=== PATIENT | male | born 1965 | race Caucasian/White ===

== ENCOUNTER → 2019-03-17 12:01 | Outpatient (CLI) | payer BC, SELFPAY ==
--- NOTE | 2019-03-17 12:15 | XR_ITS ---
XR chest 2V HISTORY: ITS.REASON: COUGH ORDERING PHYSICIAN: Filemon Alvarez MD PATIENT AGE: 53 years COMPARISON: None FINDINGS: The cardiomediastinal silhouette and pulmonary vascularity are within normal limits. The lungs are clear without infiltrates, suspicious nodules, or pleural effusions. There is evidence of old granulomatous disease. Degenerative changes are present in the thoracic spine No acute bony abnormalities. IMPRESSION: No acute finding
== END ==
PROVIDERS: PCP Family Medicine; Visit Provider Family Medicine
DX: R05 Cough (principal)
CPT/HCPCS: 71046

== ENCOUNTER → 2020-05-30 16:36 | Outpatient (CLI) | payer BC, SELFPAY ==
--- NOTE | 2020-05-30 16:57 | MR_ITS ---
PROCEDURE: MR CERVICAL SPINE WO CON CLINICAL INDICATION: LEFT FOREARM PAIN PAINFUL TO TURN NECK. PAIN, NUMBNESS, AND TINGLING DOWN LT ARM. SYMPTOMS X2YRS. NO INJURY. NO PRIOR. COMPARISON: No exams were available for comparison TECHNIQUE: Standard multiplanar multiecho sequences are performed without contrast. 3-D MIP and myelographic images are also rendered and reviewed FINDINGS: There is normal alignment. The craniocervical junction has an unremarkable appearance. C2-C3: Unremarkable. C3-C4: There is a small right paracentral/foraminal disc protrusion/disc osteophyte complex causing mild right lateral recess and foraminal narrowing. C4-C5: Unremarkable. C5-C6: Degenerative disc disease with bulging disc with small right and left paracentral and foraminal disc osteophyte complex/small disc protrusions. There is canal stenosis at this level at 9-10 mm with minimal contour deformity of the anterior aspect of the cord. C6-C7: Mild concentric bulging disc slightly eccentric to the left with a small left paracentral and foraminal disc osteophyte complex with canal stenosis of 9 mm the and minimal contour deformity of the left and anterior aspect of the cord. C7-T1: Unremarkable. T1-T2: Mild bulging disc. T2-T3: Mild bulging disc which abuts the anterior aspect of the cord only imaged in the sagittal plane.. IMPRESSION: 1. C3-C4: There is a small right paracentral/foraminal disc protrusion/disc osteophyte complex causing mild right lateral recess and foraminal narrowing. 2. C5-C6: Degenerative disc disease with bulging disc with small right and left paracentral and foraminal disc osteophyte complex/small disc protrusions. There is canal stenosis at this level at 9-10 mm with minimal contour deformity of the anterior aspect of the cord. 3. C6-C7: Mild concentric bulging disc slightly eccentric to the left with a small left paracentral and foraminal disc osteophyte complex with canal stenosis of 9 mm the and minimal contour deformity of the left and anterior aspect of the cord. 4. T2-T3: Mild bulging disc which abuts the anterior aspect of the cord only imaged in the sagittal plane.. Dictated by: Daniel Sandoval MD 06/01/2020 14:51 Daniel Sandoval MD in [place] 06/01/2020 14:51
== END ==
PROVIDERS: PCP Family Medicine; Visit Provider Family Medicine
DX: M79.632 Pain in left forearm (principal); G56.92 Unspecified mononeuropathy of left upper limb; M62.50 Muscle wasting and atrophy, not elsewhere classified, unspecified site; R94.131 Abnormal electromyogram [EMG]
CPT/HCPCS: 72141; 76376

== ENCOUNTER → 2020-07-01 10:57 | Outpatient (POV) | payer BC, SELFPAY ==
[2020-07-01 11:38] VITALS: BP 142/78; PULSE 85; RESP 18; TEMP 36.8; O2SAT 98; BMI 48.8
--- NOTE | 2020-07-01 15:43 | HMH.PMCON ---
Assessment and Plan (1) Degenerative disc disease, cervical Status: Chronic Category: Medical Code(s): M50.30 - Other cervical disc degeneration, unspecified cervical region (2) Cervical radiculopathy Status: Chronic Category: Medical Code(s): M54.12 - Radiculopathy, cervical region - Assessment and plan all Dx Assessment and Plan for all problems:: I discussed cervical epidural steroid injections with the patient. He would like to hold off on this. Patient would like a surgical consultation prior to any interventional treatment. Patient and I discussed his options in regard to this. He would like to be sent to [facility] neurosurgery. Patient does have an updated MRI. I did explain to him he would need to get the disc to take to the [place] office. Patient is unsure if his physical therapy has been scheduled I will ensure that this happens prior to him leaving today. Patient will follow up after he is seen by his neurosurgeon. Dr. Polanco has reviewed this note and agrees with this plan of care. This note was dictated using voice recognition software and may contain errors or omissions HPI - Data of Consult Patient: new to practice Consult date: 07/01/20 Requesting Physician: Avis Long APRN Primary Care Provider: Filemon Alvarez MD - Consult Narrative Reason for consult: Neck pain, arm pain History of present illness: Mr. Weiss is a 54 year old male who presents today for consultation regards to his neck and arm pain. He rates his pain today a 7 out of 10. Patient has neck pain radiating into his right shoulder. Patient has a updated MRI showing stenosis. Patient has been ordered physical therapy however he has not started it. Patient is tried anti-inflammatories with no success. Patient states that increased use increases his pain while heat and ice decreases pain. Patient is interested in potentially seeing a neurosurgeon. Patient states that his was seen by the [facility] neurosurgeons and they did surgery on her neck. CC: Avis Long APRN [facility] History I have reviewed the patient's past medical history: Yes Medical History: Reports:: Hypertension Denies:: Cancer, Diabetes Mellitus Type 2, MRSA *Have you ever received a pneumonia vaccine?: Yes *Have you received a flu vaccine this season?: Yes Laterality Cases: Right: Arthroscopy Shoulder Amputation: No Fractures: No - *Social History Smoking Status: Never smoker Alcohol Intake: never *Occupational Status:: other Housing: house Household Members: other *Travel in the last 8 weeks: None Family Hx:: Unable to obtain Review of Systems - Review of Systems ROS General: no recent weight change, no fever, no sleep disturbances Respiratory: no cough, no shortness of air, no recurring pulmonary infections Cardiovascular/Peripheral Vascular: No chest pain, No palpitations, no edema, no shortness of breath. Gastrointestinal: no new onset incontinence, normal bowel movements reported Genitourinary: no new onset incontinence Musculoskeletal: Neck pain, shoulder pain, arm pain Psychiatric: normal mood/ affect, Neurological: Weakness in left upper extremity, [denies new onset balance issues] Objective Vital signs: Temp Pulse Resp BP Pulse Ox 98.2 F 85 18 142/78 H 98 07/01/20 11:38 07/01/20 11:38 07/01/20 11:38 07/01/20 11:38 07/01/20 11:38 Narrative: Physical Exam General: Alert and oriented x3, no acute distress, pleasant and cooperative, [on room air] Lungs: Resps E/U, Symmetrical chest expansion, Eyes: PERRL Musculoskeletal: Flexion and extension of cervical spine somewhat guarded secondary to pain, deep tendon reflexes normal, strength in upper and lower extremities [5/5], slightly antalgic gait noted Neurological: speech clear, right economic development director greater than left economic development director, no gross sensory deficits Opioid Risk Tool - Opioid Risk Tool-Male Family hx alcohol abuse
== END ==
PROVIDERS: PCP Family Medicine; Visit Provider Clinical Nurse Specialist Family Health
DX: M50.10 Cervical disc disorder with radiculopathy, unspecified cervical region (principal)
CPT/HCPCS: 99202

== ENCOUNTER 2020-09-03 09:00 | Outpatient (RCR) | payer BC, SELFPAY ==
--- NOTE | 2020-08-21 18:13 | HMH.RHREAS ---
Rehab Reassessment Rehab OP Re-assessment Start: 08/21/20 18:05 Freq: Status: Active Protocol: Document 08/21/20 18:05 DRU (Rec: 08/21/20 18:12 DRU [id number]) Electronically Signed By Jossue Dominique, PT 08/21/20 18:05 Rehab Re-assessment Subjective Subjective Patient reports 50% improvement since start of care. I still have numbness in both hands, but it's not the whole hand anymore. Objective Objective Notes Cervical AROM: flx 54; ext 40; SBr 36; STl 32; Rr 48; Rl 52 MMT: WNL Neuro: dec sensation C6/C7 dermatomes B Pain: 3 currently; 3 at worst; 3 at best Special tests: + spurlings B Assessment Progress Assessment Progressing as Expected Assessment Notes Significant objective improvements as noted above compared to initial evaluation . Patient continues to have significantly decreased, but persistent radicular symptoms and pain. Patient has purchased a home cervical traction unit which he uses daily. Functional limitations with prolonged gripping and lifting activities persist. Patient goals met All except LTG 8 Goals Not Met LTG 8 Revised Goals NA Plan Plan Continue with current POC. Frequency of Therapy 2x/week Duration of therapy 3 weeks Time and Billing Re-Eval Time 15 Re-Eval Billing Units 1 PHYSICIAN CERTIFICATION: I certify the specified therapy services for Joel Weiss are required, authorized, and reviewed every 30 days.
== END 2020-09-03 09:05 | disposition home or self-care (01) ==
LOC: PT 09:00
PROVIDERS: PCP Family Medicine; Visit Provider Clinical Nurse Specialist Family Health
DX: M79.662 Pain in left lower leg; M79.661 Pain in right lower leg; M54.5 Low back pain
CPT/HCPCS: 97010; 97012; 97014; 97110; 97163; 97164; G0283

== ENCOUNTER → 2020-12-12 08:15 | Outpatient (CLI) | payer BC, SELFPAY ==
--- NOTE | 2020-12-12 08:34 | XR_ITS ---
PROCEDURE: XR CHEST PORTABLE CLINICAL HISTORY: COVID TESTING COMPARISON: No exams were available for comparison FINDINGS: The cardiomediastinal silhouette and pulmonary vascularity are within normal limits. The lungs are clear without infiltrates, suspicious nodules, or pleural effusions. Calcified lymph node in the left suprahilar region. ACDF of the lower cervical spine is partially visualized. IMPRESSION: No acute findings. Dictated by: Kelli Arambula 12/12/2020 13:20 Kelli Arambula in [place] 12/12/2020 13:20
[2020-12-12 09:05] LABS: Basophils # 0.1 K/mm3 (0-0.2); Basophils % 0.7 % (0.1-2.0); Eosinophils # 0.1 K/mm3 (0.0-0.4); Eosinophils % 1.2 % (0.1-12.0); Hematocrit 48.9 % (42.0-52.0); Hemoglobin 15.2 g/dL (14.1-18.0); Lymphocytes # 2.4 K/mm3 (0.7-4.5); Lymphocytes % 31.6 % (10-50); Mean Corpuscular HGB Conc 31.2 g/dL (31.8-35.4); Mean Corpuscular Hemoglobin 29.4 pg (27.0-31.2); Mean Corpuscular Volume 94.2 fl (80-94); Monocytes # 0.5 K/mm3 (0.1-1.0); Monocytes % 6.3 % (1.7-9.3); Neutrophils # 4.6 K/mm3 (1.8-7.8); Neutrophils % 60.2 % (37.0-80.0); Platelet Count 201 K/mm3 (142-424); Red Blood Count 5.19 M/mm3 (4.60-6.20); Red Cell Distribution Width 13.2 % (11.5-17.5); White Blood Count 7.6 K/mm3 (4.8-10.8)
== END ==
PROVIDERS: PCP Family Medicine; Visit Provider Family Medicine
DX: Z20.822 Contact with and (suspected) exposure to COVID-19 (principal)
CPT/HCPCS: 36415; 71045; 85025

== ENCOUNTER 2021-08-03 07:52 | Outpatient (CLI) | payer BC, SELFPAY ==
[2021-08-03] VITALS (8 sets, daily range): BP systolic 104–124; BP diastolic 50–70; PULSE 53–59; RESP 20–22; TEMP 37.1; O2SAT 93–97
== END 2021-08-03 10:35 | disposition home or self-care (01) ==
LOC: INF 07:53
PROVIDERS: PCP Family Medicine; Visit Provider Family Medicine
DX: U07.1 COVID-19 (principal); Z23 Encounter for immunization
CPT/HCPCS: 96365

== ENCOUNTER → 2021-08-22 11:59 | Outpatient (CLI) | payer BC, SELFPAY ==
--- NOTE | 2021-08-22 12:01 | XR_ITS ---
PROCEDURE: XR CHEST PORTABLE CLINICAL HISTORY: COVID OUTPATIENT COMPARISON: CR XR CHEST PORTABLE from 12/12/2020 FINDINGS: The cardiomediastinal silhouette and pulmonary vascularity are within normal limits. The lungs are clear without infiltrates, suspicious nodules, or pleural effusions. No acute bony abnormalities. Bone plate is present along lower cervical spine. IMPRESSION: No acute findings. Dictated by: Daniel Sandoval MD 08/22/2021 12:39 Daniel Sandoval MD in [place] 08/22/2021 12:39
[2021-08-22 13:24] LABS: Adenovirus,PCR Not Detected (NotDetected); Coronavirus 19, PCR Not Detected (NotDetected); Coronavirus 229E Not Detected (NotDetected); Coronavirus NL63 Not Detected (NotDetected); Coronavirus OC43 Not Detected (NotDetected); Coronovirus HKU1,PCR Not Detected (NotDetected); Human Metapneumovirus Not Detected (NotDetected); Influenza A, PCR Not Detected (NotDetected); Influenza AH1, 2009 Not Detected (NotDetected); Influenza AH1, PCR Not Detected (NotDetected); Influenza AH3,PCR Not Detected (NotDetected); Influenza B, PCR Not Detected (NotDetected); Parainfluenza 1, PCR Not Detected (NotDetected); Parainfluenza 2, PCR Not Detected (NotDetected); Parainfluenza 3, PCR Not Detected (NotDetected); Parainfluenza 4, PCR Not Detected (NotDetected); Respiratory Syncytial Virus Not Detected (NotDetected); Rhinovirus/Enterovirus Not Detected (NotDetected)
[2021-08-22 13:25] LABS: Bordetella Pertussis Not Detected (NotDetected); Chlamydophila Pneumoniae, PCR Not Detected (NotDetected); Mycoplasma Pneumoniae, PCR Not Detected (NotDetected)
[2021-08-22 13:40] LABS: Basophils % 0.6 % (0.1-2.0); Eosinophils # 0.1 K/mm3 (0.0-0.4); Hematocrit 43.6 % (42.0-52.0); Hemoglobin 14.5 g/dL (14.1-18.0); Lymphocytes # 1.5 K/mm3 (0.7-4.5); Lymphocytes % 27.7 % (10-50); Mean Corpuscular HGB Conc 33.2 g/dL (31.8-35.4); Mean Corpuscular Hemoglobin 30.3 pg (27.0-31.2); Mean Corpuscular Volume 91.1 fl (80-94); Mean Platelet Volume 8.2 fl (7.4-10.4); Monocytes # 0.4 K/mm3 (0.1-1.0); Monocytes % 6.6 % (1.7-9.3); Neutrophils # 3.5 K/mm3 (1.8-7.8); Neutrophils % 63.1 % (37.0-80.0); Platelet Count 228 K/mm3 (142-424); Red Blood Count 4.79 M/mm3 (4.60-6.20); Red Cell Distribution Width 12.8 % (11.5-17.5); White Blood Count 5.5 K/mm3 (4.8-10.8)
== END ==
PROVIDERS: PCP Family Medicine; Visit Provider Family Medicine
DX: Z20.822 Contact with and (suspected) exposure to COVID-19 (principal)
CPT/HCPCS: 36415; 71045; 85025; 87581; 87632; 87798; C9803; U0003; U0005

== ENCOUNTER 2022-04-30 16:46 | Emergency (ER) | payer BC, SELFPAY ==
[2022-04-30 17:29] VITALS: BP 130/69; PULSE 63; RESP 19; O2SAT 97; BMI 48.9
--- NOTE | 2022-04-30 17:55 | HMH.EDUTC ---
[facility] [place] Impression: COVID-19 Disposition: Home, Self-Care Condition on Discharge: Good Instructions: Preventing the Spread of Coronavirus Discharge Instructions, DI for COVID-19 (Suspected or Confirmed ) Additional Instructions: Drink plenty of fluids. Take tylenol or ibuprofen for pain or fever. Take the medications as directed. Follow up with your regular doctor. GO TO THE ER FOR ANY WORSENING SYMPTOMS Prescriptions: Ondansetron [Zofran 4mg ODT] 4 mg PO Q8HP PRN #12 tab PRN Reason: Nausea Transmission Status: Pending to [id number] dexAMETHasone [Decadron] 6 mg PO DAILY 6 Days #6 tab Transmission Status: Pending to [facility]/pharmacy #[id number] Nirmatrelvir/Ritonavir [Paxlovid 2X150 mg-100 mg (Eua)] 1 packet PO DIRECTED 5 Days #1 packet Transmission Status: Pending to [facility]/pharmacy #[id number] Referrals: Filemon Alvarez MD [Primary Care Provider] - Time of Disposition: 18:18 Medical Decision Making - Medical Records Medical records reviewed: No: I reviewed the patient's medical records. - [place]avez Inquiry Pt receiving controlled substance: No Vital Signs: 04/30/22 17:29 04/30/22 18:04 Temperature 98.7 F Temperature Source Oral Pulse Rate [Left Radial] 63 60 Respiratory Rate 19 20 Blood Pressure [Right Arm] 130/69 130/69 Blood Pressure Mean [Right Arm] 89 89 02 Sat by Pulse Oximetry 97 95 Oxygen Delivery Method Room Air [facility] [place] - General Stated complaint: covid+,PACKER congestion vomiting Time Seen by Provider: 04/30/22 17:55 Mode of Arrival: Ambulatory Source of Information: Patient Limitations: No Limitations Description of Symptoms (Recalled from Triage Doc. by RN): pt states he tested covid+ yesterday and states he has a headache and body aches. pt denies shortness of breath. pt denies chest pain. - History of Present Illness Provider Complaint: He tested + for covid-19 yesterday. He came in today to see about getting paxlovid prescribed. He had covid-19 about 1 year ago and he got pretty sick with it. He did not get intubated but he had a lot of trouble breathing then. - Related Data Previous Rx's Medication Instructions Recorded Nirmatrelvir/Ritonavir [Paxlovid 1 packet PO DIRECTED 5 Days #1 04/30/22 2X150 mg-100 mg (Eua)] packet Ondansetron [Zofran 4mg ODT] 4 mg PO Q8HP PRN #12 tab 04/30/22 dexAMETHasone [Decadron] 6 mg PO DAILY 6 Days #6 tab 04/30/22 Allergies Allergy/AdvReac Type Severity Reaction Status Date / Time No Known Allergies Allergy Verified 08/03/21 10:09 [facility] History - Hepatitis A Screen Attestation statement:: This patient has been screened for Hepatitis A risk factors. I have reviewed the patient's past medical history: Yes Medical History: Reports:: Hypertension Denies:: Cancer, Diabetes Mellitus Type 2, MRSA Laterality Cases: Right: Arthroscopy Shoulder Amputation: No Fractures: No - Social History Smoking Status: Never smoker Alcohol Intake: never Occupational Status: other Housing: house Household Members: other Family Hx:: Unable to obtain ROS Obtained: Yes All systems reviewed & no additional complaints - Constitutional Constitutional: Reports as per HPI - Eyes Eyes: Denies eye discharge - ENT Ears, Nose, Mouth, and Throat: Reports as per HPI - Cardiovascular Cardiovascular: Denies chest pain - Respiratory Respiratory: Denies chest congestion, Reports cough, Denies dyspnea, Denies stridor, Denies wheezing Physical Exam - General General appearance: alert, in no apparent distress - Head Head exam: atraumatic, normocephalic, normal inspection - Eye Eye exam: Present: normal appearance, PERRL, EOMI - ENT ENT exam: Present: normal exam, normal oropharynx, mucous membranes moist, TM's normal bilaterally, normal external ear exam - Neck Neck exam: Present: normal inspection, full ROM, trachea midline. Absent: meningismus, lymphadenopathy - Chest Chest inspection: P
[2022-04-30 18:04] VITALS: BP 130/69; PULSE 60; RESP 20; TEMP 37.1; O2SAT 95; BMI 48.9
[2022-04-30 18:32] VITALS: BP 130/69; PULSE 60; RESP 20; TEMP 37.1
== END 2022-04-30 18:32 | disposition home or self-care (01) ==
PROVIDERS: Emergency Provider Nurse Practitioner Family; PCP Family Medicine
DX: U07.1 COVID-19 (principal); R51.9 Headache, unspecified; I10 Essential (primary) hypertension; M79.10 Myalgia, unspecified site
CPT/HCPCS: 99213; C9803; G0463; U0003; U0005

== ENCOUNTER 2022-05-24 11:18 | Emergency (ER) | payer BC, SELFPAY ==
[2022-05-24 11:25] VITALS: BP 138/78; PULSE 67; RESP 18; TEMP 36.8; O2SAT 95; BMI 47.5
--- NOTE | 2022-05-24 11:28 | HMH.EDGENADL ---
Discharge Plan Disposition Patient Disposition: Home, Self-Care Condition: Good Prescriptions Prescriptions: New dicyclomine 20 mg tablet 20 mg PO TID PRN (Reason: cramps) Qty: 14 0RF No Action ondansetron 4 MG tablet,disintegrating 4 mg PO Q8HP PRN (Reason: Nausea) Qty: 12 0RF dexamethasone 6 MG tablet 6 mg PO DAILY 6 Days Qty: 6 0RF nirmatrelvir-ritonavir 1 EACH tablet 1 packet PO DIRECTED 5 Days Qty: 1 0RF Referrals Follow up/Referrals: Filemon Alvarez MD [Primary Care Provider] - See instructions Activity Restrictions/Add. Instructions Additional Instructions/Restrictions: You have been evaluated for abdominal pain. This is likely due to inflammation, colitis. Please follow a bland diet. Try a food elimination diet where you do not eat lactose for 1 week. Then no gluten for 1 week. See if this helps your symptoms. Follow-up with your primary care doctor in 1 to 2 days for symptom recheck. Return to the emergency department at once for any new or worsening symptoms, pain, vomiting, fevers, any other concerns. Clinical Impressions Clinical Impression: Abdominal pain Qualifiers: Abdominal location: left lower quadrant Qualified Code(s): R10.32 - Left lower quadrant pain Stand Alone Forms Stand Alone Forms: Work/School Release Discharge ED Provider: Aleta Conley Adult HPI General Chief complaint: PAIN Stated complaint: Left side pain Time Seen by Provider: 05/24/22 11:28 Mode of Arrival: Ambulatory Source of Information: Patient Limitations: No Limitations History of Present Illness HPI narrative: 56-year-old male presenting to the emergency department abdominal pain. Pain has been on and off for the last few days, worse overnight and this morning. It is located on the left side of the mid abdomen. Described as a pressure pain, feels like a bruise or like he was punched. Has been constant since onset. He has had loose stools over the last few days, denies blood or mucus. No fevers, chills, nausea, vomiting. No dysuria, hematuria, hx of kidney stone. He is able to eat and drink without pain or difficulty. No medications prior to arrival. He had a colonoscopy a couple of years ago, was not told of any abnormalities. Denies history of diverticulosis, diverticulitis. No prior abdominal surgeries. Related Data Previous Rx's Medication Instructions Recorded dexamethasone 6 mg tablet 6 mg PO DAILY 6 days #6 tabs 04/30/22 nirmatrelvir 300 mg (150 mg 1 packet PO DIRECTED 5 days #1 04/30/22 x2)-ritonavir 100 mg tablet,dose packet pack(EUA) ondansetron 4 mg disintegrating 4 mg PO Q8HP PRN Nausea #12 tabs 04/30/22 tablet dicyclomine 20 mg tablet 20 mg PO TID PRN cramps #14 tabs 05/24/22 Allergies Allergy/AdvReac Type Severity Reaction Status Date / Time No Known Allergies Allergy Verified 08/03/21 10:09 [facility] Social History Smoking Status: Never smoker alcohol intake: never current occupational status: other Travel in the last 8 weeks: None household members: other housing: house current occupational exposures/hazards: No ROS Obtained: Yes All systems reviewed & no additional complaints except as documented Constitutional Constitutional: Denies anorexia, Denies chills, Denies fever(s) and Denies headache(s) ENT Ears, Nose, Mouth, and Throat: Denies headache(s) and Denies sore throat Cardiovascular Cardiovascular: Denies chest pain and Denies palpitations Respiratory Respiratory: Denies shortness of breath and Denies cough Gastrointestinal Gastrointestingal: Reports abdominal pain; Denies bloating, constipation, cramping, diarrhea, nausea or vomiting Genitourinary Male Genitourinary: Denies flank pain and Denies hematuria Integumentary/Breasts Skin/Breast: Denies jaundice and Denies rash Neurologic Neurologic: Denies headache(s) Endocrine Endocrine: Denies palpitations Physical Exam General General appearance: in no appa
--- NOTE | 2022-05-24 11:39 | CT_ITS ---
PROCEDURE INFORMATION: Exam: CT Abdomen And Pelvis With Contrast Exam date and time: 05/24/2022 12:15 PM Age: 56 years old Clinical indication: Abdominal pain; Generalized TECHNIQUE: Imaging protocol: Computed tomography of the abdomen and pelvis with contrast. Radiation optimization: All CT scans at this facility use at least one of these dose optimization techniques: automated exposure control; mA and/or kV adjustment per patient size (includes targeted exams where dose is matched to clinical indication); or iterative reconstruction. Contrast material: ISOVUE; Contrast volume: 75 ml; Contrast route: IV; COMPARISON: CR XR CHEST PORTABLE 08/22/2021 12:24 PM FINDINGS: Liver: Normal. No mass. Gallbladder and bile ducts: Normal. No calcified stones. No ductal dilation. Pancreas: There is mild stranding about the head of the pancreas. No pancreatic ductal dilation. No fluid collections. Spleen: Normal. No splenomegaly. Adrenal glands: Normal. No mass. Kidneys and ureters: Normal. No hydronephrosis. Stomach and bowel: Unremarkable. No obstruction. No mucosal thickening. Appendix: No evidence of appendicitis. Intraperitoneal space: Unremarkable. No free air. No significant fluid collection. Vasculature: Unremarkable. No abdominal aortic aneurysm. Lymph nodes: Unremarkable. No enlarged lymph nodes. Urinary bladder: Unremarkable as visualized. Reproductive: Unremarkable as visualized. Bones/joints: Unremarkable. No acute fracture. Soft tissues: Small fat containing umbilical hernia. Other findings: Evidence of prior embolization of a left varicocele. IMPRESSION: Mild stranding about the head of the pancreas, which could be seen with mild interstitial pancreatitis.
[2022-05-24 11:48] LABS: Microscopic, Urine URINE MICROSCOPIC (MICROSCOPIC)
[2022-05-24 11:50] LABS: Basophils # 0.1 K/mm3 (0-0.2); Basophils % 0.9 % (0.1-2.0); Eosinophils # 0.2 K/mm3 (0.0-0.4); Eosinophils % 2.3 % (0.1-12.0); Hematocrit 47.1 % (42.0-52.0); Hemoglobin 15.4 g/dL (14.1-18.0); Lymphocytes # 2.2 K/mm3 (0.7-4.5); Lymphocytes % 34.5 % (10-50); Mean Corpuscular HGB Conc 32.7 g/dL (31.8-35.4); Mean Corpuscular Hemoglobin 30.3 pg (27.0-31.2); Mean Corpuscular Volume 92.7 fl (80-94); Mean Platelet Volume 8.3 fl (7.4-10.4); Monocytes # 0.4 K/mm3 (0.1-1.0); Monocytes % 6.1 % (1.7-9.3); Neutrophils # 3.5 K/mm3 (1.8-7.8); Neutrophils % 56.1 % (37.0-80.0); Platelet Count 153 K/mm3 (142-424); Red Blood Count 5.08 M/mm3 (4.60-6.20); Red Cell Distribution Width 13.3 % (11.5-17.5); White Blood Count 6.3 K/mm3 (4.8-10.8)
[2022-05-24 11:51] LABS: Appearance,Urine CLEAR (Clear); Bilirubin,Urine Negative (Negative); Blood, Urine Negative (Negative); Color,Urine YELLOW (Yellow); Glucose,Urine (UA) Negative (Negative); Ketones,Urine Negative (Negative); Leukocyte Esterase,Urine Negative (Negative); Nitrate,Urine Negative (Negative); PH,Urine 5.5 (5.0-8.5); Protein,Urine Negative (Negative); Specific Gravity, Urine >= 1.030 (1.005-1.030); Urobilinogen,Urine 0.2 EU/dl (0.2)
[2022-05-24 11:54] LABS: Chloride 109 mmol/L (98-107); Potassium 3.9 mmoL/L (3.5-5.1); Sodium 139 mmol/L (136-145)
[2022-05-24 11:56] LABS: Alanine Aminotransferase 49 U/L (12-78); Aspartate Amino Transferase 39 U/L (17-59); Blood Urea Nitrogen 20 mg/dl (9-20); Estimated Glomerular Filt Rate 63 ml/min (>60); GFR (African American) 76 ML/MIN (>60)
[2022-05-24 11:57] LABS: Albumin Level 4.2 g/dl (3.5-5.0); Albumin/Globulin Ratio 1.4 (1.1-1.8); Alkaline Phosphatase 77 U/L (38-126); Anion Gap 11.9 mEq/L (5-15); Bilirubin,Total 0.5 mg/dl (0.2-1.3); Carbon Dioxide 22 mmol/L (22.0-30.0); Glucose 139 mg/dl (74-100); Lipase 247 U/L (23-300); Total Protein,Serum 7.2 g/dl (6.3-8.2)
[2022-05-24 12:09] LABS: Bacteria,Urine Trace /lpf; Mucus,Urine Trace /lpf; Squamous Epithelial Cell,Urine Occasional #/hpf (0-5); WBC,Urine Occasional #/hpf (0-3)
--- NOTE | 2022-05-24 12:15 | PC.NURSE ---
pt to CT
[2022-05-24 12:45] VITALS: BP 112/67; PULSE 55; RESP 16; O2SAT 95
[2022-05-24 14:05] LABS: C-Reactive Protein 3.2 mg/L (0-4)
[2022-05-24 14:06] VITALS: BP 120/85; PULSE 64; RESP 18; TEMP 36.8; O2SAT 98
== END 2022-05-24 14:09 | disposition home or self-care (01) ==
PROVIDERS: Emergency Provider Emergency Medicine; PCP Family Medicine
DX: R10.9 Unspecified abdominal pain (principal)
CPT/HCPCS: 74177; 80053; 81001; 83690; 85025; 86140; 96374; 99284; Q9967

== ENCOUNTER → 2022-12-15 09:55 | Outpatient (CLI) | payer BC, SELFPAY ==
--- NOTE | 2022-12-15 10:08 | XR_ITS ---
FINAL REPORT CLINICAL HISTORY: b/l foot and ankle pain FINDINGS: RIGHT ANKLE Three views of the right ankle were obtained. There is no acute fracture or dislocation. There are hypertrophic changes along the dorsal aspect of the talonavicular joint. There is mild Heide's deformity. There is a tiny calcaneal spur. There is no soft tissue abnormality. IMPRESSION: Hypertrophic changes along the dorsal aspect of the talonavicular joint. Mild Heide's deformity. No acute bony abnormality. Reviewed, Interpreted and Dictated by Kevin Cartagena MD Transcribed by Karlie Driscoll Authenticated and [facility]
--- NOTE | 2022-12-15 10:08 | XR_ITS ---
FINAL REPORT CLINICAL HISTORY: b/l foot and ankle pain FINDINGS: RIGHT FOOT Three views of the right foot demonstrate no acute fracture or dislocation. There are hypertrophic changes along the dorsal aspect of the talonavicular joint. There is a tiny plantar spur. The soft tissues are unremarkable. IMPRESSION: Hypertrophic changes along the dorsal aspect of the talonavicular joint. No acute bony abnormality. Reviewed, Interpreted and Dictated by Kevin Cartagena MD Transcribed by Karlie Driscoll Authenticated and [facility]
--- NOTE | 2022-12-15 10:08 | XR_ITS ---
FINAL REPORT CLINICAL HISTORY: b/l foot and ankle pain FINDINGS: LEFT ANKLE Three views of the left ankle were obtained. There is no acute fracture or dislocation. The joint spaces and mortise are intact. There is a small plantar calcaneal spur. There is no soft tissue abnormality. IMPRESSION: No acute bony abnormality. Reviewed, Interpreted and Dictated by Kevin Cartagena MD Transcribed by Karlie Driscoll Authenticated and [facility]
--- NOTE | 2022-12-15 10:08 | XR_ITS ---
FINAL REPORT CLINICAL HISTORY: b/l foot and ankle pain FINDINGS: LEFT FOOT Three views of the left foot demonstrate no acute fracture or dislocation. There is mild narrowing of the 1st MTP joint. There is a small plantar calcaneal spur. The soft tissues are unremarkable. IMPRESSION: Mild narrowing of the 1st MTP joint. No acute bony abnormality. Reviewed, Interpreted and Dictated by Kevin Cartagena MD Transcribed by Karlie Driscoll Authenticated and [facility]
== END ==
PROVIDERS: PCP Family Medicine; Visit Provider Nurse Practitioner Family
DX: M25.572 Pain in left ankle and joints of left foot (principal); M79.672 Pain in left foot; M25.571 Pain in right ankle and joints of right foot; M79.671 Pain in right foot
CPT/HCPCS: 73610; 73630

== ENCOUNTER → 2023-01-25 14:07 | Outpatient (CLI) | payer BC, SELFPAY ==
--- NOTE | 2023-01-25 14:08 | CT_ITS ---
FINAL REPORT CLINICAL HISTORY: foot pain FINDINGS: CT RIGHT FOOT WITHOUT CONTRAST Technique: Axial images through the right foot were performed by computed tomography. Sagittal and coronal reconstruction images were performed. This study was performed with techniques to keep radiation doses as low as reasonably achievable (ALARA). Individualized dose reduction techniques using automated exposure control or adjustment of mA and/or kV according to the patient's size were employed. No acute fracture is identified. No dislocation identified. There are mild degenerative changes. There is deformity of the anterior process of the calcaneus of uncertain significance that could represent sequela of prior fracture. There is a small posterior calcaneal spur. IMPRESSION: Mild degenerative change. Reviewed, Interpreted and Dictated by Buster Fernandez III, MD Transcribed by Sesar Thomas Authenticated and [facility]
--- NOTE | 2023-01-25 14:08 | CT_ITS ---
FINAL REPORT CLINICAL HISTORY: ankle pain, hx of old fx, pain since FINDINGS: CT RIGHT ANKLEWITHOUT CONTRAST Technique: Axial images through the right ankle were performed by computed tomography. Sagittal and coronal reconstruction images were performed. This study was performed with techniques to keep radiation doses as low as reasonably achievable (ALARA). Individualized dose reduction techniques using automated exposure control or adjustment of mA and/or kV according to the patient's size were employed. No acute fracture is identified. No dislocation identified. There are mild degenerative changes. There is deformity of the anterior process of the calcaneus of uncertain significance that could represent sequela of prior fracture. There is a small posterior calcaneal spur. IMPRESSION: Mild degenerative change. Reviewed, Interpreted and Dictated by Buster Fernandez III, MD Transcribed by Sesar Thomas Authenticated and [facility]
== END ==
PROVIDERS: PCP Family Medicine; Visit Provider Podiatrist
DX: M25.371 Other instability, right ankle (principal); M79.671 Pain in right foot; M89.8X7 Other specified disorders of bone, ankle and foot
CPT/HCPCS: 73700

== ENCOUNTER → 2023-09-10 11:35 | Outpatient (CLI) | payer OTHER, SELFPAY ==
--- NOTE | 2023-09-10 11:41 | XR_ITS ---
FINAL REPORT CLINICAL HISTORY: RT SIDE LOW BACK PAIN W/SCIATICA FINDINGS: LUMBAR SPINE Six views demonstrate no acute fracture. There is significant disc space narrowing at L5-S1 with vacuum disc phenomenon and endplate hypertrophy. There is moderate loss of height at L4-5 1. The facets are properly aligned. There are multiple embolization coils in the left abdomen/pelvis, probably in the left gonadal vein. There is no malalignment. IMPRESSION: Degenerative changes as detailed above. Reviewed, Interpreted and Dictated by Kevin Cartagena MD Transcribed by Chrissie Tavares Authenticated and [facility]
== END ==
LOC: RAD 11:36
PROVIDERS: PCP Family Medicine; Visit Provider Family Medicine
DX: M54.41 Lumbago with sciatica, right side (principal); R29.898 Other symptoms and signs involving the musculoskeletal system
CPT/HCPCS: 72110

== ENCOUNTER 2023-10-04 08:00 | Outpatient (RCR) | payer OTHER, SELFPAY ==
--- NOTE | 2023-09-14 10:25 | HMH.PTOPEV ---
PT Outpatient Evaluation Rehab PT Outpatient Evaluation Start: 09/14/23 09:42 Freq: Status: Active Protocol: Document 09/14/23 10:08 JAYLENECAMPOS (Rec: 09/14/23 10:23 DRU [id number]) E-signed By Jossue Dominique, PT Outpatient Therapy Subjective History Subjective History Patient is a 58 year old male presenting to outpatient PT with reports of acute LBP with no reports of radicular symptoms. Initial injury occurred 08/18/23 while bending /lifting/twisting picking up a laundry basket. Symptoms specific to R QL mm. Special tests indicate R upslip of the innominant. Most recent imaging indicates multilevel DDD specific to L4/5, L5/S1 segments. Comorbidities include hx of HTN, diabetes and elevated BMI. New diagnosis of cancer in past 12 No months? Chief Complaint Pain,Spasms,Stiff Symptom Type Shooting Symptoms Relieved By Heat,Prescription Meds Symptoms Aggravated By Standing,Bending/Stooping, Physical Activity,Walking, Lifting Prior Functional Limitations None Current Functional Limitations Lifting,Housework,Sleeping, Standing,Sitting,Walking, Bending/Stooping Symptom Description Constant but Variable Level of pain today (0-10) 4 Pain scale - at its best (0-10) 2 Pain scale - at its worst (0-10) 9 Lumbopelvic Eval Posture Thoracic Spine Posture Standing Position Increased Kyphosis Lumbar Spine Posture Standing Position Decreased Lordosis Assistive device Assistive Devices None / NA Palapation tenderness right Lumbar/Sacral Palpation Findings Tenderness Lumbar/Sacral Palpation Overall Comment R QL mm 2/4 Accessory Movement L4 bilateral L5 bilateral S1 bilateral Range of Motion Lumbar Spine Active Flexion Range of 61 Motion (degrees) Lumbar Spine Active Extension Range of 21 Motion (degrees) Left Lumbar Spine Lateral Flexion Active 14 Range of Motion (degrees) Right Lumbar Spine Lateral Flexion 9 Active Range of Motion (degrees) Lumbar Spine ROM Limitations Soft Tissue Tightness,Bony Restriction Manual Muscle Test Right Knee Extension Strength Grade 5 Normal Knee Flexion Strength Grade 5 Normal Hip Flexion Strength Grade 4- Good- Extensor Hallucis Longus Strength Grade 5 Normal Ankle Dorsiflexion Strength Grade 5 Normal Gastronemius/Soleus Strength Grade 5 Normal Special Tests Hip Clemente (GUERO) Test Positive Left,Positive Right Hip Talia Test Positive Left,Positive Right Hip Piriformis Test Positive Left,Positive Right Sciatic Nerve Tension Test Positive Left,Positive Right Maxx Test Positive Sacroiliac Joint Compression Test Negative Left,Positive Right Sacroiliac Joint Distraction Test Negative Left,Positive Right Lumbar [place] Distraction Test/Manual Positive Traction Oswestry Index Section 1 Pain Intensity The pain is severe and does not vary much Section 2 Personal Care (Washing,Dresing) increase the pain and I find it necessary to change my way of doing it Section 3 Lifting Pain prevents me from lifting weights off the floor Section 4 Walking I cannot walk more than 1/4 mile without increasing pain Section 5 Sitting Pain prevents me from sitting for more than one hour Section 6 Standing I cannot stand more than 10 minutes without increasing pain Section 7 Sleeping Because of my pain, my normal night's sleep is less than 4 hours Section 8 Social Life Pain has restricted my social life to my home Section 9 Traveling Pain restricts me to short necessary journeys under 30 minutes Section 10 Changing Degreee of Pain My pain is gradually getting worse Score and Risk Level Oswestry Sc 35 Oswestry Risk Level Completely Disabled Outpatient Therapy Assessment Impairments Problems/Impairmments Palpation Tenderness,Impaired Range of Motion,Impaired Strength,Impaired Endurance, Impaired Transfers,Impaired Walking,Impaired Standing, Impaired Sitting,Impaired Lifting,Impaired Household Care,Impaired Bending,Impaired Work Activities,Subjective C/ O Pain Prognosis Rehab Potential Good Clinical Impression Consistent with Diagnosis Yes Short Term Goals Number of Weeks 2 Decrease Subjective C/O Pain Yes: 5/10 at worst Patient to be Ind w/ HEP Yes [facility] Goals Number of Weeks 4-6 Decreased Palpation Tenderness Yes: 1/4 Increase Range of Motion Yes: WNL Increase Strength Yes: R HF 5/5 Increase Ability to Walk Yes: 30 min without difficulty Increase Ability to Stand Yes: Improve Ability For Household Care Yes Improve Oswestry Score Yes: mild disability Decrease Subjective C/O Pain Yes: 2/10 at worst Outpatient Therapy Plan of Care Treatment Plan May Include Therapeutic Exercise Including Home Yes Exercise Program Manual Therapy Techniques Yes Neuromuscular Re-education Yes Therapeutic Activities to Return to Yes Previous Functional/Work Level ADL/Self Care Education Yes Mechanical Traction Yes Dry Needling Yes Thermal Modalities Yes Electrical Stimulation Yes Ultrasound/Phonophoresis Yes Iontophoresis Yes Massage Yes Eval/Re-Eval Yes Frequency Times per week 2 Duration Number of Weeks 4-6 Addendums This patient is a candidate for social No or vocational rehab? Patient/Guardian verbally acknowledges Yes understanding of treatment program and consents to further treatment? Patient/Guardian verbally acknowledges Yes understanding of diagnosis, prognosis and goals for treatment? Eval Complexity PT Charges 50514 - Moderate Complexity Shoulder/Elbow Eval Shoulder Objective Measurements Elbow Objective Measurements PHYSICIAN CERTIFICATION: I certify the specified therapy services for Joel Weiss are required, authorized, and reviewed every 30 days.
== END 2023-10-04 09:00 | disposition home or self-care (01) ==
LOC: PT 08:00
PROVIDERS: PCP Family Medicine; Visit Provider Family Medicine
DX: M54.50 Low back pain, unspecified (principal)
CPT/HCPCS: 97010; 97014; 97110; 97163; 97530; G0283

== ENCOUNTER 2023-10-15 13:47 | Outpatient (CLI) | payer OTHER, SELFPAY ==
--- NOTE | 2023-10-15 13:51 | MR_ITS ---
FINAL REPORT TECHNIQUE: Multiplanar MR without gadolinium enhancement CLINICAL HISTORY: BILAT. LOW BACK PAIN, RIGHT LEG WEAKNESS, DDD COMPARISON: None FINDINGS: Sagittal images show normal vertebral height. Alignment is normal. There is fatty endplate signal change at the L4 level. There is a 12 mm hypointense lesion in the inferior endplate of L4, which appears lucent on a CT of the lumbar spine. This is nonspecific, but is benign in appearance. There is epidural lipomatosis in the lower lumbar spine. L1-2: There is no evidence of canal stenosis or neural foraminal narrowing. L2-3: A minimal annular bulge is present with mild facet arthropathy. L3-4: There is a small annular bulge with facet arthropathy, mildly compromising the thecal sac. L4-5: A mild annular bulge is present, with significant epidural lipomatosis present which produces compromise of the thecal sac. Mild bilateral neural foraminal narrowing is present as well. L5-S1: A moderate annular bulge is present with a central annular tear, with mild canal stenosis and lateral recess stenosis, and moderate bilateral neural foraminal narrowing. IMPRESSION: Epidural lipomatosis in the lower lumbar spine which leads to narrowing of the AP canal diameter particularly at the L3-4, L4-5, and L5-S1 levels. Reviewed, Interpreted and Dictated by Julia Mancilla MD Transcribed by Jennifer Velasquez Authenticated and [facility]
== END 2023-10-15 23:59 ==
LOC: RAD 13:47
PROVIDERS: PCP Family Medicine; Visit Provider Family Medicine
DX: M51.36 Other intervertebral disc degeneration, lumbar region (principal); M54.50 Low back pain, unspecified; R29.898 Other symptoms and signs involving the musculoskeletal system
CPT/HCPCS: 72148; 76376

== ENCOUNTER → 2023-10-29 13:58 | Outpatient (POV) | payer OTHER, SELFPAY ==
--- NOTE | 2023-10-29 14:06 | EXP.PAIN.OV ---
HPI Data of Consult Patient: new to practice Consult date: 10/29/23 Requesting Physician: Orly Soria APRN Primary Care Provider: Filemon Alvarez MD Consult Narrative Reason for consult: Low back pain, bilateral hip pain, right groin pain History of present illness: Mr. Weiss is a 58 year old male who presents today as a new patient. He is a referral from Dr. Alvarez's office. He does state his pain today is a 6 out of 10. Patient states his pain is all in his low back with radiating symptoms into primarily his right hip and groin however it is affecting his left hip as well. Patient does describe this as a dull achy sensation that is worse with increased activity or ambulation. Patient states this has been going on since August and progressively worsened. He states the pain does interfere with his ability perform activities of daily living such as cooking and cleaning. Patient does state that he felt like he just twisted wrong causing the worsening pain. 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 Patient denies any prior surgery or injection history. Patient did just complete his physical therapy last week however had no additional improvement. Patient has tried [id number] Tylenol and ibuprofen along with heat and ice and topicals with minimal relief. He is currently managed with gabapentin 300 mg twice a day and tizanidine as needed. His Chavez has been reviewed and is appropriate. CC: Orly Soria APRN [facility] Disclaimer: The information contained in this section may have been updated after the patient was seen, as this information can be updated by other users. Medical History (Updated 10/29/23 @ 15:12 by Orly Soria APRN) Depression Diabetes HTN (hypertension) Pain, joint, ankle and foot Family History (Updated 10/29/23 @ 14:49 by Lesley Alfaro RN) Other Unknown family medical history Social History (Updated 10/29/23 @ 14:50 by Lesley Alfaro RN) Smoking Status: Never smoker alcohol intake: never current occupational status: employed Travel in the last 8 weeks: None household members: other housing: house current occupational exposures/hazards: No Review of Systems Review of Systems Review of systems:: pertinent systems reviewed and negative unless documented below Review of systems (narrative): Review of Systems: General: No recent weight changes, no fever, no sleep disturbances Respiratory: No cough, no shortness of air, no recurring pulmonary infections Cardiovascular/peripheral vascular: No chest pain, no palpitations, no edema, no shortness of breath Gastrointestinal: No new onset incontinence, normal bowel movements reported Genitourinary: No new onset incontinence Musculoskeletal: Low back pain, bilateral hip pain, right groin pain Psychiatric: [Normal mood/affect] Neurological: [Denies weakness in extremities], [denies balance issues] Meds Home Medications and Allergies Home Medications Medication Instructions Recorded Confirmed Type albuterol sulfate 90 mcg/actuation 2 puff inhalation DIRECTED PRN 12/15/22 10/29/23 History aerosol inhaler shortness of breath or wheezing duloxetine 60 mg capsule,delayed 60 mg PO DAILY 12/15/22 10/29/23 History release irbesartan 300 1 tab PO DAILY 12/15/22 10/29/23 History mg-hydrochlorothiazide 12.5 mg tablet ketoconazole 2 % topical cream 1 applic topical DIRECTED PRN 12/15/22 10/29/23 History Skin Condition loratadine 10 mg tablet 10 mg PO DAILY ALLERGIES 12/15/22 10/29/23 History metformin 500 mg tablet,extended 1,000 mg PO DAILY 12/15/22 10/29/23 History release 24 hr montelukast 10 mg tablet 10 mg PO DAILY 12/15/22 10/29/23 History propranolol 60 mg capsule,24 60 mg PO DAILY 12/15/22 10/29/23 History hr,extended release triamcinolone acetonide 0.1 % 1 applic topical DIRECTED PRN 12/15/22 10/29/23 History topical cream Skin Condition sitagliptin phosphate 100 mg 100 mg PO DAILY 12/25/22 10/29/23 History tablet (Januvia) New Prescriptions to Start Prescriptions: Allergies Allergy/AdvReac Type Severity Reaction Status Date / Time azithromycin [From Zithromax] AdvReac Severe Verified 12/25/22 09:46 Objective Narrative: Physical Exam: General: Alert and oriented x3, no acute distress, pleasant and cooperative Lungs: Respirations even and unlabored, symmetrical chest expansion Eyes: PERRL Musculoskeletal: Flexion and extension of lumbar [spine] somewhat guarded secondary to pain, [antalgic gait noted] point tenderness along bilateral SIs with positive bilateral Luis Armando's, Fernanda's, Gaenslen's, compression and distraction exam Neurological: Speech clear, no gross sensory deficit Additional findings Additional findings: FINDINGS: Sagittal images show normal vertebral height. Alignment is normal. There is fatty endplate signal change at the L4 level. There is a 12 mm hypointense lesion in the inferior endplate of L4, which appears lucent on a CT of the lumbar spine. This is nonspecific, but is benign in appearance. There is epidural lipomatosis in the lower lumbar spine. L1-2: There is no evidence of canal stenosis or neural foraminal narrowing. L2-3: A minimal annular bulge is present with mild facet arthropathy. L3-4: There is a small annular bulge with facet arthropathy, mildly compromising the thecal sac. L4-5: A mild annular bulge is present, with significant epidural lipomatosis present which produces compromise of the thecal sac. Mild bilateral neural foraminal narrowing is present as well. L5-S1: A moderate annular bulge is present with a central annular tear, with mild canal stenosis and lateral recess stenosis, and moderate bilateral neural foraminal narrowing. IMPRESSION: Epidural lipomatosis in the lower lumbar spine which leads to narrowing of the AP canal diameter particularly at the L3-4, L4-5, and L5-S1 levels. Reviewed, Interpreted and Dictated by Julia Mancilla MD Transcribed by Jennifer Velasquez Authenticated and [facility] Assessment and Plan *Assessment and plan (1) Degenerative disc disease, lumbar: Status: Acute Category: Medical Code(s): M51.36 - Other intervertebral disc degeneration, lumbar region (2) Low back pain: Status: Acute Qualifiers: Chronicity: chronic Back pain laterality: bilateral Sciatica presence: with sciatica Sciatica laterality: bilateral sciatica Qualified Code(s): M54.42 - Lumbago with sciatica, left side; M54.41 - Lumbago with sciatica, right side; G89.29 - Other chronic pain Category: Medical Code(s): M54.50 - Low back pain, unspecified (3) Lumbar spinal stenosis: Status: Acute Qualifiers: Neurogenic claudication status: with neurogenic claudication Qualified Code(s): M48.062 - Spinal stenosis, lumbar region with neurogenic claudication Category: Medical Code(s): M48.061 - Spinal stenosis, lumbar region without neurogenic claudication (4) Bilateral sacroiliitis: Status: Acute Category: Medical Code(s): M46.1 - Sacroiliitis, not elsewhere classified Plan Patient is experiencing worsening pain in his bilateral hips and low back with limited range of motion. Patient did have point tenderness along his bilateral SIs and a positive bilateral Luis Armando's, Fernanda's, Gaenslen's, compression and distraction exam. I have discussed with the patient that he may benefit from bilateral SI injections. Risk and benefits were discussed with the patient and he would like to proceed forward with this plan of care. Patient did also have significant findings on his lumbar epidural and I have discussed with the patient that I will refer him to neurosurgery for consult. Patient will be scheduled for bilateral SI injections under fluoroscopy. Patient has been instructed to contact the clinic with any concerns before the next appointment. Dr. Polanco has reviewed this note and agrees with this plan of care. This note was dictated using voice recognition software and make contain errors or omissions.
[2023-10-29 14:47] VITALS: BP 129/81; PULSE 53; RESP 20; O2SAT 95; BMI 50.5
== END ==
LOC: SC.PAIN 13:58
PROVIDERS: PCP Family Medicine; Visit Provider Nurse Practitioner Family
DX: M51.36 Other intervertebral disc degeneration, lumbar region (principal); M54.42 Lumbago with sciatica, left side; M54.41 Lumbago with sciatica, right side; G89.29 Other chronic pain; M48.062 Spinal stenosis, lumbar region with neurogenic claudication; M46.1 Sacroiliitis, not elsewhere classified
CPT/HCPCS: 99202; G0463

== ENCOUNTER 2023-11-16 13:43 | Day surgery (SDC) | payer OTHER, SELFPAY ==
[2023-11-16 14:01] VITALS: BP 139/82; PULSE 47; RESP 16; TEMP 36.3; O2SAT 97; BMI 50.5
--- NOTE | 2023-11-16 14:11 | P.PCN_ITS ---
Procedure Date: 11/16/23 Time: 14:00 Anesthesiologist:: Clemente Hull CRNA Complications:: None Pre-procedure Diagnosis:: Bilateral sacroiliitis Post-procedure Diagnosis:: Same Indications for Procedure:: Patient is a very pleasant 58-year-old male who comes our clinic today for bilateral sacroiliac joint injections. Patient describes low back pain as well as bilateral posterior hip pain. Patient reports having difficulty with ambulation due to posterior hip pain bilaterally. Patient also reports difficulty transitioning from sitting to standing. He rates his pain 8/10. Procedure Details:: Procedure: Bilateral sacroiliac joint injections under fluoroscopy Informed consent was obtained and the risks and benefits of the procedure were explained to the patient.~ The patient was taken to the procedure room and noninvasive monitors were placed including a noninvasive blood pressure cuff and pulse oximeter.~ The patient was placed prone on the procedure table. Both hips were cleansed using Betadine as a cleansing solution. C-arm fluoroscopy was used to view the right sacroiliac joint.~ The skin and subcutaneous tissues were anesthetized using lidocaine 1.5% and a 25-gauge needle.~ After this, a 22-gauge spinal needle was inserted under fluoroscopic guidance into the inferior aspect of the right sacroiliac joint.~ Omnipaque dye was injected and good spread was seen throughout the joint.~ After this, approximately 5 mL of bupivacaine, 0.25% and Depo-Medrol, 40 mg was incrementally injected into the right sacroiliac joint. We then moved to the left sacroiliac joint.~ The skin and subcutaneous tissues were anesthetized using lidocaine 1.5% and a 25-gauge needle.~ After this, a 22- gauge spinal needle was inserted under fluoroscopic guidance into the inferior aspect of the left sacroiliac joint.~ Omnipaque dye was injected and good spread was seen throughout the joint. After this, approximately 5 mL of bupivacaine, 0.25% and Depo-Medrol, 40 mg was incrementally injected into the left sacroiliac joint.~ The patient tolerated the procedure well with no complications. The patient was observed in the Pain Clinic and then was discharged home neurologically intact. Plan and Disposition:: Patient was discharged without incident.
[2023-11-16 14:12] VITALS: BP 148/77; PULSE 46; RESP 16; O2SAT 97
[2023-11-16] MEDS: LIDOCAINE 1% 5ML PF VIAL 5 ML (14:52)
[2023-11-16] MEDS: methylPREDNISolone ACETATE 80MG/ML VIAL 80 MG (14:52)
== END 2023-11-16 14:12 | disposition home or self-care (01) ==
PROVIDERS: PCP Family Medicine; Visit Provider Nurse Anesthetist, Certified Registered
DX: M46.1 Sacroiliitis, not elsewhere classified (principal)
CPT/HCPCS: 27096; G0260; J1040

== ENCOUNTER 2023-12-02 11:24 | Outpatient (POV) | payer OTHER, SELFPAY ==
[2023-12-02 11:32] VITALS: BP 148/88; PULSE 60; RESP 16; O2SAT 96; BMI 49.3
--- NOTE | 2023-12-02 11:53 | A.OFFVIS_ITS ---
[facility] Pain Management SOAP Note Subjective:: Patient is a pleasant 58-year-old male who presents today for follow-up of bilateral SI injections on 11/16/2023. Today he rates his pain a 5 out of 10. He denies any new trauma or injury. He does state that he did have at least 50% improvement following these injections however they only lasted approximately 3 days. Patient does state today that he is having a little bit more pain in his buttocks and upper leg area. Patient states that it is fairly constant and seems to be aggravated with prolonged positioning. He states that he did have some softball games he went to yesterday and seem like a long drive and that prolonged sitting on the bleachers aggravated his overall symptoms. Patient is managed with gabapentin and tizanidine from an outside provider. His Chavez has been reviewed and is appropriate. Review of Systems: General: No recent weight changes, no fever, no sleep disturbances Respiratory: No cough, no shortness of air, no recurring pulmonary infections Cardiovascular/peripheral vascular: No chest pain, no palpitations, no edema, no shortness of breath Gastrointestinal: No new onset incontinence, normal bowel movements reported Genitourinary: No new onset incontinence Musculoskeletal: Low back pain, buttocks pain, upper leg pain Psychiatric: [Normal mood/affect] Neurological: [Denies weakness in extremities], [denies balance issues] Objective:: Physical Exam: General: Alert and oriented x3, no acute distress, pleasant and cooperative Lungs: Respirations even and unlabored, symmetrical chest expansion Eyes: PERRL Musculoskeletal: Flexion and extension of lumbar [spine] somewhat guarded secondary to pain, [antalgic gait noted] extreme point tenderness along the lower lumbar spine Neurological: Speech clear, no gross sensory deficit Assessment:: Degenerative disc disease of lumbar spine with lumbar radiculopathy symptoms sacroiliitis Plan:: Patient is experiencing more pain in his low back that radiates into his buttocks and upper thighs. Patient did have limited range of motion of his lumbar spine during today's visit along with extreme point tenderness along the lower lumbar spine with palpation. I have counseled the patient in future I would recommend that he may benefit from a lumbar epidural steroid injection. Risk and benefits were discussed with the patient At this time he would like to wait and talk to his . I will order the patient a compounded cream and have him come back in 2 weeks for reevaluation of symptoms and plan of care. Patient has been instructed to contact the clinic with any concerns before the next appointment. Dr. Polanco has reviewed this note and agrees with this plan of care. This note was dictated using voice recognition software and make contain errors or omissions. [facility] Disclaimer: The information contained in this section may have been updated after the patient was seen, as this information can be updated by other users. Medical History Depression Diabetes HTN (hypertension) Pain, joint, ankle and foot Family History Other Unknown family medical history Social History Smoking Status: Never smoker alcohol intake: never current occupational status: other Travel in the last 8 weeks: None household members: other housing: house current occupational exposures/hazards: No
== END 2023-12-02 23:59 ==
LOC: SC.PAIN 11:24
PROVIDERS: PCP Family Medicine; Visit Provider Nurse Practitioner Family
DX: M51.16 Intervertebral disc disorders with radiculopathy, lumbar region (principal); M46.1 Sacroiliitis, not elsewhere classified
CPT/HCPCS: 99212; G0463

== ENCOUNTER 2023-12-15 14:03 | Outpatient (POV) | payer OTHER, SELFPAY ==
[2023-12-15 15:22] VITALS: BP 129/71; PULSE 51; RESP 16; O2SAT 97; BMI 48.6
--- NOTE | 2023-12-15 15:39 | EXP.PAIN.SOA ---
[facility] Pain Management SOAP Note Subjective:: Patient is a pleasant 58-year-old male who presents today for 2-week follow-up. Today he rates his pain a 4 out of 10 however states that will go up much higher with increased activity or ambulation. Patient denies any new trauma or injury. He does state that he continues to have pain in his low back that does radiate down into his hips and legs. He does state the pain is still fairly constant and is an aching, throbbing sensation with some numbness and tingling. He states the pain does interfere with his ability to perform activities of daily living such as cooking and cleaning or even simple ambulation. He states he cannot tolerate prolonged positioning due to the overall pain. He is scheduled for neurosurgery consult on the of this month. Patient at her last visit was discussed that we do think he would benefit from a lumbar epidural however he wanted time to speak with his . Today he does have her on the phone as well for this visit to go over additional questions and concerns. Patient is on gabapentin and tizanidine from an outside provider. Patient was also prescribed compounded cream from our last visit he states he has gotten it but has not yet tried it. His Chavez has been reviewed and is appropriate. Review of Systems: General: No recent weight changes, no fever, no sleep disturbances Respiratory: No cough, no shortness of air, no recurring pulmonary infections Cardiovascular/peripheral vascular: No chest pain, no palpitations, no edema, no shortness of breath Gastrointestinal: No new onset incontinence, normal bowel movements reported Genitourinary: No new onset incontinence Musculoskeletal: Low back pain, bilateral leg pain Psychiatric: [Normal mood/affect] Neurological: [Denies weakness in extremities], [denies balance issues] Objective:: Physical Exam: General: Alert and oriented x3, no acute distress, pleasant and cooperative Lungs: Respirations even and unlabored, symmetrical chest expansion Eyes: PERRL Musculoskeletal: Flexion and extension of lumbar [spine] somewhat guarded secondary to pain, [antalgic gait noted] Neurological: Speech clear, no gross sensory deficit FINDINGS: Sagittal images show normal vertebral height. Alignment is normal. There is fatty endplate signal change at the L4 level. There is a 12 mm hypointense lesion in the inferior endplate of L4, which appears lucent on a CT of the lumbar spine. This is nonspecific, but is benign in appearance. There is epidural lipomatosis in the lower lumbar spine. L1-2: There is no evidence of canal stenosis or neural foraminal narrowing. L2-3: A minimal annular bulge is present with mild facet arthropathy. L3-4: There is a small annular bulge with facet arthropathy, mildly compromising the thecal sac. L4-5: A mild annular bulge is present, with significant epidural lipomatosis present which produces compromise of the thecal sac. Mild bilateral neural foraminal narrowing is present as well. L5-S1: A moderate annular bulge is present with a central annular tear, with mild canal stenosis and lateral recess stenosis, and moderate bilateral neural foraminal narrowing. IMPRESSION: Epidural lipomatosis in the lower lumbar spine which leads to narrowing of the AP canal diameter particularly at the L3-4, L4-5, and L5-S1 levels. Reviewed, Interpreted and Dictated by Julia Mancilla MD Transcribed by Jennifer Velasquez Authenticated and [facility] Assessment:: Degenerative disc disease of lumbar spine with lumbar radiculopathy symptoms, sacroiliitis Plan:: Patient continues to have pain in his low back and legs with limited range of motion of his lumbar spine. I have discussed with the patient that I do believe he would still benefit from a lumbar epidural steroid injection. Risk and benefits were reviewed with both the patient and his . I have counseled the patient if he ends up going to his neurosurgery appointment and they do talk about doing surgical intervention that he can always call and postpone this injection due to the fact that typically there has to be a 3-month wait between steroid use and surgery. Patient acknowledges understanding. He would like to proceed forward with this plan of care. Patient will be scheduled for an LESI L4-L5 under fluoroscopy. Patient has tried and failed conservative therapy. I have also discussed with the patient due to his continued pain in his bilateral hips we will order x-ray imaging with the plan to also proceed forward with MRI without contrast of his hips. Patient does state that his right hip is more problematic than the left and I have counseled him that if there are restrictions that we cannot only do 1 joint with MRI imaging that we will do the worst side first. Patient agrees with this plan of care. Patient has been instructed to contact the clinic with any concerns before the next appointment. Dr. Polanco has reviewed this note and agrees with this plan of care. This note was dictated using voice recognition software and make contain errors or omissions. [facility] Disclaimer: The information contained in this section may have been updated after the patient was seen, as this information can be updated by other users. Medical History Depression Diabetes HTN (hypertension) Pain, joint, ankle and foot Family History Other Unknown family medical history Social History Smoking Status: Never smoker alcohol intake: never current occupational status: other Travel in the last 8 weeks: None household members: other housing: house current occupational exposures/hazards: No
== END 2023-12-15 23:59 ==
LOC: SC.PAIN 14:03
PROVIDERS: PCP Family Medicine; Visit Provider Nurse Practitioner Family
DX: M51.16 Intervertebral disc disorders with radiculopathy, lumbar region (principal); M46.1 Sacroiliitis, not elsewhere classified
CPT/HCPCS: 99212; G0463

== ENCOUNTER 2023-12-16 10:21 | Outpatient (CLI) | payer OTHER, SELFPAY ==
--- NOTE | 2023-12-16 10:26 | XR_ITS ---
FINAL REPORT CLINICAL HISTORY: AVA HIP PAIN COMPARISON: None FINDINGS: LEFT HIP: Two views of the left hip demonstrate no acute fracture or dislocation. There is mild degenerative change. There are postoperative changes in the left pelvis. The visualized bony structures are well aligned. No soft tissue abnormality is seen. IMPRESSION: Mild degenerative change without acute bony abnormality. Reviewed, Interpreted and Dictated by Buster Fernandez III, MD Transcribed by Rosalina Silva Authenticated and [facility]
--- NOTE | 2023-12-16 10:26 | XR_ITS ---
FINAL REPORT CLINICAL HISTORY: AVA HIP PAIN COMPARISON: None FINDINGS: RIGHT HIP Two views of the right hip and an AP view of the pelvis demonstrate no acute fracture or dislocation. There is mild degenerative change. There are postoperative changes in the left pelvis. The visualized bony structures are well aligned. No soft tissue abnormality is seen. IMPRESSION: Mild degenerative change without acute bony abnormality. Reviewed, Interpreted and Dictated by Buster Fernandez III, MD Transcribed by Rosalina Silva Authenticated and [facility]
== END 2023-12-16 23:59 ==
LOC: RAD 10:22
PROVIDERS: PCP Family Medicine; Visit Provider Nurse Practitioner Family
DX: M25.551 Pain in right hip (principal); M25.552 Pain in left hip
CPT/HCPCS: 73502

== ENCOUNTER → 2024-01-04 11:53 | Day surgery (SDC) | payer OTHER, SELFPAY ==
[2024-01-04 12:04] VITALS: BP 116/73; PULSE 50; RESP 16; TEMP 36.4; O2SAT 95; BMI 49.4
[2024-01-04 12:12] VITALS: BP 167/74; PULSE 49; RESP 18; O2SAT 95
--- NOTE | 2024-01-04 12:12 | EXP.PAIN.PRO ---
Procedure Date: 01/04/24 Time: 12:00 Anesthesiologist:: Clemente Hull CRNA Complications:: None Pre-procedure Diagnosis:: Degenerative disc lumbar spine multilevels. Lumbar radiculopathy. Post-procedure Diagnosis:: Same. Indications for Procedure:: Patient is a very pleasant 58-year-old male that comes our clinic today for lumbar epidural steroid injection at the L4-5 level. Patient reports low back pain that he describes as constant, dull, aching. Patient also reports bilateral hip and leg radicular symptoms. He rates his pain 6/10. Procedure Details:: Procedure: Lumbar epidural steroid injection under fluoroscopy Informed consent was obtained and the risks and benefits of the procedure were explained to the patient. The patient was taken to the procedure room and noninvasive monitors placed, including noninvasive blood pressure cuff and pulse oximeter. The back was viewed using C-arm Fluoroscopy and prepped using Chloraprep as a cleansing solution and the L4-L5 interspace was palpated. Skin and subcutaneous tissues were anesthetized using lidocaine 1.5% and a 25-gauge needle. After this, an 18-gauge Touhy epidural needle was placed into the L4-L5 interspace and advanced using fluoroscopic guidance and loss of resistance to air until the epidural space was encountered. After confirmation of needle placement in the epidural space, with dye, a solution containing normal saline, 3 mL and Depo-Medrol 80 mg were incrementally injected into the lumbar epidural space. The patient tolerated the procedure well with no complications. The patient was observed in the Pain Clinic and then discharged home neurologically intact. Plan and Disposition:: Patient was discharged without incident.
[2024-01-04] MEDS: methylPREDNISolone ACETATE 80MG/ML VIAL 80 MG (12:31)
--- NOTE | 2024-01-04 13:18 | MR_ITS ---
FINAL REPORT CLINICAL HISTORY: BILAT HIP PAIN COMPARISON: None FINDINGS: Multiplanar MR imaging of the right hip was performed without contrast. There is mild narrowing of the hip joint space. The femoral head has a normal smooth contour. There is no evidence of fracture or dislocation. There is no evidence of marrow edema. There is no evidence of avascular necrosis. No bony mass is identified. No labral tear is identified. No significant joint effusion is seen. The tendons are intact. The musculature is intact. No soft tissue mass or cyst is identified. IMPRESSION: Mild degenerative change without acute findings. Reviewed, Interpreted and Dictated by Kevin Cartagena MD Transcribed by Rosalina Silva Authenticated and [facility]
--- NOTE | 2024-01-04 13:18 | MR_ITS ---
FINAL REPORT CLINICAL HISTORY: HIP PAIN COMPARISON: None FINDINGS: Multiplanar MR imaging of the left hip was performed without contrast. There is mild narrowing of the hip joint space. The femoral head has a normal smooth contour. There is no evidence of fracture or dislocation. There is no evidence of marrow edema. There is no evidence of avascular necrosis. No bony mass is identified. No labral tear is identified. No significant joint effusion is seen. The tendons are intact. The musculature is intact. No soft tissue mass or cyst is identified. IMPRESSION: Degenerative change without acute findings. Reviewed, Interpreted and Dictated by Kevin Cratagena MD Transcribed by Rosalina Silva Authenticated and [facility]
== END ==
PROVIDERS: PCP Family Medicine; Visit Provider Nurse Anesthetist, Certified Registered
DX: M51.16 Intervertebral disc disorders with radiculopathy, lumbar region (principal)
CPT/HCPCS: 62323; 73721; J1010

== ENCOUNTER 2024-01-15 11:18 | Emergency (ER) | payer OTHER, SELFPAY ==
[2024-01-15] VITALS (9 sets, daily range): BP systolic 117–158; BP diastolic 61–96; PULSE 66–89; RESP 16–20; TEMP 36.3–36.7; O2SAT 96–99; BMI 46.7
--- NOTE | 2024-01-15 12:06 | PC.NURSE ---
Dr. Robertson at [facility] for pt eval
--- NOTE | 2024-01-15 12:08 | CT_ITS ---
PROCEDURE INFORMATION: Exam: CT Abdomen And Pelvis With Contrast Exam date and time: 01/15/2024 1:51 PM Age: 58 years old Clinical indication: Abdominal pain; Additional info: Llq pain TECHNIQUE: Imaging protocol: Computed tomography of the abdomen and pelvis with contrast. Radiation optimization: All CT scans at this facility use at least one of these dose optimization techniques: automated exposure control; mA and/or kV adjustment per patient size (includes targeted exams where dose is matched to clinical indication); or iterative reconstruction. Contrast material: ISOVUE; Contrast volume: 75 ml; Contrast route: IV; COMPARISON: CT ABDOMEN PELVIS W CON 05/24/2022 12:15 PM FINDINGS: Liver: Decreased density throughout the liver compatible with hepatic steatosis. Gallbladder and bile ducts: Gallbladder unremarkable Pancreas: Pancreas unremarkable Spleen: Splenic granuloma Adrenal glands: Adrenal glands unremarkable. Kidneys and ureters: No hydronephrosis. Stomach and bowel: Unremarkable. No obstruction. No mucosal thickening. Colonic diverticulosis. No evidence of diverticulitis. Appendix: No evidence of appendicitis. Intraperitoneal space: Unremarkable. No free air. No significant fluid collection. Vasculature: Unremarkable. No abdominal aortic aneurysm. Lymph nodes: Unremarkable. No enlarged lymph nodes. Urinary bladder: Unremarkable as visualized. Reproductive: Prostatic calcifications Bones/joints: Lumbar spondylosis with multilevel disc degeneration. Soft tissues: Fat filled umbilical hernia Other findings: Postoperative changes consistent with previous embolization therapy IMPRESSION: No evidence of acute abnormality.
--- NOTE | 2024-01-15 12:09 | ED_ITS ---
Discharge Plan Disposition Patient Disposition: Home, Self-Care Condition: Good Prescriptions Prescriptions: New ondansetron 8 mg tablet,disintegrating 8 mg PO Q8H PRN (Reason: nausea and vomiting) 5 Days Qty: 15 0RF No Action propranolol 60 mg capsule,extended release 24 hr 60 mg PO DAILY duloxetine 60 mg capsule,delayed release(DR/EC) 60 mg PO DAILY Patient Comments: TAKE 1 CAPSULE BY MOUTH EVERY DAY FOR 30 DAYS ketoconazole 2 % cream 1 applic topical DIRECTED PRN (Reason: Skin Condition) irbesartan-hydrochlorothiazide 300-12.5 mg tablet 1 tab PO DAILY Patient Comments: TAKE 1 TABLET BY MOUTH EVERY DAY FOR 90 DAYS albuterol sulfate 90 mcg/actuation HFA aerosol inhaler 2 puff inhalation DIRECTED PRN (Reason: shortness of breath or wheezing) metformin 500 mg tablet extended release 24 hr 1,000 mg PO DAILY Patient Comments: TAKE 2 TABLETS BY MOUTH EVERY DAY FOR 90 DAYS triamcinolone acetonide 0.1 % cream 1 applic topical DIRECTED PRN (Reason: Skin Condition) Patient Comments: APPLY TOPICALLY TO THE AFFECTED AREA TWICE A DAY montelukast 10 mg tablet 10 mg PO DAILY Patient Comments: TAKE 1 TABLET BY MOUTH EVERY DAY loratadine 10 mg tablet 10 mg PO DAILY Patient Comments: TAKE 1 TABLET BY MOUTH EVERY DAY FOR 30 DAYS Januvia 100 mg tablet 100 mg PO DAILY Referrals Follow up/Referrals: Filemon Alvarez MD [Primary Care Provider] - See instructions Activity Restrictions/Add. Instructions Additional Instructions/Restrictions: You have been evaluated in the ED for your complaints. You may follow-up with your PCP in the next 3 to 5 days. Please return to ED for any new or worsening symptoms. Please drink plenty of fluids over the next several days. You may take Tylenol or ibuprofen to assist with pain. If you begin to have any bloody stools and fevers in the setting of your left lower quadrant pain, please return to ED for further management. Clinical Impressions Clinical Impression: Abdominal pain, left lower quadrant, Nausea vomiting and diarrhea Instructions Patient Instructions: DI for Diarrhea and Traveler's Diarrhea -- Adult, DI for Diarrhea and Traveler's Diarrhea -- Child, DI for Nausea -- Adult, DI for Nausea -- Child Discharge ED Provider: Pradeep Roberston Adult HPI General Chief complaint: Nausea/Vomiting/Diarrhea Stated complaint: v/d day 3 Time Seen by Provider: 01/15/24 12:03 Mode of Arrival: Ambulatory Source of Information: Patient Limitations: No Limitations Description of Symptoms (Recalled from ER Triage Doc. by RN): Patient complaint of N/V/D for three days. History of Present Illness HPI narrative: 58-year-old male with past medical history significant for hypertension, DM2, lumbar disc disease, presents today with spouse for evaluation concerning nausea, vomiting and diarrhea, nonbloody, present over the past 3 days. Also reports left lower quadrant abdominal pain rated as a 7 out of 10. Reports subjective fevers and chills. Denies any chest pain, shortness of breath, dysuria or hematuria. No further complaints. Related Data Home Medications Medication Instructions Recorded Confirmed albuterol sulfate 90 mcg/actuation 2 puff inhalation DIRECTED PRN 12/15/22 01/04/24 aerosol inhaler shortness of breath or wheezing duloxetine 60 mg capsule,delayed 60 mg PO DAILY 12/15/22 01/04/24 release irbesartan 300 1 tab PO DAILY 12/15/22 01/04/24 mg-hydrochlorothiazide 12.5 mg tablet ketoconazole 2 % topical cream 1 applic topical DIRECTED PRN 12/15/22 01/04/24 Skin Condition loratadine 10 mg tablet 10 mg PO DAILY ALLERGIES 12/15/22 01/04/24 metformin 500 mg tablet,extended 1,000 mg PO DAILY 12/15/22 01/04/24 release 24 hr montelukast 10 mg tablet 10 mg PO DAILY 12/15/22 01/04/24 propranolol 60 mg capsule,24 60 mg PO DAILY 12/15/22 01/04/24 hr,extended release triamcinolone acetonide 0.1 % 1 applic topical DIRECTED PRN 12/15/22 01/04/24 topical cream Skin Condition sitagliptin phosphate 100 mg 100 mg PO DAILY 12/25/22 01/04/24 tablet (Januvia) Previous Rx's Medication Instructions Recorded ondansetron 8 mg disintegrating 8 mg PO Q8H PRN nausea and 01/15/24 tablet vomiting 5 days #15 tabs Allergies Allergy/AdvReac Type Severity Reaction Status Date / Time azithromycin [From Zithromax] AdvReac Severe Verified 01/04/24 12:05 [facility] Disclaimer: The information contained in this section may have been updated after the patient was seen, as this information can be updated by other users. Medical History (Updated 01/15/24 @ 15:16 by Pradeep Robertson DO) Depression Diabetes HTN (hypertension) Pain, joint, ankle and foot Family History Other Unknown family medical history Social History Smoking Status: Unknown if ever smoked alcohol intake: never current occupational status: other Travel in the last 8 weeks: None household members: other housing: house current occupational exposures/hazards: No ROS Obtained: Yes All systems reviewed & no additional complaints except as documented Physical Exam General General appearance: alert and in no apparent distress Head Head exam: atraumatic and normocephalic Eye Eye exam: Present normal appearance, PERRL and EOMI ENT ENT exam: Present normal oropharynx and mucous membranes moist Neck Neck exam: Present full ROM; Absent meningismus Respiratory Respiratory exam: Absent respiratory distress, wheezes, stridor or accessory muscle use Cardiovascular Cardiovascular exam: Present normal rhythm Abdominal Exam Abdominal exam: Present soft and tenderness; Absent distention, guarding, rebound or rigidity Abdominal tenderness: Present LLQ Neurological Exam Neurological exam: Present alert, oriented X3 and CN II-XII intact; Absent motor sensory deficit Psychiatric Psychiatric exam: Present normal affect and normal mood Skin Skin exam: Present warm and dry Medical Decision Making Medical Records Medical records reviewed: Yes I reviewed the patient's medical records. Chavez Inquiry Pt receiving controlled substance: No Chavez was queried for this patient: No Vital Signs: 01/15/24 11:19 01/15/24 11:24 01/15/24 11:26 Temperature 97.4 F L 97.4 F L Temperature Source Oral Oral Pulse Rate 89 89 Pulse Rate [Radial] 88 Respiratory Rate 16 18 20 Blood Pressure 158/96 H 158/96 H Blood Pressure [Right Arm] 158/96 H Blood Pressure Mean 124 Blood Pressure Mean [Right Arm] 116 Blood Pressure Source Automatic Cuff Blood Pressure Source [Right Arm] Automatic Cuff Blood Pressure Position Sitting Blood Pressure Position [Right Arm] Sitting 02 Sat by Pulse Oximetry 99 96 97 Oxygen Delivery Method Room Air Room Air 01/15/24 12:21 01/15/24 12:30 01/15/24 13:00 Temperature Temperature Source Pulse Rate 79 Pulse Rate [Radial] Respiratory Rate Blood Pressure 120/69 138/65 133/61 Blood Pressure [Right Arm] Blood Pressure Mean 86 90 85 Blood Pressure Mean [Right Arm] Blood Pressure Source Blood Pressure Source [Right Arm] Blood Pressure Position Blood Pressure Position [Right Arm] 02 Sat by Pulse Oximetry Oxygen Delivery Method 01/15/24 13:30 01/15/24 14:00 Temperature Temperature Source Pulse Rate Pulse Rate [Radial] Respiratory Rate Blood Pressure 117/66 132/75 Blood Pressure [Right Arm] Blood Pressure Mean 82 84 Blood Pressure Mean [Right Arm] Blood Pressure Source Blood Pressure Source [Right Arm] Blood Pressure Position Blood Pressure Position [Right Arm] 02 Sat by Pulse Oximetry Oxygen Delivery Method Lab Data Lab Results 01/15/24 12:19: WBC 9.8, RBC 5.61, Hgb 17.2, Hct 52.9 H, MCV 94.3 H, MCH 30.6, MCHC 32.5, RDW 14.2, Plt Count 166, MPV 8.8, Neut % (Auto) 80.6 H, Lymph % (Auto) 13.5, Pickett % (Auto) 5.2, Eos % (Auto) 0.3, Baso % (Auto) 0.4, Neut # (Auto) 7.9 H, Lymph # (Auto) 1.3, Pickett # (Auto) 0.5, Eos # (Auto) 0.0, Baso # (Auto) 0.0, Sodium 138, Potassium 3.8, Chloride 108 H, Carbon Dioxide 20 L, Anion Gap 13.8, BUN 20, Creatinine 1.60 H, Estimated Creat Clear 63, Estimated GFR 45 L, Est GFR ( Amer) 54 L, Glucose 147 H, Lactate 1.1, Calcium 9.9, Total Bilirubin 1.4 H, AST 42, ALT 58, Alkaline Phosphatase 82, Total Protein 7.7, Albumin 4.4, Globulin 3.3 H, Albumin/Globulin Ratio 1.3, Lipase 70 01/15/24 12:19 01/15/24 12:19 Orders (Tests/Meds): ED MEDICATIONS Discontinued Medications Generic Name Dose Route Start Last Admin Trade Name Freq PRN Reason Stop Dose Admin Lactated Ringer's 1,000 mls @ 999 mls/hr 01/15/24 12:02 01/15/24 12:10 Lactated Ringer's 1000 Ml Bag IV 01/15/24 13:02 999 mls/hr .Q1H1M ONE Administration Lactated Ringer's 1,000 mls @ 999 mls/hr 01/15/24 13:14 01/15/24 13:36 Lactated Ringer's 1000 Ml Bag IV 01/15/24 14:14 Not Given .Q1H1M ONE Iopamidol 75 ml 01/15/24 13:55 01/15/24 13:56 Iopamidol-370 (76%);100ml Bottle IV 01/15/24 13:56 75 ml ONCE ONE Administration Morphine Sulfate 4 mg 01/15/24 12:12 01/15/24 12:18 Morphine 4mg/Ml Syringe IV 01/15/24 12:13 4 mg ONCE ONE Administration Ondansetron HCl 4 mg 01/15/24 12:02 01/15/24 12:10 Ondansetron 4mg/2ml Vial IV 01/15/24 12:03 4 mg ONCE ONE Administration Sodium Chloride 10 ml 01/15/24 13:55 01/15/24 13:56 Sodium Chloride 0.9% 10ml Syr (Rad Only) IV 01/15/24 13:56 10 ml ONCE ONE Administration ORDERS Category Date Time Status CT abdomen pelvis w con Stat Cat Scan 01/15/24 12:08 Completed CMP [Comprehensive Metabolic Panel] Stat Lab 01/15/24 12:19 Completed Complete Blood Count Auto Diff Stat Lab 01/15/24 12:19 Completed Lactic Acid Stat Lab 01/15/24 12:19 Completed Lipase Stat Lab 01/15/24 12:19 Completed Medical Decision Narrative: 58-year-old male with past medical history significant for hypertension, DM2, lumbar disc disease, presents today with spouse for evaluation concerning nausea, vomiting and diarrhea, nonbloody, present over the past 3 days. Also reports left lower quadrant abdominal pain rated as a 7 out of 10. Reports subjective fevers and chills. On assessment the patient was medically stable and in no acute distress. Afebrile. Tenderness palpation in the left lower quadrant without rebound or guarding. Abdomen was soft and nondistended. Chest clear to station bilaterally. Other physical findings unremarkable differential diagnoses include but limited to diverticulitis, gastroenteritis, gastritis, viral syndrome among others. No elevation in WBC at 9.8 today. Chloride 108, likely elevated due to patient's vomiting. Carbon dioxide at 20. Creatinine 1.60. Patient did receive a 1 L fluid bolus while in the ED. CT abdomen pelvis was without any acute abnormalities. On reassessment the patient medically stable and in no acute distress. Pain improved at this time. Able to tolerate oral intake with fluids without nausea or vomiting. I discussed ED workup and results and clinical diagnosis of a viral gastroenteritis with plan to treat at home with supportive care measures. Will send home with Reji to further assist. Provided with return ED precautions and instructions concerning follow-up. Verbalized understanding agreement. Subsequent discharged home hemodynamically stable and in no distress. Critical Care Critical Care Time Critical Care Time: No
[2024-01-15] MEDS: LACTATED RINGERS 1000ML 1,000 ML 999 ML IV (12:10)
[2024-01-15] MEDS: ONDANSETRON 4MG/2ML VIAL 4 MG IV (12:10)
[2024-01-15] MEDS: MORPHINE 4MG/ML SYRINGE 4 MG IV (12:18)
[2024-01-15 12:30] LABS: Basophils % 0.4 % (0.1-2.0); Eosinophils % 0.3 % (0.1-12.0); Hematocrit 52.9 % (42.0-52.0); Hemoglobin 17.2 g/dL (14.1-18.0); Lymphocytes # 1.3 K/mm3 (0.7-4.5); Lymphocytes % 13.5 % (10-50); Mean Corpuscular HGB Conc 32.5 g/dL (31.8-35.4); Mean Corpuscular Hemoglobin 30.6 pg (27.0-31.2); Mean Corpuscular Volume 94.3 fl (80-94); Mean Platelet Volume 8.8 fl (7.4-10.4); Monocytes # 0.5 K/mm3 (0.1-1.0); Monocytes % 5.2 % (1.7-9.3); Neutrophils # 7.9 K/mm3 (1.8-7.8); Neutrophils % 80.6 % (37.0-80.0); Platelet Count 166 K/mm3 (142-424); Red Blood Count 5.61 M/mm3 (4.60-6.20); Red Cell Distribution Width 14.2 % (11.5-17.5); White Blood Count 9.8 K/mm3 (4.8-10.8)
[2024-01-15 12:54] LABS: Chloride 108 mmol/L (98-107)
[2024-01-15 12:55] LABS: Potassium 3.8 mmoL/L (3.5-5.1); Sodium 138 mmol/L (136-145)
[2024-01-15 12:57] LABS: Alanine Aminotransferase 58 U/L (12-78); Alkaline Phosphatase 82 U/L (38-126); Anion Gap 13.8 mEq/L (5-15); Aspartate Amino Transferase 42 U/L (17-59); Bilirubin,Total 1.4 mg/dl (0.2-1.3); Blood Urea Nitrogen 20 mg/dl (9-20); Carbon Dioxide 20 mmol/L (22.0-30.0); Creatinine Clearance Estimated 63 mL/min (50-200); Estimated Glomerular Filt Rate 45 ml/min (>60); GFR (African American) 54 ML/MIN (>60); Lactic Acid 1.1 mmol/L (0.7-2.1)
[2024-01-15 12:58] LABS: Albumin Level 4.4 g/dl (3.5-5.0); Albumin/Globulin Ratio 1.3 (1.1-1.8); Calcium 9.9 mg/dl (8.4-10.2); Globulin 3.3 g/dL (1.3-3.2); Glucose 147 mg/dl (74-100); Total Protein,Serum 7.7 g/dl (6.3-8.2)
[2024-01-15 13:20] LABS: Lipase 70 U/L (23-300)
--- NOTE | 2024-01-15 13:45 | PC.NURSE ---
pt to ct scan
--- NOTE | 2024-01-15 13:48 | PC.NURSE ---
Dr. Robertson at bedside
[2024-01-15] MEDS: IOPAMIDOL-370 (76%);100ML BOTTLE 75 ML IV (13:56)
[2024-01-15] MEDS: SODIUM CHLORIDE 0.9% 10ML SYR (RAD ONLY) 10 ML IV (13:56)
--- NOTE | 2024-01-15 13:56 | PC.NURSE ---
pt back to room by SILVER from [facility] at this time
--- NOTE | 2024-01-15 13:56 | PC.NURSE ---
PT BACK FROM CT
== END 2024-01-15 15:29 | disposition home or self-care (01) ==
PROVIDERS: Emergency Provider Emergency Medicine; PCP Family Medicine
DX: R10.32 Left lower quadrant pain (principal); R11.2 Nausea with vomiting, unspecified; R19.7 Diarrhea, unspecified; E11.9 Type 2 diabetes mellitus without complications; I10 Essential (primary) hypertension; Z79.84 Long term (current) use of oral hypoglycemic drugs
CPT/HCPCS: 74177; 80053; 83605; 83690; 85025; 96361; 96374; 96375; 99285; J2405; Q9967

== ENCOUNTER 2024-01-19 14:26 | Outpatient (POV) | payer OTHER, SELFPAY ==
--- NOTE | 2024-01-19 15:00 | A.OFFVIS_ITS ---
[facility] Pain Management SOAP Note Subjective:: Patient is a pleasant 58-year-old male who presents today for follow-up of lumbar epidural steroid injection L4-L5. Patient rates his today's pain a 3 out of 10 at least and states that will get worse with increased activity. Patient states that he did have at least 40 to 50% relief with this last injection however he ended up going under the weather and was diagnosed with a intestinal virus. Patient states he has been very sick with this and was coughing and having a lot of issues and so now all he is recovering from it however has significant aching all over. Patient does state that he feels like the injection may be wearing off however he does also acknowledge that it may also be the residual achiness from the illness. Patient does state his pain is all in his low back and legs and denies any new injury or fall. Patient does state the pain interferes with his ability to perform activity of daily living. Patient has tried and failed conservative therapies including oral medication, heat and ice, topicals, physical therapy and continued at home stretching between injections. He is prescribed gabapentin and tizanidine from an outside provider and compounded cream from our office. His Chavez has been reviewed and is appropriate. Review of Systems: General: No recent weight changes, no fever, no sleep disturbances Respiratory: No cough, no shortness of air, no recurring pulmonary infections Cardiovascular/peripheral vascular: No chest pain, no palpitations, no edema, no shortness of breath Gastrointestinal: No new onset incontinence, normal bowel movements reported Genitourinary: No new onset incontinence Musculoskeletal: Low back pain, leg pain Psychiatric: [Normal mood/affect] Neurological: [Denies weakness in extremities], [denies balance issues] Objective:: Physical Exam: General: Alert and oriented x3, no acute distress, pleasant and cooperative Lungs: Respirations even and unlabored, symmetrical chest expansion Eyes: PERRL Musculoskeletal: Flexion and extension of lumbar [spine] somewhat guarded secondary to pain, [antalgic gait noted] Neurological: Speech clear, no gross sensory deficit Assessment:: Degenerative disc disease of lumbar spine with lumbar radiculopathy symptoms, sacroiliitis Plan:: Patient is experiencing worsening pain in his low back and legs with limited range of motion. Patient did previously have 40 to 50% relief with his last lumbar epidural. I have discussed with the patient that he may benefit from a repeat epidural. Risk and benefits were discussed with the patient and he would like to proceed forward with this plan of care. Patient has tried and failed conservative therapies. I have also discussed with the patient he ends up feeling better and does not feel like he needs this injection he can call and reschedule this for a later date or canceled altogether. Patient will be submitted for his second lumbar epidural steroid injection L4-L5 under fluo roscopy. Patient has been instructed to contact the clinic with any concerns before the next appointment. Dr. Polanco has reviewed this note and agrees with this plan of care. This note was dictated using voice recognition software and make contain errors or omissions. [facility] Disclaimer: The information contained in this section may have been updated after the patient was seen, as this information can be updated by other users. Medical History (Updated 01/15/24 @ 15:16 by Pradeep Robertson DO) Depression Diabetes HTN (hypertension) Pain, joint, ankle and foot Family History Other Unknown family medical history Social History Smoking Status: Unknown if ever smoked alcohol intake: never current occupational status: other Travel in the last 8 weeks: None household members: other housing: house current occupational exposures/hazards: No
[2024-01-19 15:09] VITALS: BP 151/74; PULSE 52; RESP 18; O2SAT 95; BMI 48.0
== END 2024-01-19 23:59 | disposition home or self-care (01) ==
LOC: SC.PAIN 14:26
PROVIDERS: PCP Family Medicine; Visit Provider Nurse Practitioner Family
DX: M51.16 Intervertebral disc disorders with radiculopathy, lumbar region (principal); M46.1 Sacroiliitis, not elsewhere classified
CPT/HCPCS: 99212; G0463

== ENCOUNTER 2024-02-08 09:16 | Day surgery (SDC) | payer OTHER, SELFPAY ==
[2024-02-08 09:28] VITALS: BP 142/53; PULSE 69; RESP 18; TEMP 36.3; O2SAT 93; BMI 48.4
[2024-02-08 09:37] VITALS: BP 151/79; PULSE 53; RESP 18; O2SAT 95
[2024-02-08] MEDS: methylPREDNISolone ACETATE 80MG/ML VIAL 80 MG (09:37)
[2024-02-08 09:39] VITALS: BP 151/79; PULSE 57; RESP 19; O2SAT 95
[2024-02-08 09:40] VITALS: BP 125/61; PULSE 53; RESP 18; O2SAT 98
--- NOTE | 2024-02-08 09:45 | EXP.PAIN.PRO ---
Procedure Date: 02/08/24 Time: 09:30 Anesthesiologist:: Clemente Hull CRNA Complications:: None Pre-procedure Diagnosis:: Degenerative disc lumbar spine multilevels. Lumbar radiculopathy. Post-procedure Diagnosis:: Same. Indications for Procedure:: Patient is a very pleasant 58-year-old male that comes our clinic today for repeat lumbar epidural steroid injection L4-5 level. Patient reports 50% improvement terms of his overall low back pain as well as bilateral hip and leg radicular symptoms with his previous injection. He reports low back pain as well as bilateral hip and leg radicular symptoms. He rates his pain 4/10. Procedure Details:: Procedure: Lumbar epidural steroid injection under fluoroscopy Informed consent was obtained and the risks and benefits of the procedure were explained to the patient. The patient was taken to the procedure room and noninvasive monitors placed, including noninvasive blood pressure cuff and pulse oximeter. The back was viewed using C-arm Fluoroscopy and prepped using Chloraprep as a cleansing solution and the L4-L5 interspace was palpated. Skin and subcutaneous tissues were anesthetized using lidocaine 1.5% and a 25-gauge needle. After this, an 18-gauge Touhy epidural needle was placed into the L4-L5 interspace and advanced using fluoroscopic guidance and loss of resistance to air until the epidural space was encountered. After confirmation of needle placement in the epidural space, with dye, a solution containing normal saline, 3 mL and Depo-Medrol 80 mg were incrementally injected into the lumbar epidural space. The patient tolerated the procedure well with no complications. The patient was observed in the Pain Clinic and then discharged home neurologically intact. Plan and Disposition:: Patient was discharged without incident.
== END 2024-02-08 09:45 | disposition home or self-care (01) ==
PROVIDERS: PCP Family Medicine; Visit Provider Nurse Anesthetist, Certified Registered
DX: M51.16 Intervertebral disc disorders with radiculopathy, lumbar region (principal)
CPT/HCPCS: 62323

== ENCOUNTER 2024-02-18 07:11 | Emergency (ER) | payer OTHER, SELFPAY ==
[2024-02-18 07:12] VITALS: BP 153/99; PULSE 50; RESP 13; TEMP 36.5; O2SAT 98; BMI 48.4
--- NOTE | 2024-02-18 07:17 | PC.NURSE ---
DR WHELAN AT BEDSIDE
--- NOTE | 2024-02-18 07:22 | HMH.EDGENADL ---
Discharge Plan Disposition Patient Disposition: Home, Self-Care Condition: Good Prescriptions Prescriptions: No Action propranolol 60 mg capsule,extended release 24 hr 60 mg PO DAILY duloxetine 60 mg capsule,delayed release(DR/EC) 60 mg PO DAILY Patient Comments: TAKE 1 CAPSULE BY MOUTH EVERY DAY FOR 30 DAYS ketoconazole 2 % cream 1 applic topical DIRECTED PRN (Reason: Skin Condition) irbesartan-hydrochlorothiazide 300-12.5 mg tablet 1 tab PO DAILY Patient Comments: TAKE 1 TABLET BY MOUTH EVERY DAY FOR 90 DAYS albuterol sulfate 90 mcg/actuation HFA aerosol inhaler 2 puff inhalation DIRECTED PRN (Reason: shortness of breath or wheezing) metformin 500 mg tablet extended release 24 hr 1,000 mg PO DAILY Patient Comments: TAKE 2 TABLETS BY MOUTH EVERY DAY FOR 90 DAYS triamcinolone acetonide 0.1 % cream 1 applic topical DIRECTED PRN (Reason: Skin Condition) Patient Comments: APPLY TOPICALLY TO THE AFFECTED AREA TWICE A DAY montelukast 10 mg tablet 10 mg PO DAILY Patient Comments: TAKE 1 TABLET BY MOUTH EVERY DAY loratadine 10 mg tablet 10 mg PO DAILY Patient Comments: TAKE 1 TABLET BY MOUTH EVERY DAY FOR 30 DAYS Januvia 100 mg tablet 100 mg PO DAILY ondansetron 8 mg tablet,disintegrating 8 mg PO Q8H PRN (Reason: nausea and vomiting) 5 Days Qty: 15 0RF Referrals Follow up/Referrals: Filemon Alvarez MD [Primary Care Provider] - See instructions Activity Restrictions/Add. Instructions Additional Instructions/Restrictions: Follow-up with your family doctor as an this visit to the emergency department. Steroid will help with inflammation over the next couple of days. You can continue putting topical cream on the poison ajith lesions of it also helps Clinical Impressions Clinical Impression: Allergic dermatitis due to poison ajith, Bleeding from varicose vein Discharge ED Provider: Laith Fernandez General Adult HPI General Chief complaint: Skin/Abscess/Foreign Body Stated complaint: Vein blew in L lower calf Time Seen by Provider: 02/18/24 07:15 History of Present Illness HPI narrative: Please note that above description of symptoms, in this electronic medical record under categorization of recalled from ER triage doctor by RN are reflective of an initial nursing assessment, however, is not reflective of my full history and physical exam that was personally taken and clarified. Consequentially, this preceding description of symptoms, which may include the patient's categorized chief complaint in the EMR, do not reflect my personal clinical impression, and the ultimate description of history of present illness and patient stated complaints should be deferred to this section of the note. Unless stated otherwise or congruent with this section of the note, additional signs, symptoms, or incongruence should be interpreted as inaccurate with my clinical impression. Related Data Home Medications Medication Instructions Recorded Confirmed albuterol sulfate 90 mcg/actuation 2 puff inhalation DIRECTED PRN 12/15/22 02/18/24 aerosol inhaler shortness of breath or wheezing duloxetine 60 mg capsule,delayed 60 mg PO DAILY 12/15/22 02/18/24 release irbesartan 300 1 tab PO DAILY 12/15/22 02/18/24 mg-hydrochlorothiazide 12.5 mg tablet ketoconazole 2 % topical cream 1 applic topical DIRECTED PRN 12/15/22 02/18/24 Skin Condition loratadine 10 mg tablet 10 mg PO DAILY ALLERGIES 12/15/22 02/18/24 metformin 500 mg tablet,extended 1,000 mg PO DAILY 12/15/22 02/18/24 release 24 hr montelukast 10 mg tablet 10 mg PO DAILY 12/15/22 02/18/24 propranolol 60 mg capsule,24 60 mg PO DAILY 12/15/22 02/18/24 hr,extended release triamcinolone acetonide 0.1 % 1 applic topical DIRECTED PRN 12/15/22 02/18/24 topical cream Skin Condition sitagliptin phosphate 100 mg 100 mg PO DAILY 12/25/22 02/18/24 tablet (Januvia) Previous Rx's Medication Instructions Recorded ondansetron 8 mg disintegrating 8 mg PO Q8H PRN nausea and 01/15/24 tablet vomiting 5 days #15 tabs Allergies Allergy/AdvReac Type Severity Reaction Status Date / Time azithromycin [From Zithromax] AdvReac Severe Verified 01/04/24 12:05 [facility] Disclaimer: The information contained in this section may have been updated after the patient was seen, as this information can be updated by other users. Medical History (Updated 02/18/24 @ 07:24 by Laith Fernandez MD) Depression Diabetes HTN (hypertension) Pain, joint, ankle and foot Family History Other Unknown family medical history Social History Smoking Status: Never smoker alcohol intake: never current occupational status: other Travel in the last 8 weeks: None household members: other housing: house current occupational exposures/hazards: No ROS Obtained: Yes All systems reviewed & no additional complaints except as documented Physical Exam General General appearance: alert and in no apparent distress Head Head exam: atraumatic and normocephalic Eye Eye exam: Present normal appearance, PERRL and EOMI ENT ENT exam: Present mucous membranes moist Neck Neck exam: Present normal inspection, full ROM and trachea midline Respiratory Respiratory exam: Absent respiratory distress, wheezes, stridor, accessory muscle use or prolonged expiratory phase Cardiovascular Cardiovascular exam: Present normal rhythm Abdominal Exam Abdominal exam: Present soft; Absent distention, tenderness, guarding, rebound or rigidity Extremities Exam Extremities exam: Present other (superficial skin lesion over varicose vein. scab in place, hemostatic. poison ajith over both legs); Absent edema Neurological Exam Neurological exam: Present alert, oriented X3, CN II-XII intact and normal gait; Absent motor sensory deficit Skin Skin exam: Present warm and dry; Absent diaphoresis or erythema Medical Decision Making Medical Records Medical records reviewed: Yes I reviewed the patient's medical records. Chavez Inquiry Pt receiving controlled substance: No Chavez was queried for this patient: No Vital Signs: 02/18/24 07:12 02/18/24 07:29 02/18/24 07:31 Temperature 97.7 F Temperature Source Oral Pulse Rate 44 L Pulse Rate [Left Radial] 50 L Respiratory Rate 13 Blood Pressure 134/89 Blood Pressure [Right Arm] 153/99 H Blood Pressure Mean 112 Blood Pressure Mean [Right Arm] 117 02 Sat by Pulse Oximetry 98 96 Oxygen Delivery Method Room Air Room Air 02/18/24 07:36 Temperature 97.9 F Temperature Source Pulse Rate 47 L Pulse Rate [Left Radial] Respiratory Rate 13 Blood Pressure 134/89 Blood Pressure [Right Arm] Blood Pressure Mean Blood Pressure Mean [Right Arm] 02 Sat by Pulse Oximetry Oxygen Delivery Method Room Air Orders (Tests/Meds): ED MEDICATIONS Discontinued Medications Generic Name Dose Route Start Last Admin Trade Name Freq PRN Reason Stop Dose Admin Dexamethasone 10 mg 02/18/24 07:22 02/18/24 07:30 Dexamethasone 4mg Tablet PO 02/18/24 07:23 10 mg ONCE ONE Administration Medical Decision Narrative: 58-year-old male no relevant medical history presenting with poison ajith and bleeding. Patient states that he started developing poison ajith yesterday, 02/16. Was applying lotion last night around 11 PM and accidentally scratch his leg. States my jugular vein started bleeding, pointing to varicose vein on the left calf. States that he was searching the Internet, everything I was reading told me to come to the emergency department. Presents today for further evaluation. No anticoagulation, no bleeding dyscrasias or bleeding disorders, etc. History was obtained via conversation with patient. On arrival, patient hemodynamically stable, alert, oriented x4, appropriate, GCS 15, moving all extremities spontaneously, pupils equal and reactive to light. Full physical exam performed and significant for superficial skin lesion over varicose vein. scab in place, hemostatic. poison ajith over both legs. Differential includes bleeding varicose vein, contact dermatitis, among others. Patient was given Decadron for extensive contact dermatitis bilateral lower extremities. Because hemostatic, no further risk of bleeding, education and reassurance given. No hematologic workup deemed necessary at this time. Patient voices understanding. Because patient at baseline without signs or symptoms of clinical decompensation, deemed appropriate for discharge. Results were relayed to patient who voiced understanding and were agreeable to outpatient management and follow up. I discussed my clinical impression with patient and answered all questions. At this time, the evidence for any other entities in the differential is insufficient to warrant any further testing or ED observation. This was explained as well. Advisory was given that persistent or worsening symptoms require further evaluation. I confirmed the understanding of this discussion. [employer] disclaimer Much of this encounter note is an electronic order builder loader spoken language to printed text. Electronic order builder loader of the spoken language may permit errors. Although I have reviewed the note, some errors may still exist. Critical Care Critical Care Time Critical Care Time: No
[2024-02-18 07:29] VITALS: PULSE 44; O2SAT 96
[2024-02-18] MEDS: DEXAMETHASONE 4MG TABLET 10 MG PO (07:30)
[2024-02-18 07:31] VITALS: BP 134/89
[2024-02-18 07:36] VITALS: BP 134/89; PULSE 47; RESP 13; TEMP 36.6; O2SAT 97
== END 2024-02-18 07:36 | disposition home or self-care (01) ==
LOC: ER 07:32
PROVIDERS: Emergency Provider Emergency Medicine; PCP Family Medicine
DX: I83.892 Varicose veins of left lower extremity with other complications (principal); L23.7 Allergic contact dermatitis due to plants, except food; W60.XXXA Contact with nonvenomous plant thorns and spines and sharp leaves, initial encounter
CPT/HCPCS: 99283

== ENCOUNTER 2024-04-12 10:33 | Outpatient (POV) | payer OTHER, SELFPAY ==
[2024-04-12 10:47] VITALS: BP 159/87; PULSE 59; RESP 18; O2SAT 98; BMI 34.4
--- NOTE | 2024-04-12 12:32 | EXP.PAIN.SOA ---
[facility] Disclaimer: The information contained in this section may have been updated after the patient was seen, as this information can be updated by other users. Medical History (Updated 04/12/24 @ 12:36 by Orly Soria APRN) Depression Diabetes HTN (hypertension) Pain, joint, ankle and foot Family History Other Unknown family medical history Social History Smoking Status: Never smoker alcohol intake: never current occupational status: unemployed Travel in the last 8 weeks: None household members: other housing: house current occupational exposures/hazards: No PM Subjective & Objective Subjective Subjective:: Patient is a pleasant 58-year-old male who presents today for follow-up of his lumbar epidural steroid injection L4-L5 on 02/08/2024. Today he rates his pain an 8 3 out of 10. Patient states that he has had at least 65% improvement following this injection and feels like this works really well up until about the last week or so. He does state that he feels like it is starting to wear off however right now it is still somewhat manageable. He does also state that he has been experiencing worsening pain in his neck and shoulder primarily along the left side. Patient denies any new injury or trauma. He states that this has been going on at least 6 months and just seems to be progressively worsening. Patient denies any prior imaging. Patient states he does have numbness in his hands when he raises his arms. He is prescribed compounded cream from our office and gabapentin and tizanidine from an outside provider. his Chavez has been reviewed and is appropriate. Review of Systems: General: No recent weight changes, no fever, no sleep disturbances Respiratory: No cough, no shortness of air, no recurring pulmonary infections Cardiovascular/peripheral vascular: No chest pain, no palpitations, no edema, no shortness of breath Gastrointestinal: No new onset incontinence, normal bowel movements reported Genitourinary: No new onset incontinence Musculoskeletal: Neck pain, left shoulder pain Psychiatric: [Normal mood/affect] Neurological: [Denies weakness in extremities], [denies balance issues] Pain at rest (0-10 scale): 3 Objective Objective:: Physical Exam: General: Alert and oriented x3, no acute distress, pleasant and cooperative Lungs: Respirations even and unlabored, symmetrical chest expansion Eyes: PERRL Musculoskeletal: Flexion and extension of cervical [spine] somewhat guarded secondary to pain, [antalgic gait noted] Neurological: Speech clear, no gross sensory deficit Has patient had previous pain injection?: Yes Percent improvement in pain since last injection: 65% Conservative treatment options previously tried: Home exercise plan Length of treatment: Longer than 6 weeks Meds Home Medications and Allergies Home Medications ?Medication ?Instructions ?Recorded ?Confirmed ?Type albuterol sulfate 90 mcg/actuation 2 puff inhalation DIRECTED PRN 12/15/22 04/12/24 History aerosol inhaler shortness of breath or wheezing duloxetine 60 mg capsule,delayed 60 mg PO DAILY 12/15/22 04/12/24 History release irbesartan 300 1 tab PO DAILY 12/15/22 04/12/24 History mg-hydrochlorothiazide 12.5 mg tablet ketoconazole 2 % topical cream 1 applic topical DIRECTED PRN 12/15/22 04/12/24 History Skin Condition loratadine 10 mg tablet 10 mg PO DAILY ALLERGIES 12/15/22 04/12/24 History metformin 500 mg tablet,extended 1,000 mg PO DAILY 12/15/22 04/12/24 History release 24 hr montelukast 10 mg tablet 10 mg PO DAILY 12/15/22 04/12/24 History propranolol 60 mg capsule,24 60 mg PO DAILY 12/15/22 04/12/24 History hr,extended release triamcinolone acetonide 0.1 % 1 applic topical DIRECTED PRN 12/15/22 04/12/24 History topical cream Skin Condition sitagliptin phosphate 100 mg 100 mg PO DAILY 12/25/22 04/12/24 History tablet (Januvia) ondansetron 8 mg disintegrating 8 mg PO Q8H PRN nausea and 01/15/24 04/12/24 Rx tablet vomiting 5 days #15 tabs New Prescriptions to Start Prescriptions: Allergies Allergy/AdvReac Type Severity Reaction Status Date / Time azithromycin [From Zithromax] AdvReac Severe Verified 01/04/24 12:05 Assessment and Plan *Assessment and plan (1) Degenerative disc disease, cervical: Status: Chronic Category: Medical Code(s): M50.30 - Other cervical disc degeneration, unspecified cervical region (2) Cervical radiculopathy: Status: Chronic Category: Medical Code(s): M54.12 - Radiculopathy, cervical region (3) Degenerative disc disease, lumbar: Status: Acute Category: Medical Code(s): M51.36 - Other intervertebral disc degeneration, lumbar region (4) Left shoulder pain: Status: Acute Qualifiers: Chronicity: chronic Qualified Code(s): M25.512 - Pain in left shoulder; G89.29 - Other chronic pain Category: Medical Code(s): M25.512 - Pain in left shoulder Plan I discussed with the patient due to his increased pain in his neck and shoulders I will order x-ray imaging with the plan to proceed forward with advanced imaging at a later date. I have also discussed with the patient should have his compounded cream on these locations. Patient will return to clinic in 2 weeks for reevaluation of symptoms and plan of care. Patient has been instructed to contact the clinic with any concerns before the next appointment. Dr. Polanco has reviewed this note and agrees with this plan of care. This note was dictated using voice recognition software and make contain errors or omissions. All injections are used with Lidocaine or Bupivacaine and Depo Medrol.
== END 2024-04-12 23:59 | disposition home or self-care (01) ==
LOC: SC.PAIN 10:34
PROVIDERS: PCP Family Medicine; Visit Provider Nurse Practitioner Family
DX: M50.10 Cervical disc disorder with radiculopathy, unspecified cervical region (principal); M51.36 Other intervertebral disc degeneration, lumbar region; M25.512 Pain in left shoulder; G89.29 Other chronic pain; Z79.899 Other long term (current) drug therapy
CPT/HCPCS: 99212; G0463

== ENCOUNTER 2024-04-27 07:29 | Outpatient (CLI) | payer OTHER, SELFPAY ==
--- NOTE | 2024-04-27 07:39 | XR_ITS ---
FINAL REPORT CLINICAL HISTORY: .pain and tremors FINDINGS: Left shoulder Three views were obtained. There is no acute fracture or dislocation. There is mild AC joint degenerative change. No soft tissue abnormality is identified. IMPRESSION: No acute process. Reviewed, Interpreted and Dictated by Buster Fernandez III, MD Transcribed by Chrissie Tavares Authenticated and [facility]
--- NOTE | 2024-04-27 07:40 | XR_ITS ---
FINAL REPORT CLINICAL HISTORY: .tremors surgery 3 yrs ago FINDINGS: CERVICAL SPINE Five views demonstrate no acute fracture. There is fusion from C5-C7. There are mild degenerative changes with multilevel osteophytes. There is severe right and moderate left neural foraminal narrowing at C5-6. There is mild left neural foraminal narrowing at C6-7. There is no malalignment. IMPRESSION: Multilevel degenerative disc disease as above. Reviewed, Interpreted and Dictated by Buster Fernandez III, MD Transcribed by Chrissie Tavares Authenticated and [facility]
== END 2024-04-27 23:59 | disposition home or self-care (01) ==
LOC: RAD 07:30
PROVIDERS: PCP Family Medicine; Visit Provider Anesthesiology
DX: M54.2 Cervicalgia (principal); M25.512 Pain in left shoulder
CPT/HCPCS: 72050; 73030

== ENCOUNTER 2024-04-27 12:50 | Outpatient (POV) | payer OTHER, SELFPAY ==
--- NOTE | 2024-04-27 13:15 | A.OFFVIS_ITS ---
[facility] Disclaimer: The information contained in this section may have been updated after the patient was seen, as this information can be updated by other users. Medical History (Updated 04/12/24 @ 12:36 by Orly Soria APRN) Depression Diabetes HTN (hypertension) Pain, joint, ankle and foot Family History Other Unknown family medical history Social History Smoking Status: Never smoker alcohol intake: never current occupational status: unemployed Travel in the last 8 weeks: None household members: other housing: house current occupational exposures/hazards: No PM Subjective & Objective Subjective Subjective:: Patient is a pleasant 58-year-old male who presents today for follow-up of cervical x-ray and left shoulder x-ray. Today he rates his pain a 5 out of 10. Patient denies any new trauma or injury he does state that he is still having worsening pain throughout his neck with radiating symptoms into his upper extremities and left shoulder. He does describe this as an aching, throbbing sensation with numbness and tingling and does interfere with his ability perform activities of daily living. Patient does state that he really feels like he may have tore something in his shoulder and that it has been bothering him additionally. Patient has tried conservative treatment including compounded cream and gabapentin and tizanidine from an outside provider. His Chavez has been reviewed and is appropriate. Review of Systems: General: No recent weight changes, no fever, no sleep disturbances Respiratory: No cough, no shortness of air, no recurring pulmonary infections Cardiovascular/peripheral vascular: No chest pain, no palpitations, no edema, no shortness of breath Gastrointestinal: No new onset incontinence, normal bowel movements reported Genitourinary: No new onset incontinence Musculoskeletal: Neck pain, upper arm pain, left shoulder pain Psychiatric: [Normal mood/affect] Neurological: [Denies weakness in extremities], [denies balance issues] Pain at rest (0-10 scale): 5 Objective Objective:: Physical Exam: General: Alert and oriented x3, no acute distress, pleasant and cooperative Lungs: Respirations even and unlabored, symmetrical chest expansion Eyes: PERRL Musculoskeletal: Flexion and extension of cervical [spine] somewhat guarded secondary to pain, [antalgic gait noted] positive Spurling's test Neurological: Speech clear, no gross sensory deficit FINDINGS: CERVICAL SPINE Five views demonstrate no acute fracture. There is fusion from C5-C7. There are mild degenerative changes with multilevel osteophytes. There is severe right and moderate left neural foraminal narrowing at C5-6. There is mild left neural foraminal narrowing at C6-7. There is no malalignment. IMPRESSION: Multilevel degenerative disc disease as above. Reviewed, Interpreted and Dictated by Buster Fernandez III, MD Transcribed by Chrissie Tavares Authenticated and [facility] Has patient had previous pain injection?: No Conservative treatment options previously tried: Home exercise plan Length of treatment: Longer than 6 weeks Meds Home Medications and Allergies Home Medications ?Medication ?Instructions ?Recorded ?Confirmed ?Type albuterol sulfate 90 mcg/actuation 2 puff inhalation DIRECTED PRN 12/15/22 04/12/24 History aerosol inhaler shortness of breath or wheezing duloxetine 60 mg capsule,delayed 60 mg PO DAILY 12/15/22 04/12/24 History release irbesartan 300 1 tab PO DAILY 12/15/22 04/12/24 History mg-hydrochlorothiazide 12.5 mg tablet ketoconazole 2 % topical cream 1 applic topical DIRECTED PRN 12/15/22 04/12/24 History Skin Condition loratadine 10 mg tablet 10 mg PO DAILY ALLERGIES 12/15/22 04/12/24 History metformin 500 mg tablet,extended 1,000 mg PO DAILY 12/15/22 04/12/24 History release 24 hr montelukast 10 mg tablet 10 mg PO DAILY 12/15/22 04/12/24 History propranolol 60 mg capsule,24 60 mg PO DAILY 12/15/22 04/12/24 History hr,extended release triamcinolone acetonide 0.1 % 1 applic topical DIRECTED PRN 12/15/22 04/12/24 History topical cream Skin Condition sitagliptin phosphate 100 mg 100 mg PO DAILY 12/25/22 04/12/24 History tablet (Januvia) ondansetron 8 mg disintegrating 8 mg PO Q8H PRN nausea and 01/15/24 04/12/24 Rx tablet vomiting 5 days #15 tabs New Prescriptions to Start Prescriptions: Allergies Allergy/AdvReac Type Severity Reaction Status Date / Time azithromycin [From Zithromax] AdvReac Severe Verified 01/04/24 12:05 Assessment and Plan *Assessment and plan (1) Degenerative disc disease, cervical: Status: Chronic Category: Medical Code(s): M50.30 - Other cervical disc degeneration, unspecified cervical region (2) Cervical radiculopathy: Status: Chronic Category: Medical Code(s): M54.12 - Radiculopathy, cervical region (3) Left shoulder pain: Status: Acute Qualifiers: Chronicity: chronic Qualified Code(s): M25.512 - Pain in left shoulder; G89.29 - Other chronic pain Category: Medical Code(s): M25.512 - Pain in left shoulder Plan I did review over his x-rays of both his cervical and left shoulder. I will order MRI without contrast of his left shoulder to rule out possible tears or additional injury. I did discuss with the patient due to his continued limited range of motion of his cervical spine and a positive Spurling's test that he may benefit from a cervical epidural steroid injection. Risk and benefits were discussed with the patient and he would like to proceed forward with this plan of care. Patient has tried and failed conservative therapy including continued at home stretching exercise for longer than 6 weeks. We will schedule the patient for a NIRU C5-C6 under fluoroscopy. Patient is not on any blood thinners. Patient has been instructed to contact the clinic with any concerns before the next appointment. Dr. Poalnco has reviewed this note and agrees with this plan of care. This note was dictated using voice recognition software and make contain errors or omissions. All injections are used with Lidocaine or Bupivacaine and Depo Medrol.
[2024-04-27 13:17] VITALS: BP 123/84; PULSE 54; RESP 18; O2SAT 96; BMI 46.5
== END 2024-04-27 23:59 | disposition home or self-care (01) ==
LOC: SC.PAIN 12:51
PROVIDERS: PCP Family Medicine; Visit Provider Nurse Practitioner Family
DX: M50.10 Cervical disc disorder with radiculopathy, unspecified cervical region (principal); M25.512 Pain in left shoulder; G89.29 Other chronic pain; Z73.89 Other problems related to life management difficulty; Z79.899 Other long term (current) drug therapy
CPT/HCPCS: 99212; G0463

== ENCOUNTER 2024-05-09 12:46 | Day surgery (SDC) | payer OTHER, SELFPAY ==
[2024-05-09 13:10] VITALS: BP 125/73; BP 151/91; PULSE 57; PULSE 63; RESP 16; RESP 18; TEMP 36.2; O2SAT 96; BMI 47.5
[2024-05-09] MEDS: methylPREDNISolone ACETATE 80MG/ML VIAL 80 MG (13:12)
[2024-05-09] MEDS: IOPAMIDOL-200 (41%);10ML VIAL 10 ML IV (13:16)
--- NOTE | 2024-05-09 13:25 | P.PCN_ITS ---
Procedure Date: 05/09/24 Time: 13:00 Anesthesiologist:: Clemente Hull CRNA Complications:: None Pre-procedure Diagnosis:: Degenerative disc cervical spine multilevels. Cervical radiculopathy. Cervical postlaminectomy syndrome. Post-procedure Diagnosis:: Same. Indications for Procedure:: Patient is a very pleasant 58-year-old male who comes our clinic today for cervical epidural steroid injection. Patient is status post ACDF in the past. He describes posterior cervical neck pain as well as bilateral arm radicular symptoms at times. He rates his pain 7/10. Procedure Details:: Procedure:Cervical epidural steroid injection Informed consent was obtained and the risks and benefits of the procedure were explained to the patient. The patient was taken to the procedure room and noninvasive monitors placed, including noninvasive blood pressure cuff and pulse oximeter. The neck was prepped using Chloraprep as a cleansing solution. The C6- C7 interspace was viewed using fluroscopy. The skin and subcutaneous tissues were anesthetized using lidocaine 1.5% and a 25-gauge needle. After this an 18- gauge Touhy epidural needle was placed into the C6-C7 interspace under fluroscopy guidance and advanced using loss of resistance to air until the epidural space was encountered. After confirmation of needle placement in the epidural space using contrast dye, a solution containing normal saline, 2 mL and Depo-Medrol 80 mg was incrementally injected into the cervical epidural space.~ The patient tolerated the procedure well with no complications. The patient was observed in the Pain Clinic and then discharged home neurologically intact. Plan and Disposition:: Patient was discharged without incident.
[2024-05-09 13:27] VITALS: BP 128/78; PULSE 52; RESP 20; O2SAT 96
== END 2024-05-09 13:27 | disposition home or self-care (01) ==
PROVIDERS: PCP Family Medicine; Visit Provider Nurse Anesthetist, Certified Registered
DX: M50.10 Cervical disc disorder with radiculopathy, unspecified cervical region (principal); M96.1 Postlaminectomy syndrome, not elsewhere classified
CPT/HCPCS: 62321; J1010; Q9966

== ENCOUNTER 2024-05-12 15:19 | Outpatient (CLI) | payer OTHER, SELFPAY ==
--- NOTE | 2024-05-12 | MR_ITS ---
PROCEDURE INFORMATION: Exam: MR Left Upper Extremity Joint Without Contrast; Shoulder Exam date and time: 05/12/2024 3:41 PM Age: 58 years old Clinical indication: Pain; Shoulder; Left; Additional info: Limited rom, nki TECHNIQUE: Imaging protocol: Magnetic resonance imaging of the left upper extremity without contrast. Exam focused on the shoulder. COMPARISON: CR XR SHOULDER LT MIN 2V 04/27/2024 7:41 AM FINDINGS: Bones/joints: Unremarkable. No bone abnormalities. Articular cartilage normal. No joint effusion. Glenoid labrum: Unremarkable. No evidence of tear. Supraspinatus tendon: Intrasubstance increased T2 signal involving the mid and distal supraspinatus tendon concerning for the partial tear. Infraspinatus tendon: Unremarkable. No evidence of tear. Subscapularis tendon: Unremarkable. No evidence of tear. Teres minor tendon: Unremarkable. No evidence of tear. Tendon of biceps brachii: Unremarkable. No evidence of tear. Glenohumeral ligaments: Unremarkable. Soft tissues: Tiny amount of fluid in the subacromial subdeltoid bursa. IMPRESSION: Partial tear of the supraspinatus tendon.
== END 2024-05-12 23:59 | disposition home or self-care (01) ==
LOC: RAD 15:20
PROVIDERS: PCP Family Medicine; Visit Provider Nurse Practitioner Family
DX: M25.512 Pain in left shoulder (principal)
CPT/HCPCS: 73221

== ENCOUNTER 2024-06-07 10:56 | Outpatient (POV) | payer OTHER, SELFPAY ==
[2024-06-07 11:00] VITALS: BP 151/80; PULSE 61; RESP 16; O2SAT 96; BMI 46.2
--- NOTE | 2024-06-07 11:13 | EXP.PAIN.SOA ---
[facility] Disclaimer: The information contained in this section may have been updated after the patient was seen, as this information can be updated by other users. Medical History Depression Diabetes HTN (hypertension) Pain, joint, ankle and foot Family History Other Unknown family medical history Social History Smoking Status: Never smoker alcohol intake: never current occupational status: other Travel in the last 8 weeks: None household members: other housing: house current occupational exposures/hazards: No PM Subjective & Objective Subjective Subjective:: Patient is a pleasant 58-year-old male who presents today for follow-up of his cervical epidural steroid injections C6-C7 on 05/09/2024. Today he rates his pain a 6 out of 10. He denies any new trauma or injury. He does state that he had at least 50% initially from this injection and felt like it was really helping however he does feel like he is back towards his baseline today. Patient does state he still has very limited range of motion of his neck going into his left shoulder. He does state that he is scheduled for an MRI and CAT scan with Dr. Edge on June 26 for evaluation for cervical surgery. Patient is requesting if we can refill his compounded cream. Patient is prescribed gabapentin and tizanidine from an outside provider. Patient does state that the tizanidine does help significantly however that when he is taking it during the day the 4 mg was too much. His Chavez has been reviewed and is appropriate. Review of Systems: General: No recent weight changes, no fever, no sleep disturbances Respiratory: No cough, no shortness of air, no recurring pulmonary infections Cardiovascular/peripheral vascular: No chest pain, no palpitations, no edema, no shortness of breath Gastrointestinal: No new onset incontinence, normal bowel movements reported Genitourinary: No new onset incontinence Musculoskeletal: Neck pain, left shoulder pain Psychiatric: [Normal mood/affect] Neurological: [Denies weakness in extremities], [denies balance issues] Pain at rest (0-10 scale): 6 Objective Objective:: Physical Exam: General: Alert and oriented x3, no acute distress, pleasant and cooperative Lungs: Respirations even and unlabored, symmetrical chest expansion Eyes: PERRL Musculoskeletal: Flexion and extension of cervical [spine] somewhat guarded secondary to pain, [antalgic gait noted] Neurological: Speech clear, no gross sensory deficit Has patient had previous pain injection?: Yes Percent improvement in pain since last injection: 50% Conservative treatment options previously tried: Home exercise plan Length of treatment: Longer than 6 weeks Meds Home Medications and Allergies Home Medications ?Medication ?Instructions ?Recorded ?Confirmed ?Type albuterol sulfate 90 mcg/actuation 2 puff inhalation DIRECTED PRN 12/15/22 06/07/24 History aerosol inhaler shortness of breath or wheezing duloxetine 60 mg capsule,delayed 60 mg PO DAILY 12/15/22 06/07/24 History release irbesartan 300 1 tab PO DAILY 12/15/22 06/07/24 History mg-hydrochlorothiazide 12.5 mg tablet ketoconazole 2 % topical cream 1 applic topical DIRECTED PRN 12/15/22 06/07/24 History Skin Condition loratadine 10 mg tablet 10 mg PO DAILY ALLERGIES 12/15/22 06/07/24 History metformin 500 mg tablet,extended 1,000 mg PO DAILY 12/15/22 06/07/24 History release 24 hr montelukast 10 mg tablet 10 mg PO DAILY 12/15/22 06/07/24 History propranolol 60 mg capsule,24 60 mg PO DAILY 12/15/22 06/07/24 History hr,extended release triamcinolone acetonide 0.1 % 1 applic topical DIRECTED PRN 12/15/22 06/07/24 History topical cream Skin Condition sitagliptin phosphate 100 mg 100 mg PO DAILY 12/25/22 06/07/24 History tablet (Januvia) ondansetron 8 mg disintegrating 8 mg PO Q8H PRN nausea and 01/15/24 06/07/24 Rx tablet vomiting 5 days #15 tabs New Prescriptions to Start Prescriptions: Allergies Allergy/AdvReac Type Severity Reaction Status Date / Time azithromycin [From Zithromax] AdvReac Severe Verified 01/04/24 12:05 Assessment and Plan *Assessment and plan (1) Degenerative disc disease, cervical: Status: Chronic Category: Medical Code(s): M50.30 - Other cervical disc degeneration, unspecified cervical region (2) Cervical radiculopathy: Status: Chronic Category: Medical Code(s): M54.12 - Radiculopathy, cervical region Plan I did discuss with the patient that we can repeat his prior cervical epidural however we would want to wait approximately 3 months and with him being evaluated for possible neck surgery we would have to make sure that Dr. Edge has no contraindications. I will refill the patient's compounded cream and put 5 refills on this medication as well as I did talk to the patient that I will send in a prescription of tizanidine 2 mg 4 times daily. Patient was counseled to take 2 tablets at bedtime and that he can try the 2 mg dosage during the day and see if he tolerates better with this in comparison to the 4 mg. Patient agrees with this plan of care. Patient will return to clinic in 1 month for reevaluation of symptoms and plan of care. Patient has been instructed to contact the clinic with any concerns before the next appointment. Dr. Polanco has reviewed this note and agrees with this plan of care. This note was dictated using voice recognition software and make contain errors or omissions. All injections are used with Lidocaine or Bupivacaine and Depo Medrol.
== END 2024-06-07 23:59 | disposition home or self-care (01) ==
PROVIDERS: PCP Family Medicine; Visit Provider Nurse Practitioner Family
DX: M50.10 Cervical disc disorder with radiculopathy, unspecified cervical region (principal)
CPT/HCPCS: 99212; G0463

== ENCOUNTER 2024-07-06 10:43 | Outpatient (POV) | payer OTHER, SELFPAY ==
--- NOTE | 2024-07-06 11:17 | A.OFFVIS_ITS ---
[facility] Disclaimer: The information contained in this section may have been updated after the patient was seen, as this information can be updated by other users. Medical History Depression Diabetes HTN (hypertension) Pain, joint, ankle and foot Family History Other Unknown family medical history Social History Smoking Status: Never smoker alcohol intake: never current occupational status: other Travel in the last 8 weeks: None household members: other housing: house current occupational exposures/hazards: No PM Subjective & Objective Subjective Subjective:: Patient is a pleasant 58-year-old male who presents today for follow-up. Today he rates his pain a 4 out of 10. He denies any new trauma or injury. He does state that he ended up going back to Dr. Edge and they did order additional CT and MRI of his cervical spine however they have not heard the results and are scheduled for a follow-up coming up. Patient does state that he is still having quite a bit of left shoulder pain and is requesting today if we can in fact send a orthopedic referral. Patient states that they tried getting in with Dr. Alfonso however he does not take his insurance. Patient does state from her last visit that the tizanidine 2 mg 4 times a day that we tried did really help and that he did not have any side effects to the smaller dosage. Patient would like refills. His Chavez has been reviewed and is appropriate. Review of Systems: General: No recent weight changes, no fever, no sleep disturbances Respiratory: No cough, no shortness of air, no recurring pulmonary infections Cardiovascular/peripheral vascular: No chest pain, no palpitations, no edema, no shortness of breath Gastrointestinal: No new onset incontinence, normal bowel movements reported Genitourinary: No new onset incontinence Musculoskeletal: Left shoulder pain Psychiatric: [Normal mood/affect] Neurological: [Denies weakness in extremities], [denies balance issues] Pain at rest (0-10 scale): 4 Objective Objective:: Physical Exam: General: Alert and oriented x3, no acute distress, pleasant and cooperative Lungs: Respirations even and unlabored, symmetrical chest expansion Eyes: PERRL Musculoskeletal: Flexion and extension of left shoulder somewhat guarded secondary to pain, [antalgic gait noted] Neurological: Speech clear, no gross sensory deficit Has patient had previous pain injection?: No Conservative treatment options previously tried: Home exercise plan Length of treatment: Longer than 12 weeks Meds Home Medications and Allergies Home Medications ?Medication ?Instructions ?Recorded ?Confirmed ?Type albuterol sulfate 90 mcg/actuation 2 puff inhalation DIRECTED PRN 12/15/22 06/07/24 History aerosol inhaler shortness of breath or wheezing duloxetine 60 mg capsule,delayed 60 mg PO DAILY 12/15/22 06/07/24 History release irbesartan 300 1 tab PO DAILY 12/15/22 06/07/24 History mg-hydrochlorothiazide 12.5 mg tablet ketoconazole 2 % topical cream 1 applic topical DIRECTED PRN 12/15/22 06/07/24 History Skin Condition loratadine 10 mg tablet 10 mg PO DAILY ALLERGIES 12/15/22 06/07/24 History metformin 500 mg tablet,extended 1,000 mg PO DAILY 12/15/22 06/07/24 History release 24 hr montelukast 10 mg tablet 10 mg PO DAILY 12/15/22 06/07/24 History propranolol 60 mg capsule,24 60 mg PO DAILY 12/15/22 06/07/24 History hr,extended release triamcinolone acetonide 0.1 % 1 applic topical DIRECTED PRN 12/15/22 06/07/24 History topical cream Skin Condition sitagliptin phosphate 100 mg 100 mg PO DAILY 12/25/22 06/07/24 History tablet (Januvia) ondansetron 8 mg disintegrating 8 mg PO Q8H PRN nausea and 01/15/24 06/07/24 Rx tablet vomiting 5 days #15 tabs tizanidine 2 mg tablet 2 mg PO QID PRN muscle spasticity 06/07/24 Rx #120 tabs New Prescriptions to Start Prescriptions: Allergies Allergy/AdvReac Type Severity Reaction Status Date / Time azithromycin [From Zithromax] AdvReac Severe Verified 01/04/24 12:05 Assessment and Plan *Assessment and plan (1) Left shoulder pain: Status: Acute Qualifiers: Chronicity: chronic Qualified Code(s): M25.512 - Pain in left shoulder; G89.29 - Other chronic pain Category: Medical Code(s): M25.512 - Pain in left shoulder Plan I will send a referral to Dr. Parish hernandez for referral of his right shoulder tear. We will send over imaging along with this referral. Patient will be refi lled on the tizanidine with a 3-month supply of this medication. Patient will return to clinic in 2 months for reevaluation of symptoms and plan of care. I did discuss with the patient at that time we will review over with Dr. Edge and Dr. Hernandez are recommending. Patient agrees with this plan of care. Patient has been instructed to contact the clinic with any concerns before the next appointment. Dr. Polanco has reviewed this note and agrees with this plan of care. This note was dictated using voice recognition software and make contain errors or omissions. All injections are used with Lidocaine or Bupivacaine and Depo Medrol.
[2024-07-06 12:59] VITALS: BP 129/67; PULSE 54; RESP 18; O2SAT 96; BMI 46.0
== END 2024-07-06 23:59 | disposition home or self-care (01) ==
PROVIDERS: PCP Family Medicine; Visit Provider Nurse Practitioner Family
DX: M25.512 Pain in left shoulder (principal); G89.29 Other chronic pain
CPT/HCPCS: 99212; G0463

== ENCOUNTER 2024-08-31 08:00 | Outpatient (RCR) | payer OTHER, SELFPAY | END 2024-08-31 23:59 | disposition home or self-care (01) | LOC: PT 08:00 | PROVIDERS: Visit Provider Neurological Surgery | DX: M54.12 Radiculopathy, cervical region (principal) | CPT/HCPCS: 97014; 97110; 97140; 97163; G0283 ==

== ENCOUNTER 2024-09-04 09:47 | Outpatient (POV) | payer OTHER, SELFPAY ==
--- NOTE | 2024-09-04 09:56 | A.OFFVIS_ITS ---
[facility] Disclaimer: The information contained in this section may have been updated after the patient was seen, as this information can be updated by other users. Medical History Depression Diabetes HTN (hypertension) Pain, joint, ankle and foot Family History Other Unknown family medical history Social History Smoking Status: Never smoker alcohol intake: never current occupational status: other Travel in the last 8 weeks: None household members: other housing: house current occupational exposures/hazards: No PM Subjective & Objective Subjective Subjective:: Patient is a pleasant 58-year-old male who presents today for 2-month follow-up. Today he rates his pain a 3 out of 10. He denies any new trauma or injury. He does state that his last injection still seems to be providing significant improvement in his overall back symptoms. He does state that he is getting some Botox injections for spasticity coming up this Wednesday as well as seeing the orthopedic doctor for his shoulder rotator cuff tear on Wednesday as well. Patient states he has plan on having neck surgery however insurance wanted 4 weeks physical therapy and that he is in that process currently. Patient is prescribed tizanidine 2 mg 4 times a day. He denies any side effects from this medication. His Chavez has been reviewed and is appropriate. Review of Systems: General: No recent weight changes, no fever, no sleep disturbances Respiratory: No cough, no shortness of air, no recurring pulmonary infections Cardiovascular/peripheral vascular: No chest pain, no palpitations, no edema, no shortness of breath Gastrointestinal: No new onset incontinence, normal bowel movements reported Genitourinary: No new onset incontinence Musculoskeletal: Left shoulder pain Psychiatric: [Normal mood/affect] Neurological: [Denies weakness in extremities], [denies balance issues] Pain at rest (0-10 scale): 3 Objective Objective:: Physical Exam: General: Alert and oriented x3, no acute distress, pleasant and cooperative Lungs: Respirations even and unlabored, symmetrical chest expansion Eyes: PERRL Musculoskeletal: Flexion and extension of lumbar [spine] somewhat guarded secondary to pain, [antalgic gait noted] Neurological: Speech clear, no gross sensory deficit Has patient had previous pain injection?: No Conservative treatment options previously tried: Home exercise plan Length of treatment: Longer than 12 weeks Meds Home Medications and Allergies Home Medications ?Medication ?Instructions ?Recorded ?Confirmed ?Type albuterol sulfate 90 mcg/actuation 2 puff inhalation DIRECTED PRN 12/15/22 07/06/24 History aerosol inhaler shortness of breath or wheezing duloxetine 60 mg capsule,delayed 60 mg PO DAILY 12/15/22 07/06/24 History release irbesartan 300 1 tab PO DAILY 12/15/22 07/06/24 History mg-hydrochlorothiazide 12.5 mg tablet ketoconazole 2 % topical cream 1 applic topical DIRECTED PRN 12/15/22 07/06/24 History Skin Condition loratadine 10 mg tablet 10 mg PO DAILY ALLERGIES 12/15/22 07/06/24 History metformin 500 mg tablet,extended 1,000 mg PO DAILY 12/15/22 07/06/24 History release 24 hr montelukast 10 mg tablet 10 mg PO DAILY 12/15/22 07/06/24 History propranolol 60 mg capsule,24 60 mg PO DAILY 12/15/22 07/06/24 History hr,extended release triamcinolone acetonide 0.1 % 1 applic topical DIRECTED PRN 12/15/22 07/06/24 History topical cream Skin Condition sitagliptin phosphate 100 mg 100 mg PO DAILY 12/25/22 07/06/24 History tablet (Januvia) ondansetron 8 mg disintegrating 8 mg PO Q8H PRN nausea and 01/15/24 07/06/24 Rx tablet vomiting 5 days #15 tabs tizanidine 2 mg tablet 2 mg PO QID PRN muscle spasticity 07/06/24 Rx #120 tabs New Prescriptions to Start Prescriptions: Allergies Allergy/AdvReac Type Severity Reaction Status Date / Time azithromycin (From Zithromax) AdvReac Severe Verified 01/04/24 12:05 Assessment and Plan *Assessment and plan (1) Left shoulder pain: Status: Acute Qualifiers: Chronicity: chronic Qualified Code(s): M25.512 - Pain in left shoulder; G89.29 - Other chronic pain Category: Medical Code(s): M25.512 - Pain in left shoulder (2) Bilateral sacroiliitis: Status: Acute Category: Medical Code(s): M46.1 - Sacroiliitis, not elsewhere classified (3) Degenerative disc disease, cervical: Status: Chronic Category: Medical Code(s): M50.30 - Other cervical disc degeneration, unspecified cervical region (4) Cervical radiculopathy: Status: Chronic Category: Medical Code(s): M54.12 - Radiculopathy, cervical region (5) Degenerative disc disease, lumbar: Status: Acute Category: Medical Code(s): M51.369 - Other intervertebral disc degeneration, lumbar region without mention of lumbar back pain or lower extremity pain (6) Low back pain: Status: Acute Qualifiers: Back pain laterality: bilateral Chronicity: chronic Sciatica laterality: bilateral sciatica Sciatica presence: with sciatica Qualified Code(s): M54.42 - Lumbago with sciatica, left side; M54.41 - Lumbago with sciatica, right side; G89.29 - Other chronic pain Category: Medical Code(s): M54.50 - Low back pain, unspecified Plan I will go ahead and send in another 3-month supply of this tizanidine however it is not due until October. Patient was counseled that we will go ahead and give him a tentative 1 month follow-up however if closer to that time he is doing well he can push this visit out longer. Patient agrees with this plan of care. Patient has been instructed to contact the clinic with any concerns before the next appointment. Dr. Polanco has reviewed this note and agrees with this plan of care. This note was dictated using voice recognition software and make contain errors or omissions. All injections are used with Lidocaine, Bupivacaine and Depo Medrol. Occasionally urine drug screen is needed to verify patient's compliance with our office pain contract. This is ordered based off specific treatments related to chronic pain with the potential to abuse certain medications.
[2024-09-04 11:24] VITALS: BP 136/91; PULSE 61; RESP 16; O2SAT 97; BMI 44.9
== END 2024-09-04 23:59 | disposition home or self-care (01) ==
PROVIDERS: PCP Family Medicine; Visit Provider Nurse Practitioner Family
DX: M25.512 Pain in left shoulder (principal); G89.29 Other chronic pain; M46.1 Sacroiliitis, not elsewhere classified; M50.10 Cervical disc disorder with radiculopathy, unspecified cervical region; M51.369 Other intervertebral disc degeneration, lumbar region without mention of lumbar back pain or lower extremity pain; M54.42 Lumbago with sciatica, left side; M54.41 Lumbago with sciatica, right side; Z79.899 Other long term (current) drug therapy
CPT/HCPCS: 99212; G0463

== ENCOUNTER 2024-09-29 21:39 | Emergency (ER) | payer OTHER, SELFPAY ==
[2024-09-29 21:42] VITALS: BP 173/88; PULSE 57; RESP 18; TEMP 36.9; O2SAT 98; BMI 45.3
--- NOTE | 2024-09-29 21:58 | XR_ITS ---
PROCEDURE INFORMATION: Exam: XR Left Humerus Exam date and time: 09/29/2024 10:14 PM Age: 59 years old Clinical indication: Injury or trauma; Fall; Other: Pain; Additional info: Fall injury TECHNIQUE: Imaging protocol: Radiologic exam of the left humerus. Views: 2 or more views. COMPARISON: CR XR HUMERUS LT 09/29/2024 10:14 PM FINDINGS: Bones/joints: Normal. Soft tissues: Normal. IMPRESSION: No acute findings.
--- NOTE | 2024-09-29 21:58 | XR_ITS ---
PROCEDURE INFORMATION: Exam: XR Left Elbow Exam date and time: 09/29/2024 10:14 PM Age: 59 years old Clinical indication: Injury or trauma; Fall; Other: Pain; Additional info: Fall injury TECHNIQUE: Imaging protocol: Radiologic exam of the left elbow. Views: 3 or more views. COMPARISON: CR XR ELBOW LT MIN 3V 09/29/2024 10:14 PM FINDINGS: Bones/joints: Normal. Soft tissues: Normal. IMPRESSION: No acute findings.
--- NOTE | 2024-09-29 21:58 | XR_ITS ---
PROCEDURE INFORMATION: Exam: XR Left Forearm Exam date and time: 09/29/2024 10:14 PM Age: 59 years old Clinical indication: Injury or trauma; Fall; Other: Pain; Additional info: Fall injury TECHNIQUE: Imaging protocol: Radiologic exam of the left forearm. Views: 2 views. COMPARISON: CR XR ELBOW LT MIN 3V 09/29/2024 10:14 PM FINDINGS: Bones/joints: No fracture or dislocation. Soft tissues: Focal soft tissues swelling in the dorsal proximal forearm. IMPRESSION: No acute fracture or dislocation. Focal soft tissue edema in the dorsal proximal forearm, consistent with trauma.
--- NOTE | 2024-09-29 21:58 | XR_ITS ---
PROCEDURE INFORMATION: Exam: XR Left Shoulder Exam date and time: 09/29/2024 10:14 PM Age: 59 years old Clinical indication: Injury or trauma; Fall; Other: Pain; Additional info: Fall injury TECHNIQUE: Imaging protocol: Radiologic exam of the left shoulder. Views: 2 or more views. COMPARISON: MR SHOULDER LT WO CON 05/12/2024 3:41 PM FINDINGS: Bones/joints: Normal. Soft tissues: Normal. IMPRESSION: No acute findings.
[2024-09-29 22:01] VITALS: BP 142/85; PULSE 59; O2SAT 94
--- NOTE | 2024-09-29 22:02 | HMH.EDGENADL ---
Discharge Plan Disposition Patient Disposition: Home, Self-Care Prescriptions Prescriptions: No Action propranolol 60 mg capsule,extended release 24 hr 60 mg PO DAILY duloxetine 60 mg capsule,delayed release(DR/EC) 60 mg PO DAILY Patient Comments: TAKE 1 CAPSULE BY MOUTH EVERY DAY FOR 30 DAYS ketoconazole 2 % cream 1 applic topical DIRECTED PRN (Reason: Skin Condition) irbesartan-hydrochlorothiazide 300-12.5 mg tablet 1 tab PO DAILY Patient Comments: TAKE 1 TABLET BY MOUTH EVERY DAY FOR 90 DAYS albuterol sulfate 90 mcg/actuation HFA aerosol inhaler 2 puff inhalation DIRECTED PRN (Reason: shortness of breath or wheezing) metformin 500 mg tablet extended release 24 hr 1,000 mg PO DAILY Patient Comments: TAKE 2 TABLETS BY MOUTH EVERY DAY FOR 90 DAYS triamcinolone acetonide 0.1 % cream 1 applic topical DIRECTED PRN (Reason: Skin Condition) Patient Comments: APPLY TOPICALLY TO THE AFFECTED AREA TWICE A DAY montelukast 10 mg tablet 10 mg PO DAILY Patient Comments: TAKE 1 TABLET BY MOUTH EVERY DAY loratadine 10 mg tablet 10 mg PO DAILY Patient Comments: TAKE 1 TABLET BY MOUTH EVERY DAY FOR 30 DAYS Januvia 100 mg tablet 100 mg PO DAILY ondansetron 8 mg tablet,disintegrating 8 mg PO Q8H PRN (Reason: nausea and vomiting) 5 Days Qty: 15 0RF tizanidine 2 mg tablet 2 mg PO QID PRN (Reason: muscle spasticity) Qty: 120 2RF Referrals Follow up/Referrals: Filemon Alvarez MD [Primary Care Provider] - See instructions Activity Restrictions/Add. Instructions Additional Instructions/Restrictions: No evidence of fracture or dislocation on any of your x-rays there is a small area of soft tissue swelling consistent with a hematoma on the lateral/ulnar area of your mid forearm. This should self resolve over time. You may apply ice to these areas and take pain medicine as previously instructed. Clinical Impressions Clinical Impression: Left upper arm injury, Injury of left lower arm, Fall, Hematoma of left forearm Print Language Print Language: Egyptian Discharge ED Provider: Celi Myers General Adult HPI General Chief complaint: Fall Stated complaint: AO 09/29/242049 Injury arm,landed on left side Time Seen by Provider: 09/29/24 21:47 History of Present Illness HPI narrative: Patient is a 59-year-old male with numerous comorbidities including dystonia who is recently postoperative from a left cubital tunnel release performed at [facility]. Has dressings that were removed today and slipped and fell on ice landing onto his left shoulder sustaining an injury to his left shoulder humerus elbow and forearm region. Denies any new or different head neck chest abdomen and pelvis or other long bone pain. Majority of his pain is in the left shoulder and the distal forearm close to his surgical site. His who is with him took a look at his surgical site which stated that it looked relatively normal. No dehiscence or bleeding. Related Data Home Medications ?Medication ?Instructions ?Recorded ?Confirmed albuterol sulfate 90 mcg/actuation 2 puff inhalation DIRECTED PRN 12/15/22 09/04/24 aerosol inhaler shortness of breath or wheezing duloxetine 60 mg capsule,delayed 60 mg PO DAILY 12/15/22 09/04/24 release irbesartan 300 1 tab PO DAILY 12/15/22 09/04/24 mg-hydrochlorothiazide 12.5 mg tablet ketoconazole 2 % topical cream 1 applic topical DIRECTED PRN 12/15/22 09/04/24 Skin Condition loratadine 10 mg tablet 10 mg PO DAILY ALLERGIES 12/15/22 09/04/24 metformin 500 mg tablet,extended 1,000 mg PO DAILY 12/15/22 09/04/24 release 24 hr montelukast 10 mg tablet 10 mg PO DAILY 12/15/22 09/04/24 propranolol 60 mg capsule,24 60 mg PO DAILY 12/15/22 09/04/24 hr,extended release triamcinolone acetonide 0.1 % 1 applic topical DIRECTED PRN 12/15/22 09/04/24 topical cream Skin Condition sitagliptin phosphate 100 mg 100 mg PO DAILY 12/25/22 09/04/24 tablet (Januvia) Previous Rx's ?Medication ?Instructions ?Recorded ondansetron 8 mg disintegrating 8 mg PO Q8H PRN nausea and 01/15/24 tablet vomiting 5 days #15 tabs tizanidine 2 mg tablet 2 mg PO QID PRN muscle spasticity 09/04/24 #120 tabs Allergies Allergy/AdvReac Type Severity Reaction Status Date / Time azithromycin (From Zithromax) AdvReac Severe Verified 01/04/24 12:05 [facility] Disclaimer: The information contained in this section may have been updated after the patient was seen, as this information can be updated by other users. Medical History (Updated 09/29/24 @ 23:14 by Celi Myers MD) Depression Diabetes HTN (hypertension) Pain, joint, ankle and foot Family History Other Unknown family medical history Social History Smoking Status: Unknown if ever smoked alcohol intake: never current occupational status: other Travel in the last 8 weeks: None household members: other housing: house current occupational exposures/hazards: No Have you lived/traveled outside [place] in past 30 days?: No Contact w/someone who lives/traveled outside [place] past 30 days?: No Exposure to someone with infectious disease in past 14 days?: No Do you have a fever (greater than 100.4 F or 38 C)?: No Have you tested positive for COVID-19: No Exposed to someone with COVID-19 in past 14 days?: No Do you have a sore throat?: No Do you have a cough?: No Do you have any weakness?: No Do you have any diarrhea?: No Are you experiencing any unusual bleeding?: No Do you have any muscle aches/pain?: Yes Do you have any abdominal pain?: No Are you experiencing loss of taste or smell?: No Other Medical History Have you received the Flu Vaccine for this season: No Have you received the Pneumonia Vaccine: No ROS Obtained: Yes All systems reviewed & no additional complaints except as documented Physical Exam General General appearance: alert Respiratory Respiratory exam: Present normal lung sounds bilaterally Cardiovascular Cardiovascular exam: Present regular rate Extremities Exam Extremities exam: Present other (There is significant pain over the left shoulder humerus elbow and forearm with some soft tissue swelling over the ulnar aspect of the left forearm otherwise limited range of motion secondary to chronic pain surgical site appears well not dehisced no bleeding sutures in place) Neurological Exam Neurological exam: Present alert and oriented X3 Medical Decision Making Medical Records Screening: Per USPSTF and CDC recommendations, given the prevalence of disease in our region, it is our hospital?s policy to screen for HIV and viral Hepatitis for all patients aged 18 and over and those with ongoing risk factors. Chavez Inquiry Pt receiving controlled substance: No Vital Signs: 09/29/24 21:42 09/29/24 22:01 Temperature 98.4 F Temperature Source Oral Pulse Rate 59 L Pulse Rate [Left Radial] 57 L Respiratory Rate 18 Blood Pressure 142/85 H Blood Pressure [Right Arm] 173/88 H Blood Pressure Mean [Right Arm] 116 Blood Pressure Source [Right Arm] Automatic Cuff Blood Pressure Position [Right Arm] Sitting 02 Sat by Pulse Oximetry 98 94 L Oxygen Delivery Method Room Air Orders (Tests/Meds): ED MEDICATIONS Discontinued Medications Generic Name Dose Route Start Last Admin Trade Name Angel PRN Reason Stop Dose Admin Oxycodone HCl 5 mg 09/29/24 22:00 09/29/24 22:26 Oxycodone 5mg Immediate Release Tablet PO 09/29/24 22:01 5 mg ONCE ONE Administration ORDERS Category Date Time Status Elbow XR left mininum 3 views [XR elbow LT min 3V] Stat Exams 09/29/24 21:58 Taken Forearm XR left 2 views [XR forearm LT 2V] Stat Exams 09/29/24 21:58 Taken Humerus XR left [XR humerus LT] Stat Exams 09/29/24 21:58 Taken Shoulder XR left minimum 2 views [XR shoulder LT min 2V Exams 09/29/24 21:58 Taken ] Stat Medical Decision Narrative: 59-year-old with above history and physical [place] CT head negative Nexus negative no chest abdomen or pelvis pain from a falling standpoint he does have pain in the left shoulder humerus elbow etc. Will get plain films of these areas administer oxycodone and reassess. Reassessment 11:14 PM x-rays of the shoulder humerus elbow and forearm were performed which I personally interpreted which show no evidence of fracture or dislocation there is some soft tissue swelling on the mid forearm consistent with a hematoma supportive care discussed patient was discharged in improved and stable condition. Critical Care Critical Care Time Critical Care Time: No
[2024-09-29] MEDS: OXYCODONE 5MG IMMEDIATE RELEASE TABLET 5 MG PO (22:26)
--- NOTE | 2024-09-29 22:28 | PC.NURSE ---
rounded on pt and pts at this time. voice no needs. call light in reach.
--- NOTE | 2024-09-29 22:51 | PC.NURSE ---
rounded on pt at this time pt voices no needs. call light in reach
[2024-09-29 23:21] VITALS: BP 137/76; PULSE 62; RESP 18; TEMP 36.9; O2SAT 96
== END 2024-09-29 23:22 | disposition home or self-care (01) ==
PROVIDERS: Emergency Provider Student in an Organized Health Care Education/Training Program; PCP Family Medicine
DX: S50.12XA Contusion of left forearm, initial encounter (principal); S59.912A Unspecified injury of left forearm, initial encounter; S49.92XA Unspecified injury of left shoulder and upper arm, initial encounter; M25.512 Pain in left shoulder; M25.522 Pain in left elbow; M79.602 Pain in left arm; W00.0XXA Fall on same level due to ice and snow, initial encounter; Y93.89 Activity, other specified; Y92.9 Unspecified place or not applicable
CPT/HCPCS: 73030; 73060; 73080; 73090; 99283

== ENCOUNTER 2024-10-05 08:57 | Outpatient (POV) | payer OTHER, SELFPAY ==
[2024-10-05 09:27] VITALS: BP 148/81; PULSE 57; RESP 16; O2SAT 98; BMI 44.5
--- NOTE | 2024-10-05 10:23 | EXP.PAIN.SOA ---
[facility] Disclaimer: The information contained in this section may have been updated after the patient was seen, as this information can be updated by other users. Medical History (Updated 09/29/24 @ 23:14 by Celi Myers MD) Depression Diabetes HTN (hypertension) Pain, joint, ankle and foot Family History Other Unknown family medical history Social History Smoking Status: Unknown if ever smoked alcohol intake: never current occupational status: other Travel in the last 8 weeks: None household members: other housing: house current occupational exposures/hazards: No PM Subjective & Objective Subjective Subjective:: Patient is a pleasant 59-year-old male who presents today for worsening pain in his neck with radicular symptoms primarily down the left arm. He rates his pain a 6 out of 10. Patient did end up having surgery of ulnar nerve release along the left side about a week and a half ago or so. He states that this has gone overall well and he is doing pretty good. He states that they did do this procedure first before scheduling the rotator cuff repair that he will need on that left side. He states that they have not given that timeframe or when they anticipate to proceed forward with this option however he has had so much more increased neck pain. Patient does also make mention that he has had Botox for spasticity and that that did help relieve some of the extra tension in his muscles. Patient does state that the pain in his neck overall is an aching, throbbing sensation with numbness going down into his upper extremities. He states the pain is interfering with his ability to perform activities of daily living such as cooking and cleaning. He does also make mention that he is still having pain in the shoulder and the back however the pain in his neck is much more significant. He is interested in injection therapy if possible. Patient has also been back to see his neurosurgeon for his neck and they are not recommending surgical intervention at this time. 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 Patient is currently managed with tizanidine 2 mg 4 times a day from our office. He denies any side effects from this medication. His Chavez has been reviewed and is appropriate. Review of Systems: General: No recent weight changes, no fever, no sleep disturbances Respiratory: No cough, no shortness of air, no recurring pulmonary infections Cardiovascular/peripheral vascular: No chest pain, no palpitations, no edema, no shortness of breath Gastrointestinal: No new onset incontinence, normal bowel movements reported Genitourinary: No new onset incontinence Musculoskeletal: Neck pain, upper extremity pain Psychiatric: [Normal mood/affect] Neurological: [Denies weakness in extremities], [denies balance issues] Pain at rest (0-10 scale): 6 Objective Objective:: Physical Exam: General: Alert and oriented x3, no acute distress, pleasant and cooperative Lungs: Respirations even and unlabored, symmetrical chest expansion Eyes: PERRL Musculoskeletal: Flexion and extension of cervical [spine] somewhat guarded secondary to pain, [antalgic gait noted] positive Spurling's test Neurological: Speech clear, no gross sensory deficit Has patient had previous pain injection?: No Conservative treatment options previously tried: Home exercise plan Length of treatment: Longer than 12 weeks Meds Home Medications and Allergies Home Medications ?Medication ?Instructions ?Recorded ?Confirmed ?Type albuterol sulfate 90 mcg/actuation 2 puff inhalation DIRECTED PRN 12/15/22 09/04/24 History aerosol inhaler shortness of breath or wheezing duloxetine 60 mg capsule,delayed 60 mg PO DAILY 12/15/22 09/04/24 History release irbesartan 300 1 tab PO DAILY 12/15/22 09/04/24 History mg-hydrochlorothiazide 12.5 mg tablet ketoconazole 2 % topical cream 1 applic topical DIRECTED PRN 12/15/22 09/04/24 History Skin Condition loratadine 10 mg tablet 10 mg PO DAILY ALLERGIES 12/15/22 09/04/24 History metformin 500 mg tablet,extended 1,000 mg PO DAILY 12/15/22 09/04/24 History release 24 hr montelukast 10 mg tablet 10 mg PO DAILY 12/15/22 09/04/24 History propranolol 60 mg capsule,24 60 mg PO DAILY 12/15/22 09/04/24 History hr,extended release triamcinolone acetonide 0.1 % 1 applic topical DIRECTED PRN 12/15/22 09/04/24 History topical cream Skin Condition sitagliptin phosphate 100 mg 100 mg PO DAILY 12/25/22 09/04/24 History tablet (Januvia) ondansetron 8 mg disintegrating 8 mg PO Q8H PRN nausea and 01/15/24 09/04/24 Rx tablet vomiting 5 days #15 tabs tizanidine 2 mg tablet 2 mg PO QID PRN muscle spasticity 09/04/24 Rx #120 tabs New Prescriptions to Start Prescriptions: Allergies Allergy/AdvReac Type Severity Reaction Status Date / Time azithromycin (From Zithromax) AdvReac Severe Verified 01/04/24 12:05 Assessment and Plan *Assessment and plan (1) Left upper arm injury: Status: Acute Category: Medical Code(s): S49.92XA - Unspecified injury of left shoulder and upper arm, initial encounter (2) Degenerative disc disease, cervical: Status: Chronic Category: Medical Code(s): M50.30 - Other cervical disc degeneration, unspecified cervical region (3) Cervical radiculopathy: Status: Chronic Category: Medical Code(s): M54.12 - Radiculopathy, cervical region Plan Patient did have a cervical epidural in April 2024 that did provide 50% improvement and lasted at least 2 to 3 months. I did discuss with the patient due to his worsening pain with continued numbness and tingling into his upper extremities that he may benefit from a repeat injection. Risk and benefits were discussed with the patient and he would like to proceed forward with this plan of care. I did discuss with the patient due to the possible lingering rotator cuff surgery that I will reach out to his orthopedic provider and confirm that there are no contraindications to having this injection performed. Patient agrees with this plan of care. Patient is not on any blood thinners. Patient has tried and failed conservative therapy including oral medication, heat and ice, topicals, at home stretching exercise for longer than 12 weeks that was physician guided. Patient will be scheduled for a NIRU C5-C6 under fluoroscopy. Patient has been instructed to contact the clinic with any concerns before the next appointment. Dr. Polanco has reviewed this note and agrees with this plan of care. This note was dictated using voice recognition software and make contain errors or omissions. All injections are used with Lidocaine, Bupivacaine and Depo Medrol. Occasionally urine drug screen is needed to verify patient's compliance with our office pain contract. This is ordered based off specific treatments related to chronic pain with the potential to abuse certain medications.
== END 2024-10-05 23:59 | disposition home or self-care (01) ==
LOC: SC.PAIN 08:59
PROVIDERS: PCP Family Medicine; Visit Provider Nurse Practitioner Family
DX: M50.10 Cervical disc disorder with radiculopathy, unspecified cervical region (principal); S49.92XA Unspecified injury of left shoulder and upper arm, initial encounter; Z73.89 Other problems related to life management difficulty
CPT/HCPCS: 99212; G0463

== ENCOUNTER 2024-10-12 08:00 | Outpatient (RCR) | payer OTHER, SELFPAY | END 2024-10-12 23:59 | disposition home or self-care (01) | LOC: OT 08:00 | PROVIDERS: Visit Provider Student in an Organized Health Care Education/Training Program | DX: M25.812 Other specified joint disorders, left shoulder (principal) | CPT/HCPCS: 97014; 97035; 97110; 97140; 97165; G0283 ==

== ENCOUNTER 2024-10-17 08:45 | Day surgery (SDC) | payer OTHER, SELFPAY ==
[2024-10-17 09:47] VITALS: BP 129/72; PULSE 72; RESP 18; O2SAT 98
[2024-10-17 09:52] VITALS: BP 137/81; PULSE 68; RESP 16; TEMP 36.3; O2SAT 96; BMI 43.9
[2024-10-17 10:00] VITALS: BP 128/77; PULSE 69; RESP 16; O2SAT 99
[2024-10-17] MEDS: methylPREDNISolone ACETATE 80MG/ML VIAL 80 MG (10:03)
--- NOTE | 2024-10-17 11:23 | P.PCN_ITS ---
Procedure Date: 10/17/24 Time: 10:00 Anesthesiologist:: Clemente Hull CRNA Complications:: None Pre-procedure Diagnosis:: Degenerative disc cervical spine multilevels. Cervical radiculopathy. Post-procedure Diagnosis:: Same. Indications for Procedure:: Patient is a pleasant 59-year-old male who comes our clinic today for cervical epidural steroid injection. Patient describes posterior cervical neck pain as constant, dull, aching. Patient also reports bilateral arm radicular symptoms. Patient rates his pain today /10. Procedure Details:: Procedure:Cervical epidural steroid injection Informed consent was obtained and the risks and benefits of the procedure were explained to the patient. The patient was taken to the procedure room and noninvasive monitors placed, including noninvasive blood pressure cuff and pulse oximeter. The neck was prepped using Chloraprep as a cleansing solution. The C6- C7 interspace was viewed using fluroscopy. The skin and subcutaneous tissues were anesthetized using lidocaine 1.5% and a 25-gauge needle. After this an 18- gauge Touhy epidural needle was placed into the C6-C7 interspace under fluroscopy guidance and advanced using loss of resistance to air until the epidural space was encountered. After confirmation of needle placement in the epidural space using contrast dye, a solution containing normal saline, 2 mL and Depo-Medrol 80 mg was incrementally injected into the cervical epidural space.~ The patient tolerated the procedure well with no complications. The patient was observed in the Pain Clinic and then discharged home neurologically intact. Plan and Disposition:: Patient was discharged without incident.
== END 2024-10-17 10:00 | disposition home or self-care (01) ==
LOC: SC.PAINP 08:47
PROVIDERS: PCP Family Medicine; Visit Provider Nurse Anesthetist, Certified Registered
DX: M50.30 Other cervical disc degeneration, unspecified cervical region (principal); M54.12 Radiculopathy, cervical region
CPT/HCPCS: 62321; J1010

== ENCOUNTER 2024-10-30 13:59 | Outpatient (POV) | payer OTHER, SELFPAY ==
--- NOTE | 2024-10-30 14:13 | A.OFFVIS_ITS ---
[facility] Disclaimer: The information contained in this section may have been updated after the patient was seen, as this information can be updated by other users. Medical History Depression Diabetes HTN (hypertension) Pain, joint, ankle and foot Family History Other Unknown family medical history Social History Smoking Status: Unknown if ever smoked alcohol intake: never current occupational status: other Travel in the last 8 weeks: None household members: other housing: house current occupational exposures/hazards: No PM Subjective & Objective Subjective Subjective:: Patient is a pleasant 59-year-old male who presents today for follow-up of cervical epidural steroid injection C6 or C7 on 10/17/2024. Today he rates his pain a 5 out of 10. He does state that he had at least 50% improvements following this injection however felt like it was working the best in the first week. He denies any new trauma or injury. He does state though that now that he has had improvement in his overall neck and arm symptoms that he does notice more around his low back that is really bothersome. He states it is in and around his back and hips and denies any radiating symptoms into his legs. Patient does state that he feels like his old injections that he has gotten for his low back have officially worn off. Patient does state the pain is interfering with his ability perform activities of daily living such as cooking and cleaning. Patient does also make mention that he has been back to see orthopedics and as of right now they are not scheduling shoulder surgery. Patient is managed with tizanidine 2 mg 4 times a day from our office. He denies any side effects. His Chavez has been reviewed and is appropriate. Review of Systems: General: No recent weight changes, no fever, no sleep disturbances Respiratory: No cough, no shortness of air, no recurring pulmonary infections Cardiovascular/peripheral vascular: No chest pain, no palpitations, no edema, no shortness of breath Gastrointestinal: No new onset incontinence, normal bowel movements reported Genitourinary: No new onset incontinence Musculoskeletal: Low back pain, bilateral hip pain Psychiatric: [Normal mood/affect] Neurological: [Denies weakness in extremities], [denies balance issues] Pain at rest (0-10 scale): 5 Objective Objective:: Physical Exam: General: Alert and oriented x3, no acute distress, pleasant and cooperative Lungs: Respirations even and unlabored, symmetrical chest expansion Eyes: PERRL Musculoskeletal: Flexion and extension of lumbar [spine] somewhat guarded secondary to pain, [antalgic gait noted] point tenderness along bilateral SIs with positive bilateral Luis Armando's, Fernanda's, Gaenslen's, compression and distraction exam Neurological: Speech clear, no gross sensory deficit Has patient had previous pain injection?: Yes Percent improvement in pain since last injection: 50% Conservative treatment options previously tried: Home exercise plan Length of treatment: Longer than 12 weeks Meds Home Medications and Allergies Home Medications ?Medication ?Instructions ?Recorded ?Confirmed ?Type albuterol sulfate 90 mcg/actuation 2 puff inhalation DIRECTED PRN 12/15/22 10/17/24 History aerosol inhaler shortness of breath or wheezing duloxetine 60 mg capsule,delayed 60 mg PO DAILY 12/15/22 10/17/24 History release irbesartan 300 1 tab PO DAILY 12/15/22 10/17/24 History mg-hydrochlorothiazide 12.5 mg tablet ketoconazole 2 % topical cream 1 applic topical DIRECTED PRN 12/15/22 10/17/24 History Skin Condition loratadine 10 mg tablet 10 mg PO DAILY ALLERGIES 12/15/22 10/17/24 History metformin 500 mg tablet,extended 1,000 mg PO DAILY 12/15/22 10/17/24 History release 24 hr montelukast 10 mg tablet 10 mg PO DAILY 12/15/22 10/17/24 History propranolol 60 mg capsule,24 60 mg PO DAILY 12/15/22 10/17/24 History hr,extended release triamcinolone acetonide 0.1 % 1 applic topical DIRECTED PRN 12/15/22 10/17/24 History topical cream Skin Condition sitagliptin phosphate 100 mg 100 mg PO DAILY 12/25/22 10/17/24 History tablet (Januvia) ondansetron 8 mg disintegrating 8 mg PO Q8H PRN nausea and 01/15/24 10/17/24 Rx tablet vomiting 5 days #15 tabs tizanidine 2 mg tablet 2 mg PO QID PRN muscle spasticity 09/04/24 10/17/24 Rx #120 tabs New Prescriptions to Start Prescriptions: Allergies Allergy/AdvReac Type Severity Reaction Status Date / Time azithromycin (From Zithromax) AdvReac Severe Verified 01/04/24 12:05 Assessment and Plan *Assessment and plan (1) Bilateral sacroiliitis: Status: Acute Category: Medical Code(s): M46.1 - Sacroiliitis, not elsewhere classified Plan Patient is experiencing worsening pain along the low back and bilateral hips. They did have limited range of motion of the lumbar spine along with point tenderness along bilateral SI joints and a positive bilateral Luis Armando's, Fernanda's, Gaenslen's, compression and distraction exam. I did discuss with the patient that I do believe they would benefit from bilateral SI injections. Risk and benefits were discussed with the patient and they would like to proceed forward with this option. Patient has tried and failed conservative therapy including continued at home stretching exercise for longer than 12 weeks in between injections. Patient does have a longstanding history of chronic sacroiliitis that has been going on for longer than 1 year. Patient did have his last SI injections in November 2023 that did provide significant improvement. He did state that they did initially provide more relief of upwards of 80% and then decreased down to the 50% and felt like the pain was much less severe for months after. Patient will be scheduled for bilateral SI injections under fluoroscopy. Patient has been instructed to contact the clinic with any concerns before the next appointment. Dr. Polanco has reviewed this note and agrees with this plan of care. This note was dictated using voice recognition software and make contain errors or omissions. All injections are used with Lidocaine or Bupivacaine and Depo Medrol.
[2024-10-30 14:19] VITALS: BP 127/69; PULSE 69; RESP 14; O2SAT 95; BMI 43.5
== END 2024-10-30 23:59 | disposition home or self-care (01) ==
LOC: SC.PAIN 14:00
PROVIDERS: PCP Family Medicine; Visit Provider Nurse Practitioner Family
DX: M46.1 Sacroiliitis, not elsewhere classified (principal); Z73.89 Other problems related to life management difficulty
CPT/HCPCS: 99212; G0463

== ENCOUNTER 2024-11-07 08:00 | Outpatient (RCR) | payer OTHER, SELFPAY ==
[2024-10-17] MEDS: IOPAMIDOL-200 (41%);10ML VIAL 2 ML IV (10:18)
== END 2024-11-07 23:59 | disposition home or self-care (01) ==
LOC: OT 08:00
PROVIDERS: Visit Provider Student in an Organized Health Care Education/Training Program
DX: M75.42 Impingement syndrome of left shoulder (principal)
CPT/HCPCS: 97014; 97110; 97140; 97168; G0283; Q9966

== ENCOUNTER 2024-11-28 08:40 | Day surgery (SDC) | payer OTHER, SELFPAY ==
[2024-11-28 08:50] VITALS: BP 132/75; PULSE 58; RESP 16; TEMP 36.8; O2SAT 98; BMI 44.8
[2024-11-28] MEDS: BUPIVACAINE 0.25% 10ML INJ 25 MG IJ (09:11)
[2024-11-28] MEDS: LIDOCAINE 1% 5ML PF VIAL 5 ML (09:11)
[2024-11-28] MEDS: methylPREDNISolone ACETATE 80MG/ML VIAL 80 MG (09:11)
[2024-11-28 09:12] VITALS: BP 151/85; PULSE 55; RESP 18; O2SAT 93
[2024-11-28 09:13] VITALS: BP 151/85; PULSE 53; RESP 18; O2SAT 93
[2024-11-28 09:18] VITALS: BP 145/84; PULSE 59; RESP 16; O2SAT 96
--- NOTE | 2024-11-28 10:05 | EXP.PAIN.PRO ---
Procedure Date: 11/28/24 Time: 09:00 Anesthesiologist:: Clemente Hull CRNA Complications:: None Pre-procedure Diagnosis:: Bilateral sacroiliitis Post-procedure Diagnosis:: Same Indications for Procedure:: Patient very pleasant 59-year-old male who comes our clinic today for bilateral sacroiliac joint injection cortisone local anesthetic. Patient describes low lumbar back pain off the midline bilaterally. Bilateral posterior hip pain. Difficulty transitioning from sitting to standing. He rates his pain 8/10. Procedure Details:: Procedure: Bilateral sacroiliac joint injections under fluoroscopy Informed consent was obtained and the risks and benefits of the procedure were explained to the patient.~ The patient was taken to the procedure room and noninvasive monitors were placed including a noninvasive blood pressure cuff and pulse oximeter.~ The patient was placed prone on the procedure table. Both hips were cleansed using Betadine as a cleansing solution. C-arm fluoroscopy was used to view the right sacroiliac joint.~ The skin and subcutaneous tissues were anesthetized using lidocaine 1.5% and a 25-gauge needle.~ After this, a 22-gauge spinal needle was inserted under fluoroscopic guidance into the inferior aspect of the right sacroiliac joint.~ Omnipaque dye was injected and good spread was seen throughout the joint.~ After this, approximately 5 mL of bupivacaine, 0.25% and Depo-Medrol, 40 mg was incrementally injected into the right sacroiliac joint. We then moved to the left sacroiliac joint.~ The skin and subcutaneous tissues were anesthetized using lidocaine 1.5% and a 25-gauge needle.~ After this, a 22-gauge spinal needle was inserted under fluoroscopic guidance into the inferior aspect of the left sacroiliac joint.~ Omnipaque dye was injected and good spread was seen throughout the joint. After this, approximately 5 mL of bupivacaine, 0.25% and Depo-Medrol, 40 mg was incrementally injected into the left sacroiliac joint.~ The patient tolerated the procedure well with no complications. The patient was observed in the Pain Clinic and then was discharged home neurologically intact. Plan and Disposition:: Patient was discharged without incident.
== END 2024-11-28 09:18 | disposition home or self-care (01) ==
LOC: SC.PAINP 08:41
PROVIDERS: PCP Family Medicine; Visit Provider Nurse Anesthetist, Certified Registered
DX: M46.1 Sacroiliitis, not elsewhere classified (principal)
CPT/HCPCS: 27096; G0260; J1010

== ENCOUNTER 2024-12-04 08:00 | Outpatient (RCR) | payer OTHER, SELFPAY | END 2024-12-04 23:59 | disposition home or self-care (01) | LOC: OT 08:00 | PROVIDERS: Visit Provider Student in an Organized Health Care Education/Training Program | DX: M75.42 Impingement syndrome of left shoulder (principal) | CPT/HCPCS: 97014; 97110; 97140; 97168; G0283 ==

== ENCOUNTER 2024-12-11 13:29 | Outpatient (POV) | payer OTHER, SELFPAY ==
[2024-12-11 13:55] VITALS: BP 146/94; BP 147/91; PULSE 55; RESP 14; O2SAT 96
--- NOTE | 2024-12-11 15:46 | EXP.PAIN.SOA ---
[facility] Disclaimer: The information contained in this section may have been updated after the patient was seen, as this information can be updated by other users. Medical History Depression Diabetes HTN (hypertension) Pain, joint, ankle and foot Family History Other Unknown family medical history Social History Smoking Status: Never smoker alcohol intake: never current occupational status: other Travel in the last 8 weeks: None household members: other housing: house current occupational exposures/hazards: No PM Subjective & Objective Subjective Subjective:: Patient is a pleasant 59 male who presents today for follow-up of bilateral SI injections on 11/28/2024. Patient does state that he had 100% relief following these injections for the first day and then it did start to slowly radiate Thom to 65 to 80% where it is still working well. He states that he has been able to move around easier overall and feels much more functional. He denies any new falls or injuries. He does rate that pain a 3 out of 10. Patient does state that he is starting to have more neck pain and feels like it is picking up in frequency and intensity. He states that he did have some numbness and tingling yesterday in his left arm that went down to his fingers. Patient does state he feels like this is the same pain that we have treated in the past were doing epidurals. He states that those do really help. Patient is interested in getting scheduled tentatively for his next cervical epidural. He states these have given improved function overall. Patient is also still doing Botox for spasticity from an outside provider and is scheduled for what we believe is a shoulder scope on December 28. He denies any other changes. He is prescribed tizanidine 2 mg 4 times a day from our office. His Chavez has been reviewed and is appropriate. Review of Systems: General: No recent weight changes, no fever, no sleep disturbances Respiratory: No cough, no shortness of air, no recurring pulmonary infections Cardiovascular/peripheral vascular: No chest pain, no palpitations, no edema, no shortness of breath Gastrointestinal: No new onset incontinence, normal bowel movements reported Genitourinary: No new onset incontinence Musculoskeletal: Neck pain, left arm numbness tingling Psychiatric: [Normal mood/affect] Neurological: [Denies weakness in extremities], [denies balance issues] Pain at rest (0-10 scale): 5 Objective Objective:: Physical Exam: General: Alert and oriented x3, no acute distress, pleasant and cooperative Lungs: Respirations even and unlabored, symmetrical chest expansion Eyes: PERRL Musculoskeletal: Flexion and extension of cervical [spine] somewhat guarded secondary to pain, [antalgic gait noted] positive Spurling's test Neurological: Speech clear, no gross sensory deficit Has patient had previous pain injection?: Yes Percent improvement in pain since last injection: 100% initially, 65 to 80% thereafter Conservative treatment options previously tried: Home exercise plan Length of treatment: Longer than 12 weeks Meds Home Medications and Allergies Home Medications ?Medication ?Instructions ?Recorded ?Confirmed ?Type albuterol sulfate 90 mcg/actuation 2 puff inhalation DIRECTED PRN 12/15/22 12/11/24 History aerosol inhaler shortness of breath or wheezing duloxetine 60 mg capsule,delayed 60 mg PO DAILY 12/15/22 12/11/24 History release irbesartan 300 1 tab PO DAILY 12/15/22 12/11/24 History mg-hydrochlorothiazide 12.5 mg tablet ketoconazole 2 % topical cream 1 applic topical DIRECTED PRN 12/15/22 12/11/24 History Skin Condition loratadine 10 mg tablet 10 mg PO DAILY ALLERGIES 12/15/22 12/11/24 History metformin 500 mg tablet,extended 1,000 mg PO DAILY 12/15/22 12/11/24 History release 24 hr montelukast 10 mg tablet 10 mg PO DAILY 12/15/22 12/11/24 History propranolol 60 mg capsule,24 60 mg PO DAILY 12/15/22 12/11/24 History hr,extended release triamcinolone acetonide 0.1 % 1 applic topical DIRECTED PRN 12/15/22 12/11/24 History topical cream Skin Condition sitagliptin phosphate 100 mg 100 mg PO DAILY 12/25/22 12/11/24 History tablet (Januvia) ondansetron 8 mg disintegrating 8 mg PO Q8H PRN nausea and 01/15/24 12/11/24 Rx tablet vomiting 5 days #15 tabs tizanidine 2 mg tablet 2 mg PO QID PRN muscle spasticity 09/04/24 12/11/24 Rx #120 tabs New Prescriptions to Start Prescriptions: Allergies Allergy/AdvReac Type Severity Reaction Status Date / Time azithromycin (From Zithromax) AdvReac Severe Verified 01/04/24 12:05 Assessment and Plan *Assessment and plan (1) Degenerative disc disease, cervical: Status: Chronic Category: Medical Code(s): M50.30 - Other cervical disc degeneration, unspecified cervical region (2) Cervical radiculopathy: Status: Chronic Category: Medical Code(s): M54.12 - Radiculopathy, cervical region Plan Patient is experiencing worsening pain in their neck with radiating tingling and burning sensations into their left upper extremity. Patient did have limited range of motion of her cervical spine with a positive Spurling's test. I did discuss with the patient that I do believe they would benefit from a cervical epidural steroid injection. Risk and benefits were discussed with patient and they would like to proceed forward with this plan of care. Patient has tried and failed conservative therapy including oral medications, heat and ice, topicals, at home stretching exercise for longer than 12 weeks that was physician guided. Patient did have his last cervical epidural at the very beginning of October that did provide 50% improvements and has lasted upwards of 2 months. Patient's pain in his neck has been chronic for longer than 6 months. Patient will be scheduled for a NIRU C6 or C7 under fluoroscopy. Patient denies any blood thinners. Patient did state that the orthopedic provider did already tell him that he had no contraindications for additional steroid injections with his upcoming shoulder scope. Patient has been instructed to contact the clinic with any concerns before the next appointment. Dr. Polanco has reviewed this note and agrees with this plan of care. This note was dictated using voice recognition software and make contain errors or omissions. All injections are used with Lidocaine, Bupivacaine and Depo Medrol. Occasionally urine drug screen is needed to verify patient's compliance with our office pain contract. This is ordered based off specific treatments related to chronic pain with the potential to abuse certain medications.
== END 2024-12-11 23:59 | disposition home or self-care (01) ==
LOC: SC.PAIN 13:30
PROVIDERS: PCP Family Medicine; Visit Provider Nurse Practitioner Family
DX: M50.10 Cervical disc disorder with radiculopathy, unspecified cervical region (principal)
CPT/HCPCS: 99212; G0463

== ENCOUNTER 2024-12-18 08:04 | Outpatient (CLI) | payer OTHER, SELFPAY ==
[2024-12-18 08:40] VITALS: PULSE 66; PULSE 69
[2024-12-18] MEDS: ALBUTEROL 0.083% 2.5 MG/3 ML NEB IH (08:40)
== END 2024-12-18 23:59 | disposition home or self-care (01) ==
LOC: RT 08:05
PROVIDERS: PCP Family Medicine; Visit Provider Family Medicine
DX: R06.02 Shortness of breath (principal)
CPT/HCPCS: 94060; 94640; J7613

== ENCOUNTER 2025-01-09 08:35 | Day surgery (SDC) | payer OTHER, SELFPAY ==
[2025-01-09 08:45] VITALS: BP 114/58; PULSE 60; RESP 16; TEMP 36.7; O2SAT 96; BMI 43.0
[2025-01-09] MEDS: DEXAMETHASONE 10MG/ML 1ML VIAL 10 MG (08:56)
[2025-01-09] MEDS: IOPAMIDOL-200 (41%);10ML VIAL 2 ML IV (08:57)
[2025-01-09 08:58] VITALS: BP 154/87; PULSE 56; RESP 18; O2SAT 95
[2025-01-09 08:59] VITALS: BP 154/87; PULSE 56; RESP 18; O2SAT 95
[2025-01-09 09:03] VITALS: BP 121/81; PULSE 61; RESP 16; O2SAT 96
--- NOTE | 2025-01-09 09:04 | P.PCN_ITS ---
Procedure Date: 01/09/25 Time: 09:00 Anesthesiologist:: Clemente Hull CRNA Complications:: None Pre-procedure Diagnosis:: Degenerative disc cervical spine multilevels. Cervical radiculopathy. Disc bulge cervical spine multiple levels. Post-procedure Diagnosis:: Same. Indications for Procedure:: Patient is a very pleasant 59-year-old male who comes our clinic today for repeat cervical epidural steroid injection. Patient describes posterior cervical neck pain as well as bilateral shoulder pain. He reports responding very well to previous injection same level. He rates his pain today 6/10. Procedure Details:: Procedure:Cervical epidural steroid injection Informed consent was obtained and the risks and benefits of the procedure were explained to the patient. The patient was taken to the procedure room and noninvasive monitors placed, including noninvasive blood pressure cuff and pulse oximeter. The neck was prepped using Chloraprep as a cleansing solution. The C6- C7 interspace was viewed using fluroscopy. The skin and subcutaneous tissues were anesthetized using lidocaine 1.5% and a 25-gauge needle. After this an 18- gauge Touhy epidural needle was placed into the C6-C7 interspace under fluroscopy guidance and advanced using loss of resistance to air until the epidural space was encountered. After confirmation of needle placement in the epidural space using contrast dye, a solution containing normal saline, 2 mL and Depo-Medrol 80 mg was incrementally injected into the cervical epidural space.~ The patient tolerated the procedure well with no complications. The patient was observed in the Pain Clinic and then discharged home neurologically intact. Plan and Disposition:: Patient was discharged without incident.
== END 2025-01-09 09:03 | disposition home or self-care (01) ==
LOC: SC.PAINP 08:36
PROVIDERS: PCP Family Medicine; Visit Provider Nurse Anesthetist, Certified Registered
DX: M50.30 Other cervical disc degeneration, unspecified cervical region (principal); M54.12 Radiculopathy, cervical region
CPT/HCPCS: 62321; J1100; Q9966

== ENCOUNTER 2025-01-12 07:52 | Outpatient (CLI) | payer OTHER, SELFPAY ==
[2025-01-12] MEDS: ALBUTEROL 0.083% 2.5 MG/3 ML NEB IH (08:34)
--- NOTE | 2025-01-12 08:34 | PC.NURSE ---
PFT completed without incident. Albuterol 0.083% given via HHN, per written protocol, Pt tolerated tx well.
== END 2025-01-12 23:59 | disposition home or self-care (01) ==
LOC: RT 07:52
PROVIDERS: PCP Family Medicine; Visit Provider Family Medicine
DX: R06.02 Shortness of breath (principal)
CPT/HCPCS: 94060; 94726; 94729; J7613

== ENCOUNTER 2025-01-22 13:11 | Outpatient (POV) | payer OTHER, SELFPAY ==
[2025-01-22 13:23] VITALS: BP 128/63; PULSE 66; RESP 14; O2SAT 97; BMI 43.0
--- NOTE | 2025-01-22 14:14 | A.OFFVIS_ITS ---
[facility] Disclaimer: The information contained in this section may have been updated after the patient was seen, as this information can be updated by other users. Medical History Depression Diabetes HTN (hypertension) Pain, joint, ankle and foot Family History Other Unknown family medical history Social History Smoking Status: Unknown if ever smoked alcohol intake: never current occupational status: other Travel in the last 8 weeks?: None household members: other housing: house current occupational exposures/hazards: No PM Subjective & Objective Subjective Subjective:: Patient is a pleasant 59-year-old male who presents today for follow-up of his cervical epidural steroid injection C6-C7 on 01/09/2025. Today he rates his pain 3 out of 10. He denies any new trauma or injury. He does state that he has had at least 75% improvement following this injection and feels like it is still working. Patient does make mention that he did do a lot more this weekend with the weather nicer and does feel like he is aggravated his low back some. His Chavez has been reviewed and is appropriate. Review of Systems: General: No recent weight changes, no fever, no sleep disturbances Respiratory: No cough, no shortness of air, no recurring pulmonary infections Cardiovascular/peripheral vascular: No chest pain, no palpitations, no edema, no shortness of breath Gastrointestinal: No new onset incontinence, normal bowel movements reported Genitourinary: No new onset incontinence Musculoskeletal: Low back pain Psychiatric: [Normal mood/affect] Neurological: [Denies weakness in extremities], [denies balance issues] Pain at rest (0-10 scale): 3 Objective Objective:: Physical Exam: General: Alert and oriented x3, no acute distress, pleasant and cooperative Lungs: Respirations even and unlabored, symmetrical chest expansion Eyes: PERRL Musculoskeletal: Flexion and extension of lumbar [spine] somewhat guarded secondary to pain, [antalgic gait noted] Neurological: Speech clear, no gross sensory deficit Has patient had previous pain injection?: Yes Percent improvement in pain since last injection: 75% Conservative treatment options previously tried: Home exercise plan Length of treatment: Longer than 12 weeks Meds Home Medications and Allergies Home Medications ?Medication ?Instructions ?Recorded ?Confirmed ?Type albuterol sulfate 90 mcg/actuation 2 puff inhalation DIRECTED PRN 12/15/22 01/22/25 History aerosol inhaler shortness of breath or wheezing duloxetine 60 mg capsule,delayed 60 mg PO DAILY 12/15/22 01/22/25 History release irbesartan 300 1 tab PO DAILY 12/15/22 01/22/25 History mg-hydrochlorothiazide 12.5 mg tablet ketoconazole 2 % topical cream 1 applic topical DIRECTED PRN 12/15/22 01/22/25 History Skin Condition loratadine 10 mg tablet 10 mg PO DAILY ALLERGIES 12/15/22 01/22/25 History metformin 500 mg tablet,extended 1,000 mg PO DAILY 12/15/22 01/22/25 History release 24 hr montelukast 10 mg tablet 10 mg PO DAILY 12/15/22 01/22/25 History propranolol 60 mg capsule,24 60 mg PO DAILY 12/15/22 01/22/25 History hr,extended release triamcinolone acetonide 0.1 % 1 applic topical DIRECTED PRN 12/15/22 01/22/25 History topical cream Skin Condition sitagliptin phosphate 100 mg 100 mg PO DAILY 12/25/22 01/22/25 History tablet (Januvia) ondansetron 8 mg disintegrating 8 mg PO Q8H PRN nausea and 01/15/24 01/22/25 Rx tablet vomiting 5 days #15 tabs tizanidine 2 mg tablet 2 mg PO QID PRN muscle spasticity 09/04/24 01/22/25 Rx #120 tabs New Prescriptions to Start Prescriptions: Allergies Allergy/AdvReac Type Severity Reaction Status Date / Time azithromycin (From Zithromax) AdvReac Severe Verified 01/04/24 12:05 Assessment and Plan *Assessment and plan (1) Low back pain: Status: Acute Qualifiers: Chronicity: chronic Back pain laterality: bilateral Sciatica presence: with sciatica Sciatica laterality: bilateral sciatica Qualified Code(s): M54.42 - Lumbago with sciatica, left side; M54.41 - Lumbago with sciatica, right side; G89.29 - Other chronic pain Category: Medical Code(s): M54.50 - Low back pain, unspecified Plan Patient has had significant improvement following his cervical epidural and does not require any additional injections in this location. Patient did do more work this past weekend and has aggravated his low back symptoms. I did discuss with the patient that we will wait and see if those symptoms improve and we will have him back in 2 weeks for reevaluation of symptoms and plan of care. Patient does have a longstanding history of low back issues and has had injections that have provided additional relief in the past. We will follow-up with this in 2 weeks. Patient agrees with this plan of care. Patient is seeing cardiology coming up in order to get scheduled for his shoulder surgery in future. We will monitor this. \ Patient has been instructed to contact the clinic with any concerns before the next appointment. Dr. Polanco has reviewed this note and agrees with this plan of care. This note was dictated using voice recognition software and make contain errors or omissions. All injections are used with Lidocaine, Bupivacaine and dexamethasone. Occasionally urine drug screen is needed to verify patient's compliance with our office pain contract. This is ordered based off specific treatments related to chronic pain with the potential to abuse certain medications.
== END 2025-01-22 23:59 | disposition home or self-care (01) ==
LOC: SC.PAIN 13:12
PROVIDERS: PCP Family Medicine; Visit Provider Nurse Practitioner Family
DX: M54.42 Lumbago with sciatica, left side (principal); M54.41 Lumbago with sciatica, right side; G89.29 Other chronic pain
CPT/HCPCS: 99212; G0463

== ENCOUNTER 2025-04-12 08:00 | Outpatient (RCR) | payer OTHER, SELFPAY | END 2025-04-12 23:59 | disposition home or self-care (01) | LOC: OT 08:00 | PROVIDERS: Visit Provider Orthopaedic Surgery | DX: Z47.89 Encounter for other orthopedic aftercare (principal); Z98.890 Other specified postprocedural states | CPT/HCPCS: 97014; 97032; 97110; 97140; 97166; 97168; G0283 ==

== ENCOUNTER 2025-04-25 08:26 | Outpatient (POV) | payer OTHER, SELFPAY ==
--- OUTSIDE RECORDS SUMMARY | 2025-01-05 06:30 | XMS_ITS ---
Author Organization [facility] Address [address] [facility] [address] [place] [id number] Care Team Providers Care Search Strategist Name Role Phone Filemon Alvarez Primary Care Provider Allergies Allergen (clinical drug ingredient) Drug/Non Drug Allergy documented on EMR Reaction Allergy Type Onset Date Status amoxicillin Amoxicillin rash Drug Allergy Act kayla lisinopril Lisinopril Cough Drug Allergy Activ e azithromycin Zithromax Unknown Drug Allergy Acti ve REASON FOR VISIT 3 month checkup Encounters Encounter Location Date Provider Diagnosis [facility] [address] [facility] [address] [place] [id number] 01/05/2025 Filemon Alvarez Plan Of Treatment Next Appt Details Provider Name:Filemon Waite ry, 08/13/2025 10:45:00 AM, [address] [facility], [address], [place], [id number], Progress Notes * ISAMAR HAYLEYDOB:1965 ( 59 yo M)Acc No.[id number]:01/05/2025 Progress Notes Patient: HAYLEY SECAMILLA Provider: Evan Alvarez M.D. :1965 A ge:59 Y S ex:Male Date:01/05/2025 Address:[address], [place] Subjective: * Chief Complaints: * 1 . 3 month checkup. * ROS: D ERMATOLOGY: no R casey. n o H angela. G ASTROENTEROLOGY: no N ausea. n o V omiting. U ROLOGY: no D ifficulty urinating. n o B lood in urine. * Medical History: T ype 2 Diabetes, Dx: 2021, Hypertension, Allergic Rhinitis, Vitamin D Deficiency, Tremors - Head, Sleep Apnea, Renal Insufficiency, Hyperlipidemia, Hypertriglyceridemia, Obesity. * Surgical History: G roin - Blocked Vein , RT Shoulder - Bicep/Tendon Repair 2009, RT Neck - Disc Replacement - Dr. Tomas 2020, RT Ulnar Nerve Entrapment 08/2024. * Hospitalization/Major Diagno stic Procedure: D enies Past Hospitalization. * Family History: F ather: 67 yrs, diagnosed with Cancer. M other: 73 yrs, diagnosed with Cancer. S iblings: alive, diagnosed with Heart Disease, Stroke. 2 brother(s) , 6 sister(s) . . Colon Cancer - Mother. * Social History: C URRENT TOBACCO USE: No . P ast smoking status: never smoked. * Allergies: Z ithromax, Amoxicillin: rash, Lisinopril: Cough - Side Effects. Objective: * Vitals: Assessment: Plan: * Treatment: * Images: Billing Information: * Visit Code: * Procedure Codes: * Electronic signature of Debra Alvarez MD on 04/25/2025 at 08:29 AM EDT Sign off status: Pending * Provider: Evan Alvarez M.D. Date: 01/05/2025 Generated for Elle rossi/Raul/Saleemitting on: 04/25/2025 08:29 AM EDT
--- OUTSIDE RECORDS SUMMARY | 2025-02-09 05:30 | XMS_ITS ---
[facility] Address [address] [place] [id number] Care Team Providers Care Traffic Engineering Director Name Role Phone Filemon Alvarez Primary Care [...] day; Duration: 90 days Active Vital Signs Weight 357 lbs 02/09/2025 Blood pressure systolic 110 mm Hg 02/10/20 25 Blood pressure diastolic 74 mm Hg 025 Heart Rate 79 /min 02/09/2025 Height 76 in 02/09/2025 BMI 43.45 kg/m2 02/09/2025 Encounters Encounter Location Date Provider Diagnosis [facility] [address] [facility] [address] [facility] [address] [place] [id number] 02/09/2025 Filemon Alvarez Type 2 diabetes mellitus [...] 08/13/2025 10:45:00 AM, [address] [facility], [address], [place], [place], [id number], Progress Notes * HAYLEY PENNDOB:1965 ( 59 yo M)Acc No.[id number]:02/09/2025 Progress Notes Patient: HAYLEY ESCAMILLA Provider: Evan Alvarez M.D. :1965 A ge:59 Y S ex:Male Date:02/09/2025 Address:[address], [place], [place] [id number] Subjective: * Chief Complaints: * 1 . [...] Procedure Codes: 3 6416 CAPILLARY BLOOD DRAW, 19752 GLUCOSE TEST, 97372 GLYCATED HEMOGLOBIN TEST, Modifiers: QW , 3044F HG A1C LEVEL LT 7.0%, 1036F TOBACCO NON-USER * Follow Up: 6 Months * Images: Billing Information: * Visit Code: 96264 Office Visit, Est Pt., Level 4. * Procedure Codes: 08568 CAPILLARY BLOOD DRAW. 29030 GLUCOSE TEST. 97256 GLYCATED HEMOGLOBIN TEST. Modifiers: QW 3044F HG A1C LEVEL LT 7.0%. 1036F TOBACCO NON-USER. * Electronic signature of Debra Alvarez MD on 04/25/2025 at 08:30 AM EDT Sign off status: Pending * Provider: Evan Alvarez M.D. Date: 0 02/09/2025 Generated for Elle rossi/Raul/Saleemitting on: 0 04/25/2025 08:30 AM EDT History and Physical Notes * HPI [...]
--- OUTSIDE RECORDS SUMMARY | 2025-04-25 08:29 | XMS_ITS | Clinical Summary ---
Author Organization [facility] Address [address] [place] [address] Care Team Providers Care Well Logging Operator Mud Analysis Name Role Phone Filemon Alvarez MD Primary Care Provider + [phone] Allergies Active Allergy Reactions Criticality Noted Date Comments Amoxicillin Rash Low 01/24/2025 Lisinopril Cough 01/24/2025 Azithromycin Hives Low 10/15/2016 Medications vitamin D (ERGOCALCIFEROL) 38678 units capsule capsule Take 1 capsule by mouth Every 7 (Seven) Days. 0 01/22/20 19 Active irbesartan-hydroc hlorothiazide (AVALIDE) 300-12.5 MG tablet TAKE 1 TABLET BY MOUTH EVERY DAY FOR 90 DAYS 12/05/19 23 Active gabapentin (NEURONTIN) 300 MG capsule Take 1 capsule by mouth Every 12 (Twelve) Hours. 12/10/19 24 Active empagliflozin (Jardiance) 25 MG tablet tablet Take 1 tablet by mouth Daily. 07/12/20 24 Active Incobotulinumtoxi nA 100 units reconstituted solution Inject 200 units every 3 months by intramuscular route for 90 days. 09/08/20 24 Active MAGNESIUM PO Take by mouth Daily. Active Multi-Vitamin tablet tablet Take 1 tablet by mouth Daily. Active albuterol sulfate HFA 108 (90 Base) MCG/ACT inhaler Inhale 1-2 puffs. Active buPROPion XL (WELLBUTRIN XL) 150 MG 24 hr tablet Take 1 tablet by mouth Daily. Active fluticasone (FLONASE) 50 MCG/ACT nasal spray 1 spray Daily. Activ e loratadine (CLARITIN) 10 MG tablet Take 1 tablet by mouth Daily. Active montelukast (SINGULAIR) 10 MG tablet Take 1 tablet by mouth Daily. 06/21/20 24 Active Tirzepatide 15 MG/0.5ML solution auto-injector 07/02/20 24 Active tiZANidine (ZANAFLEX) 4 MG tablet Take 1 tablet by mouth Daily. Active meloxicam (MOBIC) 15 MG tablet Take 1 tablet by mouth Daily. Active vitamin B-12 (CYANOCOBALAMIN) 500 MCG tablet Take 1 tablet by mouth Daily. 2500mcg daily Active vitamin C (ASCORBIC ACID) 250 MG tablet Take 1 tablet by mouth Daily. Active atorvastatin (LIPITOR) 40 MG tabletIndications :Hyperlipidemia, unspecified TAKE 1 TABLET BY MOUTH EVERY DAY 90 tablet 1 02/27/20 25 Active Active Problems Problem Noted Date Diagnosed Date Mild CAD 01/24/2025 Assessment & Plan (01/24/2025 10:42 AM EDT): He underwent a left heart cath on 12/22/2024 that revealed nonflow-limiting coronary disease, 20-30% mid to distal LAD. Lipid panel from 12/22/2024 revealed a total cholesterol of 100, triglycerides 93, HDL 44 and LDL 38. LDL is currently at goal (<70). - Continue current medical therapy. Abnormal stress test 12/13/2024 Dizziness 11/14/2024 Assessment & Plan (01/24/2025 10:44 AM EDT): Rotted duplex revealed <50% stenosis bilaterally, echocardiogram revealed an LVEF of 61-65%, normal diastolic function and normal RVSP. Left heart cath on 12/22/2024 revealed nonflow-limiting CAD, 20-30% mid to distal LAD. He has completed 2 Holter monitors in the last 3 months, both returned with uninterpretable/no data. We will try a different Holter monitor today due to continued dizziness. We also discussed possible vertigo or inner ear issues. - 5-day Holter monitor ([id number]). Will call patient with result Assessment & Plan (11/14/2024 11:47 AM EST): He has been experiencing significant dizziness, weakness and frequent near syncopal episodes for the last 4 months. He completed labs on 10/06/2024 that did not reveal any significant abnormalities that would be the cause of his symptoms. He has also been experiencing worsening shortness of breath. - We will check echocardiogram, stress test and carotid duplex for further evaluation Shortness of breath 11/14/2024 Assessment & Plan (11/14/2024 11:46 AM EST): Worsening shortness of breath, weakness and dizziness. - Proceed with cardiac workup Cervical radiculopathy 12/22/2023 COVID-19 12/22/2023 Degenerative disc disease, cervical 12/22/2023 BILLIE (obstructive sleep apnea) 12/22/2022 Assessment & Plan (12/22/2022 4:14 PM EDT): History of BILLIE with a baseline AHI of 6 on January 27, 2008. Current Treatment: Auto CPAP 07-31 with a EPR of 3 Device Download AHI on download is 1.6. Compliance on download is 100%. When used >4 hours is 100%. Average use per night is 11 hours 30 minutes. Current mask used is comfortable Obesity, Class III, BMI 40-49.9 (morbid obesity) 08/22/2018 Overview (12/22/2023): Diet and exercise Venous insufficiency 08/22/2018 Primary osteoarthritis involving multiple joints 04/04/2015 Overview (12/22/2023): Stable with prn tylenol, continue the same. Stage 3 chronic kidney disease 04/04/2015 Overview (12/22/2023): Since 2013, uncertain etiology. Started lisinopril in 2012. Denies excessive nsaid use, renal injury, obstructive uropathy, severe illness. Will stop HCTZ Is on CA I. Stop metformin. Check UA, renal ultrasound and renal sodium. Preventing CKD Progression: 1.Tight control of BP, BS, Lipids, passive smoking etc 2.Avoid any NSAIDs 3.Avoid IV contrast (Oral contrast OK). 4.Careful selection of Abx, dose for current GFR. 5.DASH diet, along with limiting the protein intake. Recommended protein intake no more than 1 gm/kg/day. Na =2 gm per day. Limit Phosphorus and Purines in diet too. Essential tremor 10/27/2013 Overview (12/22/2023): Stable continue the same. Essential hypertension 09/30/2011 Overview (12/22/2023): BP Readings from Last 3 Encounters: 09/08/17 138/78 08/31/16 142/86 06/08/16 128/60 HTN: Taking meds. Well controlled. Denies chest pain and SOB, swelling, dizziness or orthostatics. Due to renal failure will attempt to d/c HCTZ. Continue lisinopril and monitor closely and follow up if BP increases. Assessment & Plan (01/24/2025 10:43 AM EDT): Hypertension is stable and controlled Continue current treatment regimen. Dietary sodium restriction. Weight loss. Regular aerobic exercise. Blood pressure will be reassessed in 3 months. Assessment & Plan (11/14/2024 11:46 AM EST): BP log reviewed and his blood pressure has been averaging 130s/80s. He has lost approximately 40 pounds in the last year. His blood pressure may be intermittently dropping too low. - Continue monitoring blood pressure and keep a log of readings - We will reassess at follow-up visit Assessment & Plan (12/22/2022 4:14 PM EDT): Treating BILLIE will likely benefit blood pressure Encounters Date Type Department Care Team Description 02/26/[address] [facility] [address] [place] [address] Dominique Rubio APRN Med Refill 02/12/2025 Results Follow-Up [facility] [address] [place] [address] Eugenia Whittaker APRN 01/24/2025 10:50 AM EDT Ancillary Procedure [facility] [address] [place] [address] Dizziness 01/24/2025 10:00 AM EDT Office Visit [facility] [address] [place] [address] Eugenia Whittaker APRN Dizziness (Primary Dx); Essential hypertension; Mild CAD 01/24/2025 Travel from Last 3 Months Immunizations Immunization Administration Dates Next Due Td (TDVAX) 11/17/1996 Tdap 10/17/2014 Family History Medical History Relation Name Comments Cancer Father Diabetes Father Heart attack Father Cancer Mother Heart failure Mother Alcohol abuse Sister 1 Cirrhosis Sister 1 Leukemia Sister 2 Relation Name Status Comments Brother 1 Brother 2 Alive Father Mother Sister 1 Sister 2 Social History Tobacco Use Types Packs/Day Years Used Date Smoking Tobacco: Never Passive Smoke Exposure: Never Smokeless Tobacco: Never Alcohol Use Standard Drinks/Week Comments Never 0 (1 standard drink = 0.6 oz pur e alcohol) AUDIT-C Answer Date Recorded Q1: How often do you have a drink containing alcohol? Never 12/22/2024 Q2: How many drinks containi ng alcohol do you have on a typical day when you are drinking? Patient does not drink Q3: How often do you have si x or more drinks on one occasion? Never 12/22/2024 Abuse Screen Answer Date Recorded Feels Unsafe at Home or Work/School no 12/22/2024 Feels Threatened by Someone no 12/12 Does Anyone Try to Keep You From Having Contact with Others or Doing Things Outside Your Home? no 12/22/2024 Physical Signs of Abuse Present no 12/22/2024 Housing Stability Answer Date Recorded Current Living Arrangements home 12/12 Potentially Unsafe Housing Conditions Not on ashish e 12/22/2024 Disabilities Answer Date Recorded Difficulty Concentrating, Remembering or Making Decisions no 12/22/2024 Difficulty Managing Errands Independently no 12/22/2024 Sex and Gender Information Value Date Recorded Sex Assigned at Male 12/12/2024 11:54 AM EDT Legal Sex Male 5:46 PM EST Gender Identity Not on file Sexual Orientation Not on file Last Filed Vital Signs Vital Sign Reading Time Taken Comments Blood Pressure 140/74 01/24/2025 9:48 AM EDT Pulse 88 01/24/2025 9:48 AM EDT Temperature 36.4 C (97.6 F) 12/22/2024 10:04 AM EDT Respiratory Rate 18 12/22/2024 11:25 AM EDT Oxygen Saturation 95% 01/24/2025 9:48 AM EDT Inhaled Oxygen Concentration - - Weight 160 kg (352 lb) 01/24/2025 9:48 AM EDT Height 193 cm (6' 4 ) 01/24/2025 9:48 AM EDT Body Mass Index 42.85 01/24/2025 9:48 AM EDT Plan of Treatment Upcoming Encounters Date Type Department Care Team (Late st Contact Info) Description 04/25/2025 9:30 AM EDT Office Visit [facility] [address] [place] [address] Dominique Rubio APRN [address] [place] [address] Health Maintenance Due Date Last Done Comments DIABETIC EYE EXAM 1977 DIABETIC FOOT EXAM 1977 URINE MICROALBUMIN-CREATININE RATIO (uACR) 1977 Hepatitis B (1 of 3 - 19+ 3-dose series) 1986 Pneumococcal Vaccine 50+ (1 of 2 - PCV) 1986 COLOGUARD 2012 COLON CANCER SCREENING 5 YEA R SIGMOIDOSCOPY 2012 COLONOSCOPY [address] CANCER SCREENING 2012 CT COLONOGRAPHY 2012 FECAL OCCULT BLOOD TEST 2012 FIT Testing (1 year) 2012 ZOSTER VACCINE (1 of 2) 2017 ANNUAL PHYSICAL 01/26/2019 HEPATITIS C SCREENING 01/26/2019 COVID-19 Vaccine (1 - season) 2024 TDAP/TD VACCINES (3 - Td or Tdap) 10/17/2024 015, 11/17/1996 INFLUENZA VACCINE 06/13/2025 HEMOGLOBIN A1C 06/23/2025 12/22/2024 LIPID PANEL 12/22/2025 12/22/2024, 08/22/2018 Procedures Procedure Name Priority Date/Time Associated Diagnosis Comments HOLTER MONITOR >48HRS UP TO 7 DAYS HOOK-UP & INTERP Routine 01/24/2025 10:50 AM EDT Dizziness HEMOGLOBIN A1C STAT 12/22/2024 10:05 AM EDT LIPID PANEL STAT 12/22/2024 10:05 AM EDT from Last 3 Months or Most Recently Relevant to Health Maintenance Results * HOLTER MONITOR >48HRS UP TO 7 DAYS HOOK-UP & INTERP (01/24/2025 10:50 AM EDT) Heart rate (average) 70 CV SUBSTITUTED RESULTING AGENCY Heart rate minimum 43 CV SUBSTITUTED RESULTING AGENCY Heart rate maximum 128 CV SUBSTITUTED RESULTING AGENCY Anatomical Region Laterality Modality Ultrasound Narrative 02/08/2025 3:41 PM EDT A relatively benign monitor study. Rare nonsustained SVT. No sustained arrhythmias or pauses. Patient events associated with sinus tachycardia and PACs. See raw data for further information. Study Description Monitor placed on patient by FOZIA MONIQUE MA on 01/24/2025 at 10:35 EDT. Instructions were provided to patient on use of holter monitor and duration of monitoring. The monitor was scanned on 02/07/2025. The patient was monitored for 4 days 4 hours and 14 minutes. Indications for this exam include dizziness. Total beats: [id number]. Average HR: 70. Min HR: 43. Max HR: 128. Study Impressions A relatively benign monitor study. Rare nonsustained SVT. No sustained arrhythmias or pauses. Patient events associated with sinus tachycardia and PACs. See raw data for further information. Eugenia Whittaker APRN [facility] Final Result * (ABNORMAL) Hemoglobin A1c (12/22/2024 10:05 AM EDT) Hemoglobin A1C 5.80(H) 4.80 - 5.60 % 12/22/2024 11:14 AM EDT [facility] Blood Line / Unknown 12/22/2024 10 :05 AM EDT 12/22/2024 10:26 AM EDT [facility] - 12/22/2024 11:14 AM EDT Hemoglobin A1C Ranges: Increased Risk for Diabetes 5.7% to 6.4% Diabetes >= 6.5% Diabetic Goal < 7.0% Amelia Louis APRN LAB BLOOD ORDERABLES Final Result [facility]
[address] [place] [address], * Lipid Panel (12/22/2024 10:05 AM EDT) Total Cholesterol 100 0 - 200 mg/dL 12/22/2024 10:54 AM EDT [facility] Triglycerides 93 0 - 150 mg/dL 12/22/2024 10:54 AM EDT [facility] HDL Cholesterol 44 40 - 60 mg/dL 12/22/2024 10:54 AM EDT [facility] LDL Cholesterol 38 0 - 100 mg/dL 12/22/2024 10:54 AM EDT [facility] VLDL Cholesterol 18 5 - 40 mg/dL 12/22/2024 10:54 AM EDT [facility] LDL/HDL Ratio 0.85 12/22/2024 10:54 AM EDT [facility] Blood Line / Unknown 12/22/2024 10 :05 AM EDT 12/22/2024 10:26 AM EDT [facility] - 12/22/2024 10:54 AM EDT Cholesterol Reference Ranges (U.S. Department of Health and Human Services ATP III Classifications) Desirable <200 mg/dL Borderline High 200-239 mg/dL High Risk >240 mg/dL Triglyceride Reference Ranges (U.S. Department of Health and Human Services ATP III Classifications) Normal <150 mg/dL Borderline High 150-199 mg/dL High 200-499 mg/dL Very High >500 mg/dL HDL Reference Ranges (U.S. Department of Health and Human Services ATP III Classifications) Low <40 mg/dl (major risk factor for CHD) High >60 mg/dl ('negative' risk factor for CHD) LDL Reference Ranges (U.S. Department of Health and Human Services ATP III Classifications) Optimal <100 mg/dL Near Optimal 100-129 mg/dL Borderline High 130-159 mg/dL High 160-189 mg/dL Very High >189 mg/dL LDL is calculated using the NIH LDL-C calculation. Amelia Louis APRN LAB BLOOD ORDERABLES Final Result [facility]
[address] [place] [address], from Last 3 Months or Most Recently Relevant to Health Maintenance Insurance [employer] Care Teams Well Logging Operator Mud Analysis Relationship Specialty Start Date End Date Filemon Alvarez MD [address] [place] [address] [place] [address] PCP - General Family Medicine 12/22/22
--- OUTSIDE RECORDS SUMMARY | 2025-04-25 08:29 | XMS_ITS | Encounter Summary ---
Author Organization [facility] Address [address] [place] [address] Care Team Providers Care Parks Recreation Coordinator Name Role Phone Filemon Alvarez MD Primary Care Provider + [phone] Reason for Visit * Reason Comments Med Refill Encounter Details Date Type Department Care Team (Late st Contact Info) Description 02/26/2025 Refill [facility] [address] [place] [address] Dominique Rubio APRN [address] [place] [address] Med Refill Social History Tobacco Use Types Packs/Day Years [...] on file Sexual Orientation Not on file documented as of this encounter Plan of Treatment Upcoming Encounters Date Type Department Care Team (Late st Contact Info) Description 04/25/2025 9:30 AM EDT Office Visit [facility] [address] [place] [address] Dominique Rubio APRN [address] [place] [address] documented as of this encounter Visit Diagnoses Diagnosis Hyperlipidemia, unspecified documented in this encounter Care Teams Parks Recreation Coordinator Relationship Specialty Start Date End Date Filemon Alvarez MD [address] [facility] [address] [place] [address] PCP - General Family Medicine 12/22/22 documented as of this encounter
--- OUTSIDE RECORDS SUMMARY | 2025-04-25 08:30 | XMS_ITS | Referral Summary ---
Author Organization [employer] ([place], [place], [place], [place]) Address [address] [place] [address] Care Team Providers Care Automotive Electrical Fitter Name Role Phone Filemon Alvarez MD Primary Care Provider + [phone] Allergies Active Allergy Reactions Criticality Noted Date Comments Azithromycin Diarrhea,Nausea Only ,Other (See Comments) High 02/24/2010 Thrush Medications gabapentin (NEURONTIN) 400 MG capsule Take 1 capsule (400 mg total) by mouth daily. Max Daily Amount: 400 mg 4 Active tiZANidine (ZANAFLEX) 4 MG tablet Take 1 tablet (4 mg total) by mouth nightly. Active tiZANidine (ZANAFLEX) 2 MG tablet Take 1 tablet (2 mg total) by mouth as needed. 4 Active atorvastatin (LIPITOR) 40 MG tablet Take 1 tablet (40 mg total) by mouth nightly. Active buPROPion XL (WELLBUTRIN XL) 150 MG 24 hr tablet Take 1 tablet (150 mg total) by mouth every morning. Active Jardiance 25 mg tablet Take 1 tablet (25 mg total) by mouth daily. 4 Active fluticasone propionate (FLONASE) 50 mcg/actuation nasal spray 1 spray by each nostril route daily. Active montelukast (SINGULAIR) 10 mg tablet Take 1 tablet (10 mg total) by mouth daily. 4 Active propranoloL (INDERAL LA) 120 MG 24 hr capsule Take 1 capsule (120 mg total) by mouth daily. Active Mounjaro 12.5 mg/0.5 mL pnij Inject 0.5 mLs subcutaneously once a week Wednesday . Active cyanocobalamin , vitamin B-12, (VITAMIN B-12 ORAL) Take by mouth nightly. Active multivitamin per tablet Take 1 tablet by mouth daily. Active magnesium 200 mg tab Take by mouth nightly. Active MELOXICAM ORAL Take by mouth daily. Active albuterol 90 mcg/actuation inhaler Inhale 1-2 puffs by mouth via inhaler every 6 (six) hours as needed for wheezing. Active loratadine (CLARITIN) 10 mg tablet Take 1 tablet (10 mg total) by mouth daily. Active Social History Tobacco Use Types Packs/Day Years Used Date Smoking Tobacco: Never Passive Smoke Exposure: Past Smokeless Tobacco: Never Alcohol Use Standard Drinks/Week Comments Not Currently 0 (1 standard drink = 0.6 oz pur e alcohol) Family and Community Support Answer Heraclio e Recorded Help with Day to Day Activities Not on file 07/12/2024 Feeling Lonely or Isolated Not on file 07/12 Educational Attainment Answer Date Juan rded Speak language other than Palestinian at home Not on file 07/12/2024 Want help with school or training Not on file 07/12/2024 Substance Use Answer Date Recorded Used prescription meds for non-medical reasons N ot on file 07/12/2024 Used illegal drugs past 12 months Not on file 07/12/2024 Sex and Gender Information Value Date Recorded Sex Assigned at Not on file Legal Sex Male 7:54 PM CDT Gender Identity Not on file Sexual Orientation Not on file Last Filed Vital Signs Vital Sign Reading Time Taken Comments Blood Pressure 135/74 07/21/2024 9:34 AM EST Pulse 44 07/21/2024 9:34 AM EST Temperature 36.4 C (97.6 F) 07/21/2024 9:34 AM EST Respiratory Rate 16 07/21/2024 9:34 AM EST Oxygen Saturation 97% 07/21/2024 9:34 AM EST Inhaled Oxygen Concentration - - Weight 174.3 kg (384 lb 3.2 oz) 07/21/2024 9:34 AM EST Height 193 cm (6' 4 ) 07/21/2024 9:34 AM EST Body Mass Index 46.77 07/21/2024 9:34 AM EST Plan of Treatment Not on file Insurance [employer] Care Teams Automotive Electrical Fitter Relationship Specialty Start Date End Date Filemon Alvarez MD [address] [place] [address] PCP - General Family Medicine 07/21/24
--- OUTSIDE RECORDS SUMMARY | 2025-04-25 08:30 | XMS_ITS | Clinical Summary ---
Author Organization [employer] ([place], [place], [place], [place]) Address [address] [place] [address] Care Team Providers Care Ground Host/Hostess Name Role Phone Filemon Alvarez MD Primary Care Provider [phone] Allergies Active Allergy Reactions Criticality Noted Date [...] Date Juan rded Speak language other than Hong Konger at home Not on file 07/12/2024 Want [...] 07/21/2024 9:34 AM EST Plan of Treatment Health Maintenance Due Date Last Done Comments CT Colonography 1967 Colonoscopy 1967 Colorectal Cancer Screening 1967 FOBT/FIT 1967 Fit-DNA (Cologuard) 1967 Sigmoidoscopy 1967 Depression Screening (12+) 1979 HIV Screening 1982 Hepatitis C Screening 1985 Lipid Panel 2002 Pneumococcal 50+ years (1 of 1 - PCV) 2017 Shingles Vaccine (Zoster) (1 of 2) 2017 COVID-19 VACCINE (1 - 2023- season) 2024 DTAP/TDAP/TD VACCINES (3 - Td or Tdap) 10/17/2024, 11/17/1996 Influenza Vaccine (#1) 2025 Tobacco Cessation Counseling and Screening (12+) 07/21/2025 07/21/2024 Insurance AET[employer] Care Teams Ground Host/Hostess Relationship Specialty Start Date End Date Filemon Alvarez MD [address] [place] [facility] [address] [place] [address] PCP - General Family Medicine 07/21/24
--- OUTSIDE RECORDS SUMMARY | 2025-04-25 08:30 | XMS_ITS | Continuity of Care Document ---
Author Organization [facility] Address [address] [place] [phone] Phone Care Team Providers Care Machinist Bench Name Role Phone Unavailable Primary Care Provider Unavailabl e Encounters Date Type Department Care Team Description 09/03/2020 Refill [facility] [place] [address] [place] [facility] Forrest Santos MD Medication Refill 08/29/2020 Refill [facility] [place] [address] [place], [facility] Forrest Santos MD Medication Refill 04/30/2020 Refill [facility] [place] [address] S[place], [facility] Forrest Santos MD Medication Refill 01/07/2020 Refill [place] [place] [address] [place] [address] Forrest Santos MD Medication Refill 11/06/2019 Refill [facility] [place] [address] [place], [facility] Forrest Santos MD Medication Refill 10/06/2019 Refill [place] [address] [place] [address] Forrest Santos MD Medication Refill 09/13/2019 Refill [place] [address] [place] [address] Forrest Santos MD Medication Refill 06/13/2019 Refill [place] [place] [address] [place], [place] [address] Forrest Santos MD Medication Refill 06/08/2019 Refill [facility] [address] [place], [place] [address] Adri Baltazar APRN Medication Refill 05/07/[address] [place], [place] [address] Forrest Santos MD Medication Refill 04/14/[address] S[place]h, [place] [address] Forrest Santos MD Medication Refill 03/15/[address] S[place], [place] [address] Forrest Santos MD Medication Refill 03/13/[address] S[place]h, [place] [address] Adri Baltazar, RITIKA Medication Refill 02/17/[address] [place], [place] [address] Forrest Santos MD Medication Refill 01/27/[address] [place]h, [place] [address] Forrest Santos MD Orders 01/14/[address] [place], [place] [address] Forrest Santos MD Medication Refill 12/20/[address] S[place], [place] [address] Adri Baltazar APRN Medication Refill 12/10/[address] S[place]h, [place] [address] Forrest Santos MD Medication Refill 11/15/2018 3:00 PM EST Office Visit [address] S[place]h, [facility] Lupe Chambers APRN Acute pain of right shoulder (Primary Dx); Paresthesia of right arm 11/09/2018 Refill [facility] [address] [place] [address] Forrest Santos MD Medication Refill 10/24/2018 Refill [facility] [address] [place] [address] Forrest Santos MD Medication Refill 10/10/2018 Refill [facility] [address] [place] [address] Forrest Santos MD Medication Refill 09/30/2018 11:30 AM EST Office Visit [address] [place] [address] Zeny Joseph MD Acute bronchitis, unspecified organism (Primary Dx) 09/13/[address] [place] [address] Forrest Santos MD Medication Refill 09/11/[address] [place] [address] Forrest Santos MD Medication Refill 08/26/[address] [place] [address] Adri Baltazar APRN Medication Refill 08/22/2018 11:20 AM EST Office Visit [address] [place] [address] Forrest Santos MD Well adult exam (Primary Dx); Stage 3 chronic kidney disease (HCC); Primary osteoarthritis involving multiple joints; Screening for lipid disorders; Screening for thyroid disorder; Colon cancer screening; Venous insufficiency; Obesity, Class III, BMI 40-49.9 (morbid obesity) (HCC); Essential tremor; Other allergic rhinitis; Unspecified essential hypertension 08/07/[address] [place] [address] Forrest Santos MD Medication Refill 07/12/2018 Refill [facility] [address] [place], [place] [address] Forrest Santos MD Medication Refill 06/16/[address] [place], [place] [address] Forrest Santos MD Medication Refill 06/06/[address] S[place]h, [place] [address] Adri Baltazar, PRIVATE EQUITY ANALYST Medication Refill 03/20/[address] [place], [place] [address] Forrest Santos MD Medication Refill 03/18/[address] [place], [place] [address] Forrest Santos MD Medication Refill 03/10/[address] [place], [place] [address] Adri Baltazar, PRIVATE EQUITY ANALYST Medication Refill 01/26/[address] [place], [place] [address] Forrest Santos MD Medication Refill 11/25/[address] [place], [place] [address] Adri Baltazar, PRIVATE EQUITY ANALYST Medication Refill 11/09/2017 9:00 AM EST Office Visit [address] [place] [address] Adri Baltazar, PRIVATE EQUITY ANALYST Acute bacterial sinusitis (Primary Dx) 10/21/[address] [place], [place] [address] Forrest Santos MD Medication Refill 09/19/[address] [place], [place] [address] Forrest Santos MD Medication Refill [address] [place] [address] Adri Baltazar APRN Medication Refill 2017 9:32 AM EST - 2017 11:59 PM EST Hospital Encounter [facility] Ultrasound [address] [place] [address] Forrest Santos MD CKD (chronic kidney disease) stage 3, GFR 30-59 ml/min (HCC) Discharge Disposition: Home or Self Care 09/09/2017 11:00 AM EST - 09/09/2017 11:59 PM EST Hospital Encounter [facility] [address] [place] [address] Forrest Santos MD Pulmonary nodule Discharge Disposition: Home or Self Care 09/08/2017 9:20 AM EST Office Visit [address] [place] [address] Forrets Santos MD Well adult exam (Primary Dx); Colon cancer screening; Vitamin D deficiency; Glucose intolerance (impaired glucose tolerance); CKD (chronic kidney disease) stage 3, GFR 30-59 ml/min (HCC); Pulmonary nodule; Screening for hyperlipidemia; Screening PSA (prostate specific antigen); Screening cholesterol level; Breast nodule; Unspecified essential hypertension; Essential tremor; Stage 3 chronic kidney disease (HCC); Primary osteoarthritis involving multiple joints; Other allergic rhinitis; Class 3 obesity with serious comorbidity and body mass index (BMI) of 45.0 to 49.9 in adult, unspecified obesity type (HCC) 08/22/2017 Refill [facility] [place] [address] [place] [address] Forrest Santos MD Medication Refill 08/22/2017 Refill [place] [place] [address] [place] [address] Adri Baltazar APRN Medication Refill 08/11/2017 Refill [place] [place] [address] [place] [address] Forrest Santos MD Medication Refill 06/12/2017 Refill [place] [place] [address] [place] [address] Adri Baltazar, PRIVATE EQUITY ANALYST Medication Refill 05/20/2017 Refill [facility] [address] S[place], [facility] Forrest Santos MD Medication Refill 05/20/2017 Refill [facility] [address] [place], [place] [address] Adri Baltazar, PRIVATE EQUITY ANALYST Medication Refill 05/10/2017 Refill [facility] [address] [place], [place] [address] Adri Baltazar, PRIVATE EQUITY ANALYST Medication Refill 04/15/[address] [place], [place] [address] Forrest Santos MD Medication Refill 01/23/[address] S[place]h, [facility] Adri Baltazar, PRIVATE EQUITY ANALYST Medication Refill 01/18/2017 Orders Only [address] [place], [phone] Adrienne Rosales, FRANTZA Other allergic rhinitis (Primary Dx) 01/13/[address] Suresh, [facility] Adri Baltazar, PRIVATE EQUITY ANALYST Medication Refill 12/28/[address] [place], [place] [address] Forrest Santos MD Medication Refill 12/27/2016 Refill [facility] [address] [place] [address] Forrest Santos MD Medication Refill 11/27/2016 Refill [facility] [address] [place] [address] Forrest Santos MD Medication Refill 10/25/2016 Refill [facility] [address] [place] [address] Adri Baltazar, PRIVATE EQUITY ANALYST Medication Refill 10/11/[address] [place], [place] [address] Forrest Santos MD Medication Refill 08/31/[address] [place], [place] [address] Forrest Santos MD Medication Refill 08/31/2016 2:20 PM EST Office Visit [address] [place], [place] [address] Zeny Joseph MD Other allergic rhinitis (Primary Dx); Acute serous otitis media without rupture, bilateral; Acute bacterial sinusitis; Obesity, Class III, BMI 40-49.9 (morbid obesity) ([facility]) 08/30/[address] [place], [place] [address] Forrest Santos MD Medication Refill 08/07/[address] [place], [place] [address] Forrest Santos MD Orders 08/04/[address] [place] [address] Forrest Santos MD Medication Refill 07/31/[address] [place] [address] Adri Baltazar, PRIVATE EQUITY ANALYST Medication Refill 07/19/[address] [place], [place] [address] Adri Baltazar, PRIVATE EQUITY ANALYST Medication Refill 07/04/[address] [place] [address] Forrest Santos MD Medication Refill 06/26/[address] [place] [address] Forrest Santos MD Other 06/08/2016 3:20 PM EDT Office Visit [address] [place] [address] Adri Baltazar APRN Allergic conjunctivitis, bilateral (Primary Dx); Other allergic rhinitis; Morbid obesity, unspecified obesity type (HCC) 06/05/[address] [place] [address] Forrest Santos MD Other 05/06/[address] [place] [address] Forrest Santos MD Medication Refill 05/05/[address] [place] [address] Adri Baltazar APRN Visit Follow Up 04/28/[address] [place] [address] Adri Baltazar APRN Medication Management 04/27/2016 9:02 PM EDT - 04/27/2016 11:59 PM EDT Hospital Encounter [facility] [place] [address] Screening for deficiency anemia; Chronic fatigue; Screening for diabetes mellitus (DM); Encounter for screening for nutritional disorder Discharge Disposition: Home or Self Care 04/27/2016 1:40 PM EDT Office Visit [address] [place] [address] Adri Baltazar APRN Prediabetes (Primary Dx); Screening for diabetes mellitus (DM); Malodorous urine; Unspecified essential hypertension; Chronic fatigue; Screening for deficiency anemia; Encounter for screening for nutritional disorder; Morbid obesity, unspecified obesity type (HCC) 03/18/2016 8:45 PM EDT - 03/18/2016 11:59 PM EDT Hospital Encounter [facility] LAB KRIS PROCESSING [facility] [place] [address] Annual physical exam; Screening for cholesterol level; Screening for prostate cancer Discharge Disposition: Home or Self Care 03/18/2016 1:20 PM EDT Clinical Support [address] [place] [address] Georgina Matias Environmental allergies (Primary Dx); Unspecified essential hypertension 03/17/[address] [place] [address] Forrest Santos MD Other 03/11/[address] [place] [address] Forrest Santos MD Medication Refill 03/03/2016 11:20 AM EDT Office Visit [address] [place] [address] Nellie Estevez PA-C Red eyes (Primary Dx); Environmental allergies; Screening for prostate cancer; Screening for thyroid disorder; Screening for cholesterol level; Annual physical exam; Obesity, Class III, BMI 40-49.9 (morbid obesity) ([facility]) 02/05/[address] [place] [address] Forrest Santos MD Medication Refill 12/30/[address] [place] [address] Forrest Santos MD Medication Refill 12/25/[address] [place] [address] Forrest Santos MD Medication Management 12/23/[address] [place] [address] Forrest Santos MD Medication Refill 12/19/[address] [place] [address] Forrest Santos MD Cough 12/06/2015 11:00 AM EDT Office Visit [address] [place] [address] Forrest Santos MD Left ankle pain (Primary Dx); Acute bronchitis, unspecified organism 11/29/[address] [place] [address] Forrest Santos MD Medication Refill 10/08/2015 Refill [facility] [address] [place], [place] [address] Forrest Santos MD Medication Refill 09/12/2015 Refill [facility] [address] [place] [address] Forrest Santos MD Medication Refill 07/06/2015 Refill [facility] [address] [place], [place] [address] Forrest Santos MD Medication Refill 04/22/[address] [place] [address] Forrest Santos MD Other 03/20/[address] [place] [address] Forrest Santos MD Medication Refill 02/07/[address] [place] [address] Forrest Santos MD Medication Refill 02/06/2015 2:20 PM EDT Office Visit [address] [place] [address] Forrest Santos MD Dry eyes, bilateral (Primary Dx) 12/17/[address] [place] [address] Forrest Santos MD Medication Refill 10/17/2014 4:13 PM EST - 10/17/2014 11:59 PM EST Hospital Encounter [facility] LAB KR[facility] PROCESSING [facility] [place] [address] HTN (hypertension); Hypothyroid Discharge Disposition: Home or Self Care 10/17/2014 10:20 AM EST Office Visit [address] [place] [address] Forrest Santos MD Well adult exam (Primary Dx); Hospital discharge follow-up; Hematuria; Epididymitis; Pulmonary nodule; Obesity, Class III, BMI 40-49.9 (morbid obesity) (HCC); HTN (hypertension); Hypothyroid 10/10/2014 Patient Outreach [address] [place] [address] Christel Jiang RN ED Follow-Up Call (Within 72 hours) 10/09/2014 5:06 AM EST - 10/09/2014 8:31 AM EST Emergency [facility] [place] [address] Demar De Santiago MD Kendall, Laroy F III, MD Acute epididymitis (Primary Dx) Discharge Disposition: Home or Self Care 10/03/2014 Patient Outreach [address] [place] [address] Christel Jiang RN ED Follow-Up Call (Within 72 hours) 10/02/2014 5:07 PM EST - 10/02/2014 8:39 PM EST Emergency [facility] [place] [address] Ochoa Gee MD Microscopic hematuria (Primary Dx); Right flank pain Discharge Disposition: Home or Self Care 10/02/[address] [place] [address] Forrest Santos MD Other 09/07/[address] [place] [address] Forrest Santos MD Medication Refill 09/07/2014 4:45 PM EST Office Visit [address] [place] [address] Forrest Santos MD Sinusitis (Primary Dx); AR (allergic rhinitis) 06/29/2014 3:00 PM EDT Office Visit [address] [place] [address] Forrest Santos MD Nodule of scrotum (Primary Dx) 03/20/[address] [place] [address] Forrest Santos MD Medication Refill 02/20/2014 9:15 AM EDT Office Visit [address] [place] [address] Zeny Joseph MD Spider bite wound, initial encounter (Primary Dx) 02/07/[address] [place] [address] Forrest Santos MD Medication Refill 01/22/2014 9:31 PM EDT - 01/22/2014 11:59 PM EDT Hospital Encounter [facility] LAB KRIS PROCESSING [facility] [address] [place] [address] Essential tremor; Unspecified essential hypertension Discharge Disposition: Home or Self Care 01/22/2014 6:34 PM EDT - 01/22/2014 9:30 PM EDT Hospital Encounter ED[facility] LAB KRIS PROCESSING [facility] [address] [place] [address] Unspecified essential hypertension; Essential tremor Discharge Disposition: Home or Self Care 01/22/2014 10:40 AM EDT Office Visit [address] [place] [address] Forrest Santos MD Skin lesion (Primary Dx); Essential tremor; Unspecified essential hypertension 01/10/2014 9:00 AM EDT Office Visit [address] [place] [address] Forrest Santos MD Skin lesion (Primary Dx); AR (allergic rhinitis) 11/23/[address] [place] [address] Forrest Santos MD Medication Refill 11/16/2013 5:15 PM EST Office Visit [address] [place] [address] Forrest Santos MD Bronchitis (Primary Dx); Epistaxis; Sebaceous cyst 11/13/[address] [place] [address] Forrest Santos MD Medication Refill 11/10/[address] [place], [place] [address] Forrest Santos MD Medication Management 11/06/[address] [place], [place] [address] Forrest Santos MD Hypertension 11/01/[address] [place], [place] [address] Forrest Santos MD Orders 10/28/[address] [place], [place] [address] Forrest Santos MD Medication Refill 10/27/2013 1:00 PM EST Office Visit [address] [place], [place] [address] Forrest Santos MD Essential tremor (Primary Dx); Unspecified essential hypertension 09/09/[address] [place] [address] Forrest Santos MD Medication Refill 08/21/[address] [place] [address] Forrest Santos MD Letter for School/Work 08/21/2013 11:15 AM EST Office Visit [address] [place] [address] Forrest Santos MD Shoulder pain (Primary Dx); Disorder of tendon of biceps; AR (allergic rhinitis) 07/03/[address] [place] [address] Forrest Santos MD Medication Refill 04/15/[address] [place] [address] Forrest Santos MD Medication Refill 01/24/2013 6:14 AM EDT - 01/24/2013 9:12 AM EDT [facility] [address] [place] [address] 16 RuggieroGilberto MD Rock, Troy C, MD Hypertension (Primary Dx); Headache; Meningioma (HCC) Discharge Disposition: Home or Self Care 11/14/[address] [place] [address] Forrest Santos MD Medication Refill 10/11/[address] [place] [address] Forrest Santos MD Medication Change 09/30/2012 1:00 PM EST Office Visit [address] [place] [address] Forrest Santos MD Mood disorder (Primary Dx); Insomnia; Tremor; HTN (hypertension) 09/29/2012 Telephone [facility] [address] [address] Maxx Del Angel MD Reschedule (CXL COLON TOMORROW) 08/08/2012 3:50 PM EST Office Visit [facility] [address] [address] Maxx Del Angel MD Family history of colon cancer (Primary Dx) 07/13/2012 11:45 AM EDT Office Visit [address] [place] [address] Forrest Santos MD Rectal bleeding; Hemorrhoids; Family hx of colon cancer; Essential tremor 07/11/[address] [place] [address] Forrest Santos MD Hemorrhoids 06/09/[address] [place] [address] Forrest Santos MD Medication Refill 06/09/[address] [place] [address] Forrest Santos MD Other (needs script for Cpap supplies write script to say Cpap supplies as needed fax [facility] [phone]) 10/08/2011 7:19 PM EST - 10/08/2011 11:59 PM EST Hospital Encounter [facility] LAB KRIS PROCESSING [facility] [address] [place] [address] Contact with and exposure to infections with a predominantly sexual mode of transmission Discharge Disposition: Home or Self Care 10/08/2011 1:40 PM EST Clinical Support [facility] [place] [address] [place] [address] Georgina Matias Contact with and exposure to infections with a predominantly sexual mode of transmission (Primary Dx) 10/08/2011 [place]phone [place] [address] [address] [place] [address] Forrest Santos MD Exposure to STD 09/30/2011 6:59 PM EST - 09/30/2011 11:59 PM EST Hospital Encounter EDG LAB KRIS PROCESSING [facility] [place] [address] Unspecified essential hypertension Discharge Disposition: Home or Self Care 09/30/2011 3:40 PM EST Clinical Support ISH S[place] [address] [place] [address] Georgina Matias Unspecified essential hypertension (Primary Dx) 09/15/[address] [place] [address] Lc Phillips MD Colonoscopy (SCREENING) 09/14/2011 10:40 AM EST Office Visit [facility] [place] [address] [place] [address] Forrest Santos MD HTN (hypertension); Obesity; Family hx of colon cancer; Onychomycosis; URI (upper respiratory infection) 08/03/2010 4:03 PM EST - 08/03/2010 4:41 PM EST Emergency [facility] Emergency [address] [place] [address] Orlando Ramos MD Boxer's fracture Discharge Disposition: Home or Self Care 05/13/2010 Abstract [facility] [address] [place] [address] [place] [id number] [facility], Test Employee'S Representative 02/25/2010 8:00 AM EDT - 02/25/2010 9:00 AM EDT Surgery [facility] PERIOP [address] [place] [address] Ulises Duran MD SHOULDER ARTHROSCOPY LABRAL/BANKART/ BICEP TENODESIS (COVERS SUPERIOR LABRAL ANTERIOR POSTERIOR REPAIR/SLAP) 02/25/2010 6:11 AM EDT - 02/25/2010 11:37 AM EDT Hospital Encounter [facility] SAME DAY SURGERY [address] [place] [address] Ulises Duran MD Discharge Disposition: Home or Self Care 12/12/2009 12:01 AM EDT - 01/07/2010 12:42 PM EDT Hospital Encounter [facility] PT Luis Felipe Patel MD 11/13/2009 2:32 PM EST - 12/11/2009 11:59 PM EDT Hospital Encounter [facility] PT Luis Felipe Patel MD 10/14/2009 12:01 AM EST - 11/07/2009 11:23 AM EST Hospital Encounter [facility] EPIC CON UNK Luis Felipe Patel MD 10/23/2009 3:14 PM EST - 10/23/2009 11:59 PM EST Hospital Encounter [facility] EPIC CON UNK Luis Felipe Evans MD 10/02/2009 2:36 PM EST - 10/13/2009 11:59 PM EST Hospital Encounter [facility] EPIC CON UNK Luis Felipe Patel MD 03/27/2008 11:55 AM EDT - 03/27/2008 6:10 PM EDT Hospital Encounter [facility] 4C1 Luis Callejas MD 03/23/2008 10:21 AM EDT - 03/23/2008 11:59 PM EDT Hospital Encounter [facility] LAB GRT Luis Callejas MD 01/27/2008 Hospital Encounter [facility] MEDICINE [facility]TT Generic, Historical Provider 01/20/2008 Hospital Encounter [facility] MEDICINE [facility]TT Generic, Historical Provider 07/25/2007 12:01 AM EST - 07/25/2007 11:59 PM EST Hospital Encounter [facility] RADIOLOGY EDG Buster Calhoun MD 07/16/2007 11:11 AM EDT - 07/16/2007 11:59 PM EDT Hospital Encounter [facility] LAB EDG Buster Calhoun MD 05/02/2007 10:31 AM EDT - 05/02/2007 11:24 AM EDT Emergency [facility] EPIC CON UNK GRT Jacob Fulton MD Allergies Active Allergy Reactions Criticality Noted Date Comments Azithromycin Hives 02/24/2010 Medications Cholecalciferol , Vitamin D3, (VITAMIN D3) 2,000 unit Oral Capsule Take 1 Cap by mouth daily. 05/05/2016 Active topiramate (TOPAMAX) 50 mg Oral Tablet Take 50 mg by mouth 4 times daily. Active loratadine (CLARITIN) 10 mg Oral TabletIndicatio ns:Other allergic rhinitis TAKE 1 TABLET BY MOUTH EVERY DAY NEEDED 30 Tab 2 01/16/2019 Active ergocalciferol (DRISDOL) 50,000 unit Oral Capsule TAKE ONE CAPSULE BY MOUTH ONE TIME PER WEEK 4 Cap 2 03/13/2019 Active lisinopriL (PRINIVIL;ZESTR IL) 20 mg Oral Tablet tablet TAKE 1 TABLET BY MOUTH EVERY DAY. PLEASE SCHEDULE APPT. 30 Tab 11/06/2019 Active topiramate (TOPAMAX) 50 mg Oral Tablet TAKE 1 TABLET BY MOUTH THREE TIMES A DAY 90 Tab 3 09/04/2020 Active Active Problems Problem Noted Date Diagnosed Date Obesity, Class III, BMI 40-49.9 (morbid obesity) 08/22/2018 Overview (08/22/2018): Diet and exercise Venous insufficiency 08/22/2018 Stage 3 chronic kidney disease 04/04/2015 Overview (09/09/2017): Since 2013, uncertain etiology. Started lisinopril in [...] Limit Phosphorus and Purines in diet too. Primary osteoarthritis involving multiple joints 04/04/2015 Overview (09/09/2017): Stable with prn tylenol, continue the same. Other allergic rhinitis 04/04/2015 Overview (09/09/2017): Stable on prn loratadine Essential tremor 10/27/2013 Overview (09/09/2017): Stable continue the same. Unspecified essential hypertension 09/30/2011 Overview (09/09/2017): BP Readings from Last 3 Encounters: 09/08/17 138/78 08/31/16 142/86 06/08/16 128/60 HTN: Taking meds. Well controlled. Denies chest pain and SOB, swelling, dizziness or orthostatics. Due to renal failure will attempt to d/c HCTZ. Continue lisinopril and monitor closely and follow up if BP increases. Resolved Problems Problem Noted Date Diagnosed Date Resolved Date Pulmonary nodule 09/08/2017 08/22/2018 Overview (09/09/2017): Low risk for malignancy given CKD did not repeat chest CT. Desires follow up so will get non contrast CT. Insomnia 04/04/2015 08/22/2018 Immunizations Immunization Administration Dates Next Due Tdap 10/17/2014 Family History Medical History Relation Name Comments COPD Mother Cancer Mother Colon Cancer Mother Emphysema Mother Prostate Cancer Neg Hx Relation Name Status Comments Father Mother Social History Smoking Status as of 04/25/2025 Tobacco Use Types Packs/Day Years Used Date Smoking Tobacco: Never Assessed PHQ-2 Answer Date Recorded PHQ-2 Score 0 02/02/2019 Sex and Gender Information Value Date Recorded Sex Assigned at Not on file Legal Sex Male 5:58 PM EDT Gender Identity Not on file Sexual Orientation Not on file Last Filed Vital Signs Vital Sign Reading Time Taken Comments Blood Pressure 138/86 11/15/2018 2:59 PM EST Pulse 55 11/15/2018 2:59 PM EST Temperature 36.3 C (97.4 F) 11/15/2018 2:59 PM EST Respiratory Rate 18 11/15/2018 2:59 PM EST Oxygen Saturation 98% 11/15/2018 2:59 PM EST Inhaled Oxygen Concentration - - Weight 178.7 kg (394 lb) 11/15/2018 2:59 PM EST Height 193 cm (6' 4 ) 11/15/2018 2:59 PM EST Body Mass Index 47.96 11/15/2018 2:59 PM EST Plan of Treatment Not on file Procedures Procedure Name Priority Date/Time Associated Diagnosis Comments VITAMIN D 25 HYDROXY Routine 08/22/2018 12:30 PM EST Primary osteoarthritis involving multiple joints THYROID STIMULATING HORMONE Routine 08/22/2018 12:30 PM EST Screening for thyroid disorder LIPID SCREEN Routine 08/22/2018 12:30 PM EST Screening for lipid disorders COMPREHENSIVE METABOLIC PANEL Routine 08/22/2018 12:30 PM EST Stage 3 chronic kidney disease (HCC) CBC WITH DIFF Routine 08/22/2018 12:30 PM EST Stage 3 chronic kidney disease (HCC) US RENAL AND BLADDER Routine 2017 10:31 AM EST CKD (chronic kidney disease) stage 3, GFR 30-59 ml/min (HCC) CT CHEST WO CONTRAST Routine 09/09/2017 11:14 AM EST Pulmonary nodule SODIUM LEVEL URINE Routine 09/08/2017 11:08 AM EST CKD (chronic kidney disease) stage 3, GFR 30-59 ml/min (HCC) URINALYSIS Routine 09/08/2017 11:08 AM EST CKD (chronic kidney disease) stage 3, GFR 30-59 ml/min (HCC) LIPID PANEL REFLEX Routine 09/08/2017 11:02 AM EST Screening cholesterol level COMPREHENSIVE METABOLIC PANEL Routine 09/08/2017 11:02 AM EST CKD (chronic kidney disease) stage 3, GFR 30-59 ml/min (HCC) HEMOGLOBIN A1C Routine 09/08/2017 11:02 AM EST Glucose intolerance (impaired glucose tolerance) VITAMIN D 25 HYDROXY Routine 09/08/2017 11:02 AM EST Vitamin D deficiency VITAMIN D 25 HYDROXY Routine 04/27/2016 2:59 PM EDT Chronic fatigue Encounter for screening for nutritional disorder VITAMIN B12/ FOLIC ACID Routine 04/27/2016 2:59 PM EDT Chronic fatigue Encounter for screening for nutritional disorder COMPREHENSIVE METABOLIC PANEL Routine 04/27/2016 2:59 PM EDT Screening for diabetes mellitus (DM) Chronic fatigue CBC Routine 04/27/2016 2:59 PM EDT Screening for deficiency anemia Chronic fatigue POCT GLYCATED HEMOGLOBIN, TOTAL Routine 04/27/2016 2:40 PM EDT Screening for diabetes mellitus (DM) POCT GLUCOSE Routine 04/27/2016 2:38 PM EDT Screening for diabetes mellitus (DM) POCT URINALYSIS DIPSTICK Routine 04/27/2016 2:38 PM EDT Screening for diabetes mellitus (DM) Malodorous urine PROSTATE SPECIFIC ANTIGEN (SCREENING) Routine 03/18/2016 11:25 AM EDT Screening for prostate cancer Annual physical exam LIPID SCREEN Routine 03/18/2016 11:25 AM EDT Screening for cholesterol level Annual physical exam COMPREHENSIVE METABOLIC PANEL Routine 03/18/2016 11:25 AM EDT Annual physical exam CBC Routine 03/18/2016 11:25 AM EDT Annual physical exam LDL, CALCULATED Routine 10/17/2014 11:14 AM EST THYROID STIMULATING HORMONE Routine 10/17/2014 11:14 AM EST Hypothyroid LIPID PANEL REFLEX Routine 10/17/2014 11:14 AM EST HTN (hypertension) HEPATIC FUNCTION PANEL Routine 10/17/2014 11:14 AM EST HTN (hypertension) BASIC METABOLIC PANEL Routine 10/17/2014 11:14 AM EST HTN (hypertension) US SCROTUM AND TESTICLES STAT 10/09/2014 7:25 AM EST URINALYSIS Routine 10/09/2014 6:30 AM EST URINE CULTURE (NO STAIN) STAT 10/09/2014 6:[address] ABDOMEN PELVIS WO ORAL OR IV CONTRAST STAT 10/02/2014 7:23 PM EST URINALYSIS POC Routine 10/02/2014 5:35 PM EST PATHOLOGY TISSUE REPORT Routine 01/22/2014 9:31 PM EDT LDL, CALCULATED Routine 01/22/2014 11:52 AM EDT DIFFERENTIAL Routine 01/22/2014 11:52 AM EDT LIPID PANEL REFLEX Routine 01/22/2014 11:52 AM EDT Unspecified essential hypertension Essential tremor HEPATIC FUNCTION PANEL Routine 01/22/2014 11:52 AM EDT Unspecified essential hypertension Essential tremor CBC WITH DIFF Routine 01/22/2014 11:52 AM EDT Essential tremor Unspecified essential hypertension BASIC METABOLIC PANEL Routine 01/22/2014 11:52 AM EDT Unspecified essential hypertension Essential tremor MRI BRAIN W WO CONTRAST STAT 01/24/2013 8:32 AM EDT DIFFERENTIAL STAT 01/24/2013 7:15 AM EDT BASIC METABOLIC PANEL STAT 01/24/2013 7:15 AM EDT CBC WITH DIFF STAT 01/24/2013 7:[address] HEAD WO CONTRAST STAT 01/24/2013 6 :37 AM EDT SCANNED LABS 11/03/2011 12:00 AM EST RPR Routine 10/08/2011 1:41 PM EST Contact with and exposure to infections with a predominantly sexual mode of transmission HIV AG/AB Routine 10/08/2011 1:41 PM EST Contact with and exposure to infections with a predominantly sexual mode of transmission ACUTE HEPATITIS PANEL Routine 10/08/2011 1:41 PM EST Contact with and exposure to infections with a predominantly sexual mode of transmission .CHL/GC URINE RESULTS Routine 10/08/2011 1:41 PM EST LDL, CALCULATED Routine 09/30/2011 3:22 PM EST THYROID STIMULATING HORMONE Routine 09/30/2011 3:22 PM EST Unspecified essential hypertension LIPID PANEL REFLEX Routine 09/30/2011 3: 22 PM EST Unspecified essential hypertension HEPATIC FUNCTION PANEL Routine 09/30/2011 3:22 PM EST Unspecified essential hypertension BASIC METABOLIC PANEL Routine 09/30/2011 3:22 PM EST Unspecified essential hypertension XR HAND RIGHT PA LATERAL AND OBLIQUE DUC 08/03/2010 4:14 PM EST SCANNED OR REPORT 02/28/2010 12:00 AM EDT EK EKG 12 LEAD Routine 02/25/2010 9:19 AM EDT SHOULDER ARTHROSCOPY LABRAL/BANKART/ BICEP TENODESIS ([facility]ERS SUPERIOR LABRAL ANTERIOR POSTERIOR REPAIR/SLAP) 02/25/2010 8:01 AM EDT same as pre-op Case Notes Workers comp Special Needs Scalene block Left message for patient to call and schedule testing. 01/31/10 @1100 luis alberto SCANNED ANESTHESIA FORMS 02/25/2010 12:00 AM EDT KE MR ARTHROGRAM SHOULDER Routine 10/23/2009 3:30 PM EST SP OVE MECHANICAL TECH Routine 03/27/2008 1:15 PM EDT US TESTICULAR SONOGRAPHY Routine 07/25/2007 3:26 PM EST Results * VITAMIN D 25 HYDROXY (08/22/2018 12:30 PM EST) Only the most recent of3 resultswithin the time period is included. Vit D 25 OH 52.7 30.0 - 120.0 ng/mL 08/22/2018 11:43 PM EST [facility] Comment: INTERPRETIVE INFORMATION: Vitamin D, 25-Hydroxy <20 ng/mL Deficiency 20 - 29 ng/mL Insufficiency 30 - 80 ng/mL Optimum Level >120 ng/mL Possible Toxicity NOTE: For infants and children up to 17 years of age, the optimum level is >=20 ng/mL. This assay accurately quantifies the sum of vitamin D3, 25-Hydroxy and vitamin D2, 25-Hydroxy. Blood VENOUS BLOOD / Unknown Venipuncture / Unknown 08/22/2018 12:30 PM EST 08/22/2018 12:30 PM EST us Forrest Santos MD CHEMISTRY ORDERABLES Final Result [facility] [address] [facility] , [address] [place] [id number] * CBC WITH DIFF (08/22/2018 12:30 PM EST) Only the most recent of3 resultswithin the time period is included. WBC 6.1 3.7 - 10.3 x10(3)/mcL 08/22/2018 7:24 PM EST [facility] RBC 5.13 4.60 - 6.10 x10(6)/mcL 08/22/2018 7:24 PM EST [facility] Hgb 15.3 13.7 - 17.5 g/dL 08/22/2018 7:24 PM EST [facility] Hct 46.7 40.0 - 51.0 % 08/22/2018 7:24 PM EST [facility] MCV 91.0 79.0 - 98.0 fL 08/22/2018 7:24 PM EST [facility] MCH 29.8 26.0 - 32.0 pg 08/22/2018 7:24 PM EST [facility] MCHC 32.8 30.7 - 35.5 g/dL 08/22/2018 7:24 PM EST [facility] RDW 12.6 <=14.9 % 08/22/2018 7:24 PM EST [facility] Platelet 191 155 - 369 x10(3)/mcL 08/22/2018 7:24 PM EST [facility] MPV 11.2 8.8 - 12.5 fL 08/22/2018 7:24 PM EST [facility] Neut Percent 55.2 % 08/22/2018 7:24 PM EST [facility] Comment:Neutrophils equals s egs plus bands Imm Gran% 0.5 % 08/22/2018 7:24 PM EST [facility] Comment:Automated count of m etamyelocytes, myelocytes and promyelocytes. Lymph Percent 32.6 % 08/22/2018 7:24 PM EST [facility] Billings Percent 9.6 % 08/22/2018 7:24 PM EST [facility] Eos Percent 1.3 % 08/22/2018 7:24 PM EST [facility] Baso Percent 0.8 % 08/22/2018 7:24 PM EST [facility] Neut # 3.4 1.6 - 6.1 x10(3)/mcL 08/22/2018 7:24 PM EST [facility] Comment:Neutrophils equals s egs plus bands IMMGRAN# 0.0 0.0 - 0.1 x10(3)/mcL 08/22/2018 7:24 PM EST [facility] Comment:Automated count of m etamyelocytes, myelocytes and promyelocytes. An absolute IG <0.1 is reported as 0.0. Lymph # 2.0 1.2 - 3.9 x10(3)/mcL 08/22/2018 7:24 PM EST [facility] Billings # 0.6 0.3 - 0.9 x10(3)/mcL 08/22/2018 7:24 PM EST [facility], [facility] Eos# 0.1 0.0 - 0.5 x10(3)/mcL 08/22/2018 7:24 PM EST [facility] Baso # 0.1 0.0 - 0.1 x10(3)/mcL 08/22/2018 7:24 PM EST [facility], [facility] Blood VENOUS BLOOD / Unknown Venipuncture / Unknown 08/22/2018 12:30 PM EST 08/22/2018 12:30 PM EST us Forrest Santos MD HEMATOLOGY ORDERABLES Final Result Performing Organization Address [facility] Co de Phone Number [facility] , [place] [id number] * THYROID STIMULATING HORMONE (08/22/2018 12:30 PM EST) Only the most recent of3 resultswithin the time period is included. TSH 3.060 0.270 - 4.200 mcIU/mL 08/22/2018 7:37 PM EST [facility], [facility] Blood VENOUS BLOOD / Unknown Venipuncture / Unknown 08/22/2018 12:30 PM EST 08/22/2018 12:30 PM EST Narrative [facility] [employer] [facility], [facility] - 08/22/2018 7:37 PM EST Ingestion of george doses of biotin (>5 mg/day) taken within 8 hours of drawing blood sample can interfere with this immunoassay test. us Forrest Santos MD CHEMISTRY ORDERABLES Final Result Performing Organization Address [facility] Co de Phone Number [facility] [employer] , [place] [address] * (ABNORMAL) LIPID SCREEN (08/22/2018 12:30 PM EST) Only the most recent of2 resultswithin the time period is included. Cholesterol 167 <=200 mg/dL 08/22/2018 7:37 PM EST [facility] Comment: < 200 Desirable 200 - 239 Borderline High >= 240 High Triglyceride 113 <=150 mg/dL 08/22/2018 7:37 PM EST [facility] Comment: < 150 Normal 150 - 199 Borderline High 200 - 499 High >= 500 Very High HDL 37(L) >=40 mg/dL 08/22/2018 7:37 PM EST [facility] Comment: > 60 Optimal 40 - 60 Acceptable < 40 Low LDL Calculated 107(H) <=100 mg/dL 08/22/2018 7:37 PM EST [facility] Comment: < 100 Optimal 100 - 129 Near or above optimal 130 - 159 Borderline High 160 - 189 High >= 190 Very High Non-HDL-C Calculated 130(H) <=129 mg/dL 08/22/2018 7:37 PM EST [facility] Comment: <130 Desirable 130-159 Above Desirable 160-189 Borderline High 190-219 High >= 220 Very High Blood VENOUS BLOOD / Unknown Venipuncture / Unknown 08/22/2018 12:30 PM EST 08/22/2018 12:30 PM EST Forrest Santos MD CHEMISTRY ORDERABLES Final Result [facility], [facility] [address] [facility] , [place] [address] * (ABNORMAL) COMPREHENSIVE METABOLIC PANEL (08/22/2018 12:30 PM EST) Only the most recent of4 resultswithin the time period is included. Sodium 137 136 - 145 mmol/L 08/22/2018 7:37 PM EST [facility] Potassium 4.4 3.5 - 5.0 mmol/L 08/22/2018 7:37 PM EST [facility] Chloride 107 98 - 107 mmol/L 08/22/2018 7:37 PM EST [facility] Total CO2 21(L) 22 - 29 mmol/L 08/22/2018 7:37 PM EST [facility] Anion Gap 9 7 - 16 mmol/L 08/22/2018 7:37 PM EST [facility] Calcium 9.6 8.6 - 10.2 mg/dL 08/22/2018 7:37 PM EST [facility] Glucose Lvl 108(H) 74 - 100 mg/dL 08/22/2018 7:37 PM EST [facility] BUN 17 6 - 20 mg/dL 08/22/2018 7:37 PM EST [facility] Creatinine 1.38(H) 0.67 - 1.30 mg/dL 08/22/2018 7:37 PM EST [facility] Albumin 4.3 3.5 - 5.2 gm/dL 08/22/2018 7:37 PM EST [facility] Total Protein 7.4 6.4 - 8.3 gm/dL 08/22/2018 7:37 PM EST [facility] Bili Total 0.4 0.1 - 1.4 mg/dL 08/22/2018 7:37 PM EST [facility] ALT 43(H) <=41 IU/L 08/22/2018 7:37 PM EST [facility] AST 30 <=40 IU/L 08/22/2018 7:37 PM EST [facility] Alk Phos 68 40 - 129 IU/L 08/22/2018 7:37 PM EST [facility], [facility] GFR Afr Am 68 >=60 mL/min/1.7 3 m2 08/22/2018 7:37 PM EST [facility] GFR Non Afr Am 59(L) >=60 mL/min/1.7 3 m2 08/22/2018 7:37 PM EST [facility] Comment: This estimated GFR was calculated using CKD-EPI equation which is modified based on ethnicity for Non Americans and Americans. Both results are reported since it is not always possible to determine the patient's ethnicity. This equation should only be used for individuals 18 and older. It has not been validated for use with the elderly (>70 years), women, or in some racial or ethnic subgroups, such as Hispanics. The equation will be less accurate in people with differences in nutritional status or muscle mass. Blood VENOUS BLOOD / Unknown Venipuncture / Unknown 08/22/2018 12:30 PM EST 08/22/2018 12:30 PM EST us Forrest Santos MD CHEMISTRY ORDERABLES Final Result [facility] [address] [facility], [address] [place] [id number] [address] [address] * US RENAL AND BLADDER (2017 10:31 AM EST) Anatomical Region Laterality Modality Abdomen, Pelvis Ultrasound 2017 10:3 1 AM EST Impressions 2017 10:40 AM EST Neither ureteral jet is identified in the urinary bladder. There is no hydronephrosis or other acute findings. Remainder is unremarkable. Narrative 2017 10:40 AM EST PROCEDURE: Ultrasound bilateral kidneys and urinary bladder,2017 10:31 AM INDICATION: Chronic kidney disease FINDINGS: Ultrasound bilateral kidneys and urinary bladder. No prior. There is no hydronephrosis, nephrolithiasis, solid or cystic mass in either kidney. The right kidney measures 12.1 x 5.3 x 6.0 CM. The left kidney measures 12.5 x 5 0.4, 0.1 CM. The urinary bladder is sonographic normal. Neither ureteral jet is identified. Procedure Note Law Raymond MD - 2017 PROCEDURE: Ultrasound bilateral kidneys and urinary bladder,09/10/201710:31 AM INDICATION: Chronic kidney disease FINDINGS: Ultrasound bilateral kidneys and urinary bladder. No prior.There is no hydronephrosis, nephrolithiasis, solid or cystic mass in either kidney.The right kidney measures 12.1 x 5.3 x 6.0 CM. The left kidney measures 12.5 x5 0.4, 0.1 CM. The urinary bladder is sonographic normal. Neither ureteraljet is identified. IMPRESSION: Neither ureteral jet is identified in the urinary bladder. There is no hydronephrosis or other acute findings. Remainder is unremarkable. us Forrest Santos MD IMG US ORDERABLES Final Res ult * CT CHEST WO CONTRAST (09/09/2017 11:14 AM EST) Anatomical Region Laterality Modality Chest Computed Tomogra phy 09/09/2017 11:1 4 AM EST Impressions 09/09/2017 2:36 PM EST 1. Findings compatible with benign granulomatous disease in the chest. 2. No additional acute findings. 3. Incidental findings as described Narrative 09/09/2017 2:36 PM EST CLINICAL HISTORY: R91.1-Solitary pulmonary vocyak-[id number]-CM. COMPARISON: 10/02/[address] TECHNIQUE: CT CHEST WO CONTRAST on 09/09/2017 11:14 AM. FINDINGS: The previously reported small pulmonary nodule in the right lower lobe is calcified and is compatible with a benign granuloma. Additional calcified nodules are scattered throughout both lungs as well and there are partially calcified lymph nodes consistent with benign granulomatous disease. There is no suspicious pulmonary nodule or focal consolidation. The tracheobronchial tree is patent. There is no pneumothorax or pleural effusion. The heart size and pulmonary vascularity are normal and there is no pericardial effusion. Coronary artery calcifications are noted. The aorta and pulmonary arteries are normal in caliber. All lymph nodes are less than 1 cm in the short axis. The included thyroid gland and esophagus are normal and there is no hiatal hernia. The upper abdomen is unremarkable. There are degenerative changes in the spine. Procedure Note Demar Ellison MD - 09/09/2017 CLINICAL HISTORY: R91.1-Solitary pulmonary [id number]-[id number]. COMPARISON: 10/02/[address] TECHNIQUE: CT CHEST WO CONTRAST on 09/09/2017 11:14 AM. FINDINGS: The previously reported small pulmonary nodule in the rightlower lobe is calcified and is compatible with a benign granuloma. Additionalcalcified nodules are scattered throughout both lungs as well and there arepartially calcified lymph nodes consistent with benign granulomatous disease. Thereis no suspicious pulmonary nodule or focal consolidation. The tracheobronchialtree is patent. There is no pneumothorax or pleural effusion. The heart size and pulmonary vascularity are normal and there is nopericardial effusion. Coronary artery calcifications are noted. The aorta andpulmonary arteries are normal in caliber. All lymph nodes are less than 1 cm in theshort axis. The included thyroid gland and esophagus are normal and there is nohiatal hernia. The upper abdomen is unremarkable. There are degenerative changesin the spine. IMPRESSION: 1. Findings compatible with benign granulomatous disease in the chest. 2. No additional acute findings. 3. Incidental findings as described Forrest Santos MD IMG CT ORDERABLES Final Res ult * SODIUM LEVEL URINE (09/08/2017 11:08 AM EST) Urine Sodium 134 mmol/L 09/08/2017 4:00 PM EST [facility] Urine STRUCTURE OF URINARY TRACT PROPER / Unknown 09/08/2017 11:08 AM EST 09/08/2017 11:08 AM EST Forrest Santos MD URINE ORDERABLES Final Resu lt [facility] [address] [place] [address] * (ABNORMAL) URINALYSIS (09/08/2017 11:08 AM EST) Only the most recent of2 resultswithin the time period is included. UA Color Yellow 09/08/2017 3:41 PM EST [facility] UA Appear Clear Clear 09/08/2017 3:41 PM EST [facility] UA Glucose Negative Negative mg/dL 09/08/2017 3:41 PM EST [facility] UA Ketones Negative Negative mg/dL 09/08/2017 3:41 PM EST [facility] UA Blood Negative Negative 09/08/2017 3:41 PM EST [facility] UA pH 5.0 5.0 - 8.0 pH 09/08/2017 3:41 PM EST [facility] UA Protein Negative Negative mg/dL 09/08/2017 3:41 PM EST [facility] UA Urobilinogen Normal <=1 E.U./dL 09/08/20 17 3:41 PM EST [facility] UA Nitrite Negative Negative 09/08/2017 3:41 PM EST [facility] UA Leuk Est Negative Negative 09/08/2017 3:41 PM [facility] UA Spec Grav 1.024 1.001 - 1.035 no units 09/08/2017 3:41 PM EST [facility] Comment: Reference range valid for random specimens only. UA WBC 1 0 - 4 /HPF 09/08/2017 3:41 PM EST [facility] UA RBC 2 0 - 3 /HPF 09/08/2017 3:41 PM EST [facility] UA Squam Epi 1+ /LPF 09/08/2017 3:41 PM EST [facility] UA Mucus Trace /LPF 09/08/2017 3:41 PM EST [facility] UA Hyal Cast 14(H) 0 - 2 /LPF 09/08/2017 3:41 PM EST [facility] Urine 09/08/2017 11:0 8 AM EST 09/08/2017 11:08 AM EST Forrest Santos MD URINE ORDERABLES Final Resu lt Performing Organization Address City/[facility]/[place] [address] * (ABNORMAL) LIPID PANEL REFLEX (09/08/2017 11:02 AM EST) Only the most recent of4 resultswithin the time period is included. Cholesterol 169 <=200 mg/dL 09/08/2017 4:24 PM EST [facility] Comment: < 200 Desirable 200 - 239 Borderline High >= 240 High Triglyceride 134 <=150 mg/dL 09/08/2017 4:24 PM EST [facility] Comment: < 150 Normal 150 - 199 Borderline High 200 - 499 High >= 500 Very High HDL 37(L) >=40 mg/dL 09/08/2017 4:24 PM EST [facility] Comment: > 60 Optimal 40 - 60 Acceptable < 40 Low LDL Calculated 105(H) <=100 mg/dL 09/08/2017 4:24 PM EST [facility] Blood VENOUS BLOOD / Unknown Venipuncture / Unknown 09/08/2017 11:02 AM EST 09/08/2017 11:02 AM EST Forrest Santos MD CHEMISTRY ORDERABLES Final Result Performing Organization Address City/[facility]/[place] [address] * HEMOGLOBIN A1C (09/08/2017 11:02 AM EST) Pathologist [facility] Hgb A1C 5.6 <=7.0 % 09/08/2017 4:21 PM EST [facility] Blood VENOUS BLOOD / Unknown Venipuncture / Unknown 09/08/2017 11:02 AM EST 09/08/2017 11:02 AM EST Narrative [facility] - 09/08/2017 4:21 PM EST Reference Interval for Hgb A1c Hgb A1c Interpretation < 6.0 Non-Diabetic Range 6.0 - 7.0 ADA Therapeutic Target > 7.0 Action suggested us Forrest Santos MD CHEMISTRY ORDERABLES Final Result Performing Organization Address [facility] [place] [address] * (ABNORMAL) VITAMIN B12/ FOLIC ACID (04/27/2016 2:59 PM EDT) [facility] Vitamin B12 1,938(H) 211 - 946 pg/mL [facility] Folic Acid Lvl 17.44 4.50 - 37.30 ng/mL [facility] Blood specimen (specimen) UPPER LIMB STRUCTURE / Unknown 04/27/2016 2:59 PM EDT 04/27/2016 10:13 PM EDT us Adri Baltazar APRN CHEMISTRY ORDERABLES Edit ed Result - Final Performing Organization Address [facility] Co de Phone Number [address] [address] * CBC (04/27/2016 2:59 PM EDT) Only the most recent of2 resultswithin the time period is included. Pathologist [facility] WBC 9.4 4.0 - 11.0 x10(3)/mcL [facility] RBC 4.98 4.30 - 5.81 x10(6)/mcL [facility] Hgb 15.1 13.5 - 17.1 gm/dL [facility] Hct 44.7 38.9 - 51.6 % [facility] MCV 89.8 82.5 - 99.8 fL [facility] MCH 30.3 27.0 - 34.3 pg [facility] MCHC 33.7 32.1 - 35.3 gm/dL [facility] RDW 13.5 11.5 - 15.0 % [facility] Platelet 160 144 - 423 x10(3)/mcL [facility] MPV 9.3 6.8 - 10.8 fL [facility] Blood specimen (specimen) UPPER LIMB STRUCTURE / Unknown 04/27/2016 2:59 PM EDT 04/27/2016 10:13 PM EDT Adri Baltazar [employer] ANALYST HEMATOLOGY ORDERABLES Fin al Result Performing Organization Address [facility]/ZIP Co de Phone Number [facility] [address] [place] [address] * POCT GLYCATED HEMOGLOBIN, TOTAL (04/27/2016 2:40 PM EDT) Hemoglobin A1C 5.9 % SEP OFFICE Lot Number SEP OFFICE Expiration Date SEP OFFICE SeriAl # SEP OFFICE 04/27/2016 2:40 PM EDT Adri Baltazar APRN POINT OF CARE TEST ORDERA BLES Final Result Performing Organization Address [facility] de Phone Number SEP OFFICE * POCT GLUCOSE (04/27/2016 2:38 PM EDT) Glucose 100 60 - 200 MG/DL SEP OFFICE Lot Number SEP OFFICE Expiration Date SEP OFFICE SeriAl # SEP OFFICE Meter SEP OFFICE 04/27/2016 2:38 PM EDT Adri Baltazar APRN POINT OF CARE TEST ORDERA BLES Final Result Performing Organization Address City/[facility] Co de Phone Number SEP OFFICE * POCT URINALYSIS DIPSTICK (04/27/2016 2:38 PM EDT) Color, UA yellow CLEAR,YELL OW,ORANGE, RUST SEP OFFICE Clarity, UA clear CLEAR,CLOU DY SEP OFFICE Glucose, UA neg G/DL% SEP OFFICE Bilirubin, UA neg POS/NEG SEP OFFICE Ketones, UA neg POS/NEG SEP staff psychologist Grav, UA 1.02 1.001 - 1.035 G/DL SEP OFFICE Blood, UA neg POS/NEG SEP OFFICE pH, UA 6.0 5.0 - 8 SEP OFFICE Protein, UA neg POS/NEG SEP OFFICE Urobilinogen, UA 0.2 0.2 - 1.0 MG/DL SEP OFFICE Leukocytes, UA neg POS/NEG SEP OFFICE Nitrite, UA neg POS/NEG SEP OFFICE UA Appear POC clear SEP OFFICE Lot Number SEP OFFICE Expiration Date SEP OFFICE SeriAl # SEP OFFICE Urine specimen (specimen) 04/27/2016 2:38 PM EDT Adri Baltazar PRIVATE EQUITY ANALYST POINT OF CARE TEST ORDERA BLES Final Result SEP OFFICE * PROSTATE SPECIFIC ANTIGEN (SCREENING) (03/18/2016 11:25 AM EDT) Total PSA 1.19 ng/mL [facility] Comment: 2009 AUA Best Practice Statement Guidelines-Age Adjusted Reference Intervals: Age Range Whites Americans Americans 40-49 years 0-2.5 ng/mL 0-2.0 ng/mL 0-2.0 ng/mL 50-59 years 0-3.5 ng/mL 0-4.0 ng/mL 0-3.0 ng/mL 60-69 years 0-4.5 ng/mL 0-4.5 ng/mL 0-4.0 ng/mL 70-79 years 0-6.5 ng/mL 0-5.5 ng/mL 0-5.0 ng/mL [facility] uses the [employer] Total PSA assay, which is approved as an aid in detecting prostate cancer when used in conjunction with digital rectal exam in men 50 years or older and also as an adjunctive test to aid in the management of prostate cancer patients. Prostatic biopsy is required for the diagnosis of cancer. Values obtained with different assay methods should not be used interchangeably. Consider the above as guidelines only. The risk of prostate cancer is a continuum across a range of PSA levels, with increasing risk as the PSA increases. Blood specimen (specimen) UPPER LIMB STRUCTURE / Unknown 03/18/2016 11:25 AM EDT 03/18/2016 9:27 PM EDT us Nellie Estevez PA-C CHEMISTRY ORDERABL ES Final Result Performing Organization Address City/[facility]/ZIP Co de Phone Number [facility] [address] [place] [address] * LDL, CALCULATED (10/17/2014 11:14 AM EST) Only the most recent of3 resultswithin the time period is included. Pathologist [facility] LDL Calculated 99 <=100 mg/dL [facility] Comment: < 100 Optimal 100 - 129 Near or above optimal 130 - 159 Borderline High 160 - 189 High >= 190 Very High Blood specimen (specimen) 10/17/2014 11:14 AM EST 10/17/2014 5:08 PM EST us Forrest Santos MD CHEMISTRY ORDERABLES Final Result Performing Organization Address City/[facility] [place] [address] * HEPATIC FUNCTION PANEL (10/17/2014 11:14 AM EST) Only the most recent of3 resultswithin the time period is included. Total Protein 7.1 6.4 - 8.3 gm/dL [facility] Albumin 4.5 3.5 - 5.2 gm/dL [facility] Bili Direct <0.2 0.0 - 0.3 mg/dL [facility] Bili Total 0.4 0.1 - 1.4 mg/dL [facility] AST 26 <=40 IU/L [facility] ALT 24 <=41 IU/L [facility] Alk Phos 57 40 - 129 IU/L [facility] Blood specimen (specimen) UPPER LIMB STRUCTURE / Unknown 10/17/2014 11:14 AM EST 10/17/2014 5:08 PM EST Forrest Santos MD CHEMISTRY ORDERABLES Edited Result - Final Performing Organization Address [facility] Co de Phone Number [facility] [address] [place] [address] * (ABNORMAL) BASIC METABOLIC PANEL (10/17/2014 11:14 AM EST) Only the most recent of4 resultswithin the time period is included. Sodium 138 136 - 145 mmol/L [facility] Potassium 4.2 3.5 - 5.0 mmol/L [facility] Chloride 100 98 - 107 mmol/L [facility] Total CO2 25 22 - 29 mmol/L [facility] Anion Gap 13 7 - 16 mmol/L [facility] Calcium 9.8 8.6 - 10.2 mg/dL [facility] Glucose Lvl 99 74 - 100 mg/dL [facility] BUN 21(H) 6 - 20 mg/dL [facility] Creatinine 1.51(H) 0.67 - 1.30 mg/dL [facility] GFR Afr Am >60 [facility] Comment: GFR is estimated using creatinine, age, gender, and race. GFR has been validated for patients between 18 and 70 years of age. GFR has not been validated for women, patients with serious comorbid conditions, or persons with extremes of body size, muscle mass, or nutritional status. For additional information: www.kidney.org. GFR Non Afr Am 50 [facility] Blood specimen (specimen) UPPER LIMB STRUCTURE / Unknown 10/17/2014 11:14 AM EST 10/17/2014 5:08 PM EST us Forrest Santos MD CHEMISTRY ORDERABLES Edited Result - Final Performing Organization Address City/[facility]/ZIP Co de Phone Number [facility] [address] [place] [address] * US SCROTUM AND TESTICLES (10/09/2014 7:25 AM EST) Anatomical Region Laterality Modality Testes Ultrasound 10/09/2014 5:25 AM EST Impressions 10/09/2014 7:48 AM EST IMPRESSION: 1. There is asymmetric enlargement and mild increased vascularity of the right epididymis, most compatible with right epididymitis. There is also a mild right hydrocele. 2. The left testicle is asymmetrically smaller in size and demonstrates heterogeneous echotexture. This is nonspecific but could reflect seminiferous tubular atrophy. Given symmetric vascular flow within the testicles on Doppler exam, left-sided orchitis is considered unlikely. Followup ultrasound is recommended in 6 months to assess for stability. Findings and recommendation were called to Dr. Razo at 0800 hours on 10/09/[address] Mcintosh. Narrative 10/09/2014 7:48 AM EST Scrotal and testicular ultrasound dated 10/09/2014 COMPARISON: 07/25/2007 HISTORY: Right testicular pain, hematuria; prior history of left testicular vein coil embolization for treatment of left varicocele in 2007 FINDINGS: Right testicle measures 3.6 x 2.1 x 3.4 cm. Left testicle measures 2.5 x 1.1 x 2.3 cm. In addition to being asymmetrically smaller in size, the left testicle is also diffusely heterogeneous in echotexture relative to the right. No discrete intratesticular mass or calcification is identified however. There is vascular flow within both testicles on Doppler interrogation which is symmetric. Note is made that on prior ultrasound from 2006, the left testicle was mildly smaller in size relative to the right, although the asymmetric heterogeneity of the left testicle is more apparent on current study. There is asymmetric enlargement and heterogeneity of the right epididymis which also demonstrates mild increased vascular flow. This is most compatible with epididymitis. There is a mild right hydrocele. Procedure Note Jay Mcintosh MD - 10/09/2014 Scrotal and testicular ultrasound dated 10/09/2014 COMPARISON: 07/25/2007 HISTORY: Right testicular pain, hematuria; prior history of lefttesticular vein coil embolization for treatment of left varicocele in 2007 FINDINGS: Right testicle measures 3.6 x 2.1 x 3.4 cm. Left testicle measures 2.5 x1.1 x 2.3 cm. In addition to being asymmetrically smaller in size, the left testicle isalso diffusely heterogeneous in echotexture relative to the right. No discreteintratesticular mass or calcification is identified however. There is vascular flow within bothtesticles on Doppler interrogation which is symmetric. Note is made that on prior ultrasoundfrom 2006, the left testicle was mildly smaller in size relative to the right, although theasymmetric heterogeneity of the left testicle is more apparent on current study. There is asymmetric enlargement and heterogeneity of the right epididymiswhich also demonstrates mild increased vascular flow. This is most compatible withepididymitis. There is a mild right hydrocele. IMPRESSION: 1. There is asymmetric enlargement and mild increased vascularity of theright epididymis, most compatible with right epididymitis. There is also a mild righthydrocele. 2. The left testicle is asymmetrically smaller in size and demonstratesheterogeneous echotexture. This is nonspecific but could reflect seminiferous tubularatrophy. Given symmetric vascular flow within the testicles on Doppler exam, left-sidedorchitis is considered unlikely. Followup ultrasound is recommended in 6 months to assess forstability. Findings and recommendation were called to Dr. Razo at 0800 hours on10/09/[address] Mcintosh. us Demar De Santiago MD [facility] US ORDERABLES Final Result * URINE CULTURE (10/09/2014 6:30 AM EST) Final 8,000 cfu/ml Gram negative rods 50,000 cfu/ml Gram positive rods suggestive of Lactobacilli No further workup [facility] Urine specimen (specimen) STRUCTURE OF URINARY TRACT PROPER / Unknown 10/09/2014 6:30 AM EST 10/09/2014 12:30 PM EST us Demar De Santiago MD MICROBIOLOGY - GENERAL ORDERABLE S Final Result [facility] [address] [place] [address] * CT ABDOMEN PELVIS WO ORAL OR IV CONTRAST (10/02/2014 7:23 PM EST) Anatomical Region Laterality Modality Abdomen, Pelvis Computed Tomogra phy 10/02/2014 5:23 PM EST Impressions 10/02/2014 7:38 PM EST IMPRESSION: 1. No acute intra-abdominal abnormality. 2. 3 mm right lower lobe pulmonary nodule. Likely benign. If patient is low risk for pulmonary malignancy, no further imaging followup is indicated. If patient is high risk, recommend one year followup chest CT. Narrative 10/02/2014 7:[address] abdomen pelvis without contrast, 10/02/2014 COMPARISON: None HISTORY: Groin pain on right. Hematuria. FINDINGS: 3 mm right lower lobe pulmonary nodule on axial image 13. No renal stones, no hydronephrosis. Prior embolization left testicular vein. No ureteral stones. No bladder stones. Normal appendix. No bladder stones. No bowel obstruction. Tiny fat-containing umbilical hernia. Procedure Note Lew Redmond MD - 10/02/2014 CT abdomen pelvis without contrast, 10/02/2014 COMPARISON: None HISTORY: Groin pain on right. Hematuria. FINDINGS: 3 mm right lower lobe pulmonary nodule on axial image 13. Norenal stones, no hydronephrosis. Prior embolization left testicular vein. No ureteralstones. No bladder stones. Normal appendix. No bladder stones. No bowel obstruction. Tinyfat-containing umbilical hernia. IMPRESSION: 1. No acute intra-abdominal abnormality. 2. 3 mm right lower lobe pulmonary nodule. Likely benign. If patient islow risk for pulmonary malignancy, no further imaging followup is indicated. If patient is highrisk, recommend one year followup chest CT. Ochoa Gee MD IMG CT ORDERABLES Final Resu lt * URINALYSIS POC (10/02/2014 5:35 PM EST) Pathologist [facility] UA Color POC Yellow [facility] UA Appear POC Clear Clear [facility] UA Gluc POC Negative Negative [facility] UA Ketones POC Negative Negative [facility] UA Blood POC Negative Negative [facility] UA pH POC 7.0 5.0 - 8.0 [facility] UA Protein POC Negative Negative [facility] UA Urobilinogen POC 0.2 mg/dl <=1 mg/dl [facility] UA Nitrite POC Negative Negative [facility] UA Leuk Est POC Negative Negative [facility] UA SG POC 1.025 1.001 - 1.035 [facility] Urine specimen (specimen) 10/02/2014 5:35 PM EST 10/02/2014 5:35 PM EST us Ochoa Gee MD POINT OF CARE TEST ORDERABLE S Final Result Performing Organization Address City/[facility] Co de Phone Number [facility] [address] [place] [address] * PATHOLOGY TISSUE REPORT (01/22/2014 9:31 PM EDT) Surgical Pathology Report PATIENT NAME:JOEL PENN Surgical Pathology Report Accession Number Collected Date/Time Received Date/Time [id number] 01/22/14 21:31 EDT 01/22/14 22:09 EDT Diagnosis Skin lesion, left shoulder, shave biopsy: Benign fibrous histiocytoma (dermatofibroma). Parish Kim (Electronically signed by) Verified: 01/24/2014 [facility] Clinical Information 333.1; 401.9 Gross Description Received in formalin labeled with the patient's name and left shoulder cyst is an ellipse of payne skin 1.7 x 0.7 cm in surface dimension and 5 mm in thickness. The margins are inked. Serial sections show ill-defined firm dermis without discrete circumscbribed lesion. Senior Qa Analyst sections are submitted in one cassette. /[place] MR /JR Microscopic Description Microscopic examination is performed. [facility] 01/22/2014 9:31 PM EDT us Forrest Santos MD PATHOLOGY ORDERABLES Final Result Performing Organization Address [facility] Co de Phone Number [facility] [address] [place] [address] * DIFFERENTIAL (01/22/2014 11:52 AM EDT) Only the most recent of2 resultswithin the time period is included. Neut Percent 57.0 % [facility] Lymph Percent 31.8 % [facility] Billings Percent 8.3 % [facility] Eos Percent 2.5 % [facility] Baso Percent 0.4 % [facility] Neut# 3.5 1.8 - 7.7 x10(3)/mcL [facility] Lymph# 2.0 0.6 - 4.8 x10(3)/mcL [facility] Billings# 0.5 0.0 - 1.3 x10(3)/mcL [facility] Eos# 0.2 0.0 - 0.5 x10(3)/[facility] Baso# 0.0 0.0 - 0.2 x10(3)/[facility] Blood specimen (specimen) 01/22/2014 11:52 AM EDT 01/22/2014 6:52 PM EDT us Forrest Santos MD HEMATOLOGY ORDERABLES Final Result [facility] [address] [place] [address] * MRI BRAIN W WO CONTRAST (01/24/2013 8:32 AM EDT) Anatomical Region Laterality Modality Head Magnetic Resonan ce 01/24/2013 7:01 AM EDT Narrative 01/24/2013 8:45 AM EDT MRI of the brain with gadolinium enhancement, 14 series, 7:36 a.m., January 23 Headache possibly related to hypertension, 20 mL MultiHance, no priors The orbital contents, pituitary, and suprasellar cistern are normal. Tonsillar position is normal. The CSF spaces are normal. There is no abnormal brain signal on FLAIR imaging. There is no subacute or chronic hemorrhage and there is no mass or mass effect. Following contrast administration there is no pathological enhancement of the brain. There is normal enhancement of the venous sinuses. There is no extra-axial fluid collection. There is normal flow void in the venous sinuses, vertebrobasilar system, and distal internal carotid arteries. Diffusion images show no acute infarct. Impression, Normal Lan Procedure Note Wan Lan MD - 01/24/2013 MRI of the brain with gadolinium enhancement, 14 series, 7:36 a.m., Headache possibly related to hypertension, 20 mL MultiHance, no priors The orbital contents, pituitary, and suprasellar cistern are normal.Tonsillar position is normal. The CSF spaces are normal. There is no abnormal brain signal onFLAIR imaging. There is no subacute or chronic hemorrhage and there is no mass or mass effect. Following contrast administration there is no pathological enhancement ofthe brain. There is normal enhancement of the venous sinuses. There is no extra-axial fluidcollection. There is normal flow void in the venous sinuses, vertebrobasilar system, and distalinternal carotid arteries. Diffusion images show no acute infarct. Impression, Normal Lan us Gilberto Ruggiero MD [facility] MRI ORDERABLES Final Resu lt * CT HEAD WO CONTRAST (01/24/2013 6:37 AM EDT) Anatomical Region Laterality Modality Head Computed Tomogra phy 01/24/2013 6:23 AM EDT Impressions 01/24/2013 6:50 AM EDT IMPRESSION: 1. No acute intracranial abnormality identified. 2. Indeterminant 1.3 x 1.0 cm isodense extra-axial mass overlying the right frontal lobe, without evidence of significant mass effect. Brain MRI with and without contrast is recommended in followup for further characterization. 3. Mild cerebral and cerebellar atrophy. Findings and recommendation for followup MRI were called to Ginette in the emergency department at 0640 hours on 01/24/[address] Mcintosh. Narrative 01/24/2013 6:[address] without contrast dated 01/24/2013 COMPARISON: None HISTORY: Headache, hypertension FINDINGS: There is mild cerebral and cerebellar atrophy. Ventricles, sulci, and cisterns are otherwise normal in size and position. No focal abnormalities are identified within brain parenchyma. On axial images 15 and 16, there is a round 1.3 x 1.0 cm isodense extra-axial mass, overlying the right frontal lobe just to the right of midline. This is associate with mild scalloping of the right frontal bone inner table. No significant resulting mass effect is identified. There is also an extra-axial tubular structure at the right vertex on images 29 and 30 which is favored to represent volume averaging of a vessel. No other mass lesions are seen. Small round opacity in the right ethmoid sinus is compatible with a mucous retention cyst, polyp, and/or focus of chronic inflammatory change. Nasal septal deviation to the right is noted. No air-fluid levels are seen. Included paranasal sinuses, orbits, and osseous structures are otherwise unremarkable. Procedure Note Jay Mcintosh MD - 01/24/[address] without contrast dated 01/24/2013 COMPARISON: None HISTORY: Headache, hypertension FINDINGS: There is mild cerebral and cerebellar atrophy. Ventricles, sulci, andcisterns are otherwise normal in size and position. No focal abnormalities are identified withinbrain parenchyma. On axial images 15 and 16, there is a round 1.3 x 1.0 cm isodense extra-axialmass, overlying the right frontal lobe just to the right of midline. This is associate withmild scalloping of the right frontal bone inner table. No significant resulting mass effect isidentified. There is also an extra-axial tubular structure at the right vertex on images 29 and30 which is favored to represent volume averaging of a vessel. No other mass lesions are seen.Small round opacity in the right ethmoid sinus is compatible with a mucous retention cyst,polyp, and/or focus of chronic inflammatory change. Nasal septal deviation to the right is noted.No air-fluid levels are seen. Included paranasal sinuses, orbits, and osseous structures areotherwise unremarkable. IMPRESSION: 1. No acute intracranial abnormality identified. 2. Indeterminant 1.3 x 1.0 cm isodense extra-axial mass overlying theright frontal lobe, without evidence of significant mass effect. Brain MRI with and withoutcontrast is recommended in followup for further characterization. 3. Mild cerebral and cerebellar atrophy. Findings and recommendation for followup MRI were called to Ginette in theemergency department at 0640 hours on 01/24/[address] Mcintosh. us Gilberto Ruggiero MD IMG CT ORDERABLES Final Resul t * SCANNED LABS (11/03/2011 12:00 AM EST) Narrative Transcriptions Unknown, Unknown - 11/03/2011 12:00 AM EST us Unknown Unknown HEMATOLOGY ORDERABLES Final Resu lt * HIV AG/AB (10/08/2011 1:41 PM EST) HIV Ag/AB Non-Reactiv e [facility] Blood specimen (specimen) UPPER LIMB STRUCTURE / Unknown 10/08/2011 1:41 PM EST 10/08/2011 7:30 PM EST us Forrest Santos MD IMMUNOLOGY ORDERABLES Final Result Performing Organization Address [facility] Co de Phone Number [facility] [address] [place] [address] * .CHL/GC URINE RESULTS (10/08/2011 1:41 PM EST) [facility] C. trachomatis/N. gonorrhoeae Specimen Urine [facility] Comment: Test methodology is amplified DNA probe using [employer] A negative result does not rule out the presence of DNA in concentrations below the level of detection of the assay. The performance characteristics of this test were validated by [facility]. This laboratory is authorized under the Clinical Laboratory Improvement Amendments (CLIA) as qualified to perform high-complexity testing. Compliance statement is available in the Laboratory. Chlamydia trachomatis Negative [facility] Neisseria gonorrhoeae Negative [facility] Urine specimen (specimen) 10/08/2011 1:41 PM EST 10/08/2011 7:30 PM EST Forrest Santos MD MICROBIOLOGY - GENERAL ORDE RABLES Edited Performing Organization Address [facility] Co de Phone Number [facility] [address] [place] [address] * ACUTE HEPATITIS PANEL (10/08/2011 1:41 PM EST) [facility] Hep Bs Ag Negative Negative [facility] Hep B Core IgM Negative Negative [facility] Hep A IgM Negative Negative [facility] Hep C Ab Negative Negative [facility] Blood specimen (specimen) UPPER LIMB STRUCTURE / Unknown 10/08/2011 1:41 PM EST 10/08/2011 7:30 PM EST Forrest Santos MD CHEMISTRY ORDERABLES Edited Performing Organization Address [facility] Co de Phone Number [facility] [address] [place] [address] * RPR (10/08/2011 1:41 PM EST) [facility] RPR Non-Reactiv e Non-Reactiv e [facility] Blood specimen (specimen) UPPER LIMB STRUCTURE / Unknown 10/08/2011 1:41 PM EST 10/08/2011 7:30 PM EST us Forrest Santos MD IMMUNOLOGY ORDERABLES Final Result [facility] [address] [place] [address] * XR HAND RIGHT PA LATERAL AND OBLIQUE (08/03/2010 4:14 PM EST) Anatomical Region Laterality Modality Hand Radiographic Samara ging 08/03/2010 4:04 PM EST Impressions 08/03/2010 5:13 PM EST IMPRESSION: Fracture of the fifth metacarpal bone Narrative 08/03/2010 5:13 PM EST Three views right hand 08/03/2010. HISTORY: Patient punched door. There is a fracture deformity that involves the neck of the fifth metacarpal bone. There is mild volar angulation of the distal fragment. Moderate swelling is present. Procedure Note Joel Porter H - 08/03/2010 Three views right hand 08/03/2010. HISTORY: Patient punched door. There is a fracture deformity that involves the neck of the fifthmetacarpal bone. There is mild volar angulation of the distal fragment. Moderate swelling ispresent. IMPRESSION: Fracture of the fifth metacarpal bone [facility] IMG DIAGNOSTIC IMAGING ORDERABLES Final Result * SCANNED OR REPORT (02/28/2010 12:00 AM EDT) Narrative 02/28/2010 12:57 AM EDT Procedure Note Unknown, U - 04/01/2010 1:15 PM EDT us Unknown Unknown PROCEDURE/MINOR SURGICAL ORDERAB LES Final Result * EK EKG 12 LEAD (02/25/2010 9:19 AM EDT) PYRAMIS LINK PYRAMIS Anatomical Region Laterality Modality Electrocardiogra phy 02/25/2010 7:01 AM EDT Ulises Duran MD IMG ECG ORDERABLES Final Result * SCANNED ANESTHESIA FORMS (02/25/2010 12:00 AM EDT) Narrative 02/25/2010 3:00 PM EDT Procedure Note Unknown, U - 06/25/2010 11:31 AM EDT us Unknown Unknown PROCEDURE/MINOR SURGICAL ORDERAB LES Final Result * MR ARTHROGRAM SHOULDER KE (10/23/2009 3:30 PM EST) Anatomical Region Laterality Modality Other 10/23/2009 3:30 PM EST Narrative 10/24/2009 7:25 AM EST MR arthrogram right shoulder, 10/23/2009. Indications- Possible labral tear, possible rotator cuff tear. Injection of dilute gadolinium based contrast material reported and performed separately. The rotator cuff is intact. There is no extension of contrast material into the subacromial subdeltoid bursa. Under surface of the cuff itself is smooth. There is longitudinal splitting of biceps at its junction between the intra-articular portion and the proximal bicipital groove. The bicipital anchor, however, is intact and there is no full thickness tearing. The superior labrum, as well as the anterior and posterior jennie are intact. Both bundles of the inferior glenohumeral ligament, as well is the middle and superior glenohumeral ligaments are intact. Impression- 1. Bicipital tendinopathy and longitudinal splitting as noted that the remainder of right shoulder MR arthrogram intact the Cold Food Packer- LAURA AKHTAR MD Reading Physician- LAURA AKHTAR MD Released Date Time- 10/24/09 0729 Procedure Note Laura Akhtar - 11/22/2009 MR arthrogram right shoulder, 10/23/2009. Indications- Possible labral tear, possible rotator cuff tear. Injection of dilute gadolinium based contrast material reported and performed separately. The rotator cuff is intact. There is no extension of contrast material into the subacromial subdeltoid bursa. Under surface of the cuff itself is smooth. There is longitudinal splitting of biceps at its junction between the intra-articular portion and the proximal bicipital groove. The bicipital anchor, however, is intact and there is no full thickness tearing. The superior labrum, as well as the anterior and posterior jennie are intact. Both bundles of the inferior glenohumeral ligament, as well is the middle and superior glenohumeral ligaments are intact. Impression- 1. Bicipital tendinopathy and longitudinal splitting as noted that the remainder of right shoulder MR arthrogram intact the Cold Food Packer- LAURA AKHTAR MD Reading Physician- LUARA AKHTAR MD Released Date Time- 10/24/09 0729 Luis Felipe Strange MD [facility]ISTOR[facility] Final Result * IR OVE MECHANICAL TECH (03/27/2008 1:15 PM EDT) Anatomical Region Laterality Modality Other 03/27/2008 1:15 PM EDT Narrative 03/27/2008 7:35 PM EDT Selective left testicular venogram, left renal venogram, left testicular vein coil ablation, foreign body retrieval of embolition coil from left renal vein with snare catheter 03/27/2008- History- Painful left varicocele. Technique- Written informed consent obtained. Conscious sedation including pre and post patient evaluation with continuous monitoring per anesthesia flowsheet. Physician in room time during conscious sedation 1 hour 55 minutes. Prepped and draped in usual sterile manner. Local anesthesia 1% lidocaine. Right common femoral vein accessed with 4 [place]e micropuncture set. 6 [place] Balkan up and over sheath placed over the wire and used to select the ostium of the left renal vein. Power injection of the left renal venogram performed. Because the patient exceeded the Room 1 table weight limit, room 3 was utilized and DSA imaging was not available in that room, somewhat limiting the imaging. Left renal vein was demonstrated to be patent with a prominent ostium of the left testicular vein. [place] C2 catheter was advanced in the more peripheral left renal vein and hand-injection during Valsalva maneuver showed reflux into the left testicular vein to the level of the pelvis despite recumbent positioning. The left testicular vein was selected with a Glidewire. Left testicular vein spasm was encountered with subsequent catheter injection demonstrating some extravasation into the surrounding retroperitoneum at the level of the pelvic crest. Nitroglycerin was administered intravenously via the selective testicular vein catheter per anesthesia flowsheet to relieve the spasm somewhat. The catheter exchanged over a exchange length magic torque wire for a 5 [place] H1 catheter placed to the more distal left testicular vein at the level of the sciatic notch. Repeat selected venogram demonstrated intraluminal catheter position at desired target site. Coil embolization undertaken utilizing three 3-7 mm tornado coils, two 5-10 mm tornado coils, 14 x 10 mm Dylan coil and three 14 x 12 mm Dylan coils. The catheter was withdrawn into the more superior left testicular vein and two additional 14 x 12 Dylan coils were placed to just below the level of renal vein. An attempt was made to place the final 14 x 12 mm Dylan coil in the more superior left testicular vein but the length of the coil was situated in the left renal vein and cannot be withdrawn from the embolization catheter without releasing it. In order to prevent embolization coil within the left renal vein, a 1.5 cm snare catheter was introduced and snared the end of this most superior coil and it was removed without difficulty. A final venogram via the left renal vein using power injection demonstrated desired result with absence of reflux or opacification in the coiled left testicular vein and no evidence of extravasation. The left renal vein was demonstrated to be widely patent and coil free. Hemostasis achieved at right common femoral venotomy with manual compression. Impression- 1. 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 2. Successful coil embolization left testicular vein for palliation painful left varicocele. 3. Required foreign body retrieval from left renal vein. BL Cold Food Packer- LAMBERT Franklin Radiologist- LUIS CALLEJAS MD Released Date Time- 03/27/08 5138 Procedure Note Luis Callejas [place] - 11/21/2009 Selective left testicular venogram, left renal venogram, left testicular vein coil ablation, foreign body retrieval of embolition coil from left renal vein with snare catheter 03/27/2008- History- Painful left varicocele. Technique- Written informed consent obtained. Conscious sedation including pre and post patient evaluation with continuous monitoring per anesthesia flowsheet. Physician in room time during conscious sedation 1 hour 55 minutes. Prepped and draped in usual sterile manner. Local anesthesia 1% lidocaine. Right common femoral vein accessed with 4 [place]e micropuncture set. 6 [place] Balkan up and over sheath placed over the wire and used to select the ostium of the left renal vein. Power injection of the left renal venogram performed. Because the patient exceeded the Room 1 table weight limit, room 3 was utilized and DSA imaging was not available in that room, somewhat limiting the imaging. Left renal vein was demonstrated to be patent with a prominent ostium of the left testicular vein. [place] C2 catheter was advanced in the more peripheral left renal vein and hand-injection during Valsalva maneuver showed reflux into the left testicular vein to the level of the pelvis despite recumbent positioning. The left testicular vein was selected with a Glidewire. Left testicular vein spasm was encountered with subsequent catheter injection demonstrating some extravasation into the surrounding retroperitoneum at the level of the pelvic crest. Nitroglycerin was administered intravenously via the selective testicular vein catheter per anesthesia flowsheet to relieve the spasm somewhat. The catheter exchanged over a exchange length magic torque wire for a 5 [place] H1 catheter placed to the more distal left testicular vein at the level of the sciatic notch. Repeat selected venogram demonstrated intraluminal catheter position at desired target site. Coil embolization undertaken utilizing three 3-7 mm tornado coils, two 5-10 mm tornado coils, 14 x 10 mm Dylan coil and three 14 x 12 mm Dylan coils. The catheter was withdrawn into the more superior left testicular vein and two additional 14 x 12 Dylan coils were placed to just below the level of renal vein. An attempt was made to place the final 14 x 12 mm Dylan coil in the more superior left testicular vein but the length of the coil was situated in the left renal vein and cannot be withdrawn from the embolization catheter without releasing it. In order to prevent embolization coil within the left renal vein, a 1.5 cm snare catheter was introduced and snared the end of this most superior coil and it was removed without difficulty. A final venogram via the left renal vein using power injection demonstrated desired result with absence of reflux or opacification in the coiled left testicular vein and no evidence of extravasation. The left renal vein was demonstrated to be widely patent and coil free. Hemostasis achieved at right common femoral venotomy with manual compression. Impression- 1. 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 2. Successful coil embolization left testicular vein for palliation painful left varicocele. 3. Required foreign body retrieval from left renal vein. CONNIE Cold Food Packer- LAMBERT ÁLVAREZ Reading Radiologist- LUIS CALLEJAS MD Released Date Time- 03/27/088 us Luis Callejas MD [facility] nal Result * US TESTICULAR SONOGRAPHY (07/25/2007 3:26 PM EST) Anatomical Region Laterality Modality Other 07/25/2007 3:26 PM EST Narrative 07/25/2007 4:25 PM EST Testicular sonogram, 3-47 p.m., 25 July 2007, [id number] Left-sided pain, no priors The right and left testicle are normally perfused. There are small varicoceles bilaterally. These increase in size slightly with Valsalva. Impression- No evidence of testicular torsion Small bilateral varicoceles Randall Cold Food Packer- WAN LAN MD Reading Radiologist- WAN LAN MD Released Date Time- 07/25/07 1624 Procedure Note Wan Lan W - 11/20/2009 Testicular sonogram, 3-47 p.m., 25 July 2007, [id number] Left-sided pain, no priors The right and left testicle are normally perfused. There are small varicoceles bilaterally. These increase in size slightly with Valsalva. Impression- No evidence of testicular torsion Small bilateral varicoceles Randall Cold Food Packer- WAN LAN MD Reading Radiologist- WAN LAN MD Released Date Time- 07/25/07 1624 Buster Calhoun MD [facility] Final Result Visit Diagnoses Diagnosis Start Date Boxer's fracture Closed fracture of metacarpal bone(s), site unspecified 08/03/2010 HTN (hypertension) Unspecified essential hypertension 09/14/2011 Obesity Obesity, unspecified 09/14/2011 Family hx of colon cancer Family history of malignant neoplasm of gastrointestinal tract 09/14/2011 Onychomycosis Dermatophytosis of nail 09/14/2011 URI (upper respiratory infection) Acute upper respiratory infections of unspecified site 09/14/2011 Unspecified essential hypertension 09/30/2011 Unspecified essential hypertension 09/30/2011 Contact with and exposure to infections with a predominantly sexual mode of transmission Contact with or exposure to venereal diseases 10/08/2011 Contact with and exposure to infections with a predominantly sexual mode of transmission Contact with or exposure to venereal diseases 10/08/2011 Rectal bleeding Hemorrhage of rectum and anus 07/13/2012 Hemorrhoids Unspecified hemorrhoids without mention of complication 07/13/2012 Family hx of colon cancer Family history of malignant neoplasm of gastrointestinal tract 07/13/2012 Essential tremor Essential and other specified forms of tremor 07/13/2012 Family history of colon cancer Family history of malignant neoplasm of gastrointestinal tract 08/08/2012 Mood disorder Unspecified episodic mood disorder 09/30/2012 Insomnia Insomnia, unspecified 09/30/2012 Tremor Abnormal involuntary movements 09/30/2012 HTN (hypertension) Unspecified essential hypertension 09/30/2012 Hypertension Unspecified essential hypertension 01/24/2013 Headache(784.0) Headache 01/24/2013 Meningioma (HCC) Benign neoplasm of cerebral meninges 01/24/2013 Unspecified essential hypertension 01/24/2013 Benign neoplasm of cerebral meninges (HCC) Benign neoplasm of cerebral meninges 01/24/2013 Shoulder pain Pain in joint, shoulder region 08/21/2013 Disorder of tendon of biceps Bicipital tenosynovitis 08/21/2013 AR (allergic rhinitis) Allergic rhinitis, cause unspecified 08/21/2013 Essential tremor Essential and other specified forms of tremor 10/27/2013 Unspecified essential hypertension 10/27/2013 Essential tremor Essential and other specified forms of tremor 11/10/2013 Bronchitis Bronchitis, not specified as acute or chronic 11/16/2013 Epistaxis 11/16/2013 Sebaceous cyst 11/16/2013 Skin lesion Unspecified disorder of skin and subcutaneous tissue 01/10/2014 AR (allergic rhinitis) Allergic rhinitis, cause unspecified 01/10/2014 Essential tremor Essential and other specified forms of tremor 01/22/2014 Unspecified essential hypertension 01/22/2014 Unspecified essential hypertension 01/22/2014 Essential tremor Essential and other specified forms of tremor 01/22/2014 Essential tremor Essential and other specified forms of tremor 01/22/2014 Unspecified essential hypertension 01/22/2014 Skin lesion Unspecified disorder of skin and subcutaneous tissue 01/22/2014 Essential tremor Essential and other specified forms of tremor 02/07/2014 Spider bite wound, initial encounter 02/20/2014 Nodule of scrotum Other inflammatory disorder of male genital organs 06/29/2014 Sinusitis Unspecified sinusitis (chronic) 09/07/2014 AR (allergic rhinitis) Allergic rhinitis, cause unspecified 09/07/2014 Microscopic hematuria 10/02/2014 Right flank pain Abdominal pain, unspecified site 10/02/2014 Acute epididymitis Other orchitis, epididymitis, and epididymo-orchitis, without mention of abscess 10/09/2014 HTN (hypertension) Unspecified essential hypertension 10/17/2014 Hypothyroid Unspecified hypothyroidism 10/17/2014 Hospital discharge follow-up Other follow-up examination 10/17/2014 Hematuria Hematuria, unspecified 10/17/2014 Epididymitis Orchitis and epididymitis, unspecified 10/17/2014 Pulmonary nodule Solitary pulmonary nodule 10/17/2014 Obesity, Class III, BMI 40-49.9 (morbid obesity) Morbid obesity 10/17/2014 HTN (hypertension) Unspecified essential hypertension 10/17/2014 Hypothyroid Unspecified hypothyroidism 10/17/2014 Well adult exam Routine general medical examination at a health care facility 10/17/2014 Dry eyes, bilateral Tear film insufficiency, unspecified 02/06/2015 Left ankle pain Pain in joint, ankle and foot 12/06/2015 Acute bronchitis, unspecified organism 12/06/2015 Red eyes Redness or discharge of eye 03/03/2016 Environmental allergies Allergic rhinitis, cause unspecified 03/03/2016 Screening for prostate cancer Special screening for malignant neoplasm of prostate 03/03/2016 Screening for thyroid disorder 03/03/2016 Screening for cholesterol level Screening for lipoid disorders 03/03/2016 Annual physical exam Routine general medical examination at a health care facility 03/03/2016 Obesity, Class III, BMI 40-49.9 (morbid obesity) Morbid obesity 03/03/2016 Annual physical exam Routine general medical examination at a health care facility 03/18/2016 Screening for cholesterol level Screening for lipoid disorders 03/18/2016 Screening for prostate cancer Special screening for malignant neoplasm of prostate 03/18/2016 Environmental allergies Allergic rhinitis, cause unspecified 03/18/2016 Unspecified essential hypertension 03/18/2016 Screening for deficiency anemia Screening for other and unspecified deficiency anemia 04/27/2016 Chronic fatigue Other malaise and fatigue 04/27/2016 Screening for diabetes mellitus (DM) Screening for diabetes mellitus 04/27/2016 Encounter for screening for nutritional disorder Screening for other and unspecified endocrine, nutritional, metabolic, and immunity disorders 04/27/2016 Screening for diabetes mellitus (DM) Screening for diabetes mellitus 04/27/2016 Malodorous urine Other nonspecific finding on examination of urine 04/27/2016 Prediabetes Other abnormal glucose 04/27/2016 Unspecified essential hypertension 04/27/2016 Chronic fatigue Other malaise and fatigue 04/27/2016 Screening for deficiency anemia Screening for other and unspecified deficiency anemia 04/27/2016 Encounter for screening for nutritional disorder Screening for other and unspecified endocrine, nutritional, metabolic, and immunity disorders 04/27/2016 Morbid obesity, unspecified obesity type (HCC) 04/27/2016 Prediabetes Other abnormal glucose 04/28/2016 Vitamin D deficiency Unspecified vitamin D deficiency 05/05/2016 Other allergic rhinitis 06/08/2016 Allergic conjunctivitis, bilateral Other chronic allergic conjunctivitis 06/08/2016 Morbid obesity, unspecified obesity type (HCC) 06/08/2016 Prediabetes Other abnormal glucose 07/31/2016 Other allergic rhinitis 08/31/2016 Acute serous otitis media without rupture, bilateral 08/31/2016 Acute bacterial sinusitis Acute sinusitis, unspecified 08/31/2016 Obesity, Class III, BMI 40-49.9 (morbid obesity) Morbid obesity 08/31/2016 Prediabetes Other abnormal glucose 10/25/2016 Prediabetes Other abnormal glucose 01/13/2017 Other allergic rhinitis 01/18/2017 Prediabetes Other abnormal glucose 05/20/2017 Prediabetes Other abnormal glucose 08/22/2017 Well adult exam Routine general medical examination at a health care facility 09/08/2017 Colon cancer screening Special screening for malignant neoplasms, colon 09/08/2017 Vitamin D deficiency Unspecified vitamin D deficiency 09/08/2017 Glucose intolerance (impaired glucose tolerance) Impaired glucose tolerance test 09/08/2017 CKD (chronic kidney disease) stage 3, GFR 30-59 ml/min ([facility]) Chronic kidney disease, Stage III (moderate) 09/08/2017 Pulmonary nodule Solitary pulmonary nodule 09/08/2017 Screening for hyperlipidemia Screening for lipoid disorders 09/08/2017 Screening PSA (prostate specific antigen) Special screening for malignant neoplasm of prostate 09/08/2017 Screening cholesterol level Screening for lipoid disorders 09/08/2017 Breast nodule Other (abnormal) findings on radiological examination of breast 09/08/2017 Unspecified essential hypertension 09/08/2017 Essential tremor Essential and other specified forms of tremor 09/08/2017 Stage 3 chronic kidney disease (HCC) 09/08/2017 Primary osteoarthritis involving multiple joints 09/08/2017 Other allergic rhinitis 09/08/2017 Class 3 obesity with serious comorbidity and body mass index (BMI) of 45.0 to 49.9 in adult, unspecified obesity type 09/08/2017 Pulmonary nodule Solitary pulmonary nodule 09/09/2017 CKD (chronic kidney disease) stage 3, GFR 30-59 ml/min (HCC) Chronic kidney disease, Stage III (moderate) 2017 Other allergic rhinitis 09/19/2017 Acute bacterial sinusitis Acute sinusitis, unspecified 11/09/2017 Other allergic rhinitis 03/20/2018 Stage 3 chronic kidney disease (HCC) 08/22/2018 Primary osteoarthritis involving multiple joints 08/22/2018 Screening for lipid disorders 08/22/2018 Screening for thyroid disorder 08/22/2018 Colon cancer screening Special screening for malignant neoplasms, colon 08/22/2018 Venous insufficiency Unspecified venous (peripheral) insufficiency 08/22/2018 Obesity, Class III, BMI 40-49.9 (morbid obesity) Morbid obesity 08/22/2018 Essential tremor Essential and other specified forms of tremor 08/22/2018 Other allergic rhinitis 08/22/2018 Unspecified essential hypertension 08/22/2018 Well adult exam Routine general medical examination at a health care facility 08/22/2018 Other allergic rhinitis 09/13/2018 Acute bronchitis, unspecified organism 09/30/2018 Acute pain of right shoulder 11/15/2018 Paresthesia of right arm Disturbance of skin sensation 11/15/2018 Other allergic rhinitis 01/14/2019 Pulmonary nodule Solitary pulmonary nodule 01/27/2019 Goals Goal Patient Goal Type Associated Problems Recent Progress Patient-Stated? Author Blood Pressure < 140/90 Blood Pressure 138/86(2018 2:59 PM EST) No Orly Avila, RMA Maintain a healthy diet, exercise regularly and maintain an ideal body weight General No Adrienne Rosales, FRANTZA
--- OUTSIDE RECORDS SUMMARY | 2025-04-25 08:30 | XMS_ITS | Patient Health Record ---
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 Name Role Phone Filemon Alvarez Primary Care Provider KcDori kooCorina Unavailable [phone] Allergies Allergen (clinical drug ingredient) Drug/Non Drug Allergy documented on EMR Reaction Allergy Type Onset Date Status amoxicillin Amoxicillin rash Drug Allergy Act kayla lisinopril Lisinopril Cough Drug Allergy Activ e azithromycin Zithromax Unknown Drug Allergy Acti ve Results Component Value Reference Range Notes Glucose (In-House) Reviewed date:10/09/2024 11:13:28 AM Interpretation:101 Performing Lab: Notes/Report: 101 blood glucose 101 74 - 106 mg/dL Glycohemoglobin A1c (in hous e) Reviewed date:10/09/2024 11:13:28 AM Interpretation:6.0 Normal Performing Lab: Notes/Report: 6.0 Normal glycohemoglobin 6.0% 5 - 6.5 % P-Comprehensive Metabolic Pa martine (CMP) Reviewed date:10/09/2024 11:13:28 AM Interpretation:gluc 109, satisfactory Performing Lab: Notes/Report: Test performed by [facility], [facility] , [address], [place] [address] Lincoln Dee MD, Psychological Anthropologist CLIA: [id number] Sodium 138 135-145 mmol/L Potassium 4.4 3.5-5.3 mmol/L Hemolysis present. Results should be interpreted in conjunction with clinical presentation and history. Chloride 103 97-108 mmol/L CO2 22 22-32 mmol/L Glucose 109 65-99 mg/dL BUN 15 6-20 mg/dL Creatinine 1.24 0.70-1.30 mg/dL Calcium 10.3 8.6-10.4 mg/dL eGFR by Creatinine 68 >59 mL/min/1.73m2 Protein 7.2 6.0-8.3 g/dL Albumin 4.5 3.5-5.3 g/dL Alkaline Phosphatase 81 40-129 IU/L ALT (SGPT) 25 <5-55 IU/L AST (SGOT) 24 <5-46 IU/L Bilirubin, Total 1.0 <0.2-1.2 mg/dL A/G Ratio 1.7 1.1-2.5 P-Lipid Panel Reviewed date:10/09/2024 11:13:28 AM Interpretation:Normal Performing Lab: Notes/Report: Test performed by [facility], [address] , [address], [place] [address] Lincoln Dee MD, Psychological Anthropologist CLIA: [id number] Cholesterol 103 <200 mg/dL Triglycerides 55 <150 mg/dL HDL Cholesterol 44 >39 mg/dL Cholesterol / HDL Ratio 2.34 0.00-4.99 Ratio Non-HDL Cholesterol 59 <130 mg/dL LDL Cholesterol (Calculation) 48 <130 mg/dL LDL Cholesterol Levels* Less than 100 mg/dL Optimal 100 to 129 mg/dL Near Optimal/ Above Optimal 130 to 159 mg/dL Borderline High 160 to 189 mg/dL High 190 mg/dL and above Very High * Categories as recommended by the 2004 ATPIII guidelines LDL/HDL Ratio 1.1 <3.3 Ratio LDL Cholesterol Patient History Test Date: 10/04/2023 LDL Results: 122 Units: mg/dL % Change: - Test Date: 10/06/2024 LDL Results: 48 Units: mg/dL % Change: -60% P-PSA Reviewed date:10/09/2024 11:13:28 AM Interpretation:Normal Performing Lab: Notes/Report: Test performed by [facility] [address] [place] [address] , [place] [address] Lincoln Dee MD, Psychological Anthropologist CLIA: [id number] PSA 0.50 <4.00 ng/mL Please note this is an ultrasensitive PSA assay with a lower limit of detection of 0.014 ng/mL. This test is performed by the Ian ECLIA methodology. Values obtained with different assay methods or kits cannot be directly compared. P-TSH reflex to FT4 Reviewed date:10/09/2024 11:13:28 AM Interpretation:Normal Performing Lab: Notes/Report: Test performed by [facility] [address] [place] [address] , [place] [address] Lincoln Dee MD, Psychological Anthropologist CLIA: [id number] TSH reflex to FT4 1.31 0.43-5.25 mU/L P-Microalbumin/Creatinine, R andom Urine Sample Reviewed date:10/09/2024 11:13:28 AM Interpretation:Normal Performing Lab: Notes/Report: Test performed by [facility] [address] [place] [address] , [address], [place] [address] Lincoln Dee MD, Psychological Anthropologist CLIA: [id number] Albumin/Creatinine Ratio, Urine 4 0-30 ug/m g Microalbumin, Urine, Random 0.7 Creatinine, Urine 185.7 P-Vitamin D 25-Hydroxy Reviewed date:10/09/2024 11:13:28 AM Interpretation:Normal Performing Lab: Notes/Report: Test performed by [facility], [facility] [address] [place] [address] , [address], [place] [address] Lincoln Dee MD, Psychological Anthropologist CLIA: [id number] Vitamin D 25-Hydroxy 60.3 30.0-100.0 ng/mL Interpretation of Vitamin D 25 OH: < 20 ng/mL - Deficiency 20 - 29 ng/mL - Insufficiency 30 - 100 ng/mL - Sufficiency > 100 ng/mL - Super-therapeutic- toxicity may occur above this level. Clinical correlation required. Glucose (In-House) Reviewed date:02/12/2025 01:58:05 PM Interpretation: Performing Lab: Notes/Report: blood glucose 123 74 - 106 mg/dL Glycohemoglobin A1c (in hous e) Reviewed date:02/12/2025 01:57:57 PM Interpretation: Performing Lab: Notes/Report: glycohemoglobin 5.9% 5 - 6.5 % Pulmonary Function Before & After Reviewed date:01/03/2025 01:27:51 PM Interpretation: Performing Lab: Notes/Report: Pulmonary Function Complete Reviewed date:01/26/2025 12:18:04 PM Interpretation:Normal Performing Lab: Notes/Report: Normal Reason For Referral No Information Medications Medication SIG (Take, Route, Frequency, Duration) Notes Start Date End Date Status Triamcinolone Acetonide 0.1 % 1 application Externally Twice a day 02/09/2025 Active Albuterol Sulfate HFA 108 (90 Base) MCG/ACT INHALE 2 PUFFS EVERY 6 HOURS 30 DAYS; Duration: 25 Active Gabapentin 300 MG 1 capsule Orally Two times a day; Duration: 90 days 10/16/2024 Active Mounjaro 15 MG/0.5ML 0.5 ml Subcutaneous once weekly 10/06/2024 Active Jardiance 25 MG 1 tablet Orally Once a day; Duration: 90 days Active Loratadine 10 MG 1 tab(s) orally once a day Active buPROPion HCl ER (XL) 150 MG TAKE 1 TABLET BY MOUTH EVERY DAY IN THE MORNING FOR 90 DAYS; Duration: 90 Active Meloxicam 15 MG 1 tab(s) orally once a day; Duration: 90 days Active tiZANidine HCl 4 MG 1 tablet as needed o rally three times a day as needed Active Fluticasone Propionate 50 MCG/ACT USE 1 SPRAY IN NOSTRIL(S) ONCE A DAY; Duration: 90 Active Mounjaro 12.5 MG/0.5ML 0.5 mL Subcutaneo us once a week; Duration: 30 days Active Atorvastatin Calcium 40 MG 1 tablet Oral ly Once a day; Duration: 90 days 04/26/2024 Active Irbesartan-hydroCHLOROthiaz lorin 300-12.5 MG 1 tab(s) orally once a day; Duration: 90 days Active Montelukast Sodium 10 MG 1 tablet Orally Once a day; Duration: 90 days Active Immunizations Vaccine Route Administration Date Status Comme nts Tetanus Tdap-Adacel (over 7yrs) Unknown 10/17/2014 Admi nistered DT, 7 YEARS OR OLDER Unknown 11/17/1996 Administered DT, 7 YEARS OR OLDER Unknown 11/17/1996 Administered Problems Problem Type SNOMED Code ICD Code Onset Dates Problem Status W/U Status Risk Notes Problem Vitamin D deficiency (12870215) Vitamin D deficiency (E55.9) Active confirmed Problem Essential hypertension (41833322) Essential hypertension (I10) Active confirmed Problem Morbid obesity (795723764) Morbid obesity (E66.01) Active confirmed Problem Mixed hyperlipidemia (540114988) Mixed hyperlipidemia (E78.2) Active confirmed Problem Essential tremor (962976887) Essential tremor (G25.0) Active confirmed Problem Intervertebral disc disorder of cervical region with myelopathy (79880775) Cervical disc disease with myelopathy (M50.00) Active confirmed Problem Renal insufficiency (366098835) Renal insufficiency (N28.9) Active confirmed Problem Obstructive sleep apnea syndrome (27135375) Obstructive sleep apnea syndrome (G47.33) Active confirmed Problem Cervical spondylosis without myelopathy (071212422) Cervical radiculopathy due to degenerative joint disease of spine (M47.22) Active confirmed Problem Dysphagia (10650504) Dysphagia, unspecified type (R13.10) Active confirmed Problem Polyneuropathy associated with another disorder (004698441) Polyneuropathy associated with underlying disease (G63) Active confirmed Problem Carpal tunnel syndrome of left wrist (779828787667250) Carpal tunnel syndrome of left wrist (G56.02) Active confirmed Problem Sciatica (45175845) Acute right-sided low back pain with right-sided sciatica (M54.41) Active confirmed Problem Type II diabetes mellitus without complication (914418508) Type 2 diabetes mellitus without complication, without long-term current use of insulin (E11.9) Active confirmed Problem Impaired fasting glycaemia (381227890) IFG (impaired fasting glucose) (R73.01) Active confirmed Problem Degenerative disc disease (65885137) DDD (degenerative disc disease), lumbar (M51.36) Active confirmed Problem Impairment of balance (553743266) Balance problem (R26.89) Active confirmed Problem Allergic rhinitis (58347112) Allergic rhinitis, unspecified seasonality, unspecified trigger (J30.9) Active confirmed Problem Arthropathy of cervical spine facet joint (disorder) (018667739) Arthropathy of cervical facet joint (M47.812) Active confirmed Problem Neuropathy of upper limb (049845929) 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) Active confirmed Problem Denervation atrophy of muscle (89286554) 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) Active confirmed Problem Deformity of cervical vertebra (355806081) Cervical osteophyte (M25.78) Active confirmed Problem Degeneration of lumbar intervertebral disc (42074505) Bulging lumbar disc (M51.36) Active confirmed Vital Signs Heart Rate 79 /min 02/09/2025 Blood pressure diastolic 74 mm Hg 02/09/2025 Height 76 in 02/09/2025 Blood pressure systolic 110 mm Hg 02/09/2025 Weight 357 lbs 02/09/2025 BMI 43.45 kg/m2 02/09/2025 Encounters Encounter Location Date Provider Diagnosis [facility] [address] [facility] [address] [place], [place] [id number] 05/09/2024 [facility] Insect bites, initia l encounter W57.XXXA and Itch of skin L29.9 [facility] [address] [place], [place] [id number] 10/06/2024 [facility] Essential hypertensi on I10 ; Type 2 diabetes mellitus without complication, without long-term current use of insulin E11.9 ; Renal insufficiency N28.9 ; Vitamin D deficiency E55.9 ; Obstructive sleep apnea syndrome G47.33 ; Morbid obesity E66.01 and Prostate cancer screening Z12.5 [facility] [address] [place], [place] [id number] 11/27/2024 [facility] Pre-op exam Z01.818 ; Left shoulder pain, unspecified chronicity M25.512 ; Essential hypertension I10 ; Obstructive sleep apnea syndrome G47.33 ; Morbid obesity E66.01 ; Essential tremor G25.0 ; Type 2 diabetes mellitus without complication, without long-term current use of insulin E11.9 and Polyneuropathy associated with underlying disease G63 [facility] [address] [place], [place] [id number] 02/09/2025 [facility] Type 2 diabetes mellitus without complication, without long-term current use of insulin E11.9 ; Allergic rhinitis, unspecified seasonality, unspecified trigger J30.9 and Acute contact dermatitis L25.9 [facility] [address] [place], [place] [id number] 04/26/2024 [facility] Essential tremor G25 .0 and Acute right-sided low back pain with right-sided sciatica M54.41 [facility] [address] [place], [place] [id number] 06/06/2024 [facility] Type 2 diabetes mellitus without complication, without long-term current use of insulin E11.9 [facility] [address] [place], [place] [id number] 07/12/2024 [facility] [address] [place], [place] [id number] 07/26/2024 [facility] Acute right-sided lo w back pain with right-sided sciatica M54.41 [facility] [address] [facility] [address] [place], [place] [id number] 08/22/2024 [facility] [address] [place], [place] [id number] 10/16/2024 [facility] Acute right-sided lo w back pain with right-sided sciatica M54.41 [facility] [address] [place], [place] [id number] 12/14/2024 [facility] Shortness of breath R06.02 [facility] [address] [place], [place] [id number] 01/03/2025 [facility] [address] [place], [place] [id number] 01/26/2025 [facility] [address] [place], [place] [id number] 02/07/2025 [facility] [address] [place], [place] [id number] 03/22/2025 [facility] [address] [place], [place] [id number] 08/29/2024 [facility] Assessments Encounter Date Diagnosis (ICD Code) Assessment Notes Treatment Notes Treatment Clinical Notes Section Notes 04/26/2024 Essential tremor (ICD-10 - G25.0) 05/09/2024 Itch of skin (ICD-10 - L29.9) use cold application 05/09/2024 Insect bites, initial encounter (ICD-10 - W57.XXXA) use cold application instead of heat for the itching; MDP with food; warned pt that BS will elevate 06/06/2024 Type 2 diabetes mellitus without complication, without long-term current use of insulin (ICD-10 - E11.9) 07/26/2024 Acute right-sided low back pain with right-sided sciatica (ICD-10 - M54.41) 10/06/2024 Essential hypertension (ICD-10 - I10) 10/06/2024 Type 2 diabetes mellitus without complication, without long-term current use of insulin (ICD-10 - E11.9) 10/16/2024 Acute right-sided low back pain with right-sided sciatica (ICD-10 - M54.41) 11/27/2024 Pre-op exam (ICD-10 - Z01.818) PATIENT IS OF ACCEPTABLE RISK FOR PROPOSED LEFT SHOULDER SCOPE. SEE ATTACHED LAB RESULTS FROM 2024 11/27/2024 Left shoulder pain, unspecified chronicity (ICD-10 - M25.512) 12/14/2024 Shortness of breath (ICD-10 - R06.02) 02/09/2025 Type 2 diabetes mellitus without complication, without long-term current use of insulin (ICD-10 - E11.9) 02/09/2025 Allergic rhinitis, unspecified seasonality, unspecified trigger (ICD-10 - J30.9) 02/09/2025 Acute contact dermatitis (ICD-10 - L25.9) 10/06/2024 Renal insufficiency (ICD-10 - N28.9) 11/27/2024 Essential hypertension (ICD-10 - I10) 04/26/2024 Acute right-sided low back pain with right-sided sciatica (ICD-10 - M54.41) 10/06/2024 Vitamin D deficiency (ICD-10 - E55.9) 11/27/2024 Obstructive sleep apnea syndrome (ICD-10 - G47.33) 10/06/2024 Obstructive sleep apnea syndrome (ICD-10 - G47.33) 11/27/2024 Morbid obesity (ICD-10 - E66.01) 10/06/2024 Morbid obesity (ICD-10 - E66.01) 11/27/2024 Essential tremor (ICD-10 - G25.0) 11/27/2024 Type 2 diabetes mellitus without complication, without long-term current use of insulin (ICD-10 - E11.9) 10/06/2024 Prostate cancer screening (ICD-10 - Z12.5) 11/27/2024 Polyneuropathy associated with underlying disease (ICD-10 - G63) Plan Of Treatment Next Appt Details Provider Name:Filemon Waite ry, 08/13/2025 10:45:00 AM, [address] [facility], [address], [place], [place], [id number], Insurance Providers Payer Name Payer Address Payer Phone Subscriber Number Group Number Insured Name Patient Relationship to Insured Coverage Start Date Coverage End Date ARMOND LUQUE [id number] KALI SANTAMARIA [phone] [id number] HAYLEY PENN Self - patient is the insured Medications Administered Medication Instructions Date of Administration Dosage Notes Dexamethasone 05/09/2024 1 mL Medical (General) History Medical History History ICD Code Type 2 Diabetes, Dx: 2021 Hypertension Allergic Rhinitis Vitamin D Deficiency Tremors - Head Sleep Apnea Renal Insufficiency hyperlipidemia hypertriglyceridemia obesity Surgical History Surgery Date(Month/Year) Groin - Blocked Vein RT Shoulder - Bicep/Tendon Repair 2009 RT Neck - Disc Replacement - Dr. Tomas 2 021 RT Ulnar Nerve Entrapment 08/2024 Hospitalization History Reason Date(Month/Year)
--- NOTE | 2025-04-25 08:35 | EXP.PAIN.SOA ---
[facility] Disclaimer: The information contained in this section may have been updated after the patient was seen, as this information can be updated by other users. Medical History Depression Diabetes HTN (hypertension) Pain, joint, ankle and foot Family History Other Unknown family medical history Social History Smoking Status: Unknown if ever smoked alcohol intake: never current occupational status: other Travel in the last 8 weeks?: None household members: other housing: house current occupational exposures/hazards: No Have you lived/traveled outside [place] in past 30 days?: No Contact w/someone who lives/traveled outside US past 30 days?: No Exposure to someone with infectious disease in past 14 days?: No Do you have a fever (greater than 100.4 F or 38 C)?: No Have you tested positive for COVID-19?: No Exposed to someone with COVID-19 in past 14 days?: No Do you have a sore throat?: No Do you have a cough?: No Do you have any weakness?: No Do you have any diarrhea?: No Are you experiencing any unusual bleeding?: No Do you have any muscle aches/pain?: No Do you have any abdominal pain?: No Are you experiencing loss of taste or smell?: No PM Subjective & Objective Subjective Subjective:: Patient is a pleasant 59-year-old male who presents today for worsening neck and left arm numbness and tingling. Patient denies any new falls or injuries. He has had chronic neck pain for longer than 6 months. Patient is also dealing with a rotator cuff tear and bicep tendinitis. He states he is having to make a lot of adjustments due to this worsening pain and that his regular work is so aggravating that he feels like he is unable to do this currently. Patient is still doing Botox for spasticity and feels like between those injections and ours that he does get better coverage and improvement. He does state that he feels like his last epidural has worn off and would like to see about getting on our schedule for additional repeat injections. Patient has continued conservative therapy with no additional changes. He does state that pain is worse with increased activity and does enter his ability to perform activities of daily living such as cooking and cleaning. He is prescribed tizanidine 2 mg 4 times a day. He denies any side effects. Chavez has been reviewed and is appropriate. Review of Systems: General: No recent weight changes, no fever, no sleep disturbances Respiratory: No cough, no shortness of air, no recurring pulmonary infections Cardiovascular/peripheral vascular: No chest pain, no palpitations, no edema, no shortness of breath Gastrointestinal: No new onset incontinence, normal bowel movements reported Genitourinary: No new onset incontinence Musculoskeletal: Neck pain, left arm numbness tingling Psychiatric: [Normal mood/affect] Neurological: [Denies weakness in extremities], [denies balance issues] Pain at rest (0-10 scale): 5 Objective Objective:: Physical Exam: General: Alert and oriented x3, no acute distress, pleasant and cooperative Lungs: Respirations even and unlabored, symmetrical chest expansion Eyes: PERRL Musculoskeletal: Flexion and extension of cervical [spine] somewhat guarded secondary to pain, [antalgic gait noted] positive Spurling's test Neurological: Speech clear, no gross sensory deficit Has patient had previous pain injection?: No Conservative treatment options previously tried: Home exercise plan Length of treatment: Longer than 12 weeks Meds Home Medications and Allergies Home Medications ?Medication ?Instructions ?Recorded ?Confirmed ?Type albuterol sulfate 90 mcg/actuation 2 puff inhalation DIRECTED PRN 12/15/22 01/22/25 History aerosol inhaler shortness of breath or wheezing duloxetine 60 mg capsule,delayed 60 mg PO DAILY 12/15/22 01/22/25 History release irbesartan 300 1 tab PO DAILY 12/15/22 01/22/25 History mg-hydrochlorothiazide 12.5 mg tablet ketoconazole 2 % topical cream 1 applic topical DIRECTED PRN 12/15/22 01/22/25 History Skin Condition loratadine 10 mg tablet 10 mg PO DAILY ALLERGIES 12/15/22 01/22/25 History metformin 500 mg tablet,extended 1,000 mg PO DAILY 12/15/22 01/22/25 History release 24 hr montelukast 10 mg tablet 10 mg PO DAILY 12/15/22 01/22/25 History propranolol 60 mg capsule,24 60 mg PO DAILY 12/15/22 01/22/25 History hr,extended release triamcinolone acetonide 0.1 % 1 applic topical DIRECTED PRN 12/15/22 01/22/25 History topical cream Skin Condition sitagliptin phosphate 100 mg 100 mg PO DAILY 12/25/22 01/22/25 History tablet (Januvia) ondansetron 8 mg disintegrating 8 mg PO Q8H PRN nausea and 01/15/24 01/22/25 Rx tablet vomiting 5 days #15 tabs tizanidine 2 mg tablet 2 mg PO QID PRN muscle spasticity 09/04/24 01/22/25 Rx #120 tabs New Prescriptions to Start Prescriptions: Allergies Allergy/AdvReac Type Severity Reaction Status Date / Time azithromycin (From Zithromax) AdvReac Severe Verified 01/04/24 12:05 Assessment and Plan *Assessment and plan (1) Degenerative disc disease, cervical: Status: Chronic Category: Medical Code(s): M50.30 - Other cervical disc degeneration, unspecified cervical region (2) Cervical radiculopathy: Status: Chronic Category: Medical Code(s): M54.12 - Radiculopathy, cervical region Plan Patient is experiencing worsening pain in their neck with radiating tingling and burning sensations into his left upper extremity. Patient did have limited range of motion of his cervical spine with a positive Spurling's test. I did discuss with the patient that I do believe they would benefit from a cervical epidural steroid injection. Risk and benefits were discussed with patient and they would like to proceed forward with this plan of care. Patient is having to make adjustment modification due to the worsening pain. Patient has tried and failed conservative therapy including oral medications, heat and ice, topicals, at home stretching exercise for longer than 12 weeks that was physician guided. Patient did previously have his last cervical epidural in December that did provide more than 75% improvement and lasted longer than 3 months. Patient will be scheduled for a NIRU C6-C7 under fluoroscopy. Patient denies any blood thinners. I will also make sure he has refills on his tizanidine. Patient has been instructed to contact the clinic with any concerns before the next appointment. Dr. Polanco has reviewed this note and agrees with this plan of care. This note was dictated using voice recognition software and make contain errors or omissions. All injections are used with Lidocaine, Bupivacaine and dexamethasone unless otherwise stated as a diagnostic in which it has no steroid. Occasionally urine drug screen is needed to verify patient's compliance with our office pain contract. This is ordered based off specific treatments related to chronic pain with the potential to abuse certain medications.
[2025-04-25 08:56] VITALS: BP 135/80; PULSE 56; RESP 18; O2SAT 95; BMI 44.1
== END 2025-04-25 23:59 | disposition home or self-care (01) ==
PROVIDERS: PCP Family Medicine; Visit Provider Nurse Practitioner Family
DX: M50.123 Cervical disc disorder at C6-C7 level with radiculopathy (principal); Z79.899 Other long term (current) drug therapy
CPT/HCPCS: 99212; G0463

== ENCOUNTER 2025-05-10 08:00 | Outpatient (RCR) | payer OTHER, SELFPAY | END 2025-05-10 23:59 | disposition home or self-care (01) | LOC: OT 08:00 | PROVIDERS: Visit Provider Orthopaedic Surgery | DX: Z47.89 Encounter for other orthopedic aftercare (principal); Z98.890 Other specified postprocedural states | CPT/HCPCS: 97014; 97110; 97140; 97168; G0283 ==

== ENCOUNTER 2025-06-05 09:06 | Day surgery (SDC) | payer OTHER, SELFPAY ==
[2025-06-05 09:20] VITALS: BP 109/55; PULSE 52; RESP 18; O2SAT 96; BMI 42.7
[2025-06-05] MEDS: DEXAMETHASONE 10MG/ML 1ML VIAL 10 MG (09:22)
[2025-06-05 09:24] VITALS: BP 141/97; PULSE 51; RESP 18; O2SAT 93
[2025-06-05] MEDS: IOPAMIDOL-200 (41%);10ML VIAL 3 ML IV (09:24)
[2025-06-05 09:25] VITALS: BP 141/97; PULSE 51; RESP 18; O2SAT 93
[2025-06-05 09:37] VITALS: BP 108/68; PULSE 50; RESP 16; O2SAT 95
--- NOTE | 2025-06-05 09:37 | P.PCN_ITS ---
Procedure Date: 06/05/25 Time: 09:15 Anesthesiologist:: Parish Hull CRNA Complications:: None Pre-procedure Diagnosis:: Generative disc cervical spine multilevels. Cervical radiculopathy. Cervical spondylosis. Multilevel cervical disc bulge. Cervical postlaminectomy syndrome. Post-procedure Diagnosis:: Same. Indications for Procedure:: Patient is a pleasant 59-year-old male who comes our clinic today for repeat cervical epidural steroid injection. Patient reports moderate to significant relief with previous injections at the same level. He describes posterior cervical neck pain as well as bilateral arm radicular symptoms at times. He rates his pain 6/10. Procedure Details:: Procedure:Cervical epidural steroid injection Informed consent was obtained and the risks and benefits of the procedure were explained to the patient. The patient was taken to the procedure room and noninvasive monitors placed, including noninvasive blood pressure cuff and pulse oximeter. The neck was prepped using Chloraprep as a cleansing solution. The C6- C7 interspace was viewed using fluroscopy. The skin and subcutaneous tissues were anesthetized using lidocaine 1.5% and a 25-gauge needle. After this an 18- gauge Touhy epidural needle was placed into the C6-C7 interspace under fluroscopy guidance and advanced using loss of resistance to air until the epidural space was encountered. After confirmation of needle placement in the epidural space using contrast dye, dexamethasone 10 mg ( 1 ML) was incrementally injected into the cervical epidural space.~ The patient tolerated the procedure well with no complications. The patient was observed in the Pain Clinic and then discharged home neurologically intact. Plan and Disposition:: Patient was discharged without incident.
== END 2025-06-05 09:37 | disposition home or self-care (01) ==
PROVIDERS: PCP Family Medicine; Visit Provider Nurse Anesthetist, Certified Registered
DX: M50.123 Cervical disc disorder at C6-C7 level with radiculopathy (principal); M96.1 Postlaminectomy syndrome, not elsewhere classified; M47.22 Other spondylosis with radiculopathy, cervical region; F32.A Depression, unspecified; E11.9 Type 2 diabetes mellitus without complications; I10 Essential (primary) hypertension; Z88.1 Allergy status to other antibiotic agents; Z79.84 Long term (current) use of oral hypoglycemic drugs; Z79.899 Other long term (current) drug therapy
CPT/HCPCS: 62321; J1100; Q9966

== ENCOUNTER 2025-06-12 08:00 | Outpatient (RCR) | payer OTHER, SELFPAY | END 2025-06-12 23:59 | disposition home or self-care (01) | LOC: OT 08:00 | PROVIDERS: Visit Provider Orthopaedic Surgery | DX: Z47.89 Encounter for other orthopedic aftercare (principal); Z98.890 Other specified postprocedural states | CPT/HCPCS: 97014; 97110; 97140; 97168; G0283 ==

== ENCOUNTER 2025-06-26 14:26 | Outpatient (CLI) | payer OTHER, SELFPAY ==
--- OUTSIDE RECORDS SUMMARY | 2025-01-05 06:30 | XMS_ITS ---
Author Organization [facility] Address [address] [facility] [address] [place] [id number] Care Team Providers Care Watch Hairspring Assembler Name Role Phone Filemon Alvarez Primary Care Provider [phone] Allergies Allergen (clinical drug ingredient) Drug/Non Drug Allergy documented on EMR Reaction Allergy Type Onset Date Status amoxicillin Amoxicillin rash Drug Allergy Act kayla lisinopril Lisinopril Cough Drug Allergy Activ e azithromycin Zithromax Unknown Drug Allergy Acti ve REASON FOR VISIT 3 month checkup Encounters Encounter Location Date Provider Diagnosis [facility] [address] [facility] [address] [place] [id number] 01/05/2025 Filemon Alvarez Plan Of Treatment Next Appt Details Provider Name:Filemon Waite ry, 08/13/2025 10:45:00 AM, [address] [facility], [address], [place], [id number], Progress Notes * ISAMAR HAYLEYDOB:1965 ( 59 yo M)Acc No.[id number]:01/05/2025 Progress Notes Patient: HAYLEY ESCAMILLA Provider: Evan Alvarez M.D. :1965 A ge:59 Y S ex:Male Date:01/05/2025 Address:[address], [place] Subjective: * Chief Complaints: * 1 . [...] Electronic signature of Debra Alvarez MD on 06/26/2025 at 02:30 PM EDT Sign off status: Pending * Provider: Evan Alvarez M.D. Date: 0 01/05/2025 Generated for Elle rossi/Raul/Bennett on: 02:30 PM EDT
--- OUTSIDE RECORDS SUMMARY | 2025-02-09 05:30 | XMS_ITS ---
[facility] Address [address] [place] [id number] Care Team Providers Care Gelatin Plant Supervisor Name Role Phone Filemon Alvarez Primary Care Provider Allergies Allergen (clinical drug ingredient) Drug/Non Drug Allergy documented on EMR Reaction Allergy Type Onset Date Status amoxicillin Amoxicillin rash Drug Allergy Act kayla lisinopril Lisinopril Cough Drug Allergy Activ e azithromycin Zithromax Unknown Drug Allergy Acti ve Results Component Value Reference Range Notes Glucose (In-House) Reviewed date:02/12/2025 01:58:05 PM Interpretation: Performing Lab: Notes/Report: blood glucose 123 74 - 106 mg/dL Glycohemoglobin A1c (in hous e) Reviewed date:02/12/2025 01:57:57 PM Interpretation: Performing Lab: Notes/Report: glycohemoglobin 5.9% 5 - 6.5 % REASON FOR VISIT 3 Month Check Up Medications Medication SIG (Take, Route, Frequency, Duration) Notes Start Date End Date Status Gabapentin 300 MG 1 capsule Orally Two times a day; Duration: 90 days 10/16/2024 Active Mounjaro 15 MG/0.5ML 0.5 ml Subcutaneous once weekly 10/06/2024 Active Jardiance 25 MG 1 tablet Orally Once a day; Duration: 90 days Active buPROPion HCl ER (XL) 150 MG TAKE 1 TABLET BY MOUTH EVERY DAY IN THE MORNING FOR 90 DAYS; Duration: 90 Active tiZANidine HCl 4 MG 1 tablet as needed o rally three times a day as needed Active Meloxicam 15 MG 1 tab(s) orally once a day; Duration: 30 Active Loratadine 10 MG 1 tab(s) orally once a day Active Fluticasone Propionate 50 MCG/ACT USE 1 SPRAY IN NOSTRIL(S) ONCE A DAY; Duration: 90 Active Atorvastatin Calcium 40 MG 1 tablet Oral ly Once a day; Duration: 90 days 04/26/2024 Active Irbesartan-hydroCHLOROthiaz lorin 300-12.5 MG 1 tab(s) orally once a day; Duration: 90 days Active Triamcinolone Acetonide 0.1 % 1 application Externally Twice a day 02/09/2025 Active Albuterol Sulfate HFA 108 (90 Base) MCG/ACT INHALE 2 PUFFS EVERY 6 HOURS 30 DAYS; Duration: 20 Active Montelukast Sodium 10 MG 1 tablet Orally Once a day; Duration: 90 days Active Vital Signs Blood pressure systolic 110 mm Hg 02/10/20 25 Blood pressure diastolic 74 mm Hg 025 Heart Rate 79 /min 02/09/2025 Height 76 in 02/09/2025 Weight 357 lbs 02/09/2025 BMI 43.45 kg/m2 02/09/2025 Encounters Encounter Location Date Provider Diagnosis [facility] [address] [facility] [address] [facility] [address] [place] [phone] 02/09/2025 Filemon Alvarez Type 2 diabetes mellitus without complication, without long-term current use of insulin E11.9 ; Allergic rhinitis, unspecified seasonality, unspecified trigger J30.9 and Acute contact dermatitis L25.9 Assessments Encounter Date Diagnosis (ICD Code) Assessment Notes Treatment Notes Treatment Clinical Notes Section Notes 02/09/2025 Type 2 diabetes mellitus without complication, without long-term current use of insulin (ICD-10 - E11.9) 02/09/2025 Allergic rhinitis, unspecified seasonality, unspecified trigger (ICD-10 - J30.9) 02/09/2025 Acute contact dermatitis (ICD-10 - L25.9) Plan Of Treatment Medication Medication Name Sig Start Date Stop Date Notes Triamcinolone Acetonide 0.1 % 1 applicat ion Externally Twice a day 02/09/2025 Montelukast Sodium 10 MG 1 tablet Orally Once a day; Duration: 90 days Next Appt Details Follow Up: 6 Months, Reason: Provider Name:Filemon Waite ry, 08/13/2025 10:45:00 AM, [address] [facility], [address], [place], [place], [id number], Progress Notes * HAYLEY PENNDOB:1965 ( 59 yo M)Acc No.[id number]:02/09/2025 Progress Notes Patient: HAYLEY ESCAMILLA Provider: Evan Alvarez M.D. :1965 A ge:59 Y S ex:Male Date:02/09/2025 Address:[address], [place], [id number] Subjective: * Chief Complaints: * 1 . 3 Month Check Up. * HPI: E ndocrinology: 59 year old male presents with c/o Recent Blood Sugars P t here for 3 mo f/u on DM 2. Pt states he is doing well and does not have any concerns. * ROS: D ERMATOLOGY: no R casey. [...] P ast smoking status: never smoked. * Medications: T aking Meloxicam 15 MG Tablet 1 tab(s) orally once a day , Taking Fluticasone Propionate 50 MCG/ACT Suspension USE 1 SPRAY IN NOSTRIL(S) ONCE A DAY , Taking Irbesartan-hydroCHLOROthiazide 300-12.5 MG Tablet 1 tab(s) orally once a day , Taking Atorvastatin Calcium 40 MG Tablet 1 tablet Orally Once a day , Taking Loratadine 10 MG Tablet 1 tab(s) orally once a day , Taking Montelukast Sodium 10 MG Tablet 1 tablet Orally Once a day , Taking tiZANidine HCl 4 MG Tablet 1 tablet as needed orally three times a day as needed , Taking buPROPion HCl ER (XL) 150 MG Tablet Extended Release 24 Hour TAKE 1 TABLET BY MOUTH EVERY DAY IN THE MORNING FOR 90 DAYS , Taking Mounjaro 15 MG/0.5ML Solution Auto-injector 0.5 ml Subcutaneous once weekly , Taking Gabapentin 300 MG Capsule 1 capsule Orally Two times a day , Taking Jardiance 25 MG Tablet 1 tablet Orally Once a day , Taking Albuterol Sulfate HFA 108 (90 Base) MCG/ACT Aerosol Solution INHALE 2 PUFFS EVERY 6 HOURS 30 DAYS , Medication List reviewed and reconciled with the patient * Allergies: Z ithromax, Amoxicillin: rash, Lisinopril: Cough - Side Effects. Objective: * Vitals: W t: 357, Temp: 98.0, BP: 110/74, HR: 79, Nurse: sven, Ht: 76, BMI:43.45. * Examination: C ardiology: General Appearance: p leasant, NAD, weight loss noted. H eart sounds: R RR, normal S1, S2. L ungs: c lear, no rales or wheezes. E xtremities: bilateral trace pitting leg edema. G eneral Examination: Skin: s cattered, rough red patches of skin on right arm, some in linear arrangements. Assessment: * Assessment: 1. T ype 2 diabetes mellitus without complication, without long-term current use of insulin - E11.9 (Primary) 2 . A llergic rhinitis, unspecified seasonality, unspecified trigger - J30.9 3 . A cute contact dermatitis - L25.9 Plan: * Treatment: Value Reference Range b lood glucose 123 74 - 106 mg/dL * Rand Herr 02/09/2025 09:47: 10 AM > Provider reviewed results while patient in office. ?LAB: Glycohemoglobin A1c (in house) (Collection Date & Time - 02/09/2025)* Value Reference Range g lycohemoglobin 5.9% 5 - 6.5 % * Rand Herr 02/09/2025 09:59: 05 AM > Provider reviewed results while patient in office. 2.?Allergic rhinitis, unspecified seasonality, unspecified trigger? Refill Montelukast Sodium Tablet, 10 MG, 1 tablet, Orally, Once a day, 90 days, 90, Refills 1.??3.?Acute contact dermatitis? Start Triamcinolone Acetonide Cream, 0.1 %, 1 application, Externally, Twice a day, 80 grams, Refills 0.?? * Procedure Codes: 3 6416 CAPILLARY BLOOD DRAW, 69548 GLUCOSE TEST, 20995 GLYCATED HEMOGLOBIN TEST, Modifiers: QW , 3044F HG A1C LEVEL LT 7.0%, 1036F TOBACCO NON-USER * Follow Up: 6 Months * Images: Billing Information: * Visit Code: 06149 Office Visit, Est Pt., Level 4. * Procedure Codes: 41907 CAPILLARY BLOOD DRAW. 38897 GLUCOSE TEST. 20987 GLYCATED HEMOGLOBIN TEST. Modifiers: QW 3044F HG A1C LEVEL LT 7.0%. 1036F TOBACCO NON-USER. * Electronic signature of Debra Alvarez MD on 06/26/2025 at 02:33 PM EDT Sign off status: Pending * Provider: Evan Alvarez M.D. Date: 0 02/09/2025 Generated for Elle rossi/Raul/Saleemitting on: 1 02:33 PM EDT History and Physical Notes * HPI (History of Present Illness) Category Sub-Category Detail Notes Category Not es Endocrinology Recent Blood Sugars Pt here for 3 mo f/u on DM 2. Pt states he is doing well and does not have any concerns Examination Category Sub-Category Detail Notes Category Not es General Examination Skin: scattered, r ough red patches of skin on right arm, some in linear arrangements Cardiology Lungs: clear, no rales or wheezes Heart sounds: RRR, normal S1, S2 Extremities: bilateral trace tenisha ing leg edema General Appearance: pleasant, NAD, weigh t loss noted
--- OUTSIDE RECORDS SUMMARY | 2025-05-29 05:00 | XMS_ITS ---
[facility] [address] [place] [id number] Care Team Providers Care Supervisor Metalizing Name Role Phone Filemon Alvarez Primary Care Provider Allergies Allergen (clinical drug ingredient) Drug/Non Drug Allergy documented on EMR Reaction Allergy Type Onset Date Status amoxicillin Amoxicillin rash Drug Allergy Act kayla lisinopril Lisinopril Cough Drug Allergy Activ e azithromycin Zithromax Unknown Drug Allergy Acti ve Results Component Value Reference Range Notes Glucose (In-House) Reviewed date:05/29/2025 11:04:42 AM Interpretation: Performing Lab: Notes/Report: blood glucose 108 74 - 106 mg/dL CBC Venipuncture (in house) Reviewed date:05/29/2025 11:04:48 AM Interpretation: Performing Lab: Notes/Report: wbc 7.9 3.5 - 10 lymph 24.7% 15 - 50 mid 6.6% 2 - 15 gran 68.7% 35 - 80 rbc 5.63 3.5 - 5.5 hgb 16.9 11.5 - 16.5 hct 50.1 35 - 55 mcv 50.1 75 - 100 mch 30.0 25 - 35 mchc 33.7 31 - 38 platlet 174 100 - 400 Glycohemoglobin A1c (in hous e) Reviewed date:05/29/2025 11:04:57 AM Interpretation: Performing Lab: Notes/Report: glycohemoglobin 5.9% 5 - 6.5 % P-Basic Metabolic Panel (BMP ) Reviewed date:05/30/2025 04:07:36 PM Interpretation:Normal Performing Lab: Notes/Report: Test performed by [facility] [id number] [facility] , [address], [place] [address] Lincoln Dee MD, [employer] CLIA: [id number] Sodium 136 135-145 mmol/L Potassium 4.4 3.5-5.3 mmol/L Chloride 100 97-108 mmol/L CO2 25 20-32 mmol/L Glucose 98 65-99 mg/dL BUN 21 6-20 mg/dL Creatinine 1.26 0.70-1.30 mg/dL Calcium 10.3 8.6-10.4 mg/dL eGFR by Creatinine 66 >59 mL/min/1.73m2 REASON FOR VISIT sick visit Medications Medication SIG (Take, Route, Frequency, Duration) Notes Start Date End Date Status Irbesartan-hydroCHLOROthiaz lorin 300-12.5 MG 1 tab(s) orally once a day; Duration: 90 days Active Mounjaro 12.5 MG/0.5ML 0.5 mL Subcutaneo us once a week; Duration: 30 days Active Cefdinir 300 MG 1 capsule Orally twi ce a day; Duration: 7 days 05/29/2025 Active Mounjaro 15 MG/0.5ML 0.5 mL Subcutaneous once weekly 10/06/2024 Active buPROPion HCl ER (XL) 150 MG 1 tablet in the morning Orally Once a day; Duration: 90 days Active Jardiance 25 MG 1 tablet Orally Once a day; Duration: 90 days Active Montelukast Sodium 10 MG 1 tablet Orally Once a day; Duration: 90 days Active Triamcinolone Acetonide 0.1 % 1 application Externally Twice a day 02/09/2025 Active Meloxicam 15 MG 1 tab(s) orally once a day; Duration: 90 days Active Albuterol Sulfate HFA 108 (90 Base) MCG/ACT INHALE 2 PUFFS EVERY 6 HOURS 30 DAYS; Duration: 25 Active Atorvastatin Calcium 40 MG 1 tablet Oral ly Once a day; Duration: 90 days 04/26/2024 Active Loratadine 10 MG 1 tab(s) orally once a day Active tiZANidine HCl 4 MG 1 tablet as needed o rally three times a day as needed Active Gabapentin 300 MG 1 capsule Orally Two times a day; Duration: 90 days 10/16/2024 Active Fluticasone Propionate 50 MCG/ACT USE 1 SPRAY IN NOSTRIL(S) ONCE A DAY; Duration: 90 Active Vital Signs Blood pressure systolic 116 mm Hg 05/29/20 25 Blood pressure diastolic 72 mm Hg 025 Heart Rate 64 /min 05/29/2025 Height 76 in 05/29/2025 Weight 354.6 lbs 05/29/2025 BMI 43.16 kg/m2 05/29/2025 Encounters Encounter Location Date Provider Diagnosis [facility] [address] [facility] [facility] [facility] [address] [place] [id number] 05/29/2025 Filemon Alvarez Acute URI J06.9 ; Essential hypertension I10 and Type 2 diabetes mellitus without complication, without long-term current use of insulin E11.9 Assessments Encounter Date Diagnosis (ICD Code) Assessment Notes Treatment Notes Treatment Clinical Notes Section Notes 05/29/2025 Acute URI (ICD-10 - J06.9) 05/29/2025 Essential hypertension (ICD-10 - I10) 05/29/2025 Type 2 diabetes mellitus without complication, without long-term current use of insulin (ICD-10 - E11.9) Plan Of Treatment Medication Medication Name Sig Start Date Stop Date Notes Cefdinir 300 MG 1 capsule Orally twi ce a day; Duration: 7 days 05/29/2025 Mounjaro 15 MG/0.5ML 0.5 mL Subcutaneous once weekly 10/06 Next Appt Details Follow Up: 4.5 months, Reaso n: Provider Name:Filemon Waite ry, 08/13/2025 10:45:00 AM, [address] [facility] [facility], [address], [place] [id number], Progress Notes * HAYLEY PENNDOB:1965 ( 59 yo M)Acc No.[id number]:05/29/2025 Progress Notes Patient: HAYLEY ESCAMILLA Provider: Evan Alvarez M.D. :1965 A ge:59 Y S ex:Male Date:05/29/2025 Address:[facility] [address] [address] [place] [id number] Subjective: * Chief Complaints: * 1 . Sick visit. * HPI: E NT/respiratory: 59 year old male presents with c/o sore throat P t states he has had a sore throat since 05/23. Pt states it is getting worse. c/o nasal congestion P t states he has been congested for the last 5-6 days. Pt states it is getting worse. D ermatology: c/o rash P t states he has a rash around the left side of his belly. Pt states he has had the rash for over a week. Pt states it is very red and irrated. G astroenterology: c/o Diarrhea P t had diarrhea last week. Pt states his was admitted to the hospital last week for Sepsis and Ecoli. Pt would like to make sure he does not have Ecoli. * Medical History: T ype 2 Diabetes, Dx: 2021, Hypertension, Allergic Rhinitis, Vitamin D Deficiency, Tremors - Head, Sleep Apnea, Renal Insufficiency, Hyperlipidemia, Hypertriglyceridemia, Obesity. * Surgical History: G roin - Blocked Vein , RT Shoulder - Bicep/Tendon Repair 2009, RT Neck - Disc Replacement - Dr. Tomas 2020, RT Ulnar Nerve Entrapment 08/2024. * Family History: F ather: 67 yrs, diagnosed with Cancer. M other: 73 yrs, diagnosed with Cancer. S iblings: alive, diagnosed with Stroke, Heart Disease. 2 brother(s) , 6 sister(s) . . Colon Cancer - Mother. * Social History: C URRENT TOBACCO USE: No . P ast smoking status: never smoked. * Medications: T aking Fluticasone Propionate 50 MCG/ACT Suspension USE 1 SPRAY IN NOSTRIL(S) ONCE A DAY , Taking Atorvastatin Calcium 40 MG Tablet 1 tablet Orally Once a day , Taking Loratadine 10 MG Tablet 1 tab(s) orally once a day , Taking tiZANidine HCl 4 MG Tablet 1 tablet as needed orally three times a day as needed , Taking Mounjaro 15 MG/0.5ML Solution Auto-injector 0.5 ml Subcutaneous once weekly , Taking Gabapentin 300 MG Capsule 1 capsule Orally Two times a day , Taking Jardiance 25 MG Tablet 1 tablet Orally Once a day , Taking Montelukast Sodium 10 MG Tablet 1 tablet Orally Once a day , Taking Triamcinolone Acetonide 0.1 % Cream 1 application Externally Twice a day , Taking Meloxicam 15 MG Tablet 1 tab(s) orally once a day , Taking Albuterol Sulfate HFA 108 (90 Base) MCG/ACT Aerosol Solution INHALE 2 PUFFS EVERY 6 HOURS 30 DAYS , Taking buPROPion HCl ER (XL) 150 MG Tablet Extended Release 24 Hour 1 tablet in the morning Orally Once a day , Taking Irbesartan-hydroCHLOROthiazide 300-12.5 MG Tablet 1 tab(s) orally once a day , Taking Mounjaro 12.5 MG/0.5ML Solution Auto-injector 0.5 mL Subcutaneous once a week , Medication List reviewed and reconciled with the patient * Allergies: Z ithromax, Amoxicillin: rash, Lisinopril: Cough - Side Effects. Objective: * Vitals: W t: 354.6, Temp: 98.2, BP: 116/72, HR: 64, Nurse: PETER, Ht: 76, BMI:43.16. * Examination: E NT/Respiratory: General Appearance: N AD. E yes: P ERRLA, sclera clear. N ose : n abena patent, clear rhinorrhea. O ral cavity : e rythema without exudate on pharynx. H eart : R RR, normal S1 S2. L ungs: c lear to auscultation bilaterally. Assessment: * Assessment: 1. A cute URI - J06.9 (Primary) 2 . E ssential hypertension - I10 ? 3 . T ype 2 diabetes mellitus without complication, without long-term current use of insulin - E11.9 Plan: * Treatment: Value Reference Range w bc 7.9 3.5 - 10 * l ymph 24.7% 15 - 50 * m id 6.6% 2 - 15 * g ran 68.7% 35 - 80 * r bc 5.63 3.5 - 5.5 * h gb 16.9 11.5 - 16.5 * h ct 50.1 35 - 55 * m cv 50.1 75 - 100 * m ch 30.0 25 - 35 * m chc 33.7 31 - 38 * p latlet 174 100 - 400 * Rand Herr 05/29/2025 10:18: 05 AM EDT > Provider reviewed results while patient in office. 2.?Essential hypertension?LAB: P-Basic Metabolic Panel (BMP) (Collection Date & Time - 05/29/2025 08:30 AM)?Normal* Value Reference Range B UN 21 H 6-20 - mg/dL * C alcium 10.3 8.6-10.4 - mg/dL * C hloride 100 97-108 - mmol/L * C O2 25 20-32 - mmol/L * C reatinine 1.26 0.70-1.30 - mg/dL * G lucose 98 65-99 - mg/dL * P otassium 4.4 3.5-5.3 - mmol/L * S odium 136 135-145 - mmol/L * e GFR by Creatinine 66 >59 - mL/min/1.73m2 * Leah Herrira 05/30/2025 02:12: 37 PM EDT > [facility] 04:07:23 PM EDT > Pt notified 3.?Type 2 diabetes mellitus without complication, without long-term current use of insulin? Refill Mounjaro Solution Auto-injector, 15 MG/0.5ML, 0.5 mL, Subcutaneous, once weekly, 2 mL, Refills 5.?LAB: P-Basic Metabolic Panel (BMP) (Collection Date & Time - 05/29/2025 08:30 AM)?Normal* Value Reference Range B UN 21 H 6-20 - mg/dL * C alcium 10.3 8.6-10.4 - mg/dL * C hloride 100 97-108 - mmol/L * C O2 25 20-32 - mmol/L * C reatinine 1.26 0.70-1.30 - mg/dL * G lucose 98 65-99 - mg/dL * P otassium 4.4 3.5-5.3 - mmol/L * S odium 136 135-145 - mmol/L * e GFR by Creatinine 66 >59 - mL/min/1.73m2 * Leah Herrira 05/30/2025 02:12: 37 PM EDT > [facility] 05/30/2025 04:07:23 PM EDT > Pt notified ?LAB: Glucose (In-House) (Collection Date & Time - 05/29/2025)* Value Reference Range b lood glucose 108 74 - 106 mg/dL * Rand Herr 05/29/2025 09:48: 39 AM EDT > Provider reviewed results while patient in office. ?LAB: Glycohemoglobin A1c (in house) (Collection Date & Time - 05/29/2025)* Value Reference Range g lycohemoglobin 5.9% 5 - 6.5 % * Rand Herr 05/29/2025 10:01: 33 AM EDT > Provider reviewed results while patient in office. * Procedure Codes: 8 5025 CBC WITH AUTO DIFF, 25211 GLUCOSE TEST, [address]1948 GLYCATED HEMOGLOBIN TEST, Modifiers: QW , 3044F HG A1C LEVEL LT 7.0%, 3074F SYST BP LT 130 MM HG, 3078F DIAST BP < 80 MM HG, 3017F COLORECTAL CA SCREEN DOC REV * Preventive Medicine: Screening / Special Tests: C olonoscopy [facility] * Follow Up: 4 .5 months * Images: Billing Information: * Visit Code: 31263 Office Visit, Est Pt., Level 4. * Procedure Codes: 41419 CBC WITH AUTO DIFF. 60345 GLUCOSE TEST. 17115 GLYCATED HEMOGLOBIN TEST. Modifiers: QW 3044F HG A1C LEVEL LT 7.0%. 3074F SYST BP LT 130 MM HG. 3078F DIAST BP < 80 MM HG. 3017F COLORECTAL CA SCREEN DOC REV. * Electronic signature of Debra Alvarez MD on 06/26/2025 at 02:33 PM EDT Sign off status: Pending * Provider: Evan Alvarez M.D. Date: 0 05/29/2025 Generated for Elle rossi/Raul/eTdanasmitting on: 1 02:33 PM EDT History and Physical Notes * HPI (History of Present Illness) Category Sub-Category Detail Notes Category Not es ENT/respiratory sore throat Pt states he has had a sore throat since 05/23. Pt states it is getting worse nasal congestion Pt states he has bee n congested for the last 5-6 days. Pt states it is getting worse Dermatology rash Pt states he has a rash around the left side of his belly. Pt states he has had the rash for over a week. Pt states it is very red and irrated Gastroenterology Diarrhea Pt had diarrhea last week. Pt states his was admitted to the hospital last week for Sepsis and Ecoli. Pt would like to make sure he does not have Ecoli Examination Category Sub-Category Detail Notes Category Not es ENT/Respiratory Oral cavity : erythema without exudate on pharynx Heart : RRR, normal S1 S2 Lungs: clear to auscultatio n bilaterally General Appearance: NAD Nose : nares patent, clear rhinorrhea Eyes: PERRLA, sclera clear
--- NOTE | 2025-06-26 | CA_ITS ---
FINAL REPORT CLINICAL HISTORY: Peripheral edema, HTN, Varicose veins FINDINGS: DUPLEX VENOUS SONOGRAPHY OF THE BILATERAL LOWER EXTREMITIES Multiple transverse and longitudinal scans were performed of the femoropopliteal deep venous systems, with augmentation and compression maneuvers. FINDINGS: Normal phasic flow was noted in the visualized deep venous systems. No intraluminal increased echogenicity is noted to suggest thrombus. There is normal compression and augmentation of the venous structures. No abnormal venous collaterals are seen. IMPRESSION: No evidence of deep venous thrombosis of the bilateral lower extremities. Reviewed, Interpreted and Dictated by Angela Suresh MD Transcribed by Rosalina Silva Authenticated and [facility]
--- OUTSIDE RECORDS SUMMARY | 2025-06-26 14:32 | XMS_ITS | Continuity of Care Document ---
Author Organization [facility], NEUROLOGY [address] [place] [address] Care Team Providers Care Hose Cementer Name Role Phone DARNELL LUIS Primary Care Provider [phone] QUINTON ROJAS Referring Provider ANNA MALIK Neurologist Assessment No assessment recorded. Plan of Treatment Reminders Order Date Submit Date Provider Last Modified By Organization Details Last Modified Time Details Appointments BOTOX 2024 08:00A M ANNA MALIK DO Not available Not available Not available Lab None recorded. Referral None recorded. Procedures None recorded. Surgeries None recorded. Imaging None recorded. Medication Orders incobotul inumtoxin A 100 unit intramusc ular solution 2024 025 [id number] Not available 06/11/2025 09:13:29 Patient TargetsNo targets recorded. Patient InstructionsNo instructions recorded. Reason for Referral None Reported. 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 Procedures Surgical History Date Name Laterality Status Provider Name and Address Organization Details Recorded Time 03/01/20 25 Shoulder Surgery completed Moriah Garcia [facility] 03/09/2025 08:03:59 10/23/19 25 OT Therapeutic Exercise completed MYRIAM HOOD, OTR/L, CHT [address] [place], [address], [facility] 10/23/2024 10:06:35 10/23/19 25 OT Manual Therapy completed MYRIAM HOOD, OTR/L, CHT [address] [place], [address], [facility] 10/23/2024 07:49:16 10/23/19 25 PT Hot/Cold Pack completed MYRIAM HOOD, OTR/L, CHT [address] [place], [address], [facility] 10/23/2024 07:49:16 10/09/19 25 OT Therapeutic Exercise completed MYRIAM HOOD, OTR/L, CHT [address] [place], [address], [facility] 10/09/2024 11:51:23 10/09/19 25 OT Manual Therapy completed MYRIAM HOOD, OTR/L, CHT [address] [place], [address], [facility] 10/09/2024 11:51:21 10/09/19 25 PT Hot/Cold Pack completed MYRIAM HOOD, OTR/L, CHT [address] [place], [address], [facility] 10/09/2024 07:46:26 09/29/19 25 OT Evaluation - Moderate complexity completed MYRIAM HOOD, OTR/L, CHT [address] [place], [address], [facility] 09/29/2024 10:40:03 09/29/19 25 OT Therapeutic Exercise completed MYRIAM HOOD, OTR/L, CHT [address] [place], [address], [facility] 09/29/2024 11:43:08 09/29/19 25 PT Hot/Cold Pack completed MYRIAM HOOD, OTR/L, CHT [address] [place], [address], [facility] 09/29/2024 10:50:01 09/26/19 25 Op Note completed BEAR SPENCE MD [address] [place], [address], [facility] 09/26/2024 09:00:00 09/26/19 25 transposition of ulnar nerve at elbow completed Moriah Garcia [facility] 10/20/2024 08:48:05 08/29/20 24 Electromyography (EMG) with Nerve Conduction Study (NCV) completed Amelia Carballo (Nicky) [facility] 08/29/2024 15:26:50 Shoulder joint surgery completed Melinda Karena [facility] 06/27/2024 08:15:54 Cervical Spine Surgery completed Melinda Karena [facility] 06/27/2024 08:15:10 insertion of arterial stent completed Melinda Karena [facility] 06/27/2024 08:15:37 [facility] 10:46:40 Imaging Results None recorded. Procedure Notes None recorded. Medical Equipment None Reported. Allergies Allergen ID Allergen Name Allergen Category Reaction Reaction Severity Criticality Documentation Date Start Date Code Code System Note Provider Name and Address Organization Details Recorded Time [id number] Zithromax medicatio n diarrhea fever Not available Not available Not available 06/27/2024 4 RxNorm thrus h mouth Melinda Karena null, [facility] 08:12:38 Medications Name Sig Start Date Stop Date Status Note LastModified by Organization Details LastModified Time Prescripti on - Prior Authorizat ion Request active Not Available Not Available Not Available atorvastat in 40 mg tablet TAKE 1 TABLET BY MOUTH EVERY DAY active Not Available Not Available No t Available tizanidine 2 mg tablet TAKE 1 TABLET BY MOUTH FOUR TIMES A DAY NEEDED MUSCLE SPASTICI TY active Not Available Not Available No t Available tizanidine 4 mg tablet TAKE 1 TABLET BY MOUTH THREE TIMES A DAY NEEDED active Not Available Not Available No t Available meloxicam 15 mg tablet TAKE 1 TABLET BY MOUTH EVERY DAY active Not Available Not Available No t Available propranolo l ER 60 mg capsule,24 hr,extende d release TAKE 1 CAPSULE BY MOUTH EVERY DAY FOR 90 DAYS 06/27 completed Not Available Not Available Not Available gabapentin 400 mg capsule active Not Available Not Available Not Available hydrocodon e 10 mg-acetami nophen 325 mg tablet TAKE 1/2 - 1 TABLET EVERY 6 HOURS NEEDED FOR SEVERE POST SURGICAL PAIN active PRN Not Available Not Available No t Available doxycyclin e monohydrat e 100 mg tablet TAKE 1 TABLET BY MOUTH EVERY 12 HOURS FOR 10 DAYS 06/05 completed Not Available Not Available Not Available triamcinol one acetonide 0.1 % topical cream APPLY 1 APPLICAT ION EXTERNAL LY TWICE A DAY active Not Available Not Available No t Available ondansetro n 8 mg disintegra ting tablet 8 MG ORALLY EVERY 8 HOURS NEEDED FOR NAUSEA AND VOMITING FOR 5 DAYS 06/27 completed Not Available Not Available Not Available meloxicam 7.5 mg tablet TAKE 1 TABLET BY MOUTH DAILY WITH FOOD REGARDLE SS OF PAIN FOR 1 WEEK, THEN ONLY NEEDED FOR PAIN RELIEF THEREAFT ER active Not Available Not Available No t Available oxycodone- acetaminop hen 5 mg-325 mg tablet TAKE 1 TABLET BY MOUTH EVERY 6 HOURS NEEDED active Not Available Not Available No t Available prednisolo ne acetate 1 % eye drops,susp ension PLEASE SEE ATTACHED FOR DETAILED DIRECTIO NS active Not Available Not Available No t Available oseltamivi r 75 mg capsule 1 CAPSULE ORALLY ONCE DAILY 10 DAY(S) 06/27 completed Not Available Not Available Not Available neomycin-p olymyxin-d exameth 3.5 mg/mL-10,0 00 unit/mL-0. 1% eye drops INSTILL 1 DROP INTO BOTH EYES 4 TIMES A DAY FOR 5 DAYS 06/27 completed Not Available Not Available Not Available irbesartan 300 mg-hydroch lorothiazi de 12.5 mg tablet TAKE 1 TABLET BY MOUTH EVERY DAY active Not Available Not Available No t Available gabapentin 300 mg capsule TAKE 1 CAPSULE BY MOUTH TWICE A DAY active Not Available Not Available No t Available montelukas t 10 mg tablet TAKE 1 TABLET BY MOUTH EVERY DAY FOR 90 DAYS active Not Available Not Available No t Available propranolo l ER 120 mg capsule,24 hr,extende d release TAKE 1 CAPSULE BY MOUTH EVERY DAY FOR 90 DAYS active Not Available Not Available No t Available methylpred nisolone 4 mg tablets in a dose pack TAKE 6 TABLETS ON DAY 1 DIRECTED ON PACKAGE AND DECREASE BY 1 TAB EACH DAY FOR A TOTAL OF 6 DAYS 06/27 completed Not Available Not Available Not Available albuterol sulfate HFA 90 mcg/actuat ion aerosol inhaler TAKE 2 PUFFS BY MOUTH EVERY 6 HOURS active Not Available Not Available No t Available cefdinir 300 mg capsule TAKE 1 CAPSULE BY MOUTH TWICE A DAY 06/08 completed Not Available Not Available Not Available fluticason e propionate 50 mcg/actuat ion nasal spray,susp ension SPRAY 1 SPRAY INTO EACH NOSTRIL EVERY DAY active Not Available Not Available No t Available metformin ER 500 mg tablet,ext ended release 24 hr Take 2 tablets every day by oral route. active no longer takes Not Available Not Available Not Available bupropion HCl XL 150 mg 24 hr tablet, extended release TAKE 1 TABLET BY MOUTH EVERY DAY IN THE MORNING active Not Available Not Available No t Available duloxetine 60 mg capsule,de layed release TAKE 1 CAPSULE BY MOUTH EVERY DAY FOR 90 DAYS 06/27 completed Not Available Not Available Not Available Tylenol active Not Available Not Avail able Not Available Vitamin D3 250 mcg QD active Not Available Not Available No t Available Januvia 100 mg tablet TAKE 1 TABLET BY MOUTH EVERY DAY FOR 90 DAYS 06/27 completed Not Available Not Available Not Available incobotuli numtoxinA 100 unit intramuscu lar solution Inject 400 units every 3 months by intramus cular route for 90 days. 2024 active Not Available Not Available Not Avai lable Tradjenta 5 mg tablet TAKE 1 TABLET BY MOUTH EVERY DAY FOR 90 DAYS 06/27 completed Not Available Not Available Not Available Jardiance 25 mg tablet TAKE 1 TABLET BY MOUTH EVERY DAY FOR 90 DAYS active Not Available Not Available No t Available Men 50 Plus Multivitam in once daily active Not Available Not Available No t Available magnesium 200 mg (as magnesium oxide) tablet Take 1 tablet every day by oral route. active Not Available Not Available No t Available vitamin B12 2,500 mcg-folic acid 400 mcg disintegra ting tablet Take 1 tablet every day by oral route. active Not Available Not Available No t Available Mounjaro 7.5 mg/0.5 mL subcutaneo us pen injector 7.5 MG SUBCUTAN EOUS ONCE WEEKLY 06/27 completed Not Available Not Available Not Available Mounjaro 5 mg/0.5 mL subcutaneo us pen injector 0.5ML SUBCUTAN EOUS ONCE A WEEK 06/27 completed Not Available Not Available Not Available Mounjaro 15 mg/0.5 mL subcutaneo us pen injector INJECT 0.5 MLS UNDER THE SKIN ONCE A WEEK active Not Available Not Available No t Available Mounjaro 10 mg/0.5 mL subcutaneo us pen injector INJECT 1 SYRINGE SUBCUTAN EOUSLY ONCE A WEEK 08/18 completed pt takes 12.5 now Not Available Not Available Not Available Mounjaro 12.5 mg/0.5 mL subcutaneo us pen injector INJECT 0.5 ML SUBCUTAN EOUS ONCE WEEKLY active taking 15 mg now (10/20/19 25) Not Available Not Available Not Available Vitals Date Recorded Body height Heart rate Oxygen saturation Oxygen saturation in Arterial blood by Pulse oximetry Systolic And Diastolic Provider Name and Address Organization Details Last Updated DateTime 5 193.04 cm 77 /min 95 % 95 % 118/75 mm[Hg] Becky Sanchezlin [facility] 5 08:08:25 Social History Question Answer Notes LastModified by [facility] Details LastModified Time Tobacco Smoking Status Never Smoker [facility] 01/[facility]/2024 10:07:29 What Is Your Level Of Caffeine Consumption? Heavy [email or web address] Information not available 08/18/2024 What Was The Date Of Your Most Recent Tobacco Screening? 06/27/2024 Information not available 06/27/2024 What Is Your Relationship Status? Information not available 06/27/2024 Sex: Male Functional Status Question Answer Note LastModified by [email or web address] Details LastModified Time Do you use any illicit or recreational drugs? No [email or web address] Information not available 07/10/2024 What is your level of alcohol consumption? 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 Family History Relationship Description Onset Age of this Age Resolved Age Notes LastModified by Organization Details LastModified Time Mother Malignant neoplastic disease colon Not available 2023 08:13:21 Mother Tremor Not available 08:14:16 Maternal Grandmother Diabetes mellitus Not available 2023 08:14:03 Unspecified Relation Hypertensive disorder [email or web address] Not available 01/02 10:07:14 Sister Cerebrovascu lar accident Not available 08:13:50 Sister Alcoholism Not availabl e 06/27/2024 08:13:04 Sister Malignant neoplastic disease Not available 2023 08:13:47 Father Alcoholism Not availabl e 06/27/2024 08:13:04 Brother Alcoholism Not availab le 06/27/2024 08:13:04 Brother Malignant neoplastic disease colon, lung Not available 06/27/2024 08:13:36 Medical History Condition Response Gout N Other N Kidney Stones N COPD N Depression Y Pneumonia N Anxiety Disorder Y Arthritis Y Blood Clot N Cancer N Stroke N Kidney Disease Y Heart Conditions Y Migraines N Skin Problems N Rheumatic Fever N Bleeding Disorder N Tuberculosis N Genetic Disorder N AIDS/HIV N Asthma N Included as Review of Systems Y Anxiety/Depression Y Thyroid Disease N Hernia Y Glaucoma N Anesthesia Complications N Blood Thinners N Alcohol Overuse/Alcohol Abuse N High Cholesterol Y Liver Disease N Allergies/Hayfever Y Parkinson's Disease N Alzheimer's N Immune System Disorder N Heart Attack (MS) N Mental Illness N Neurological Problems Y Diabetes Y Seizures/Epilepsy N Sleep Apnea Y Heart Disease Y Hypertension Y Osteoporosis N Past Encounters Encounter ID Performer Location Encounter Start Date Encounter Closed Date Diagnosis/Indication Diagnosis SNOMED-CT Code Diagnosis ICD10 Code Diagnosis IMO Codes Diagnosis Note [id number] ANNA MALIK, DO NEUROLOGY [address] [place] [address] 06/08/2025 08:00:03 06/12/2025 07:44:37 Spasmodic torticollis 54229478 G24.3 His dose was increased today. He will call with an update in 6 weeks. Health Concerns Section Related Observation LastModified by Organization Detai ls LastModified Time None Recorded Concern Status LastModified by Organization Details LastModified Time None Recorded Payers Encounter Date Sequence Insurance Name Policy Number Policy Marcus Covered Member ID Marcus Member ID Guarantor Name 06/08/2025 1 [employer] [id number] Joel Weiss [id number] Joel Weiss Notes Date Note Type Note Provider Name and Address Organization Details Recorded Time 06/08/2025 text/html Joel comes in today for repeat Xeomin injections. He did find the last injections lasted a little longer but then about six weeks it lost benefits.He does find that when it is working he gets a good amount of relief but once it wears off he is fairly uncomfortable. He did not have any head heaviness from the last injections. PRIOR VISIT: (03/09/25)Joel comes in today for repeat Xeomin injections. He did call in January to report that the xeomin helped for about a month and then wore off. Due to that I plan to increase his total dose today to 300units.He had recent rotator cuff surgery on the left shoulder.He denies any side effects from the last injections. He and his have noticed an increased elevation in the right shoulder since he has been having to use his right arm more. PRIOR VISIT: (12/08/24)Joel comes in today for repeat XEOMIN injections. At his recent follow up we discussed increasing his dosing today to 250 units. Will increase his dose in the left SCM and R splenius capitus and also do some left upper trapezius. Increase dose from 180 to 250 units.He had no complications from his last injections. He does need shoulder surgery on the left shoulder coming up soon. 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 His neck surgery has been delayed because insurance required a trial of PT. He has done the required therapies but really no improvement in his pain or the head pulling. INTIAL VISIT: (07/10/24)58 y/o right handed male here for discussion of possible botox for his head tremor/dystonia. Joel is accompanied by his today.For a few years he has struggled with his head wanting to pull to the right. He has had head tremors since his twenties but then it began to pull in the last few years. He finds he has to use his hand to try to straightening. It will pull his head completely sideways at times. He has difficulty with driving and eating frequently. He has resorted to wearing a soft c-collar at times to try to get some relief from the constant pulling. He finds he has to keep his left hand on his cheek to try to ease the pulling. He is currently being evaluated by Dr Edge regarding neck pain with radiation into his left arm. He underwent a cervical fusion but Dr Tomas about three years ago. He was having pain with radiation into his left arm and significant loss of strength in his hand prior to that surgery. He did find those symptoms resolved after surgery but now he is having similar pain down the left arm again. He had MRI cervical spine done 06/26/24. There continues to be moderate canal stenosis at C5-7 which he had prior fusion. He has He has moderate to severe foraminal stenosis bilaterally at multiple levels. Disc herniation at C3/4. He is awaiting to hear Dr Edge's recommendations once he reviews these images. DR ASHLEY OFFICE NOTES: (06/27/24)This is a 58 year-old man seen at the request of Dr. Alvarez for evaluation.He was accompanied by his . There have been a handful of symptoms, related or not: *Tremor. He was diagnosed with essential tremor about 30 years ago, involving head/neck.Hands not really affected. He was on topiramate for several years, and maybe this helped initially but last year this was changed to propranolol because he did not see much benefit from topiramate, and this medicine may have affected mood. He has not taken primidone, probably. His mother has tremor of the head +/- hands. Tremor has been worse this year, and head tends to pull to the right. *Low back pain since August, occasionally into thighs. He fell down stairs in August. Lumbar MRI was done and showed ?epidural lipomatosis. He was seen by Dr. Edge. Epidural injection was helpful. *Neck pain x few years. He had C5-7 ACDF a few years ago. Some pain, tingling into the arms. He was seen recently by Dr. Edge about this and MRI done yesterday.This showed: 1. Prior ACDF from C5 through C7. There is moderate/severebilate ral neural foraminal narrowing at these levels, and moderatecentral canal narrowing at C5-C6. 2. There is severe stenosis of the right lateral recess, mild centralcanal narrowing, and severe right neural foraminal narrowing at C3-C4. *Balance trouble. Occasionally when walking he feels off center. No recent falls. Maybe worse on uneven ground. This has been perhaps since August. *Swallowing trouble? Sometimes when eating it feels like things go down the wrong pipe. Solids or liquids. Clears his throat a lot. He has not had swallow evaluation. *Neuropathy. Chronic pain in the feet bilaterally, worse x two years, worse on the left Worse when walking, bearing weight. At times bothersome in bed at nite. More pain than numb. Seen by podiatry last year and had NCS which apparently showed neuropathy. He takes gabapentin. He has diabetes. A1c ~ 6 per pt. *His wonders about his memory. May forget reason for appt. Occasionally forgets conversations. Manages his medicines without problem. Drives, functions. ANNA MALIK, DO [address] [place], [address], [facility] 06/08/2025 08:45:13
--- OUTSIDE RECORDS SUMMARY | 2025-06-26 14:32 | XMS_ITS | Clinical Summary ---
Author Organization [employer] ([place], [place], [place], [place]) Address [address] [place] [address] Care Team Providers Care Order Entry Technician Name Role Phone Filemon Alvarez MD Primary Care Provider [phone] Allergies Active Allergy Reactions Criticality Noted Date [...] Date Juan rded Speak language other than Bahamian at home Not on file 07/12/2024 Want [...] Shingles Vaccine (Zoster) (1 of 2) 2017 DTAP/TDAP/TD VACCINES (3 - Td or Tdap) 10/17/2024, 11/17/1996 COVID-19 VACCINE ( - season) 2025 Influenza Vaccine (#1) 2025 Tobacco Cessation Counseling and Screening (12+) 07/21/2025 07/21/2024 Insurance [employer] Care Teams Order Entry Technician Relationship Specialty Start Date End Date Filemon Alvarez MD [address] [facility] [address] [place] [address] PCP - General Family Medicine 07/21/24
--- OUTSIDE RECORDS SUMMARY | 2025-06-26 14:33 | XMS_ITS | Referral Summary ---
Author Organization [employer] ([place], [place], [place], [place]) Address [address] [place] [address] Care Team Providers Care Heel Reducer Name Role Phone Filemon Alvarez MD Primary Care Provider [phone] Allergies Active Allergy Reactions Criticality Noted Date [...] Date Juan rded Speak language other than Pakistani at home Not on file 07/12/2024 Want [...] Not on file Insurance [employer] Care Teams Heel Reducer Relationship Specialty Start Date End Date Filemon Alvarez MD [address] [place] [address] PCP - General Family Medicine 07/21/24
--- OUTSIDE RECORDS SUMMARY | 2025-06-26 14:33 | XMS_ITS | Patient Health Record ---
[facility] Address [address] [place] [id number] Care Team Providers Care Enrichment Assistant Name Role Phone Filemon Alvarez Primary Care Provider [phone] Allergies Allergen (clinical drug ingredient) Drug/Non Drug Allergy documented on EMR Reaction Allergy Type Onset Date Status amoxicillin Amoxicillin rash Drug Allergy Act kayla lisinopril Lisinopril Cough Drug Allergy Activ e azithromycin Zithromax Unknown Drug Allergy Acti ve Results Component Value Reference Range Notes Pulmonary Function Before & After Reviewed date:01/03/2025 01:27:51 PM Interpretation: Performing Lab: Notes/Report: Pulmonary Function Complete Reviewed date:01/26/2025 12:18:04 PM Interpretation:Normal Performing Lab: Notes/Report: Normal Glucose (In-House) Reviewed date:02/12/2025 01:58:05 PM Interpretation: Performing Lab: Notes/Report: blood glucose 123 74 - 106 mg/dL Glycohemoglobin A1c (in hous e) Reviewed date:02/12/2025 01:57:57 PM Interpretation: Performing Lab: Notes/Report: glycohemoglobin 5.9% 5 - 6.5 % Glucose (In-House) Reviewed date:10/09/2024 11:13:28 AM Interpretation:101 Performing Lab: Notes/Report: 101 blood glucose 101 74 - 106 mg/dL Glycohemoglobin A1c (in hous e) Reviewed date:10/09/2024 11:13:28 AM Interpretation:6.0 Normal Performing Lab: Notes/Report: 6.0 Normal glycohemoglobin 6.0% 5 - 6.5 % P-Comprehensive Metabolic Pa martine (CMP) Reviewed date:10/09/2024 11:13:28 AM Interpretation:gluc 109, satisfactory Performing Lab: Notes/Report: Test performed by [facility] [address] [place] [address] [address], [place] [address] Lincoln Dee MD, Baker Helper CLIA: [id number] Sodium 138 135-145 mmol/L Potassium 4.4 3.5-5.3 [...] Interpretation:Normal Performing Lab: Notes/Report: Test performed by [facility] [address] [place] [address] [address], [place] [address] Lincoln Dee MD, Baker Helper CLIA: [id number] Cholesterol 103 <200 mg/dL Triglycerides 55 <150 [...] Interpretation:Normal Performing Lab: Notes/Report: Test performed by [facility] [address] [place] [address] Lincoln Dee MD, Baker Helper CLIA: [id number] PSA 0.50 <4.00 ng/mL Please note this is an ultrasensitive PSA assay with a lower limit of detection of 0.014 ng/mL. This test is performed by the Ian ECLIA methodology. Values obtained with different assay methods or kits cannot be directly compared. P-TSH reflex to FT4 Reviewed date:10/09/2024 11:13:28 AM Interpretation:Normal Performing Lab: Notes/Report: Test performed by [facility] [address] [place] [address] [place] [address] Lincoln Dee MD, Baker Helper CLIA: [id number] TSH reflex to FT4 1.31 0.43-5.25 mU/L P-Microalbumin/Creatinine, R andom Urine Sample Reviewed date:10/09/2024 11:13:28 AM Interpretation:Normal Performing Lab: Notes/Report: Test performed by [facility] [address] , [place] [address] Lincoln Dee MD, Baker Helper CLIA: [id number] Albumin/Creatinine Ratio, Urine 4 0-30 ug/m g Microalbumin, Urine, Random 0.7 Creatinine, Urine 185.7 P-Vitamin D 25-Hydroxy Reviewed date:10/09/2024 11:13:28 AM Interpretation:Normal Performing Lab: Notes/Report: Test performed by [facility] [address] [place] [address] , [place] [address] Lincoln Dee MD, Baker Helper CLIA: [id number] Vitamin D 25-Hydroxy 60.3 30.0-100.0 ng/mL Interpretation of Vitamin D 25 OH: < 20 ng/mL - Deficiency 20 - 29 ng/mL - Insufficiency 30 - 100 ng/mL - Sufficiency > 100 ng/mL - Super-therapeutic- toxicity may occur above this level. Clinical correlation required. Glucose (In-House) Reviewed date:05/29/2025 11:04:42 AM Interpretation: [...] date:05/30/2025 04:07:36 PM Interpretation:Normal Performing Lab: Notes/Report: CLIA: [id number] Lincoln Dee MD, Baker Helper [address] [place] [address] , [address], [place] [address] Test performed by [employer], [facility] Sodium 136 135-145 mmol/L Potassium 4.4 3.5-5.3 mmol/L Chloride 100 97-108 mmol/L CO2 25 20-32 mmol/L Glucose 98 65-99 mg/dL BUN 21 6-20 mg/dL Creatinine 1.26 0.70-1.30 mg/dL Calcium 10.3 8.6-10.4 mg/dL eGFR by Creatinine 66 >59 mL/min/1.73m2 Reason For Referral No Information Medications Medication SIG (Take, Route, Frequency, Duration) Notes Start Date End Date Status Triamcinolone Acetonide 0.1 % 1 application Externally Twice a day Active Irbesartan-hydroCHLOROthia zide 300-12.5 MG 1 tab(s) orally once a day; Duration: 90 days Active Mounjaro 15 MG/0.5ML 0.5 mL Subcutaneous once weekly 10/06/2024 Active Jardiance 25 MG 1 tablet Orally Once a day; Duration: 90 days Active Albuterol Sulfate HFA 108 (90 Base) MCG/ACT TAKE 2 PUFFS BY MOUTH EVERY 6 HOURS; Duration: 25 Active Montelukast Sodium 10 MG 1 tablet Orally Once a day; Duration: 90 days Active CPAP machine and supplies - Setting 11-18 nightly as directed G47.33 06/19/2025 Active Meloxicam 15 MG 1 tab(s) orally once a day; Duration: 90 days Active buPROPion HCl ER (XL) 150 MG 1 tablet in the morning Orally Once a day; Duration: 90 days Active Gabapentin 300 MG 1 capsule Orally Two times a day; Duration: 90 days 06/25/2025 Active Loratadine 10 MG 1 tab(s) orally once a day; Duration: 90 days Active Atorvastatin Calcium 40 MG 1 tablet Oral ly Once a day; Duration: 90 days 04/26/2024 Active Fluticasone Propionate 50 MCG/ACT 1 spray in each nostril Nasally Once a day; Duration: 90 days Active Flonase Allergy Relief 50 MCG/ACT 1 spray in each nostril Nasally Once a day; Duration: 90 days 06/01/2025 Active tiZANidine HCl 4 MG 1 tablet as needed o rally three times a day as needed Active Immunizations Vaccine Route Administration Date Status Comme nts DT, 7 YEARS OR OLDER Unknown 11/17/1996 Administered DT, 7 YEARS OR OLDER Unknown 11/17/1996 Administered Tetanus Tdap-Adacel (over 7yrs) Unknown 10/17/2014 Admi nistered Problems Problem Type SNOMED Code ICD Code Onset Dates Problem Status W/U Status Risk Notes Problem Vitamin D deficiency (04127037) Vitamin D deficiency (E55.9) Active confirmed Problem Essential hypertension (30416002) Essential hypertension (I10) Active confirmed Problem Morbid obesity (216432125) Morbid obesity (E66.01) Active confirmed Problem Mixed hyperlipidemia (400348581) Mixed hyperlipidemia (E78.2) Active confirmed Problem Essential tremor (280034712) Essential tremor (G25.0) Active confirmed Problem Intervertebral disc disorder of cervical region with myelopathy (03793577) Cervical disc disease with myelopathy (M50.00) Active confirmed Problem Renal insufficiency (559591224) Renal insufficiency (N28.9) Active confirmed Problem Obstructive sleep apnea syndrome (55653255) Obstructive sleep apnea syndrome (G47.33) Active confirmed Problem Cervical spondylosis without myelopathy (373468998) Cervical radiculopathy due to degenerative joint disease of spine (M47.22) Active confirmed Problem Dysphagia (00109906) Dysphagia, unspecified type (R13.10) Active confirmed Problem Polyneuropathy associated with another disorder (137450701) Polyneuropathy associated with underlying disease (G63) Active confirmed Problem Carpal tunnel syndrome of left wrist (301682945408497) Carpal tunnel syndrome of left wrist (G56.02) Active confirmed Problem Sciatica (65899253) Acute right-sided low back pain with right-sided sciatica (M54.41) Active confirmed Problem Type II diabetes mellitus without complication (208788537) Type 2 diabetes mellitus without complication, without long-term current use of insulin (E11.9) Active confirmed Problem Impaired fasting glycaemia (071367264) IFG (impaired fasting glucose) (R73.01) Active confirmed Problem Degenerative disc disease (73301097) DDD (degenerative disc disease), lumbar (M51.36) Active confirmed Problem Impairment of balance (124123304) Balance problem (R26.89) Active confirmed Problem Allergic rhinitis (74376572) Allergic rhinitis, unspecified seasonality, unspecified trigger (J30.9) Active confirmed Problem Arthropathy of cervical spine facet joint (disorder) (034154704) Arthropathy of cervical facet joint (M47.812) Active confirmed Problem Neuropathy of upper limb (933916956) 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) Active confirmed Problem Denervation atrophy of muscle (90197561) 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) Active confirmed Problem Deformity of cervical vertebra (330640494) Cervical osteophyte (M25.78) Active confirmed Problem Degeneration of lumbar intervertebral disc (30135332) Bulging lumbar disc (M51.36) Active confirmed Problem Varicose veins of bilateral lower limbs (9442509929201726 6) Symptomatic varicose veins of both lower extremities (I83.893) Active confirmed Vital Signs Heart Rate 63 /min 06/26/2025 Blood pressure diastolic 80 mm Hg 06/26/2025 Height 76 in 06/26/2025 Blood pressure systolic 120 mm Hg 06/26/2025 Weight 352.2 lbs 06/26/2025 BMI 42.87 kg/m2 06/26/2025 Encounters Encounter Location Date Provider [facility] [address] [id number] 10/06/2024 Filemon Alvarez Essential hypertensi on I10 ; Type 2 diabetes mellitus without complication, without long-term current use of insulin E11.9 ; Renal insufficiency N28.9 ; Vitamin D deficiency E55.9 ; Obstructive sleep apnea syndrome G47.33 ; Morbid obesity E66.01 and Prostate cancer screening Z12.5 [facility] [address] [place] [id number] 11/27/2024 Filemon Alvarez Pre-op exam Z01.818 ; Left shoulder pain, unspecified chronicity M25.512 ; Essential hypertension I10 ; Obstructive sleep apnea syndrome G47.33 ; Morbid obesity E66.01 ; Essential tremor G25.0 ; Type 2 diabetes mellitus without complication, without long-term current use of insulin E11.9 and Polyneuropathy associated with underlying disease G63 [facility] [address] [place], [place] [id number] 02/09/2025 Filemon Rex Type 2 diabetes harpal itus without complication, without long-term current use of insulin E11.9 ; Allergic rhinitis, unspecified seasonality, unspecified trigger J30.9 and Acute contact dermatitis L25.9 [facility] [address] [facility] [address] [place], [place] [id number] 05/29/2025 Filemon Rex Acute URI J06.9 ; Essential hypertension I10 and Type 2 diabetes mellitus without complication, without long-term current use of insulin E11.9 [facility] [address] [place], [place] [id number] 06/26/2025 Filemon Rex Peripheral edema R60 .0 ; Symptomatic varicose veins of both lower extremities I83.893 and Allergic rhinitis, unspecified seasonality, unspecified trigger J30.9 [facility] [address] [facility] [address] [place], [place] [id number] 07/12/2024 Filemon Rex [facility] [address] [place], [place] [id number] 07/26/2024 Filemon Rex Acute right-sided lo w back pain with right-sided sciatica M54.41 [facility] [address] [place], [place] [id number] 08/22/2024 Filemon Rex [facility] [address] [place], [place] [id number] 10/16/2024 Filemon Rex Acute right-sided lo w back pain with right-sided sciatica M54.41 [facility] [address] [place], [place] [id number] 12/14/2024 Filemon Rex Shortness of breath R06.02 [facility] [address] [place], [place] [id number] 01/03/2025 Filemon Rex [facility] [address] [place], [place] [id number] 01/26/2025 Filemon Rex [facility] [address] [place] [id number] 02/07/2025 Filemon Rex [facility] [address] [place] [id number] 03/22/2025 Filemon Rex [facility] [address] [place], [place] [id number] 05/28/2025 Filemon Rex [facility] [address] [place], [place] [id number] 06/01/2025 Filemon Rex [facility] [address] [place], [place] [id number] 06/12/2025 Filemon Rex [facility] [address] [place], [place] [id number] 06/15/2025 Filemon Rex [facility] [address] [place], [place] [id number] 06/19/2025 Filemon Rex [facility] [address] [place], [place] [id number] 06/25/2025 Filemon Rex Acute right-sided lo w back pain with right-sided sciatica M54.41 [facility] [address] [place], [place] [id number] 08/29/2024 Filemon Rex Assessments Encounter Date Diagnosis (ICD Code) Assessment Notes Treatment Notes Treatment Clinical Notes Section Notes 07/26/2024 Acute right-sided low back pain with [...] unspecified seasonality, unspecified trigger (ICD-10 - J30.9) 05/29/2025 Essential hypertension (ICD-10 - I10) 05/29/2025 Acute URI (ICD-10 - J06.9) 06/25/2025 Acute right-sided low back pain with right-sided sciatica (ICD-10 - M54.41) 06/26/2025 Peripheral edema (ICD-10 - R60.0) 06/26/2025 Symptomatic varicose veins of both lower extremities (ICD-10 - I83.893) 06/26/2025 Allergic rhinitis, unspecified seasonality, unspecified trigger (ICD-10 - J30.9) 05/29/2025 Type 2 diabetes mellitus without complication, without long-term current use of insulin (ICD-10 - E11.9) 02/09/2025 Acute contact dermatitis (ICD-10 - L25.9) 10/06/2024 Renal insufficiency (ICD-10 - N28.9) 11/27/2024 Essential hypertension (ICD-10 - I10) 10/06/2024 Vitamin D deficiency (ICD-10 - E55.9) 11/27/2024 Obstructive sleep apnea syndrome (ICD-10 - G47.33) 11/27/2024 Morbid obesity (ICD-10 - E66.01) 10/06/2024 Obstructive sleep apnea syndrome (ICD-10 - G47.33) 11/27/2024 Essential tremor (ICD-10 - G25.0) 10/06/2024 Morbid obesity (ICD-10 - E66.01) 11/27/2024 Type 2 diabetes mellitus without complication, without long-term current use of insulin (ICD-10 - E11.9) 10/06/2024 Prostate cancer screening (ICD-10 - Z12.5) 11/27/2024 Polyneuropathy associated with underlying disease (ICD-10 - G63) Plan Of Treatment Pending Test Test Name Order Date Venous Doppler: Bilateral lower extremit ies 06/26/2025 Next Appt Details Provider Name:Filemon Waite ry, 08/13/2025 10:45:00 AM, [address], [place], [place], [id number], Insurance Providers Payer Name Payer Address Payer Phone Subscriber Number Group Number Insured Name Patient Relationship to Insured Coverage Start Date Coverage End Date [employer] [place] [id number] [place] [phone] [id number] HAYLEY PENN Self - patient is the [...]
--- OUTSIDE RECORDS SUMMARY | 2025-06-26 14:33 | XMS_ITS | Data Portability ---
Author Organization [facility] [place] [facility] Address [address] [place] [address] Care Team Providers Care Steam Finisher Name Role Phone LUIS PATRICK Primary Care Provider QUINTON ROJAS Referring Provider ANNA MALIK Neurologist Assessment Encounter Date Assessment Date Assessment LastModified by Organization Details LastModified Time 10/23/2024 10/23/2024 MLF 1) internal rotation along the glenohumeral joint facilitating ulnar nerve compression proximal to distal. 2) pectoralis minor tightness with some imbalances noted. 3) mild restriction with neural glide secondary to brawny edema in the anterior capsule of the elbow. [email or web address] Not available 10/23/2024 07:49:16 Plan of Treatment Reminders Order Date Submit Date Provider Last Modified By Organization Details Last Modified Time Details Appointments BOTOX 2024 08:00A M ANNA MALIK DO Not available Not available Not available Lab None recorded. Referral occupatio nal therapist referral - Status post left subcutane ous ulnar nerve transposi tion September 26, 2024. Please perform scar desensiti zation at the left elbow. 2024 025 leo Not available 11/08/2024 09:05:14 Procedures None recorded. Surgeries None recorded. Imaging None recorded. Medication Orders incobotul inumtoxin A 100 unit intramusc ular solution 2024 025 [email or web address] Not available 06/11/2025 09:13:29 incobotul inumtoxin A 100 unit intramusc ular solution 2024 025 [email or web address] Not available 03/09/2025 11:43:33 incobotul inumtoxin A 100 unit intramusc ular solution 2024 025 [email or web address] [id number], [address] [place], [address], 12/08/2024 08:09:25 Patient TargetsNo targets recorded. Patient Instructions Encounter Date Encounter Id Patient Instructions Last Modified By Organization Details Last Modified Time 10/23/2024 [id number] STG 1) Improving functional AROM to within 80-90% of the unaffected within an appropriate time-frame from the injury/surgery to improve ADL function with fine and gross motor dexterity. 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 4) Client will improve overall function at home and work and demonstrate this through the QuickDASH assessment when/if appropriate time frames are determined. Rehab potential is Good Plan of Care (POC: 1-2x/week for 6-8 weeks.) [email or web address] Not available 10/23/2024 07:49:16 11/08/2024 [id number] He can resume normal use of his arm. I will add scar desensitization to his therapy for his shoulder. I informed him that it can take a year or longer for all of the sensation to improve. He will follow-up as needed. [email or web address] Not available 11/08/2024 09:04:44 Reason for Referral Occupational Therapist Refer [facility] for Ulnar nerve entrapment at elbow Status post left subcutaneous ulnar nerve transposition September 26, 2024. Please perform scar desensitization at the left elbow. 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 Procedures Surgical History Date Name Laterality Status Provider Name and Address Organization Details Recorded Time 03/01/20 25 Shoulder Surgery completed Moriah Garcia [facility] 03/09/2025 08:03:59 10/23/19 25 OT Therapeutic Exercise completed MYRIAM HOOD, OTR/L, CHT [address] [place], [address], [facility] 10/23/2024 10:06:35 10/23/19 25 OT Manual Therapy completed MYRIAM HOOD, OTR/L, CHT [address] [place], [address], [facility] 10/23/2024 07:49:16 10/23/19 25 PT Hot/Cold Pack completed MYRIAM HOOD, OTR/L, CHT [address] [place], [address], [facility] 10/23/2024 07:49:16 10/09/19 25 OT Therapeutic Exercise completed MYRIAM HOOD, OTR/L, CHT [address] [place], [address], [facility] 10/09/2024 11:51:23 10/09/19 25 OT Manual Therapy completed MYRIAM HOOD, OTR/L, CHT [address] [place], [address], [facility] 10/09/2024 11:51:21 10/09/19 25 PT Hot/Cold Pack completed MYRIAM HOOD, OTR/L, CHT [address] [place], [address], [facility] 10/09/2024 07:46:26 09/29/19 25 OT Evaluation - Moderate complexity completed MYRIAM HOOD, OTR/L, CHT [address] [place], [address], [facility] 09/29/2024 10:40:03 09/29/19 25 OT Therapeutic Exercise completed MYRIAM HOOD, OTR/L, CHT [address] [place], [address], [facility] 09/29/2024 11:43:08 09/29/19 25 PT Hot/Cold Pack completed MYRIAM HOOD, OTR/L, CHT [address] [place], [address] [place] [address] 09/29/2024 10:50:01 09/26/19 25 Op Note completed BEAR SPENCE MD [address] [place] [address], [address] [place] [address] 09/26/2024 09:00:00 09/26/19 25 transposition of ulnar nerve at elbow completed Moriah Garcia [facility] 10/20/2024 08:48:05 08/29/20 24 Electromyography (EMG) with Nerve Conduction Study (NCV) completed Amelia Carballo (Nicky) [facility] 08/29/2024 15:26:50 Shoulder joint surgery completed Melinda Karena [facility] 06/27/2024 08:15:54 Cervical Spine Surgery completed Melinda Karena [facility] 06/27/2024 08:15:10 insertion of arterial stent completed Melinda Karena [facility] 06/27/2024 08:15:37 barium swallow completed Moriah Garcia [facility] 07/10/2024 10:46:40 Imaging Results None recorded. Procedure Notes None recorded. Medical Equipment None Reported. Allergies Allergen ID Allergen Name Allergen Category Reaction Reaction Severity Criticality Documentation Date Start Date Code Code System Note Provider Name and Address Organization Details Recorded Time [id number] Zithromax medicatio n diarrhea fever Not available Not available Not available 06/27/2024 4 RxNorm thrus h mouth Melinda Karena null, [facility] 08:12:38 Medications Name Sig Start Date [...] ONCE WEEKLY active taking 15 mg now (10/20/19) Not Available Not Available Not Available Vitals Date Recorded Body height Body mass index (BMI) Body weight Provider Name and Address Organization Details Last Updated DateTime 11/08/2024 193.04 cm 44.9 kg/m2 038300.58 g [place] [facility] 11/08/2024 08:19:39 Date Recorded Body height Body mass index (BMI) Body weight Heart rate Oxygen saturation Oxygen saturation in Arterial blood by Pulse oximetry Systolic And Diastolic Provider Name and Address Organization Details Last Updated DateTime 5 193.04 cm 45.4 kg/m2 401671. 95 g 56 /min 96 % 96 % 130/78 mm[Hg] Moriah Garcia [facility] 5 08:10:24 Date Recorded Body height Heart rate Oxygen saturation Oxygen saturation in Arterial blood by Pulse oximetry Systolic And Diastolic Provider Name and Address Organization Details Last Updated DateTime 5 193.04 cm 70 /min 93 % 93 % 112/70 mm[Hg] Moriah Garcia [facility] 5 08:05:14 Date Recorded Body height Heart rate Oxygen saturation Oxygen saturation in Arterial blood by Pulse oximetry Systolic And Diastolic Provider Name and Address Organization Details Last Updated DateTime 5 193.04 cm 77 /min 95 % 95 % 118/75 mm[Hg] Becky Leon [facility] 5 08:08:25 Social History Question Answer Notes LastModified by Organizat ion Details LastModified Time Tobacco Smoking Status Never Smoker Zena Aguilar sam, [facility] 01/03/2024 10:07:29 What Is Your Level Of Caffeine Consumption? Heavy [email or web address] Information not available 08/18/2024 What Was The Date Of Your Most Recent Tobacco Screening? 06/27/2024 Information not available 06/27/2024 What Is Your Relationship Status? Information not available 06/27/2024 Sex: Male Functional Status Question Answer Note LastModified by Organizat ion Details LastModified Time Do you use any illicit or recreational drugs? No [email or web address] Information not available 07/10/2024 What is your level of alcohol consumption? 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) Information not available 06/27/2024 Mental Status [...] History Condition Response Gout N Other N Anxiety/Depression Y Thyroid Disease N Kidney Stones N Hernia Y COPD N Depression Y Glaucoma N Pneumonia N Anesthesia Complications N Anxiety Disorder Y Arthritis Y Blood Clot N Cancer N Stroke N Blood Thinners N Alcohol Overuse/Alcohol Abuse N High Cholesterol Y Liver Disease N Kidney Disease Y Allergies/Hayfever Y Heart Conditions Y Parkinson's Disease N Alzheimer's N Migraines N Skin Problems N Immune System Disorder N Heart Attack (AR) N Mental Illness N Neurological Problems Y Diabetes Y Rheumatic Fever N Bleeding Disorder N Seizures/Epilepsy N Tuberculosis N Genetic Disorder N AIDS/HIV N Asthma N Sleep Apnea Y Included as Review of Systems Y Heart Disease Y Hypertension Y Osteoporosis N Past Encounters Encounter ID Performer Location Encounter Start Date Encounter Closed Date Diagnosis/Indication Diagnosis SNOMED-CT Code Diagnosis ICD10 Code Diagnosis IMO Codes Diagnosis Note [id number] KENY WINTERS PA-C [facility] [address] [place], [place] [id number] 01/03/2024 09:46:20 01/04/2024 12:18:30 Lumbar radiculopathy 494504808 M54.16 Low back pain 958290966 M54.50 [id number] LINO IQBAL, STAFFING DIRECTOR [facility] [address] [place] [address] 06/01/2024 10:34:28 06/05/2024 10:34:56 Cervical radiculopathy 56717811 M54.12 [id number] KEERTHI ASHLEY MD NEUROLOGY [facility] [address] [place] [address] 06/27/2024 07:39:14 06/28/2024 15:09:02 Isolated head tremor 696498402 G25.0 Diabetic p eripheral neuropathy 164128733 E11.40 Low back pain 005881563 M54.50 Neck pain 53620729 M54.2 Dysphagia 68941309 R13.1 0 Impairment of balance 38 7048385 R26.89 Mild memor y disturbance 812498814 R41.3 [id number] ANNA MALIK DO NEUROLOGY [facility] [address] [place] [address] 07/10/2024 10:34:36 07/11/2024 04:44:10 Spasmodic torticollis 71016041 G24.3 Significan t dystonic posturing of the head consistent with cervical dystonia. This is impacting his quality of life, interferes with driving and eating. He has significan t constant pain from the constant head movement.Fernando orourke would be a good candidate for XEOMIN injections with particular focus on R SCM, L splenius capitus, R splenius capitus, and R upper trapezius/ levator.I will proceed with insurance investigat ion for approval of procedure. I do want him to follow up with Dr Edge on his recommenda tions for the MRI cervical spine findings. If he were to have any additional neck surgery would want to hold off on injection until he has recovered from surgery. 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 Isolated head tremor 230 726441 G25.0 Neck pain 26989001 M54.2 Ulnar neur opathy of left arm 9782913068 32309 G56.22 [id number] KEERTHI ASHLEY MD NEUROLOGY [facility] [address] [place] [address] 08/29/2024 13:10:22 08/30/2024 04:21:51 Paresthesia of bilateral hands 545805255 R20.2 Skin sensa tion disturbance 28024482 R20.9 Ulnar neur opathy of left arm 0992470866 84931 G56.22 [id number] BEAR SPENCE MD [facility] [address] [address] 09/01/2024 11:08:38 09/01/2024 11:53:01 Ulnar nerve entrapment at elbow 867845051 G56.20 Surgical interventi on is recommende d through ulnar nerve transposit ion to alleviate nerve compressio n. This involves relocating the nerve to prevent stretching during elbow flexion, aiming to halt muscle weakness progressio n and reduce tingling episodes. The patient should experience improved strength, although muscle recovery may not be complete. History of cervical spine fusion 2550804544 101 Z98.1 Despite incomplete fusion reported at C5 and C6, the current focus is on addressing the cubital tunnel syndrome as it provides a quicker recovery. Orthopedic follow-up for monitoring the existing cervical condition is suggested post-nerve surgery. [id number] ANNA MALIK DO NEUROLOGY [facility] [address] [place] [address] 09/08/2024 07:45:14 09/12/2024 08:58:54 Spasmodic torticollis 23019972 G24.3 Significan t dystonic posturing of the head consistent with cervical dystonia. This is impacting his quality of life, interferes with driving and eating. He has significan t constant pain from the constant head movement.H sharad would be a good candidate for XEOMIN injections with particular focus on L SCM, R splenius capitus, R splenius capitus, and R upper trapezius/ levator. [id number] BEAR SPENCE MD SURGERY SCHEDULE [address] [place] [address] 09/26/2024 06:26:14 09/26/2024 06:27:58 [id number] MYRIAM HOOD OTR/L, CHT PHYSICAL THERAPY / HAND THERAPY [facility] [address] [place] [address] 09/29/2024 10:26:02 10/02/2024 12:12:57 Ulnar nerve entrapment at elbow 067483378 G56.22 SQUNT [id number] WENDI BENITO PA-C [facility]THOPEDI [facility] [address] [address] 10/09/2024 09:59:54 10/09/2024 10:40:25 Ulnar nerve entrapment at elbow 645105704 G56.20 Doing well status post left subcutaneo us ulnar nerve transposit ion History of cervical spine fusion 8601127413 101 Z98.1 Despite incomplete fusion reported at C5 and C6, the current focus is on addressing the cubital tunnel syndrome as it provides a quicker recovery. Orthopedic follow-up for monitoring the existing cervical condition is suggested post-nerve surgery. [id number] BRIANNA SLADE/L, CHT PHYSICAL THERAPY / HAND THERAPY [facility] [address] [place] [address] 10/09/2024 10:00:51 10/10/2024 05:50:35 Ulnar nerve entrapment at elbow 579952796 G56.22 SQUNT [id number] ANNA MALIK DO NEUROLOGY [facility] [address] [place] [address] 10/20/2024 07:39:19 10/21/2024 04:48:37 Spasmodic torticollis 82449034 G24.3 Significan t dystonic posturing of the head consistent with cervical dystonia. This is impacting his quality of life, interferes with driving and eating. He has significan t constant pain from the constant head movement.Fernando orourke had some temporary benefits with the Xeomin injections .He will keep Xeomin appt for November. At that time will increase his dose in the left SCM and R splenius capitus and also do some left upper trapezius. Increase dose from 180 to 250 units. [id number] MYRIAM HOOD, OTR/L, CHT PHYSICAL THERAPY / HAND THERAPY [facility] [address] [address] 10/23/2024 08:32:29 10/24/2024 04:17:32 Ulnar nerve entrapment at elbow 659014595 G56.22 SQUNT [id number] WENDI BENITO PA-C [facility]THOPEDI [facility] [address] [address] 11/08/2024 08:03:35 11/08/2024 08:40:09 Ulnar nerve entrapment at elbow 672902296 G56.20 Doing well status post left subcutaneo us ulnar nerve transposit ion History of cervical spine fusion 6503523158 101 Z98.1 Despite incomplete fusion reported at C5 and C6, the current focus is on addressing the cubital tunnel syndrome as it provides a quicker recovery. Orthopedic follow-up for monitoring the existing cervical condition is suggested post-nerve surgery. [id number] ANNA MALIK DO NEUROLOGY [facility] [address] [place] [address] 12/08/2024 07:57:28 12/12/2024 00:16:28 Spasmodic torticollis 87990531 G24.3 Significan t dystonic posturing of the head consistent with cervical dystonia. This is impacting his quality of life, interferes with driving and eating. He has significan t constant pain from the constant head movement.Fernando orourke would be a good candidate for XEOMIN injections with particular focus on L SCM, R splenius capitus, R splenius capitus, and R upper trapezius/ levator. [id number] ANNA MALIK, DO NEUROLOGY [address] [address] 03/09/2025 07:44:48 03/09/2025 16:23:01 Spasmodic torticollis 45075673 G24.3 His dose was increased today. He does have significan t pulling in both trapezius so will see how he does with today's dosing but he may need further increase at the next visit. He will call with an update in 6 weeks. [id number] ANNA MALIK, DO NEUROLOGY [address] [place] [address] 06/08/2025 08:00:03 06/12/2025 07:44:37 Spasmodic torticollis 42489182 G24.3 His dose was increased today. He will call with an update in 6 weeks. Health Concerns Section Related Observation LastModified by Organization Detai ls LastModified Time None Recorded Concern Status LastModified by Organization Details LastModified Time None Recorded Advance Directives Directive None Recorded Payers Insurance Date Sequence Insurance Name Policy Number Policy Marcus Covered Member ID Marcus Member ID Guarantor Name 10/20/2024 2 [employer] (POS II) [id number] Joel Weiss [id number] Joel Weiss 06/12/2025 1 [employer] [id number] Joel Weiss [id number] Joel Weiss Notes Date Note Type Note Provider Name and Address Organization Details Recorded Time text/html Patient History: Pt reports that overall he is progressing well with active therapy. Pain (0-10): Mild Pain in last 24 hours (0-10:How often symptoms experienced Constantly (76-100%), Frequently (51-75%), Occasionally (26-50%), Intermittently (0-25%): Intermittently DOI:DOS: [id number] Deficits: Pt reports having at least 3 performance deficits that are limiting ADL and IADL functional secondary to having hand/arm surgery/injury.These ADL Deficits specifically are related to: MYRIAM HOOD, OTR/L, CHT [address] [place], [address], [facility] 10/23/2024 10:10:54 5 text/html Patient arrives for scheduled follow-up 6 weeks status post left subcutaneous ulnar nerve transposition for severe symptoms. He reports other than some sensitivity along the scar he feels like he is doing very well. He is attending therapy for his shoulder, but not specifically for the elbow. POST OP GLOBAL VISIT DATE OF SURGERY: 09/26/2024TIME POST SURGERY:6 WKSSURGERY: Left Subcutaneous ulnar nerve transposition INTERVAL HISTORY: PREOP SYMPTOMSBETTER PAIN LEVEL (VAS)4/10 OVERALL ASSESSMENTIMPROVING NEW SYMPTOMS OR QUESTIONS: Mr. Weiss is here for post-op recheck. Pt says he is doing better. He says therapy is going good and helping, lt elbow is still just sensitive with certain movements. OTHER RECENT SURGERIES: n/a EMPLOYMENT STATUS: retired WENDI BENITO PA-C [address] [place], [address], [facility] 11/08/2024 09:05:32 5 text/html Joel comes in today for repeat XEOMIN injections. [...] man seen at the request of Dr. Patrick for evaluation.He was accompanied by his . [...] ACDF from C5 through C7. There is moderate/severebilateral neural foraminal narrowing at these levels, and [...] problem. Drives, functions. ANNA MALIK, DO [address] [place], [address], [facility] 12/08/2024 08:30:33 5 text/html Joel comes in today for repeat [...] man seen at the request of Dr. Patrick for evaluation.He was accompanied by his . [...] ACDF from C5 through C7. There is moderate/severebilateral neural foraminal narrowing at these levels, and [...] problem. Drives, functions. ANNA MALIK, DO [address] [place], [address], [facility] 03/09/2025 08:28:01 5 text/html Joel comes in today for repeat [...] man seen at the request of Dr. Patrick for evaluation.He was accompanied by his . [...] ACDF from C5 through C7. There is moderate/severebilateral neural foraminal narrowing at these levels, and [...] Drives, functions. ANNA MALIK, DO [address], [place], [address], [facility] 06/08/2025 08:45:13
--- OUTSIDE RECORDS SUMMARY | 2025-06-26 14:34 | XMS_ITS | Clinical Summary ---
Author Organization [facility] Address [address] [place] [address] Care Team Providers Care Copyholder Name Role Phone Filemon Alvarez MD Primary Care Provider + [phone] Allergies Active Allergy Reactions Criticality Noted Date Comments Amoxicillin Rash Low 01/24/2025 Lisinopril Cough 01/24/2025 Azithromycin Hives Low 10/15/2016 Medications vitamin D (ERGOCALCIFEROL) 10500 units capsule capsule Take 1 capsule by [...] DAY 90 tablet 1 02/27/20 25 Active tiZANidine (ZANAFLEX) 2 MG tablet 1 tablet. Active triamcinolone (KENALOG) 0.1 % cream APPLY 1 APPLICATION EXTERNALLY TWICE A DAY 02/10/20 25 Active oxyCODONE-acetami nophen (PERCOCET) 5-325 MG per tablet Take by mouth See Admin Instructions. Take 1 tablet by mouth every 4-6 hours as needed for pain Active Active Problems Problem Noted Date Diagnosed [...] inner ear issues. - 5-day Holter monitor (Neteven). Will call patient with result Assessment & [...] Encounters Date Type Department Care Team Description 04/25/2025 9:30 AM EDT Office Visit [facility] [address] [place] [phone] Dominique Rubio APRN Dizziness; Essential hypertension; BILLIE (obstructive sleep apnea) 04/25/2025 Travel from Last 3 Months Immunizations Immunization [...] Sign Reading Time Taken Comments Blood Pressure 124/74 04/25/2025 9:30 AM EDT Pulse 51 04/25/2025 9:30 AM EDT Temperature 36.6 C (97.8 F) 04/25/2025 9:30 AM EDT Respiratory Rate 18 12/22/2024 11:25 AM EDT Oxygen Saturation 98% 04/25/2025 9:30 AM EDT Inhaled Oxygen Concentration - - Weight 165 kg (363 lb 14.4 oz) 04/25/2025 9:30 A M EDT Height 193 cm (6' 4 ) 04/25/2025 9:30 AM EDT Body Mass Index 44.3 04/25/2025 9:30 AM EDT Plan of Treatment Upcoming Encounters Date Type Department Care Team (Late st Contact Info) Description 04/30/2026 9:15 AM EDT Office Visit [facility] [address] [place] [phone] Dominique Rubio APRN [address] [place] [address] Health Maintenance Due Date Last [...] ANNUAL PHYSICAL 01/26/2019 HEPATITIS C SCREENING 01/26/2019 TDAP/TD VACCINES (3 - Td or Tdap) 10/17/2024 015, 11/17/1996 INFLUENZA VACCINE 04/13/2025 HEMOGLOBIN A1C 06/23/2025 12/22/2024 LIPID PANEL 12/22/2025 12/22/2024, 08/22/2018 Procedures Procedure Name Priority Date/Time Associated Diagnosis Comments HEMOGLOBIN A1C STAT 12/22/2024 10:05 AM EDT LIPID PANEL STAT 12/22/2024 10:05 AM EDT from Last 3 Months or Most Recently Relevant to Health Maintenance Results * (ABNORMAL) Hemoglobin A1c (12/22/2024 10:05 AM EDT) Hemoglobin A1C 5.80(H) 4.80 - 5.60 % 12/22/2024 11:14 AM EDT [facility] Blood Line / Unknown 12/22/2024 10 :05 AM EDT 12/22/2024 10:26 AM EDT Narrative [facility] - 12/22/2024 11:14 AM EDT Hemoglobin A1C Ranges: Increased Risk for Diabetes 5.7% to 6.4% Diabetes >= 6.5% Diabetic Goal < 7.0% Amelia Louis E MAIL SYSTEM ADMINISTRATOR LAB BLOOD ORDERABLES Final Result [facility]
[address] [place] [address], * Lipid Panel (12/22/2024 10:05 AM EDT) Pathologist [facility] Total Cholesterol 100 0 - 200 mg/dL 12/22/2024 10:54 AM EDT [facility] Triglycerides 93 0 - 150 mg/dL 12/22/2024 10:54 AM EDT [facility] HDL Cholesterol 44 40 - 60 mg/dL 12/22/2024 10:54 AM EDT [facility] LDL Cholesterol 38 0 - 100 mg/dL 12/22/2024 10:54 AM EDT [facility] VLDL Cholesterol 18 5 - 40 mg/dL 12/22/2024 10:54 AM EDT [facility] LDL/HDL Ratio 0.85 12/22/2024 10:54 AM EDT [facility] Blood Line / Unknown 12/22/2024 10 :05 AM EDT 12/22/2024 10:26 AM EDT Narrative [facility] - 12/22/2024 10:54 AM EDT Cholesterol [...] Louis APRN LAB BLOOD ORDERABLES Final Result [facility]
[address] [place] [address], from Last 3 Months or Most Recently Relevant to Health Maintenance Insurance [employer] Care Teams Copyholder Relationship Specialty Start Date End Date Filemon Alvarez MD [address] [facility] [address] [place] [id number] PCP - General Family Medicine 12/22/22
== END 2025-06-26 23:59 | disposition home or self-care (01) ==
LOC: RT 14:26
PROVIDERS: PCP Family Medicine; Visit Provider Family Medicine
DX: I83.893 Varicose veins of bilateral lower extremities with other complications (principal)
CPT/HCPCS: 93970

== ENCOUNTER 2025-07-10 08:00 | Outpatient (RCR) | payer OTHER, SELFPAY | END 2025-07-10 23:59 | disposition home or self-care (01) | LOC: OT 08:00 | PROVIDERS: Visit Provider Orthopaedic Surgery | DX: Z47.89 Encounter for other orthopedic aftercare (principal); Z98.890 Other specified postprocedural states | CPT/HCPCS: 97032; 97110; 97140; 97530 ==